=== PATIENT | female | born 1950 | race Caucasian/White ===

== ENCOUNTER 2017-04-17 09:30 | Outpatient (CLI) | payer MEDICARE, OTHER, SELFPAY | END 2017-04-17 11:30 | disposition home or self-care (01) | PROVIDERS: Visit Provider Internal Medicine | DX: Z51.11 Encounter for antineoplastic chemotherapy; C18.9 Malignant neoplasm of colon, unspecified | CPT/HCPCS: 81001; 85025; 96413; J9035 ==

== ENCOUNTER 2017-04-29 10:25 | Outpatient (CLI) | payer MEDICARE, OTHER, SELFPAY ==
[2017-04-29 10:32] VITALS: BMI 30.2
[2017-04-29 10:51] LABS: Microscopic, Urine URINE MICROSCOPIC (MICROSCOPIC)
[2017-04-29 10:53] LABS: Appearance,Urine CLEAR (Clear); Bilirubin,Urine Negative (Negative); Blood, Urine 1+ (Negative); Color,Urine YELLOW (Yellow); Glucose,Urine (UA) Negative (Negative); Ketones,Urine Negative (Negative); Leukocyte Esterase,Urine Negative (Negative); Nitrate,Urine Negative (Negative); PH,Urine 5.5 (5.0-8.5); Protein,Urine Negative (Negative); Urobilinogen,Urine 0.2 EU/dl (0.2)
[2017-04-29 10:55] LABS: Basophils # 0.1 K/mm3 (0-0.2); Basophils % 0.8 % (0.1-2.0); Eosinophils # 0.3 K/mm3 (0.0-0.4); Eosinophils % 4.4 % (0.1-12.0); Hematocrit 41.2 % (37.0-47.0); Hemoglobin 13.1 g/dL (12.2-16.2); Lymphocytes # 1.1 K/mm3 (0.7-4.5); Lymphocytes % 18.4 K/mm3 (10-50); Mean Corpuscular HGB Conc 31.7 g/dL (31.8-35.4); Mean Corpuscular Hemoglobin 27.1 pg (27.0-31.2); Mean Corpuscular Volume 85.5 fl (81-99); Mean Platelet Volume 7.6 fl (7.4-10.4); Monocytes # 0.4 K/mm3 (0.1-1.0); Monocytes % 6.2 % (1.7-9.3); Neutrophils % 70.1 % (37.0-80.0); Platelet Count 161 K/mm3 (142-424); Red Blood Count 4.82 M/mm3 (4.20-5.40); Red Cell Distribution Width 17.6 % (11.5-17.5); White Blood Count 5.7 K/mm3 (4.8-10.8)
[2017-04-29 11:09] LABS: Bacteria,Urine 1+ /lpf
[2017-04-29 12:01] VITALS: BP 146/46; PULSE 64; RESP 20; TEMP 36.4; O2SAT 98
[2017-04-29 12:16] VITALS: BP 141/50; PULSE 61; RESP 20; TEMP 36.5; O2SAT 97
[2017-04-29 12:36] VITALS: BP 123/64; PULSE 56; RESP 20; TEMP 36.4; O2SAT 98
== END 2017-04-29 12:50 | disposition home or self-care (01) ==
LOC: INF 14:45
PROVIDERS: Family Provider Family Medicine; PCP Family Medicine; Visit Provider Internal Medicine
DX: C18.9 Malignant neoplasm of colon, unspecified (principal); R82.90 Unspecified abnormal findings in urine; Z51.11 Encounter for antineoplastic chemotherapy
CPT/HCPCS: 81001; 85025; 87086; 96413; J9035

== ENCOUNTER 2017-05-13 10:23 | Outpatient (CLI) | payer MEDICARE, OTHER, SELFPAY ==
[2017-05-13 10:24] VITALS: BMI 31.1
[2017-05-13 11:00] VITALS: BP 115/80; PULSE 53; RESP 18; TEMP 36.4; O2SAT 96
[2017-05-13 11:14] LABS: Appearance,Urine CLEAR (Clear); Bilirubin,Urine Negative (Negative); Blood, Urine TRACE-I (Negative); Color,Urine YELLOW (Yellow); Glucose,Urine (UA) Negative (Negative); Ketones,Urine Negative (Negative); Leukocyte Esterase,Urine Negative (Negative); Microscopic, Urine URINE MICROSCOPIC (MICROSCOPIC); Nitrate,Urine Negative (Negative); PH,Urine 5.5 (5.0-8.5); Protein,Urine Negative (Negative); Specific Gravity, Urine 1.015 (1.005-1.030); Urobilinogen,Urine 0.2 EU/dl (0.2)
[2017-05-13 11:15] LABS: Basophils # 0.1 K/mm3 (0-0.2); Basophils % 0.8 % (0.1-2.0); Eosinophils # 0.3 K/mm3 (0.0-0.4); Eosinophils % 4.4 % (0.1-12.0); Hematocrit 44.1 % (37.0-47.0); Hemoglobin 13.9 g/dL (12.2-16.2); Lymphocytes % 13.5 K/mm3 (10-50); Mean Corpuscular HGB Conc 31.4 g/dL (31.8-35.4); Mean Corpuscular Hemoglobin 26.9 pg (27.0-31.2); Mean Corpuscular Volume 85.6 fl (81-99); Mean Platelet Volume 7.4 fl (7.4-10.4); Monocytes # 0.4 K/mm3 (0.1-1.0); Monocytes % 4.7 % (1.7-9.3); Neutrophils # 5.7 K/mm3 (1.8-7.8); Neutrophils % 76.6 % (37.0-80.0); Platelet Count 183 K/mm3 (142-424); Red Blood Count 5.16 M/mm3 (4.20-5.40); Red Cell Distribution Width 17.9 % (11.5-17.5); White Blood Count 7.5 K/mm3 (4.8-10.8)
[2017-05-13 11:28] LABS: Alanine Aminotransferase 22 U/L (12-78); Albumin Level 3.3 gm/dL (3.4-5.0); Albumin/Globulin Ratio 0.9 (1.1-1.8); Alkaline Phosphatase 82 U/L (46-116); Anion Gap 9.8 mEq/L (5-15); Aspartate Amino Transferase 23 U/L (15-37); Bilirubin,Total 0.4 mg/dL (0.2-1.0); Blood Urea Nitrogen 13 mg/dL (7-18); Calcium 8.5 mg/dL (8.5-10.1); Carbon Dioxide 29 mmol/L (21.0-32.0); Chloride 105 mmol/L (98-107); Creatinine Clearance Estimated 66 mL/min (0-300); Creatinine,Serum 0.69 mg/dL (0.55-1.02); Estimated Glomerular Filt Rate 85 ml/min (>60); GFR (African American) 103 ML/MIN (>60); Globulin 3.7 gm/dl (1.3-3.2); Glucose 102 mg/dL (74-106); Potassium 3.8 mmoL/L (3.5-5.1); Sodium 140 mmol/L (136-145)
[2017-05-13 11:31] LABS: Bacteria,Urine 2+ /lpf; RBC,Urine Occasional #/hpf (0-3); WBC,Urine Occasional #/hpf (0-3)
[2017-05-13 12:17] VITALS: BP 105/63; PULSE 54; RESP 18; O2SAT 96
[2017-05-13 12:32] VITALS: BP 110/60; PULSE 58; RESP 18; O2SAT 96
[2017-05-13 12:55] VITALS: BP 107/62; PULSE 57; RESP 18; TEMP 36.5; O2SAT 97
== END 2017-05-13 12:55 | disposition home or self-care (01) ==
LOC: INF 10:23
PROVIDERS: Family Provider Family Medicine; PCP Family Medicine; Visit Provider Internal Medicine
DX: C18.9 Malignant neoplasm of colon, unspecified (principal); Z51.11 Encounter for antineoplastic chemotherapy; R82.90 Unspecified abnormal findings in urine
CPT/HCPCS: 80053; 81001; 85025; 87086; 96413; J9035

== ENCOUNTER 2017-05-26 09:21 | Outpatient (CLI) | payer MEDICARE, OTHER, SELFPAY ==
[2017-05-26 09:24] VITALS: BMI 32.0
[2017-05-26 10:17] LABS: Microscopic, Urine URINE MICROSCOPIC (MICROSCOPIC)
[2017-05-26 10:18] LABS: Appearance,Urine CLEAR (Clear); Bilirubin,Urine Negative (Negative); Blood, Urine TRACE-I (Negative); Color,Urine YELLOW (Yellow); Glucose,Urine (UA) Negative (Negative); Ketones,Urine Negative (Negative); Leukocyte Esterase,Urine Negative (Negative); Nitrate,Urine Negative (Negative); PH,Urine 5.5 (5.0-8.5); Protein,Urine Negative (Negative); Specific Gravity, Urine 1.015 (1.005-1.030); Urobilinogen,Urine 0.2 EU/dl (0.2)
[2017-05-26 10:20] LABS: Basophils # 0.1 K/mm3 (0-0.2); Basophils % 0.7 % (0.1-2.0); Eosinophils # 0.2 K/mm3 (0.0-0.4); Eosinophils % 3.3 % (0.1-12.0); Hematocrit 42.2 % (37.0-47.0); Hemoglobin 13.5 g/dL (12.2-16.2); Lymphocytes % 14.1 K/mm3 (10-50); Mean Corpuscular HGB Conc 31.9 g/dL (31.8-35.4); Mean Corpuscular Hemoglobin 27.7 pg (27.0-31.2); Mean Corpuscular Volume 86.7 fl (81-99); Mean Platelet Volume 7.5 fl (7.4-10.4); Monocytes # 0.4 K/mm3 (0.1-1.0); Monocytes % 4.9 % (1.7-9.3); Neutrophils # 5.5 K/mm3 (1.8-7.8); Platelet Count 126 K/mm3 (142-424); Red Blood Count 4.86 M/mm3 (4.20-5.40); Red Cell Distribution Width 18.2 % (11.5-17.5); White Blood Count 7.1 K/mm3 (4.8-10.8)
[2017-05-26 10:28] LABS: Bacteria,Urine Trace /lpf; RBC,Urine Occasional #/hpf (0-3)
[2017-05-26 10:32] LABS: Alanine Aminotransferase 22 U/L (12-78); Albumin Level 3.3 gm/dL (3.4-5.0); Albumin/Globulin Ratio 0.9 (1.1-1.8); Alkaline Phosphatase 84 U/L (46-116); Anion Gap 10.6 mEq/L (5-15); Aspartate Amino Transferase 19 U/L (15-37); Bilirubin,Total 0.5 mg/dL (0.2-1.0); Blood Urea Nitrogen 20 mg/dL (7-18); Calcium 8.4 mg/dL (8.5-10.1); Carbon Dioxide 26 mmol/L (21.0-32.0); Chloride 108 mmol/L (98-107); Creatinine Clearance Estimated 65 mL/min (0-300); Creatinine,Serum 0.76 mg/dL (0.55-1.02); Estimated Glomerular Filt Rate 76 ml/min (>60); GFR (African American) 92 ML/MIN (>60); Globulin 3.6 gm/dl (1.3-3.2); Glucose 100 mg/dL (74-106); Potassium 3.6 mmoL/L (3.5-5.1); Sodium 141 mmol/L (136-145); Total Protein,Serum 6.9 gm/dL (6.4-8.2)
[2017-05-26 12:13] VITALS: BP 123/70; PULSE 48; RESP 20; TEMP 36.4; O2SAT 98
[2017-05-26 12:28] VITALS: BP 119/68; PULSE 51; RESP 18; TEMP 36.6; O2SAT 99
[2017-05-26 12:45] VITALS: BP 114/55; PULSE 52; RESP 20; TEMP 36.6; O2SAT 99
== END 2017-05-26 12:50 | disposition home or self-care (01) ==
LOC: INF 09:22
PROVIDERS: Family Provider Family Medicine; PCP Family Medicine; Visit Provider Internal Medicine
DX: Z51.11 Encounter for antineoplastic chemotherapy (principal); C18.9 Malignant neoplasm of colon, unspecified
CPT/HCPCS: 80053; 81001; 85025; 96413; J9035

== ENCOUNTER 2017-06-10 10:00 | Outpatient (CLI) | payer MEDICARE, OTHER, SELFPAY ==
[2017-06-10 10:01] VITALS: BMI 31.6
[2017-06-10 10:29] LABS: Microscopic, Urine URINE MICROSCOPIC (MICROSCOPIC)
[2017-06-10 10:30] LABS: Basophils % 0.8 % (0.1-2.0); Eosinophils # 0.2 K/mm3 (0.0-0.4); Eosinophils % 4.2 % (0.1-12.0); Hemoglobin 13.1 g/dL (12.2-16.2); Lymphocytes # 0.9 K/mm3 (0.7-4.5); Lymphocytes % 17.6 K/mm3 (10-50); Mean Corpuscular Hemoglobin 27.8 pg (27.0-31.2); Mean Corpuscular Volume 86.9 fl (81-99); Mean Platelet Volume 7.4 fl (7.4-10.4); Monocytes # 0.4 K/mm3 (0.1-1.0); Monocytes % 6.7 % (1.7-9.3); Neutrophils # 3.7 K/mm3 (1.8-7.8); Neutrophils % 70.7 % (37.0-80.0); Platelet Count 149 K/mm3 (142-424); Red Blood Count 4.72 M/mm3 (4.20-5.40); Red Cell Distribution Width 17.7 % (11.5-17.5); White Blood Count 5.3 K/mm3 (4.8-10.8)
[2017-06-10 10:38] LABS: Appearance,Urine CLEAR (Clear); Bilirubin,Urine Negative (Negative); Blood, Urine 1+ (Negative); Color,Urine YELLOW (Yellow); Glucose,Urine (UA) Negative (Negative); Ketones,Urine Negative (Negative); Leukocyte Esterase,Urine Negative (Negative); Nitrate,Urine Negative (Negative); Protein,Urine Negative (Negative); Urobilinogen,Urine 0.2 EU/dl (0.2)
[2017-06-10 10:52] LABS: Bacteria,Urine Trace /lpf; RBC,Urine Occasional #/hpf (0-3)
[2017-06-10 11:34] VITALS: BP 132/75; PULSE 48; RESP 18; TEMP 36.7; O2SAT 98
[2017-06-10 11:49] VITALS: BP 130/71; PULSE 49; RESP 20; TEMP 36.5; O2SAT 97
[2017-06-10 12:04] VITALS: BP 129/68; PULSE 51; RESP 18; O2SAT 97
[2017-06-10 12:19] VITALS: BP 131/69; PULSE 49; RESP 18; TEMP 36.6; O2SAT 98
== END 2017-06-10 12:25 | disposition home or self-care (01) ==
LOC: INF 10:07
PROVIDERS: Family Provider Family Medicine; PCP Family Medicine; Visit Provider Internal Medicine
DX: Z51.11 Encounter for antineoplastic chemotherapy (principal); C18.9 Malignant neoplasm of colon, unspecified
CPT/HCPCS: 81001; 85025; 96413; J9035

== ENCOUNTER → 2017-06-20 08:40 | Outpatient (CLI) | payer MEDICARE, OTHER, SELFPAY ==
[2017-06-20 09:13] LABS: Blood Urea Nitrogen 22 mg/dL (7-18); Creatinine,Serum 0.73 mg/dL (0.55-1.02); Estimated Glomerular Filt Rate 80 ml/min (>60); GFR (African American) 97 ML/MIN (>60)
--- NOTE | 2017-06-20 09:15 | CT_ITS ---
CT chest w con HISTORY: Follow-up: Cancer with pulmonary metastasis ITS.REASON: COLON CANCER ORDERING PHYSICIAN: Robert Mackey MD PATIENT AGE: 67 years TECHNIQUE: Axial images obtained following the administration of 75 mL of Isovue 370 . Sagittal, and coronal reformatted images are also generated and reviewed. COMPARISON: 11/21/2016 FINDINGS: There are enlarged right hilar lymph nodes which have increased in size measuring up to 19 x 14 mm in the right hilum posteriorly previously measuring 9 mm. A 15 mm node is present at the bifurcation of the right pulmonary artery previously measuring 10 mm. There are multiple pulmonary nodules which have increased in size. The largest nodule is in the right lower lobe in the superior segment extending from the right hilum projected posteriorly measuring up to 2.7 x 2 cm previously 2 x 1.4 cm nodules are most numerous in the right lower lobe all showing some increase in size. There is a nodule also in the left lower lobe measuring 10 mm previously measuring 7 mm right upper lobe nodules are also present and is increased in size. No effusions. No infiltrates. No bony destructive process IMPRESSION: Progression of thoracic metastasis with enlarging multiple pulmonary nodules and right hilar adenopathy
--- NOTE | 2017-06-20 09:16 | CT_ITS ---
CT abdomen pelvis w con CLINICAL INDICATION: Metastatic colon cancer follow-up ITS.REASON: COLON CANCER ORDERING PHYSICIAN: Robert Mackey MD PATIENT AGE: 67 years COMPARISON: 12/30/2016 TECHNIQUE: Axial images obtained with sagittal and coronal reformats. PROCEDURE: Oral Contrast: Redicat IV Contrast: 75 mL's of Isovue-370 performed in conjunction with the chest CT. FINDINGS: Please see chest CT for description of the lower chest. There is been a prior cholecystectomy. No focal liver lesion. The spleen and adrenal glands and pancreas are unremarkable. There are bilateral parapelvic renal cysts. An 9 mm stone is present in the lower pole the right kidney without obstruction. There is a left mid abdominal colostomy. Parastomal hernia is present with a few large bowel loops within the hernia. Previously noted small bowel loops within the hernia is not present on today's exam.. No evidence of obstruction. There has been hemicolectomy with removal of the sigmoid colon and rectum there are some mildly prominent small bowel loops in the pelvis with suture line in the pelvis. There is a fluid collection in the left pelvic region which measures 7 x 5 cm. There is an air-fluid level at this region. This may only represent a dilated loop of small bowel. Cannot exclude possibility of an abscess. Contrast is not present within the small bowel at this area. The appendix is unremarkable.. No intestinal obstruction or free air. Postsurgical changes are present involving the anterior abdominal wall. No acute bony anomalies. No bony destructive process. IMPRESSION: 1. Prior left hemicolectomy with left mid abdominal colostomy with herniation of large bowel loops and the colostomy. Previously noted small bowel herniation within the colostomy site is not apparent with no evidence of small bowel obstruction. 2. There is a 7 x 5 cm collection in the central pelvis toward the left possibly due to focally dilated small bowel versus an abscess. Unfortunately the oral contrast is passed this site mostly in the terminal ileum and large bowel. There are some mildly thickened small bowel loops in the left lower quadrant and pelvis 3. Right nephrolithiasis
--- NOTE | 2017-06-20 09:52 | [facility].ITSHM ---
fursomide vit d potassium levothyroxin enalapril stool softner
== END ==
PROVIDERS: Family Provider Family Medicine; PCP Family Medicine; Visit Provider Internal Medicine
DX: Z03.89 Encounter for observation for other suspected diseases and conditions ruled out (principal); C18.9 Malignant neoplasm of colon, unspecified
CPT/HCPCS: 36415; 71260; 74177; 82565; 84520; Q9967

== ENCOUNTER → 2017-07-16 10:11 | Outpatient (CLI) | payer MEDICARE, OTHER, SELFPAY ==
[2017-07-16 10:36] LABS: Basophils % 0.7 % (0.1-2.0); Eosinophils # 0.2 K/mm3 (0.0-0.4); Eosinophils % 3.8 % (0.1-12.0); Hematocrit 46.8 % (37.0-47.0); Hemoglobin 14.9 g/dL (12.2-16.2); Lymphocytes % 17.9 K/mm3 (10-50); Mean Corpuscular HGB Conc 31.9 g/dL (31.8-35.4); Mean Corpuscular Hemoglobin 28.9 pg (27.0-31.2); Mean Corpuscular Volume 90.4 fl (81-99); Mean Platelet Volume 7.5 fl (7.4-10.4); Monocytes # 0.3 K/mm3 (0.1-1.0); Monocytes % 5.2 % (1.7-9.3); Neutrophils # 4.2 K/mm3 (1.8-7.8); Neutrophils % 72.5 % (37.0-80.0); Platelet Count 167 K/mm3 (142-424); Red Blood Count 5.17 M/mm3 (4.20-5.40); Red Cell Distribution Width 17.1 % (11.5-17.5); White Blood Count 5.8 K/mm3 (4.8-10.8)
[2017-07-16 12:22] LABS: Alanine Aminotransferase 25 U/L (12-78); Albumin Level 3.6 gm/dL (3.4-5.0); Albumin/Globulin Ratio 1.2 (1.1-1.8); Alkaline Phosphatase 104 U/L (46-116); Anion Gap 10.8 mEq/L (5-15); Aspartate Amino Transferase 27 U/L (15-37); Bilirubin,Total 0.6 mg/dL (0.2-1.0); Blood Urea Nitrogen 14 mg/dL (7-18); Calcium 8.7 mg/dL (8.5-10.1); Carbon Dioxide 31 mmol/L (21.0-32.0); Chloride 103 mmol/L (98-107); Estimated Glomerular Filt Rate 84 ml/min (>60); GFR (African American) 101 ML/MIN (>60); Globulin 3.1 gm/dl (1.3-3.2); Glucose 108 mg/dL (74-106); Potassium 3.8 mmoL/L (3.5-5.1); Sodium 141 mmol/L (136-145); Total Protein,Serum 6.7 gm/dL (6.4-8.2)
== END ==
PROVIDERS: Visit Provider Nurse Practitioner
DX: C18.9 Malignant neoplasm of colon, unspecified (principal)
CPT/HCPCS: 36415; 80053; 85025

== ENCOUNTER 2017-07-22 09:23 | Outpatient (CLI) | payer MEDICARE, OTHER, SELFPAY ==
[2017-07-22] VITALS (13 sets, daily range): BP systolic 103–161; BP diastolic 56–72; PULSE 49–59; RESP 16–18; TEMP 36.6; BMI 35.6
[2017-07-22 10:35] LABS: Appearance,Urine CLEAR (Clear); Bilirubin,Urine Negative (Negative); Blood, Urine TRACE-I (Negative); Color,Urine YELLOW (Yellow); Glucose,Urine (UA) Negative (Negative); Ketones,Urine Negative (Negative); Leukocyte Esterase,Urine Negative (Negative); Microscopic, Urine URINE MICROSCOPIC (MICROSCOPIC); Nitrate,Urine Negative (Negative); PH,Urine 5.5 (5.0-8.5); Protein,Urine Negative (Negative); Specific Gravity, Urine 1.015 (1.005-1.030); Urobilinogen,Urine 0.2 EU/dl (0.2)
[2017-07-22 10:37] LABS: Basophils % 0.6 % (0.1-2.0); Eosinophils # 0.2 K/mm3 (0.0-0.4); Eosinophils % 3.3 % (0.1-12.0); Hematocrit 45.4 % (37.0-47.0); Hemoglobin 14.2 g/dL (12.2-16.2); Lymphocytes % 14.9 K/mm3 (10-50); Mean Corpuscular HGB Conc 31.2 g/dL (31.8-35.4); Mean Corpuscular Hemoglobin 29.1 pg (27.0-31.2); Mean Corpuscular Volume 93.3 fl (81-99); Mean Platelet Volume 7.7 fl (7.4-10.4); Monocytes # 0.3 K/mm3 (0.1-1.0); Neutrophils # 4.9 K/mm3 (1.8-7.8); Neutrophils % 76.3 % (37.0-80.0); Platelet Count 157 K/mm3 (142-424); Red Blood Count 4.86 M/mm3 (4.20-5.40); Red Cell Distribution Width 16.7 % (11.5-17.5); White Blood Count 6.5 K/mm3 (4.8-10.8)
[2017-07-22 10:44] LABS: Bacteria,Urine 1+ /lpf; Hyaline Casts,Urine Occasional #/lpf (0); Mucus,Urine 1+ /lpf; RBC,Urine Occasional #/hpf (0-3); WBC,Urine Occasional #/hpf (0-3)
[2017-07-22 10:47] LABS: Alanine Aminotransferase 23 U/L (12-78); Albumin/Globulin Ratio 0.8 (1.1-1.8); Alkaline Phosphatase 92 U/L (46-116); Anion Gap 7.7 mEq/L (5-15); Aspartate Amino Transferase 21 U/L (15-37); Bilirubin,Total 0.3 mg/dL (0.2-1.0); Blood Urea Nitrogen 19 mg/dL (7-18); Calcium 8.5 mg/dL (8.5-10.1); Carbon Dioxide 32 mmol/L (21.0-32.0); Chloride 106 mmol/L (98-107); Creatinine Clearance Estimated 68 mL/min (0-300); Creatinine,Serum 0.73 mg/dL (0.55-1.02); Estimated Glomerular Filt Rate 80 ml/min (>60); GFR (African American) 97 ML/MIN (>60); Globulin 3.6 gm/dl (1.3-3.2); Glucose 119 mg/dL (74-106); Potassium 3.7 mmoL/L (3.5-5.1); Sodium 142 mmol/L (136-145); Total Protein,Serum 6.6 gm/dL (6.4-8.2)
== END 2017-07-22 14:55 | disposition home or self-care (01) ==
LOC: INF 09:23
PROVIDERS: Family Provider Family Medicine; PCP Family Medicine; Visit Provider Internal Medicine
DX: Z51.11 Encounter for antineoplastic chemotherapy (principal); C19 Malignant neoplasm of rectosigmoid junction; C78.5 Secondary malignant neoplasm of large intestine and rectum
CPT/HCPCS: 80053; 81001; 85025; 96413; 96415; 96417; J9035; J9206; Q0166

== ENCOUNTER 2017-08-06 13:01 | Outpatient (CLI) | payer MEDICARE, OTHER, SELFPAY ==
[2017-08-06] VITALS (11 sets, daily range): BP systolic 99–151; BP diastolic 44–90; PULSE 50–61; RESP 16–18; TEMP 36.6; BMI 32.4
[2017-08-06 13:28] LABS: Microscopic, Urine URINE MICROSCOPIC (MICROSCOPIC)
[2017-08-06 13:38] LABS: Appearance,Urine CLEAR (Clear); Bilirubin,Urine Negative (Negative); Blood, Urine 1+ (Negative); Color,Urine YELLOW (Yellow); Glucose,Urine (UA) Negative (Negative); Ketones,Urine Negative (Negative); Leukocyte Esterase,Urine Negative (Negative); Nitrate,Urine Negative (Negative); Protein,Urine Negative (Negative); Urobilinogen,Urine 0.2 EU/dl (0.2)
[2017-08-06 13:43] LABS: Alanine Aminotransferase 25 U/L (12-78); Albumin Level 3.5 gm/dL (3.4-5.0); Alkaline Phosphatase 97 U/L (46-116); Anion Gap 11.4 mEq/L (5-15); Aspartate Amino Transferase 26 U/L (15-37); Bilirubin,Total 0.4 mg/dL (0.2-1.0); Blood Urea Nitrogen 11 mg/dL (7-18); Calcium 8.8 mg/dL (8.5-10.1); Carbon Dioxide 30 mmol/L (21.0-32.0); Chloride 103 mmol/L (98-107); Creatinine Clearance Estimated 66 mL/min (0-300); Creatinine,Serum 0.69 mg/dL (0.55-1.02); Estimated Glomerular Filt Rate 85 ml/min (>60); GFR (African American) 103 ML/MIN (>60); Globulin 3.5 gm/dl (1.3-3.2); Glucose 105 mg/dL (74-106); Potassium 3.4 mmoL/L (3.5-5.1); Sodium 141 mmol/L (136-145)
[2017-08-06 13:44] LABS: Basophils % 0.6 % (0.1-2.0); Eosinophils # 0.1 K/mm3 (0.0-0.4); Eosinophils % 2.5 % (0.1-12.0); Hematocrit 45.4 % (37.0-47.0); Hemoglobin 14.3 g/dL (12.2-16.2); Lymphocytes % 16.6 K/mm3 (10-50); Mean Corpuscular HGB Conc 31.6 g/dL (31.8-35.4); Mean Corpuscular Hemoglobin 29.1 pg (27.0-31.2); Mean Corpuscular Volume 92.1 fl (81-99); Mean Platelet Volume 7.2 fl (7.4-10.4); Monocytes # 0.3 K/mm3 (0.1-1.0); Monocytes % 5.2 % (1.7-9.3); Neutrophils # 4.4 K/mm3 (1.8-7.8); Neutrophils % 75.2 % (37.0-80.0); Platelet Count 155 K/mm3 (142-424); Red Blood Count 4.93 M/mm3 (4.20-5.40); Red Cell Distribution Width 17.2 % (11.5-17.5); White Blood Count 5.8 K/mm3 (4.8-10.8)
[2017-08-06 13:52] LABS: Bacteria,Urine Trace /lpf; RBC,Urine Occasional #/hpf (0-3); WBC,Urine Occasional #/hpf (0-3)
== END 2017-08-06 17:22 | disposition home or self-care (01) ==
LOC: INF 13:01
PROVIDERS: Family Provider Family Medicine; PCP Family Medicine; Visit Provider Internal Medicine
DX: C18.9 Malignant neoplasm of colon, unspecified (principal); Z51.11 Encounter for antineoplastic chemotherapy
CPT/HCPCS: 80053; 81001; 85025; 96413; 96415; J9035; J9206; Q0166

== ENCOUNTER → 2017-08-12 13:55 | Outpatient (CLI) | payer MEDICARE, OTHER, SELFPAY ==
[2017-08-12 14:03] LABS: Microscopic, Urine URINE MICROSCOPIC (MICROSCOPIC)
[2017-08-12 14:31] LABS: Appearance,Urine CLEAR (Clear); Bilirubin,Urine Negative (Negative); Blood, Urine 1+ (Negative); Color,Urine YELLOW (Yellow); Glucose,Urine (UA) Negative (Negative); Ketones,Urine TRACE (Negative); Leukocyte Esterase,Urine Negative (Negative); Nitrate,Urine Negative (Negative); PH,Urine 5.5 (5.0-8.5); Protein,Urine Negative (Negative); Specific Gravity, Urine 1.025 (1.005-1.030); Urobilinogen,Urine 0.2 EU/dl (0.2)
[2017-08-12 14:49] LABS: Bacteria,Urine 2+ /lpf; Mucus,Urine 1+ /lpf; RBC,Urine Occasional #/hpf (0-3); Squamous Epithelial Cell,Urine TNTC #/hpf (0-5); WBC,Urine Occasional #/hpf (0-3)
== END ==
PROVIDERS: Family Provider Family Medicine; PCP Family Medicine; Visit Provider Surgery
DX: Z01.818 Encounter for other preprocedural examination (principal); C78.5 Secondary malignant neoplasm of large intestine and rectum; R82.90 Unspecified abnormal findings in urine
CPT/HCPCS: 81001; 87086; 93005

== ENCOUNTER → 2017-09-03 08:23 | Outpatient (CLI) | payer MEDICARE, OTHER, SELFPAY ==
[2017-09-03 08:40] VITALS: BMI 32.5
[2017-09-03 08:58] LABS: Microscopic, Urine URINE MICROSCOPIC (MICROSCOPIC)
[2017-09-03 09:00] LABS: Basophils # 0.1 K/mm3 (0-0.2); Eosinophils # 0.2 K/mm3 (0.0-0.4); Hematocrit 40.8 % (37.0-47.0); Hemoglobin 13.4 g/dL (12.2-16.2); Lymphocytes # 1.1 K/mm3 (0.7-4.5); Lymphocytes % 18.5 K/mm3 (10-50); Mean Corpuscular HGB Conc 32.7 g/dL (31.8-35.4); Mean Corpuscular Hemoglobin 29.9 pg (27.0-31.2); Mean Corpuscular Volume 91.3 fl (81-99); Mean Platelet Volume 7.1 fl (7.4-10.4); Monocytes # 0.4 K/mm3 (0.1-1.0); Monocytes % 6.3 % (1.7-9.3); Neutrophils % 70.2 % (37.0-80.0); Platelet Count 130 K/mm3 (142-424); Red Blood Count 4.47 M/mm3 (4.20-5.40); Red Cell Distribution Width 16.9 % (11.5-17.5); White Blood Count 5.7 K/mm3 (4.8-10.8)
[2017-09-03 09:16] LABS: Alanine Aminotransferase 29 U/L (12-78); Albumin Level 3.1 gm/dL (3.4-5.0); Albumin/Globulin Ratio 0.9 (1.1-1.8); Alkaline Phosphatase 94 U/L (46-116); Anion Gap 11.2 mEq/L (5-15); Aspartate Amino Transferase 22 U/L (15-37); Bilirubin,Total 0.4 mg/dL (0.2-1.0); Blood Urea Nitrogen 17 mg/dL (7-18); Calcium 8.2 mg/dL (8.5-10.1); Carbon Dioxide 27 mmol/L (21.0-32.0); Chloride 107 mmol/L (98-107); Creatinine Clearance Estimated 66 mL/min (0-300); Creatinine,Serum 0.59 mg/dL (0.55-1.02); Estimated Glomerular Filt Rate 102 ml/min (>60); GFR (African American) 123 ML/MIN (>60); Globulin 3.3 gm/dl (1.3-3.2); Glucose 125 mg/dL (74-106); Potassium 3.2 mmoL/L (3.5-5.1); Sodium 142 mmol/L (136-145); Total Protein,Serum 6.4 gm/dL (6.4-8.2)
[2017-09-03 09:20] LABS: Appearance,Urine CLEAR (Clear); Bilirubin,Urine Negative (Negative); Blood, Urine 1+ (Negative); Color,Urine YELLOW (Yellow); Glucose,Urine (UA) Negative (Negative); Ketones,Urine Negative (Negative); Leukocyte Esterase,Urine Negative (Negative); Nitrate,Urine Negative (Negative); Protein,Urine Negative (Negative); Specific Gravity, Urine 1.015 (1.005-1.030); Urobilinogen,Urine 0.2 EU/dl (0.2)
[2017-09-03 09:30] LABS: Bacteria,Urine Trace /lpf
== END ==
PROVIDERS: Family Provider Family Medicine; PCP Nurse Practitioner Family; Visit Provider Internal Medicine
DX: C18.9 Malignant neoplasm of colon, unspecified (principal)
CPT/HCPCS: 80053; 81001; 85025

== ENCOUNTER 2017-09-09 09:58 | Outpatient (CLI) | payer MEDICARE, OTHER, SELFPAY ==
[2017-09-09] VITALS (7 sets, daily range): BP systolic 145–166; BP diastolic 52–95; PULSE 51–74; RESP 18; TEMP 36.7; O2SAT 96–97
== END 2017-09-09 13:25 | disposition home or self-care (01) ==
LOC: INF 09:58
PROVIDERS: Family Provider Family Medicine; PCP Nurse Practitioner Family; Visit Provider Internal Medicine
DX: Z51.11 Encounter for antineoplastic chemotherapy (principal); C18.9 Malignant neoplasm of colon, unspecified; C78.00 Secondary malignant neoplasm of unspecified lung
CPT/HCPCS: 96413; 96415; 96417; J1642; J9035; J9206; Q0166

== ENCOUNTER 2017-09-23 09:44 | Outpatient (CLI) | payer MEDICARE, OTHER, SELFPAY ==
[2017-09-23] VITALS (12 sets, daily range): BP systolic 135–171; BP diastolic 45–72; PULSE 46–50; RESP 18; TEMP 36.3; O2SAT 94; BMI 35.7
[2017-09-23 10:48] LABS: Appearance,Urine CLEAR (Clear); Bilirubin,Urine Negative (Negative); Blood, Urine 1+ (Negative); Color,Urine YELLOW (Yellow); Glucose,Urine (UA) Negative (Negative); Ketones,Urine Negative (Negative); Leukocyte Esterase,Urine Negative (Negative); Microscopic, Urine URINE MICROSCOPIC (MICROSCOPIC); Nitrate,Urine Negative (Negative); Protein,Urine Negative (Negative); Specific Gravity, Urine 1.015 (1.005-1.030); Urobilinogen,Urine 0.2 EU/dl (0.2)
[2017-09-23 10:59] LABS: Bacteria,Urine Trace /lpf; RBC,Urine Occasional #/hpf (0-3)
[2017-09-23 11:48] LABS: Basophils % 0.8 % (0.1-2.0); Eosinophils # 0.2 K/mm3 (0.0-0.4); Eosinophils % 3.8 % (0.1-12.0); Hematocrit 42.4 % (37.0-47.0); Hemoglobin 13.4 g/dL (12.2-16.2); Lymphocytes % 18.7 K/mm3 (10-50); Mean Corpuscular HGB Conc 31.5 g/dL (31.8-35.4); Mean Corpuscular Hemoglobin 29.5 pg (27.0-31.2); Mean Corpuscular Volume 93.6 fl (81-99); Mean Platelet Volume 7.5 fl (7.4-10.4); Monocytes # 0.3 K/mm3 (0.1-1.0); Monocytes % 5.7 % (1.7-9.3); Neutrophils # 3.7 K/mm3 (1.8-7.8); Neutrophils % 71.1 % (37.0-80.0); Platelet Count 129 K/mm3 (142-424); Red Blood Count 4.53 M/mm3 (4.20-5.40); Red Cell Distribution Width 15.9 % (11.5-17.5); White Blood Count 5.2 K/mm3 (4.8-10.8)
[2017-09-23 12:00] LABS: Alanine Aminotransferase 24 U/L (12-78); Albumin Level 3.2 gm/dL (3.4-5.0); Alkaline Phosphatase 87 U/L (46-116); Anion Gap 12.3 mEq/L (5-15); Aspartate Amino Transferase 22 U/L (15-37); Bilirubin,Total 0.4 mg/dL (0.2-1.0); Blood Urea Nitrogen 17 mg/dL (7-18); Carbon Dioxide 28 mmol/L (21.0-32.0); Chloride 107 mmol/L (98-107); Creatinine Clearance Estimated 68 mL/min (0-300); Estimated Glomerular Filt Rate 84 ml/min (>60); GFR (African American) 101 ML/MIN (>60); Globulin 3.2 gm/dl (1.3-3.2); Glucose 102 mg/dL (74-106); Potassium 4.3 mmoL/L (3.5-5.1); Sodium 143 mmol/L (136-145); Total Protein,Serum 6.4 gm/dL (6.4-8.2)
--- NOTE | 2017-09-23 12:15 | PC.NURSE ---
injected cath nevin into pac at 1105 took blood at 1135 successful
== END 2017-09-23 15:45 | disposition home or self-care (01) ==
LOC: INF 09:49
PROVIDERS: Family Provider Family Medicine; PCP Nurse Practitioner Family; Visit Provider Internal Medicine
DX: Z51.11 Encounter for antineoplastic chemotherapy (principal); C18.9 Malignant neoplasm of colon, unspecified; C78.00 Secondary malignant neoplasm of unspecified lung
CPT/HCPCS: 80053; 81001; 85025; 96375; 96413; 96415; 96417; J1642; J9035; J9206; Q0166

== ENCOUNTER 2017-10-08 08:19 | Outpatient (CLI) | payer MEDICARE, OTHER, SELFPAY ==
[2017-10-08 08:30] VITALS: BMI 33.4
[2017-10-08 08:39] LABS: Microscopic, Urine URINE MICROSCOPIC (MICROSCOPIC)
[2017-10-08 08:40] LABS: Basophils % 0.9 % (0.1-2.0); Eosinophils # 0.2 K/mm3 (0.0-0.4); Eosinophils % 3.4 % (0.1-12.0); Hematocrit 45.1 % (37.0-47.0); Hemoglobin 13.8 g/dL (12.2-16.2); Lymphocytes # 0.9 K/mm3 (0.7-4.5); Lymphocytes % 18.9 K/mm3 (10-50); Mean Corpuscular HGB Conc 30.6 g/dL (31.8-35.4); Mean Corpuscular Hemoglobin 29.1 pg (27.0-31.2); Mean Corpuscular Volume 95.1 fl (81-99); Mean Platelet Volume 7.7 fl (7.4-10.4); Monocytes # 0.4 K/mm3 (0.1-1.0); Monocytes % 7.5 % (1.7-9.3); Neutrophils # 3.4 K/mm3 (1.8-7.8); Neutrophils % 69.3 % (37.0-80.0); Platelet Count 139 K/mm3 (142-424); Red Blood Count 4.74 M/mm3 (4.20-5.40); Red Cell Distribution Width 16.8 % (11.5-17.5); White Blood Count 4.9 K/mm3 (4.8-10.8)
[2017-10-08 08:47] LABS: Appearance,Urine CLEAR (Clear); Bilirubin,Urine Negative (Negative); Blood, Urine TRACE-L (Negative); Color,Urine YELLOW (Yellow); Glucose,Urine (UA) Negative (Negative); Ketones,Urine Negative (Negative); Leukocyte Esterase,Urine Negative (Negative); Nitrate,Urine Negative (Negative); Protein,Urine Negative (Negative); Urobilinogen,Urine 0.2 EU/dl (0.2)
[2017-10-08 08:53] LABS: Alanine Aminotransferase 33 U/L (12-78); Albumin Level 3.4 gm/dL (3.4-5.0); Alkaline Phosphatase 96 U/L (46-116); Aspartate Amino Transferase 26 U/L (15-37); Bilirubin,Total 0.4 mg/dL (0.2-1.0); Blood Urea Nitrogen 15 mg/dL (7-18); Calcium 8.8 mg/dL (8.5-10.1); Carbon Dioxide 31 mmol/L (21.0-32.0); Chloride 106 mmol/L (98-107); Creatinine Clearance Estimated 63 mL/min (0-300); Creatinine,Serum 0.67 mg/dL (0.55-1.02); Estimated Glomerular Filt Rate 88 ml/min (>60); GFR (African American) 107 ML/MIN (>60); Globulin 3.3 gm/dl (1.3-3.2); Glucose 121 mg/dL (74-106); Sodium 142 mmol/L (136-145); Total Protein,Serum 6.7 gm/dL (6.4-8.2)
[2017-10-08 08:56] LABS: Bacteria,Urine Trace /lpf; RBC,Urine Occasional #/hpf (0-3)
[2017-10-08 11:15] VITALS: BP 117/59; PULSE 41; RESP 18; TEMP 36.6; O2SAT 98
[2017-10-08 11:45] VITALS: BP 119/64; PULSE 48; RESP 18; TEMP 36.6; O2SAT 98
[2017-10-08 12:15] VITALS: BP 126/49; PULSE 47; RESP 18; O2SAT 98
[2017-10-08 12:45] VITALS: BP 138/51; PULSE 49; RESP 18; O2SAT 97
[2017-10-08 13:15] VITALS: BP 133/52; PULSE 48; RESP 18; O2SAT 97
[2017-10-08 13:45] VITALS: BP 139/58; PULSE 50; RESP 18; O2SAT 97
== END 2017-10-08 13:50 | disposition home or self-care (01) ==
LOC: INF 08:19
PROVIDERS: Family Provider Family Medicine; PCP Nurse Practitioner Family; Visit Provider Internal Medicine
DX: C18.9 Malignant neoplasm of colon, unspecified (principal)
CPT/HCPCS: 80053; 81001; 85025; 96413; 96415; 96417; J9035; J9206; Q0166

== ENCOUNTER 2017-10-15 09:25 | Outpatient (CLI) | payer MEDICARE, OTHER, SELFPAY ==
--- NOTE | 2017-10-15 09:32 | CT_ITS ---
CT chest w con HISTORY: Follow-up: Cancer, metastatic disease ITS.REASON: COLON CA ORDERING PHYSICIAN: Robert Mackey MD PATIENT AGE: 67 years COMPARISON: 06/20/2017 TECHNIQUE: Axial images obtained following the administration of 75 mL of Isovue 370 . Sagittal, and coronal reformatted images are also generated and reviewed. All CT scans at the facility use one or more dose reduction, viz: automated exposure control; ma/kV adjustment per patient size (including targeted exams where dose is matched to indication; i.e. head); or iterative reconstruction technique. FINDINGS: No mediastinal mass or adenopathy. Normal heart size. No evidence of pericardial effusion. Multiple noncalcified nodular opacities are once again noted with soft tissue nodularity noted extending from the right superior hilar region posteriorly into the superior segmental area of the right lower lobe. This nodular region appears somewhat smaller measuring 2.2 x 1.8 cm previously 2.7 x 2 cm. Small hilar lymph node is present on the right at 1.2 cm previously 1.5 cm. Nodular densities in the superior segment of the right lower lobe are once again noted measuring up to 9 x 7 mm previously 10 x 9 mm. 10 mm subpleural nodule in the right lower lobe previously measured 12 mm. No new nodules are evident. There is a nodule in the left lower lobe posteriorly which measures 8 x 6 mm previously 10 x 8 mm. Calcified granuloma is present in the right middle lobe. No effusions. No acute bony anomalies. IMPRESSION: Overall the findings are compatible with slight improvement in the pulmonary metastasis with slight improvement in the right sided hilar adenopathy. Multiple nodules once again noted in the superior segment of the right lower lobe and in the left lower lobe. These however appear slightly smaller compared to the previous exam. No new nodules are evident.
--- NOTE | 2017-10-15 09:32 | CT_ITS ---
CT abdomen pelvis w con CLINICAL INDICATION: ITS.REASON: COLON CA ORDERING PHYSICIAN: Robert Mackey MD PATIENT AGE: 67 years COMPARISON: None TECHNIQUE: Axial images obtained with sagittal and coronal reformats. All CT scans at the facility use one or more dose reduction, viz: automated exposure control; ma/kV adjustment per patient size (including targeted exams where dose is matched to indication; i.e. head); or iterative reconstruction technique. PROCEDURE: Oral Contrast: Redicat IV Contrast: 75 mL's of Isovue-370 performed in conjunction with the chest CT. FINDINGS: Liver, spleen, adrenal glands, and pancreas have an unremarkable appearance. There has been prior cholecystectomy. There is an 8 mm nonobstructing stone in the lower pole the right kidney. There are bilateral parapelvic renal cysts. Prior left hemicolectomy. There is a left mid abdominal colostomy with herniation of large bowel loops into the colostomy site. No evidence of small bowel obstruction. Previously noted air-fluid level in the pelvic region is not as prominent and represents a mildly dilated small bowel loop. There is some mild small bowel wall thickening in the pelvic region. No abscess. There are postsurgical changes of the intra-abdominal wall on the right. There is grade 1 spondylolytic spondylolisthesis of L5 on S1. No bony destructive process. IMPRESSION: 1. Prior left hemicolectomy with left mid abdominal colostomy with herniation of large bowel loops in the colostomy site and mild amount retained colonic feces. 2. Mildly dilated and mildly thickened small bowel loops in the pelvis nonspecific and could be related to previous surgery/radiation changes. 3. No convincing evidence of metastatic disease
--- NOTE | 2017-10-15 09:48 | [facility].ITSHM ---
CARVEDILOL,VIT D 3, POIT CHL.FUROSEMIDE,LEVOTHYROXINE,ENALAPRIL,STOOL, SOFETNENER,XELODA,CAPEC
== END 2017-10-15 10:09 | disposition home or self-care (01) ==
LOC: RAD 09:25
PROVIDERS: Family Provider Family Medicine; PCP Nurse Practitioner Family; Visit Provider Internal Medicine
DX: C18.9 Malignant neoplasm of colon, unspecified (principal); Z03.89 Encounter for observation for other suspected diseases and conditions ruled out
CPT/HCPCS: 71260; 74177; J1642; Q9967

== ENCOUNTER 2017-10-20 08:20 | Outpatient (CLI) | payer MEDICARE, OTHER, SELFPAY ==
[2017-10-20 08:26] VITALS: BMI 34.4
[2017-10-20 08:42] LABS: Microscopic, Urine URINE MICROSCOPIC (MICROSCOPIC)
[2017-10-20 08:45] LABS: Appearance,Urine CLEAR (Clear); Bilirubin,Urine Negative (Negative); Blood, Urine TRACE-L (Negative); Color,Urine YELLOW (Yellow); Glucose,Urine (UA) Negative (Negative); Ketones,Urine Negative (Negative); Leukocyte Esterase,Urine Negative (Negative); Nitrate,Urine Negative (Negative); PH,Urine 5.5 (5.0-8.5); Protein,Urine Negative (Negative); Urobilinogen,Urine 0.2 EU/dl (0.2)
[2017-10-20 08:46] LABS: Basophils % 0.9 % (0.1-2.0); Eosinophils # 0.1 K/mm3 (0.0-0.4); Eosinophils % 3.5 % (0.1-12.0); Hematocrit 42.8 % (37.0-47.0); Hemoglobin 13.2 g/dL (12.2-16.2); Lymphocytes # 0.8 K/mm3 (0.7-4.5); Lymphocytes % 20.3 K/mm3 (10-50); Mean Corpuscular HGB Conc 30.9 g/dL (31.8-35.4); Mean Corpuscular Hemoglobin 29.5 pg (27.0-31.2); Mean Corpuscular Volume 95.6 fl (81-99); Mean Platelet Volume 7.5 fl (7.4-10.4); Monocytes # 0.4 K/mm3 (0.1-1.0); Monocytes % 8.8 % (1.7-9.3); Neutrophils # 2.7 K/mm3 (1.8-7.8); Neutrophils % 66.6 % (37.0-80.0); Platelet Count 110 K/mm3 (142-424); Red Blood Count 4.47 M/mm3 (4.20-5.40); White Blood Count 4.1 K/mm3 (4.8-10.8)
[2017-10-20 08:56] LABS: Alanine Aminotransferase 25 U/L (12-78); Albumin Level 3.1 gm/dL (3.4-5.0); Alkaline Phosphatase 81 U/L (46-116); Anion Gap 7.9 mEq/L (5-15); Aspartate Amino Transferase 22 U/L (15-37); Bilirubin,Total 0.3 mg/dL (0.2-1.0); Blood Urea Nitrogen 13 mg/dL (7-18); Carbon Dioxide 30 mmol/L (21.0-32.0); Chloride 108 mmol/L (98-107); Creatinine Clearance Estimated 68 mL/min (0-300); Creatinine,Serum 0.69 mg/dL (0.55-1.02); Estimated Glomerular Filt Rate 85 ml/min (>60); GFR (African American) 103 ML/MIN (>60); Globulin 3.2 gm/dl (1.3-3.2); Glucose 127 mg/dL (74-106); Potassium 3.9 mmoL/L (3.5-5.1); Sodium 142 mmol/L (136-145); Total Protein,Serum 6.3 gm/dL (6.4-8.2)
[2017-10-20 08:57] LABS: Bacteria,Urine Trace /lpf; WBC,Urine Occasional #/hpf (0-3)
[2017-10-20 10:33] VITALS: BP 153/57; PULSE 41; RESP 20; TEMP 36.6; O2SAT 98
[2017-10-20 11:03] VITALS: BP 151/59; PULSE 48; RESP 20; O2SAT 97
[2017-10-20 11:32] VITALS: BP 149/58; PULSE 47; RESP 20; O2SAT 97
[2017-10-20 12:02] VITALS: BP 153/51; PULSE 51; RESP 20; O2SAT 98
[2017-10-20 12:33] VITALS: BP 150/49; PULSE 50; RESP 20; O2SAT 97
[2017-10-20 13:05] VITALS: BP 152/61; PULSE 58; RESP 20; O2SAT 97
== END 2017-10-20 13:10 | disposition home or self-care (01) ==
LOC: INF 08:34
PROVIDERS: Family Provider Family Medicine; PCP Nurse Practitioner Family; Visit Provider Internal Medicine
DX: Z51.11 Encounter for antineoplastic chemotherapy (principal); C18.9 Malignant neoplasm of colon, unspecified
CPT/HCPCS: 80053; 81001; 85025; 96413; 96415; 96417; J9035; J9206; Q0166

== ENCOUNTER 2017-11-04 09:59 | Outpatient (CLI) | payer MEDICARE, OTHER, SELFPAY ==
[2017-11-04] VITALS (10 sets, daily range): BP systolic 129–139; BP diastolic 49–66; PULSE 42–54; RESP 18; TEMP 36.6; O2SAT 95–97; BMI 34.3
[2017-11-04 10:32] LABS: Eosinophils # 0.1 K/mm3 (0.0-0.4); Eosinophils % 2.9 % (0.1-12.0); Hematocrit 42.6 % (37.0-47.0); Hemoglobin 13.2 g/dL (12.2-16.2); Lymphocytes # 0.8 K/mm3 (0.7-4.5); Mean Corpuscular HGB Conc 31.1 g/dL (31.8-35.4); Mean Corpuscular Hemoglobin 29.8 pg (27.0-31.2); Mean Corpuscular Volume 95.7 fl (81-99); Mean Platelet Volume 7.7 fl (7.4-10.4); Monocytes # 0.3 K/mm3 (0.1-1.0); Monocytes % 7.5 % (1.7-9.3); Neutrophils % 69.6 % (37.0-80.0); Platelet Count 136 K/mm3 (142-424); Red Blood Count 4.45 M/mm3 (4.20-5.40); Red Cell Distribution Width 16.9 % (11.5-17.5); White Blood Count 4.3 K/mm3 (4.8-10.8)
[2017-11-04 10:33] LABS: Microscopic, Urine URINE MICROSCOPIC (MICROSCOPIC)
[2017-11-04 10:36] LABS: Appearance,Urine CLEAR (Clear); Bilirubin,Urine Negative (Negative); Blood, Urine 1+ (Negative); Color,Urine YELLOW (Yellow); Glucose,Urine (UA) Negative (Negative); Ketones,Urine Negative (Negative); Leukocyte Esterase,Urine Negative (Negative); Nitrate,Urine Negative (Negative); PH,Urine 5.5 (5.0-8.5); Protein,Urine Negative (Negative); Specific Gravity, Urine 1.015 (1.005-1.030); Urobilinogen,Urine 0.2 EU/dl (0.2)
[2017-11-04 10:44] LABS: Amorphous Sediment,Urine Trace /lpf; RBC,Urine Occasional #/hpf (0-3); Squamous Epithelial Cell,Urine 20-50 #/hpf (0-5)
[2017-11-04 11:00] LABS: Alanine Aminotransferase 24 U/L (12-78); Albumin Level 3.1 gm/dL (3.4-5.0); Alkaline Phosphatase 91 U/L (46-116); Anion Gap 8.5 mEq/L (5-15); Aspartate Amino Transferase 19 U/L (15-37); Bilirubin,Total 0.3 mg/dL (0.2-1.0); Blood Urea Nitrogen 17 mg/dL (7-18); Calcium 8.1 mg/dL (8.5-10.1); Carbon Dioxide 31 mmol/L (21.0-32.0); Chloride 109 mmol/L (98-107); Creatinine Clearance Estimated 67 mL/min (0-300); Creatinine,Serum 0.67 mg/dL (0.55-1.02); Estimated Glomerular Filt Rate 88 ml/min (>60); GFR (African American) 107 ML/MIN (>60); Globulin 3.2 gm/dl (1.3-3.2); Glucose 115 mg/dL (74-106); Potassium 3.5 mmoL/L (3.5-5.1); Sodium 145 mmol/L (136-145); Total Protein,Serum 6.3 gm/dL (6.4-8.2)
== END 2017-11-04 13:50 | disposition home or self-care (01) ==
LOC: INF 09:59
PROVIDERS: Family Provider Family Medicine; PCP Nurse Practitioner Family; Visit Provider Internal Medicine
DX: Z51.11 Encounter for antineoplastic chemotherapy (principal); C18.9 Malignant neoplasm of colon, unspecified
CPT/HCPCS: 80053; 81001; 85025; 96413; 96415; 96417; J9035; J9206; Q0166

== ENCOUNTER 2017-11-19 10:06 | Outpatient (CLI) | payer MEDICARE, OTHER, SELFPAY ==
[2017-11-19 08:39] VITALS: BMI 35.5
[2017-11-19 08:51] LABS: Microscopic, Urine URINE MICROSCOPIC (MICROSCOPIC)
[2017-11-19 08:55] LABS: Basophils # 0.1 K/mm3 (0-0.2); Basophils % 1.1 % (0.1-2.0); Eosinophils # 0.2 K/mm3 (0.0-0.4); Eosinophils % 3.2 % (0.1-12.0); Hematocrit 42.1 % (37.0-47.0); Hemoglobin 13.7 g/dL (12.2-16.2); Lymphocytes # 0.9 K/mm3 (0.7-4.5); Lymphocytes % 18.8 K/mm3 (10-50); Mean Corpuscular HGB Conc 32.4 g/dL (31.8-35.4); Mean Corpuscular Volume 95.6 fl (81-99); Mean Platelet Volume 7.9 fl (7.4-10.4); Monocytes # 0.4 K/mm3 (0.1-1.0); Monocytes % 8.8 % (1.7-9.3); Neutrophils # 3.1 K/mm3 (1.8-7.8); Neutrophils % 68.1 % (37.0-80.0); Platelet Count 121 K/mm3 (142-424); Red Blood Count 4.41 M/mm3 (4.20-5.40); Red Cell Distribution Width 16.4 % (11.5-17.5); White Blood Count 4.6 K/mm3 (4.8-10.8)
[2017-11-19 08:59] LABS: Appearance,Urine CLEAR (Clear); Bilirubin,Urine Negative (Negative); Blood, Urine TRACE-L (Negative); Color,Urine YELLOW (Yellow); Glucose,Urine (UA) Negative (Negative); Ketones,Urine Negative (Negative); Leukocyte Esterase,Urine Negative (Negative); Nitrate,Urine Negative (Negative); PH,Urine 5.5 (5.0-8.5); Protein,Urine Negative (Negative); Urobilinogen,Urine 0.2 EU/dl (0.2)
[2017-11-19 09:07] LABS: Alanine Aminotransferase 32 U/L (12-78); Albumin Level 3.1 gm/dL (3.4-5.0); Albumin/Globulin Ratio 0.9 (1.1-1.8); Alkaline Phosphatase 96 U/L (46-116); Aspartate Amino Transferase 23 U/L (15-37); Bilirubin,Total 0.3 mg/dL (0.2-1.0); Blood Urea Nitrogen 12 mg/dL (7-18); Calcium 8.2 mg/dL (8.5-10.1); Chloride 107 mmol/L (98-107); Creatinine Clearance Estimated 67 mL/min (0-300); Creatinine,Serum 0.85 mg/dL (0.55-1.02); Estimated Glomerular Filt Rate 67 ml/min (>60); GFR (African American) 81 ML/MIN (>60); Globulin 3.3 gm/dl (1.3-3.2); Glucose 102 mg/dL (74-106); Potassium 3.7 mmoL/L (3.5-5.1); Total Protein,Serum 6.4 gm/dL (6.4-8.2)
[2017-11-19 09:12] LABS: Anion Gap 6.7 mEq/L (5-15); Carbon Dioxide 33 mmol/L (21.0-32.0); Sodium 143 mmol/L (136-145)
[2017-11-19 09:30] LABS: Bacteria,Urine 1+ /lpf; Mucus,Urine Trace /lpf; WBC,Urine Occasional #/hpf (0-3)
[2017-11-19 10:33] VITALS: BP 147/79; PULSE 47; RESP 20; TEMP 36.5; O2SAT 97
[2017-11-19 11:03] VITALS: BP 160/76; PULSE 45; RESP 20; O2SAT 97
[2017-11-19 11:33] VITALS: BP 151/84; PULSE 48; RESP 20; O2SAT 97
[2017-11-19 12:03] VITALS: BP 154/81; PULSE 49; RESP 20; O2SAT 97
[2017-11-19 12:33] VITALS: BP 152/79; PULSE 46; RESP 20; O2SAT 96
[2017-11-19 12:55] VITALS: BP 153/81; PULSE 43; RESP 20; O2SAT 97
== END 2017-11-19 13:00 | disposition home or self-care (01) ==
LOC: INF 10:06
PROVIDERS: Family Provider Family Medicine; PCP Nurse Practitioner Family; Visit Provider Internal Medicine
DX: Z51.11 Encounter for antineoplastic chemotherapy (principal); C18.9 Malignant neoplasm of colon, unspecified
CPT/HCPCS: 80053; 81001; 85025; 96413; 96415; 96417; J1642; J9035; J9206; Q0166

== ENCOUNTER 2017-11-21 09:01 | Outpatient (CLI) | payer MEDICARE, OTHER, SELFPAY ==
--- NOTE | 2017-11-21 09:06 | CT_ITS ---
CT chest w con HISTORY: Follow-up: Cancer, pulmonary nodules ITS.REASON: COLON CA ORDERING PHYSICIAN: Robert Mackey MD PATIENT AGE: 67 years COMPARISON: 10/15/2017 TECHNIQUE: Axial images obtained following the administration of 75 mL of Isovue 370 . Sagittal, and coronal reformatted images are also generated and reviewed. All CT scans at the facility use one or more dose reduction, viz: automated exposure control, ma/kV adjustment per patient size (including targeted exams where dose is matched to indication, i.e. head), or iterative reconstruction technique. FINDINGS: No mediastinal mass evident. Mildly enlarged lymph nodes are once again noted in the right hilar region extending into the superior segment of the right upper lobe along the course of the descending branch of the right pulmonary artery. There are small adjacent nodules in the right upper lobe as well. These nodules and adenopathy due to. The largest lesley and nodule complex measures 2.5 x 1.6 cm previously 2.3 x 1.8 cm not appear significant change compared to the previous exam. Nodules in the superior segment of the right lower lobe measure up to 1.1 cm previously 1.3 cm. These do appear slightly less bulky. There is a 9 mm noncalcified nodule in the left lower lobe posteriorly unchanged. No new nodules are evident. Left subclavian Mediport catheter is present IMPRESSION: 1. Overall stable to slight improvement in the right hilar adenopathy with right upper and left lower lobe pulmonary nodules consistent with stable to slight improvement in metastatic disease 2. No new abnormalities evident
--- NOTE | 2017-11-21 09:06 | CT_ITS ---
CT abdomen pelvis w con CLINICAL INDICATION: Follow-up cancer of the colon ITS.REASON: COLON CA ORDERING PHYSICIAN: Robert Mackey MD PATIENT AGE: 67 years COMPARISON: 10/15/2017 TECHNIQUE: Axial images obtained with sagittal and coronal reformats. All CT scans at the facility use one or more dose reduction, viz: automated exposure control, ma/kV adjustment per patient size (including targeted exams where dose is matched to indication, i.e. head), or iterative reconstruction technique. PROCEDURE: Oral Contrast: Redicat IV Contrast: 75 mL's of Isovue-370. FINDINGS: The liver, spleen, adrenal glands, and pancreas are unremarkable. There is been prior cholecystectomy. There are parapelvic renal cyst. No retroperitoneal adenopathy. No abdominal mass. Postsurgical changes are present in prior left hemicolectomy with left mid abdominal colostomy with herniation of large bowel loops in the colostomy site as before. Some of the small bowel loops are slightly distended but are at areas of anastomosis likely due to activity as opposed to obstruction. Grade 1 spondylolytic spondylolisthesis L5 on S1. No acute bony anomalies evident. No bony lytic or blastic changes. IMPRESSION: Overall stable CT appearance of the abdomen as described above with no convincing evidence of metastatic disease
== END 2017-11-21 10:25 | disposition home or self-care (01) ==
LOC: INF 09:01
PROVIDERS: Family Provider Family Medicine; PCP Nurse Practitioner Family; Visit Provider Internal Medicine
DX: Z03.89 Encounter for observation for other suspected diseases and conditions ruled out (principal); C34.90 Malignant neoplasm of unspecified part of unspecified bronchus or lung
CPT/HCPCS: 71260; 74177; J1642; Q9967

== ENCOUNTER 2017-12-03 08:11 | Outpatient (CLI) | payer MEDICARE, OTHER, SELFPAY ==
[2017-12-03 08:21] VITALS: BMI 35.1
[2017-12-03 08:39] LABS: Appearance,Urine CLEAR (Clear); Basophils # 0.1 K/mm3 (0-0.2); Basophils % 0.8 % (0.1-2.0); Bilirubin,Urine Negative (Negative); Blood, Urine TRACE-I (Negative); Color,Urine STRAW (Yellow); Eosinophils # 0.2 K/mm3 (0.0-0.4); Eosinophils % 3.3 % (0.1-12.0); Glucose,Urine (UA) Negative (Negative); Hematocrit 41.8 % (37.0-47.0); Hemoglobin 13.7 g/dL (12.2-16.2); Ketones,Urine Negative (Negative); Leukocyte Esterase,Urine Negative (Negative); Lymphocytes # 0.9 K/mm3 (0.7-4.5); Lymphocytes % 15.8 K/mm3 (10-50); Mean Corpuscular HGB Conc 32.8 g/dL (31.8-35.4); Mean Corpuscular Hemoglobin 31.9 pg (27.0-31.2); Mean Corpuscular Volume 97.3 fl (81-99); Mean Platelet Volume 7.1 fl (7.4-10.4); Microscopic, Urine URINE MICROSCOPIC (MICROSCOPIC); Monocytes # 0.4 K/mm3 (0.1-1.0); Monocytes % 6.7 % (1.7-9.3); Neutrophils # 4.4 K/mm3 (1.8-7.8); Neutrophils % 73.5 % (37.0-80.0); Nitrate,Urine Negative (Negative); PH,Urine 5.5 (5.0-8.5); Platelet Count 128 K/mm3 (142-424); Protein,Urine Negative (Negative); Red Blood Count 4.29 M/mm3 (4.20-5.40); Urobilinogen,Urine 0.2 EU/dl (0.2); White Blood Count 5.9 K/mm3 (4.8-10.8)
[2017-12-03 08:45] LABS: Bacteria,Urine Trace /lpf; Hyaline Casts,Urine Occasional #/lpf (0); RBC,Urine Occasional #/hpf (0-3); Squamous Epithelial Cell,Urine 20-50 #/hpf (0-5)
[2017-12-03 08:53] LABS: Alanine Aminotransferase 44 U/L (12-78); Albumin Level 3.2 gm/dL (3.4-5.0); Alkaline Phosphatase 102 U/L (46-116); Anion Gap 9.8 mEq/L (5-15); Aspartate Amino Transferase 33 U/L (15-37); Bilirubin,Total 0.3 mg/dL (0.2-1.0); Blood Urea Nitrogen 13 mg/dL (7-18); Calcium 8.6 mg/dL (8.5-10.1); Carbon Dioxide 32 mmol/L (21.0-32.0); Chloride 107 mmol/L (98-107); Creatinine Clearance Estimated 81 mL/min (0-300); Creatinine,Serum 0.76 mg/dL (0.55-1.02); Estimated Glomerular Filt Rate 76 ml/min (>60); GFR (African American) 92 ML/MIN (>60); Globulin 3.3 gm/dl (1.3-3.2); Glucose 105 mg/dL (74-106); Potassium 3.8 mmoL/L (3.5-5.1); Sodium 145 mmol/L (136-145); Total Protein,Serum 6.5 gm/dL (6.4-8.2)
[2017-12-03 10:28] VITALS: BP 137/82; PULSE 54; RESP 18; TEMP 36.6; O2SAT 96
[2017-12-03 10:58] VITALS: BP 131/80; PULSE 55; RESP 18; O2SAT 96
[2017-12-03 11:28] VITALS: BP 137/65; PULSE 48; RESP 18; O2SAT 97
[2017-12-03 11:58] VITALS: BP 136/61; PULSE 51; RESP 18; O2SAT 96
[2017-12-03 12:28] VITALS: BP 138/64; PULSE 52; RESP 18; O2SAT 96
[2017-12-03 13:00] VITALS: BP 148/88; PULSE 48; RESP 18; O2SAT 96
== END 2017-12-03 13:04 | disposition home or self-care (01) ==
LOC: INF 08:12
PROVIDERS: Family Provider Family Medicine; PCP Nurse Practitioner Family; Visit Provider Internal Medicine
DX: Z51.11 Encounter for antineoplastic chemotherapy (principal); C18.9 Malignant neoplasm of colon, unspecified
CPT/HCPCS: 80053; 81001; 85025; 96413; 96415; 96417; J9035; J9206; Q0166

== ENCOUNTER 2017-12-16 09:46 | Outpatient (CLI) | payer MEDICARE, OTHER, SELFPAY ==
[2017-12-16 09:51] VITALS: BMI 35.1
[2017-12-16 10:15] LABS: Basophils % 0.8 % (0.1-2.0); Eosinophils # 0.2 K/mm3 (0.0-0.4); Eosinophils % 3.1 % (0.1-12.0); Hematocrit 39.6 % (37.0-47.0); Hemoglobin 12.9 g/dL (12.2-16.2); Lymphocytes # 0.8 K/mm3 (0.7-4.5); Lymphocytes % 15.7 K/mm3 (10-50); Mean Corpuscular HGB Conc 32.5 g/dL (31.8-35.4); Mean Corpuscular Hemoglobin 30.5 pg (27.0-31.2); Mean Corpuscular Volume 94.1 fl (81-99); Mean Platelet Volume 7.7 fl (7.4-10.4); Monocytes # 0.4 K/mm3 (0.1-1.0); Monocytes % 6.9 % (1.7-9.3); Neutrophils # 3.9 K/mm3 (1.8-7.8); Neutrophils % 73.5 % (37.0-80.0); Platelet Count 119 K/mm3 (142-424); Red Blood Count 4.21 M/mm3 (4.20-5.40); Red Cell Distribution Width 16.7 % (11.5-17.5); White Blood Count 5.3 K/mm3 (4.8-10.8)
[2017-12-16 10:17] LABS: Appearance,Urine CLEAR (Clear); Bilirubin,Urine Negative (Negative); Blood, Urine 2+ (Negative); Color,Urine YELLOW (Yellow); Glucose,Urine (UA) Negative (Negative); Ketones,Urine Negative (Negative); Leukocyte Esterase,Urine Negative (Negative); Microscopic, Urine URINE MICROSCOPIC (MICROSCOPIC); Nitrate,Urine Negative (Negative); Protein,Urine Negative (Negative); Specific Gravity, Urine 1.015 (1.005-1.030); Urobilinogen,Urine 0.2 EU/dl (0.2)
[2017-12-16 10:28] LABS: Alanine Aminotransferase 45 U/L (12-78); Albumin/Globulin Ratio 0.9 (1.1-1.8); Alkaline Phosphatase 106 U/L (46-116); Anion Gap 9.6 mEq/L (5-15); Aspartate Amino Transferase 26 U/L (15-37); Bilirubin,Total 0.4 mg/dL (0.2-1.0); Blood Urea Nitrogen 19 mg/dL (7-18); Carbon Dioxide 30 mmol/L (21.0-32.0); Chloride 107 mmol/L (98-107); Creatinine Clearance Estimated 69 mL/min (0-300); Creatinine,Serum 0.72 mg/dL (0.55-1.02); Estimated Glomerular Filt Rate 81 ml/min (>60); GFR (African American) 98 ML/MIN (>60); Globulin 3.4 gm/dl (1.3-3.2); Glucose 102 mg/dL (74-106); Potassium 3.6 mmoL/L (3.5-5.1); Sodium 143 mmol/L (136-145); Total Protein,Serum 6.4 gm/dL (6.4-8.2)
[2017-12-16 10:31] LABS: Bacteria,Urine 1+ /lpf; Mucus,Urine 2+ /lpf; WBC,Urine Occasional #/hpf (0-3)
[2017-12-16 11:20] VITALS: BP 158/78; PULSE 50; RESP 18; TEMP 36.6; O2SAT 97
[2017-12-16 11:50] VITALS: BP 160/77; PULSE 52; RESP 18; O2SAT 97
[2017-12-16 12:20] VITALS: BP 144/75; PULSE 48; RESP 18; O2SAT 96
[2017-12-16 12:50] VITALS: BP 155/78; PULSE 51; RESP 18; O2SAT 97
[2017-12-16 13:20] VITALS: BP 152/79; PULSE 54; RESP 18; O2SAT 96
[2017-12-16 13:51] VITALS: BP 161/81; PULSE 52; RESP 18; O2SAT 97
== END 2017-12-16 14:00 | disposition home or self-care (01) ==
LOC: INF 09:46
PROVIDERS: Family Provider Family Medicine; PCP Nurse Practitioner Family; Visit Provider Internal Medicine
DX: Z51.11 Encounter for antineoplastic chemotherapy (principal); C18.9 Malignant neoplasm of colon, unspecified
CPT/HCPCS: 80053; 81001; 85025; 96413; 96415; 96417; J1642; J9206; Q0166

== ENCOUNTER 2018-01-08 09:39 | Outpatient (CLI) | payer MEDICARE, OTHER, SELFPAY ==
[2018-01-08] VITALS (7 sets, daily range): BP systolic 137–151; BP diastolic 74–83; PULSE 56–60; RESP 18; TEMP 36.6; O2SAT 95–96; BMI 33.7
[2018-01-08 10:02] LABS: Appearance,Urine CLEAR (Clear); Bilirubin,Urine Negative (Negative); Blood, Urine 2+ (Negative); Color,Urine YELLOW (Yellow); Glucose,Urine (UA) Negative (Negative); Ketones,Urine Negative (Negative); Leukocyte Esterase,Urine Negative (Negative); Microscopic, Urine URINE MICROSCOPIC (MICROSCOPIC); Nitrate,Urine Negative (Negative); PH,Urine 5.5 (5.0-8.5); Protein,Urine Negative (Negative); Specific Gravity, Urine 1.015 (1.005-1.030); Urobilinogen,Urine 0.2 EU/dl (0.2)
[2018-01-08 10:12] LABS: Alanine Aminotransferase 31 U/L (12-78); Albumin Level 3.5 gm/dL (3.4-5.0); Alkaline Phosphatase 128 U/L (46-116); Anion Gap 6.8 mEq/L (5-15); Aspartate Amino Transferase 23 U/L (15-37); Bilirubin,Total 0.8 mg/dL (0.2-1.0); Blood Urea Nitrogen 12 mg/dL (7-18); Calcium 8.5 mg/dL (8.5-10.1); Carbon Dioxide 34 mmol/L (21.0-32.0); Chloride 106 mmol/L (98-107); Creatinine Clearance Estimated 69 mL/min (0-300); Creatinine,Serum 0.73 mg/dL (0.55-1.02); Estimated Glomerular Filt Rate 80 ml/min (>60); GFR (African American) 97 ML/MIN (>60); Globulin 3.5 gm/dl (1.3-3.2); Glucose 105 mg/dL (74-106); Potassium 3.8 mmoL/L (3.5-5.1); Sodium 143 mmol/L (136-145)
[2018-01-08 10:19] LABS: Basophils # 0.1 K/mm3 (0-0.2); Eosinophils # 0.2 K/mm3 (0.0-0.4); Eosinophils % 3.9 % (0.1-12.0); Hematocrit 46.8 % (37.0-47.0); Hemoglobin 14.9 g/dL (12.2-16.2); Lymphocytes # 1.2 K/mm3 (0.7-4.5); Lymphocytes % 20.4 K/mm3 (10-50); Mean Corpuscular HGB Conc 31.8 g/dL (31.8-35.4); Mean Corpuscular Hemoglobin 30.4 pg (27.0-31.2); Mean Corpuscular Volume 95.6 fl (81-99); Monocytes # 0.5 K/mm3 (0.1-1.0); Monocytes % 8.4 % (1.7-9.3); Neutrophils % 66.3 % (37.0-80.0); Platelet Count 143 K/mm3 (142-424); Red Cell Distribution Width 16.5 % (11.5-17.5)
[2018-01-08 10:27] LABS: Bacteria,Urine Trace /lpf
== END 2018-01-08 14:20 | disposition home or self-care (01) ==
LOC: INF 09:39
PROVIDERS: Family Provider Family Medicine; PCP Nurse Practitioner Family; Visit Provider Internal Medicine Medical Oncology
DX: Z51.11 Encounter for antineoplastic chemotherapy (principal); C18.9 Malignant neoplasm of colon, unspecified
CPT/HCPCS: 80053; 81001; 85025; 96413; 96415; 96417; J9035; J9206; Q0166

== ENCOUNTER 2018-01-20 08:42 | Outpatient (CLI) | payer MEDICARE, OTHER, SELFPAY ==
[2018-01-20 08:42] VITALS: BMI 35.1
[2018-01-20 09:14] LABS: Microscopic, Urine URINE MICROSCOPIC (MICROSCOPIC)
[2018-01-20 09:17] LABS: Appearance,Urine CLEAR (Clear); Bilirubin,Urine Negative (Negative); Blood, Urine TRACE-L (Negative); Color,Urine YELLOW (Yellow); Glucose,Urine (UA) Negative (Negative); Ketones,Urine Negative (Negative); Leukocyte Esterase,Urine Negative (Negative); Nitrate,Urine Negative (Negative); PH,Urine 5.5 (5.0-8.5); Protein,Urine Negative (Negative); Urobilinogen,Urine 0.2 EU/dl (0.2)
[2018-01-20 09:19] LABS: Basophils % 0.7 % (0.1-2.0); Eosinophils # 0.2 K/mm3 (0.0-0.4); Eosinophils % 3.6 % (0.1-12.0); Hematocrit 43.7 % (37.0-47.0); Hemoglobin 13.9 g/dL (12.2-16.2); Lymphocytes % 18.5 K/mm3 (10-50); Mean Corpuscular HGB Conc 31.7 g/dL (31.8-35.4); Mean Corpuscular Hemoglobin 30.2 pg (27.0-31.2); Mean Corpuscular Volume 95.3 fl (81-99); Mean Platelet Volume 7.1 fl (7.4-10.4); Monocytes # 0.4 K/mm3 (0.1-1.0); Monocytes % 7.5 % (1.7-9.3); Neutrophils # 3.9 K/mm3 (1.8-7.8); Neutrophils % 69.7 % (37.0-80.0); Platelet Count 161 K/mm3 (142-424); Red Blood Count 4.59 M/mm3 (4.20-5.40); Red Cell Distribution Width 16.5 % (11.5-17.5); White Blood Count 5.6 K/mm3 (4.8-10.8)
[2018-01-20 09:29] LABS: Bacteria,Urine Trace /lpf; RBC,Urine Occasional #/hpf (0-3); WBC,Urine Occasional #/hpf (0-3)
[2018-01-20 09:30] LABS: Alanine Aminotransferase 23 U/L (12-78); Albumin/Globulin Ratio 0.9 (1.1-1.8); Alkaline Phosphatase 106 U/L (46-116); Anion Gap 10.7 mEq/L (5-15); Aspartate Amino Transferase 21 U/L (15-37); Bilirubin,Total 0.4 mg/dL (0.2-1.0); Blood Urea Nitrogen 14 mg/dL (7-18); Calcium 7.3 mg/dL (8.5-10.1); Carbon Dioxide 32 mmol/L (21.0-32.0); Chloride 104 mmol/L (98-107); Creatinine Clearance Estimated 69 mL/min (0-300); Creatinine,Serum 0.66 mg/dL (0.55-1.02); Estimated Glomerular Filt Rate 90 ml/min (>60); GFR (African American) 108 ML/MIN (>60); Globulin 3.5 gm/dl (1.3-3.2); Glucose 101 mg/dL (74-106); Potassium 4.7 mmoL/L (3.5-5.1); Sodium 142 mmol/L (136-145); Total Protein,Serum 6.5 gm/dL (6.4-8.2)
[2018-01-20 10:30] VITALS: BP 125/69; PULSE 68; RESP 20; TEMP 36.9; O2SAT 96
[2018-01-20 11:00] VITALS: BP 125/66; PULSE 68; RESP 20; TEMP 36.9; O2SAT 96
[2018-01-20 11:30] VITALS: BP 155/70; PULSE 68; RESP 20; TEMP 36.9; O2SAT 96
[2018-01-20 12:15] VITALS: BP 158/78; PULSE 68; RESP 20; TEMP 37.1; O2SAT 96
[2018-01-20 12:40] VITALS: BP 155/78; PULSE 68; RESP 20; TEMP 37.1; O2SAT 96
[2018-01-20 13:10] VITALS: BP 155/74; PULSE 68; RESP 20; TEMP 36.9; O2SAT 96
== END 2018-01-20 13:10 | disposition home or self-care (01) ==
LOC: INF 08:42
PROVIDERS: Family Provider Family Medicine; PCP Nurse Practitioner Family; Visit Provider Internal Medicine Medical Oncology
DX: Z51.11 Encounter for antineoplastic chemotherapy (principal); C18.9 Malignant neoplasm of colon, unspecified
CPT/HCPCS: 80053; 81001; 85025; 96413; 96415; 96417; J9035; J9206; Q0166

== ENCOUNTER 2018-01-26 08:44 | Outpatient (CLI) | payer MEDICARE, OTHER, SELFPAY ==
--- NOTE | 2018-01-26 08:51 | CT_ITS ---
CT chest w con HISTORY: Follow-up metastatic colon cancer ITS.REASON: COLON CA ORDERING PHYSICIAN: Lee Ann Rodgers MD PATIENT AGE: 67 years COMPARISON: 11/21/2017 TECHNIQUE: Axial images obtained following the administration of 75 mL of Isovue 370 . Sagittal, and coronal reformatted images are also generated and reviewed. All CT scans at the facility use one or more dose reduction, viz: automated exposure control, ma/kV adjustment per patient size (including targeted exams where dose is matched to indication, i.e. head), or iterative reconstruction technique. FINDINGS: Right upper lobe nodules and right perihilar lymph nodes/nodules are once again noted and are not significantly changed to very slightly less bulky on today's exam. 9 mm left lower lobe nodule is stable. No effusions or infiltrates. No bony destructive process. No lytic or blastic bony lesions. Left subclavian Mediport catheter is present. IMPRESSION: Right perihilar adenopathy as well as bilateral pulmonary nodules once again noted consistent with metastatic disease. Some of these nodular densities are very slightly less prominent. Most are stable. No new nodules apparent.
--- NOTE | 2018-01-26 08:51 | CT_ITS ---
CT abdomen pelvis w con CLINICAL INDICATION: Follow-up cancer of the colon ITS.REASON: COLON CA ORDERING PHYSICIAN: Lee Ann Rodgers MD PATIENT AGE: 67 years COMPARISON: 11/21/2017 TECHNIQUE: Axial images obtained with sagittal and coronal reformats. All CT scans at the facility use one or more dose reduction, viz: automated exposure control, ma/kV adjustment per patient size (including targeted exams where dose is matched to indication, i.e. head), or iterative reconstruction technique. PROCEDURE: Oral Contrast: Redicat IV Contrast: 75 mL's of Isovue-370 performed in conjunction with chest CT. FINDINGS: The liver has an unremarkable appearance. There has been prior cholecystectomy. Spleen, adrenal glands, and pancreas are unremarkable. There is an 8 mm nonobstructing stone in the lower pole the right kidney. There is mild prominence of the left renal pelvis versus parapelvic renal cyst. No renal mass. No retroperitoneal or intraperitoneal adenopathy. There has been a prior left hemicolectomy with the left lower quadrant colostomy with herniation of large bowel through the abdominal wall defect for the colostomy.. Examination of the pelvis shows prior hemicolectomy. There is abdominal wall defect in the right lower quadrant as well. This contains a loop of small bowel. Does this patient have an ileal loop? Surgical changes are present in the right aspect of the pelvis with a suture line in this region. There is some thickening of the small bowel in this area. Correlation with patient's surgical history is needed. This could possibly represent sequela from in ileal loop however that surgical history is not available. No bony destructive process evident. IMPRESSION: 1. No evidence of metastatic disease. 2. Left lower quadrant ostomy with herniation of large bowel through the colostomy defect. 3. Right lower quadrant ileostomy or ileal loop. There is thickening of the small bowel in the right hemipelvis. This is of questionable clinical significance. Underlying inflammatory changes considered. Radiation enteritis is a consideration. Recurrent neoplasm felt to be less likely but not totally excluded.
== END 2018-01-26 09:40 | disposition home or self-care (01) ==
LOC: RAD 08:44
PROVIDERS: Family Provider Family Medicine; PCP Nurse Practitioner Family; Visit Provider Internal Medicine Medical Oncology
DX: C18.9 Malignant neoplasm of colon, unspecified (principal); Z03.89 Encounter for observation for other suspected diseases and conditions ruled out
CPT/HCPCS: 71260; 74177; 96523; J1642; Q9967

== ENCOUNTER 2018-02-05 08:10 | Outpatient (CLI) | payer MEDICARE, OTHER, SELFPAY ==
[2018-02-05 08:26] VITALS: BMI 35.7
[2018-02-05 08:34] LABS: Microscopic, Urine URINE MICROSCOPIC (MICROSCOPIC)
[2018-02-05 08:35] LABS: Appearance,Urine CLEAR (Clear); Bilirubin,Urine Negative (Negative); Blood, Urine TRACE-I (Negative); Color,Urine STRAW (Yellow); Glucose,Urine (UA) Negative (Negative); Ketones,Urine Negative (Negative); Leukocyte Esterase,Urine Negative (Negative); Nitrate,Urine Negative (Negative); Protein,Urine Negative (Negative); Urobilinogen,Urine 0.2 EU/dl (0.2)
[2018-02-05 08:36] LABS: Basophils # 0.1 K/mm3 (0-0.2); Eosinophils # 0.2 K/mm3 (0.0-0.4); Eosinophils % 3.9 % (0.1-12.0); Hematocrit 44.2 % (37.0-47.0); Hemoglobin 14.2 g/dL (12.2-16.2); Lymphocytes # 0.9 K/mm3 (0.7-4.5); Lymphocytes % 19.4 K/mm3 (10-50); Mean Corpuscular HGB Conc 32.1 g/dL (31.8-35.4); Mean Corpuscular Hemoglobin 30.8 pg (27.0-31.2); Mean Corpuscular Volume 95.7 fl (81-99); Mean Platelet Volume 7.6 fl (7.4-10.4); Monocytes # 0.3 K/mm3 (0.1-1.0); Monocytes % 6.5 % (1.7-9.3); Neutrophils # 3.3 K/mm3 (1.8-7.8); Neutrophils % 69.3 % (37.0-80.0); Platelet Count 124 K/mm3 (142-424); Red Blood Count 4.62 M/mm3 (4.20-5.40); Red Cell Distribution Width 16.5 % (11.5-17.5); White Blood Count 4.8 K/mm3 (4.8-10.8)
[2018-02-05 08:48] LABS: Bacteria,Urine Trace /lpf; RBC,Urine Occasional #/hpf (0-3)
[2018-02-05 08:49] LABS: Alanine Aminotransferase 31 U/L (12-78); Albumin Level 3.1 gm/dL (3.4-5.0); Albumin/Globulin Ratio 0.9 (1.1-1.8); Alkaline Phosphatase 109 U/L (46-116); Anion Gap 9.6 mEq/L (5-15); Aspartate Amino Transferase 24 U/L (15-37); Bilirubin,Total 0.6 mg/dL (0.2-1.0); Blood Urea Nitrogen 16 mg/dL (7-18); Calcium 8.3 mg/dL (8.5-10.1); Carbon Dioxide 31 mmol/L (21.0-32.0); Chloride 106 mmol/L (98-107); Creatinine Clearance Estimated 63 mL/min (0-300); Creatinine,Serum 0.65 mg/dL (0.55-1.02); Estimated Glomerular Filt Rate 91 ml/min (>60); GFR (African American) 110 ML/MIN (>60); Globulin 3.5 gm/dl (1.3-3.2); Glucose 120 mg/dL (74-106); Potassium 3.6 mmoL/L (3.5-5.1); Sodium 143 mmol/L (136-145); Total Protein,Serum 6.6 gm/dL (6.4-8.2)
[2018-02-05 10:17] VITALS: BP 140/66; PULSE 45; RESP 18; TEMP 36.6; O2SAT 96
[2018-02-05 10:47] VITALS: BP 138/69; PULSE 50; RESP 18; O2SAT 97
[2018-02-05 11:17] VITALS: BP 137/64; PULSE 49; RESP 18; O2SAT 96
[2018-02-05 11:47] VITALS: BP 134/68; PULSE 51; RESP 18; O2SAT 97
[2018-02-05 12:17] VITALS: BP 141/71; PULSE 49; RESP 18; O2SAT 96
[2018-02-05 12:40] VITALS: BP 149/55; PULSE 49; RESP 18; O2SAT 96
== END 2018-02-05 12:45 | disposition home or self-care (01) ==
LOC: INF 08:17
PROVIDERS: Family Provider Family Medicine; PCP Nurse Practitioner Family; Visit Provider Internal Medicine Medical Oncology
DX: Z51.11 Encounter for antineoplastic chemotherapy (principal); C18.9 Malignant neoplasm of colon, unspecified
CPT/HCPCS: 80053; 81001; 85025; 96413; 96415; 96417; J9035; J9206; Q0166

== ENCOUNTER 2018-02-17 08:45 | Outpatient (CLI) | payer MEDICARE, OTHER, SELFPAY ==
[2018-02-17 08:47] VITALS: BMI 35.7
[2018-02-17 09:12] LABS: Microscopic, Urine URINE MICROSCOPIC (MICROSCOPIC)
[2018-02-17 09:18] LABS: Basophils % 0.5 % (0.1-2.0); Eosinophils # 0.2 K/mm3 (0.0-0.4); Eosinophils % 3.5 % (0.1-12.0); Hematocrit 45.3 % (37.0-47.0); Hemoglobin 14.7 g/dL (12.2-16.2); Lymphocytes # 0.9 K/mm3 (0.7-4.5); Lymphocytes % 16.9 K/mm3 (10-50); Mean Corpuscular HGB Conc 32.5 g/dL (31.8-35.4); Mean Corpuscular Hemoglobin 30.9 pg (27.0-31.2); Mean Corpuscular Volume 95.1 fl (81-99); Monocytes # 0.4 K/mm3 (0.1-1.0); Neutrophils % 72.1 % (37.0-80.0); Platelet Count 155 K/mm3 (142-424); Red Blood Count 4.76 M/mm3 (4.20-5.40); White Blood Count 5.6 K/mm3 (4.8-10.8)
[2018-02-17 09:19] LABS: Appearance,Urine CLEAR (Clear); Bilirubin,Urine Negative (Negative); Blood, Urine TRACE-I (Negative); Color,Urine STRAW (Yellow); Glucose,Urine (UA) Negative (Negative); Ketones,Urine Negative (Negative); Leukocyte Esterase,Urine Negative (Negative); Nitrate,Urine Negative (Negative); PH,Urine 6.5 (5.0-8.5); Protein,Urine Negative (Negative); Specific Gravity, Urine <= 1.005 (1.005-1.030); Urobilinogen,Urine 0.2 EU/dl (0.2)
[2018-02-17 09:25] LABS: Bacteria,Urine Trace /lpf; RBC,Urine Occasional #/hpf (0-3)
[2018-02-17 09:30] LABS: Alanine Aminotransferase 23 U/L (12-78); Albumin Level 3.3 gm/dL (3.4-5.0); Albumin/Globulin Ratio 0.9 (1.1-1.8); Alkaline Phosphatase 105 U/L (46-116); Anion Gap 8.1 mEq/L (5-15); Aspartate Amino Transferase 22 U/L (15-37); Bilirubin,Total 0.4 mg/dL (0.2-1.0); Blood Urea Nitrogen 15 mg/dL (7-18); Calcium 8.7 mg/dL (8.5-10.1); Carbon Dioxide 33 mmol/L (21.0-32.0); Chloride 103 mmol/L (98-107); Creatinine Clearance Estimated 70 mL/min (0-300); Creatinine,Serum 0.72 mg/dL (0.55-1.02); Estimated Glomerular Filt Rate 81 ml/min (>60); GFR (African American) 98 ML/MIN (>60); Globulin 3.6 gm/dl (1.3-3.2); Glucose 120 mg/dL (74-106); Potassium 4.1 mmoL/L (3.5-5.1); Sodium 140 mmol/L (136-145); Total Protein,Serum 6.9 gm/dL (6.4-8.2)
[2018-02-17 10:33] VITALS: BP 123/78; PULSE 48; RESP 20; TEMP 36.4; O2SAT 95
[2018-02-17 11:03] VITALS: BP 98/68; PULSE 52; RESP 20; O2SAT 96
[2018-02-17 11:33] VITALS: BP 114/71; PULSE 51; RESP 20; O2SAT 96
[2018-02-17 12:03] VITALS: BP 108/57; PULSE 58; RESP 20; O2SAT 97
[2018-02-17 12:33] VITALS: BP 110/61; PULSE 56; RESP 20; O2SAT 97
[2018-02-17 13:05] VITALS: BP 112/64; PULSE 59; RESP 20; O2SAT 97
== END 2018-02-17 13:17 | disposition home or self-care (01) ==
LOC: INF 08:45
PROVIDERS: Visit Provider Internal Medicine Medical Oncology
DX: Z51.11 Encounter for antineoplastic chemotherapy (principal); C18.9 Malignant neoplasm of colon, unspecified
CPT/HCPCS: 80053; 81001; 85025; 96413; 96415; 96417; J1642; J9035; J9206; Q0166

== ENCOUNTER 2018-03-05 08:17 | Outpatient (CLI) | payer MEDICARE, OTHER, SELFPAY ==
[2018-03-05 08:17] VITALS: BMI 35.7
[2018-03-05 08:33] LABS: Microscopic, Urine URINE MICROSCOPIC (MICROSCOPIC)
[2018-03-05 08:36] LABS: Basophils % 1.1 % (0.1-2.0); Eosinophils # 0.1 K/mm3 (0.0-0.4); Eosinophils % 3.3 % (0.1-12.0); Hematocrit 43.3 % (37.0-47.0); Hemoglobin 13.6 g/dL (12.2-16.2); Lymphocytes # 0.8 K/mm3 (0.7-4.5); Lymphocytes % 20.8 % (10-50); Mean Corpuscular HGB Conc 31.4 g/dL (31.8-35.4); Mean Corpuscular Hemoglobin 30.1 pg (27.0-31.2); Mean Corpuscular Volume 95.6 fl (81-99); Mean Platelet Volume 7.9 fl (7.4-10.4); Monocytes # 0.3 K/mm3 (0.1-1.0); Monocytes % 7.5 % (1.7-9.3); Neutrophils # 2.6 K/mm3 (1.8-7.8); Neutrophils % 67.3 % (37.0-80.0); Platelet Count 102 K/mm3 (142-424); Red Blood Count 4.53 M/mm3 (4.20-5.40); Red Cell Distribution Width 16.7 % (11.5-17.5); White Blood Count 3.8 K/mm3 (4.8-10.8)
[2018-03-05 08:40] LABS: Appearance,Urine CLEAR (Clear); Bilirubin,Urine Negative (Negative); Blood, Urine 1+ (Negative); Color,Urine YELLOW (Yellow); Glucose,Urine (UA) Negative (Negative); Ketones,Urine Negative (Negative); Leukocyte Esterase,Urine Negative (Negative); Nitrate,Urine Negative (Negative); PH,Urine 5.5 (5.0-8.5); Protein,Urine Negative (Negative); Specific Gravity, Urine 1.015 (1.005-1.030); Urobilinogen,Urine 0.2 EU/dl (0.2)
[2018-03-05 08:50] LABS: Alanine Aminotransferase 27 U/L (12-78); Albumin/Globulin Ratio 0.9 (1.1-1.8); Alkaline Phosphatase 103 U/L (46-116); Anion Gap 8.7 mEq/L (5-15); Aspartate Amino Transferase 19 U/L (15-37); Bilirubin,Total 0.4 mg/dL (0.2-1.0); Blood Urea Nitrogen 18 mg/dL (7-18); Calcium 8.4 mg/dL (8.5-10.1); Carbon Dioxide 33 mmol/L (21.0-32.0); Chloride 105 mmol/L (98-107); Creatinine Clearance Estimated 70 mL/min (50-200); Creatinine,Serum 0.78 mg/dL (0.55-1.02); Estimated Glomerular Filt Rate 74 ml/min (>60); GFR (African American) 89 ML/MIN (>60); Globulin 3.3 gm/dl (1.3-3.2); Glucose 126 mg/dL (74-106); Potassium 3.7 mmoL/L (3.5-5.1); Sodium 143 mmol/L (136-145); Total Protein,Serum 6.3 gm/dL (6.4-8.2)
[2018-03-05 08:56] LABS: Bacteria,Urine Trace /lpf; RBC,Urine Occasional #/hpf (0-3); Squamous Epithelial Cell,Urine Occasional #/hpf (0-5)
[2018-03-05 10:07] VITALS: BP 146/85; PULSE 45; RESP 18; TEMP 36.6; O2SAT 99
[2018-03-05 10:37] VITALS: BP 128/57; PULSE 49; RESP 18; TEMP 36.6; O2SAT 97
[2018-03-05 11:07] VITALS: BP 131/59; PULSE 50; RESP 18; O2SAT 98
[2018-03-05 11:37] VITALS: BP 129/56; PULSE 48; RESP 18; O2SAT 98
[2018-03-05 12:07] VITALS: BP 134/58; PULSE 47; RESP 18; O2SAT 97
[2018-03-05 12:50] VITALS: BP 145/72; PULSE 49; RESP 18; O2SAT 97
== END 2018-03-05 12:55 | disposition home or self-care (01) ==
LOC: INF 08:17
PROVIDERS: Visit Provider Internal Medicine Medical Oncology
DX: Z51.11 Encounter for antineoplastic chemotherapy (principal); C18.9 Malignant neoplasm of colon, unspecified
CPT/HCPCS: 36415; 80053; 81001; 85025; 96413; 96415; 96417; J9035; J9206; Q0166

== ENCOUNTER 2018-03-19 08:49 | Outpatient (CLI) | payer MEDICARE, OTHER, SELFPAY ==
[2018-03-19 08:50] VITALS: BMI 34.5
[2018-03-19 09:11] LABS: Microscopic, Urine URINE MICROSCOPIC (MICROSCOPIC)
[2018-03-19 09:19] LABS: Basophils % 0.7 % (0.1-2.0); Eosinophils # 0.2 K/mm3 (0.0-0.4); Hemoglobin 13.6 g/dL (12.2-16.2); Lymphocytes # 0.9 K/mm3 (0.7-4.5); Lymphocytes % 15.9 % (10-50); Mean Corpuscular HGB Conc 30.8 g/dL (31.8-35.4); Mean Corpuscular Hemoglobin 29.7 pg (27.0-31.2); Mean Corpuscular Volume 96.3 fl (81-99); Monocytes # 0.4 K/mm3 (0.1-1.0); Monocytes % 6.6 % (1.7-9.3); Neutrophils # 4.1 K/mm3 (1.8-7.8); Neutrophils % 73.8 % (37.0-80.0); Platelet Count 143 K/mm3 (142-424); Red Blood Count 4.56 M/mm3 (4.20-5.40); Red Cell Distribution Width 17.7 % (11.5-17.5); White Blood Count 5.6 K/mm3 (4.8-10.8)
[2018-03-19 09:22] LABS: Appearance,Urine CLEAR (Clear); Bilirubin,Urine Negative (Negative); Blood, Urine 1+ (Negative); Color,Urine YELLOW (Yellow); Glucose,Urine (UA) Negative (Negative); Ketones,Urine Negative (Negative); Leukocyte Esterase,Urine Negative (Negative); Nitrate,Urine Negative (Negative); PH,Urine 5.5 (5.0-8.5); Protein,Urine Negative (Negative); Urobilinogen,Urine 0.2 EU/dl (0.2)
[2018-03-19 09:25] LABS: Alanine Aminotransferase 39 U/L (12-78); Albumin Level 3.2 gm/dL (3.4-5.0); Albumin/Globulin Ratio 0.9 (1.1-1.8); Alkaline Phosphatase 98 U/L (46-116); Anion Gap 9.1 mEq/L (5-15); Aspartate Amino Transferase 33 U/L (15-37); Bilirubin,Total 0.4 mg/dL (0.2-1.0); Blood Urea Nitrogen 14 mg/dL (7-18); Calcium 8.1 mg/dL (8.5-10.1); Carbon Dioxide 32 mmol/L (21.0-32.0); Chloride 105 mmol/L (98-107); Creatinine Clearance Estimated 70 mL/min (50-200); Estimated Glomerular Filt Rate 84 ml/min (>60); GFR (African American) 101 ML/MIN (>60); Globulin 3.4 gm/dl (1.3-3.2); Glucose 116 mg/dL (74-106); Potassium 4.1 mmoL/L (3.5-5.1); Sodium 142 mmol/L (136-145); Total Protein,Serum 6.6 gm/dL (6.4-8.2)
[2018-03-19 09:31] LABS: Bacteria,Urine Trace /lpf; WBC,Urine Occasional #/hpf (0-3)
[2018-03-19 10:10] VITALS: BP 140/81; PULSE 46; RESP 20; TEMP 36.7; O2SAT 97
[2018-03-19 10:40] VITALS: BP 144/77; PULSE 49; RESP 20; O2SAT 98
[2018-03-19 11:10] VITALS: BP 146/78; PULSE 50; RESP 20; O2SAT 97
[2018-03-19 11:40] VITALS: BP 149/80; PULSE 47; RESP 20; O2SAT 98
[2018-03-19 12:10] VITALS: BP 156/72; PULSE 49; RESP 20; O2SAT 97
[2018-03-19 12:30] VITALS: BP 165/76; PULSE 52; RESP 20; O2SAT 97
== END 2018-03-19 12:30 | disposition home or self-care (01) ==
LOC: INF 08:49
PROVIDERS: Visit Provider Internal Medicine Medical Oncology
DX: Z51.11 Encounter for antineoplastic chemotherapy (principal); C18.9 Malignant neoplasm of colon, unspecified
CPT/HCPCS: 80053; 81001; 85025; 96413; 96415; 96417; J9035; J9206; Q0166

== ENCOUNTER 2018-04-02 08:15 | Outpatient (CLI) | payer MEDICARE, OTHER, SELFPAY ==
[2018-04-02 08:18] VITALS: BMI 34.5
[2018-04-02 08:45] LABS: Basophils % 0.6 % (0.1-2.0); Eosinophils # 0.2 K/mm3 (0.0-0.4); Eosinophils % 3.8 % (0.1-12.0); Hematocrit 46.5 % (37.0-47.0); Hemoglobin 14.5 g/dL (12.2-16.2); Lymphocytes # 0.9 K/mm3 (0.7-4.5); Lymphocytes % 17.5 % (10-50); Mean Corpuscular HGB Conc 31.1 g/dL (31.8-35.4); Mean Corpuscular Hemoglobin 29.8 pg (27.0-31.2); Mean Corpuscular Volume 95.7 fl (81-99); Mean Platelet Volume 7.6 fl (7.4-10.4); Monocytes # 0.4 K/mm3 (0.1-1.0); Neutrophils # 3.8 K/mm3 (1.8-7.8); Neutrophils % 71.1 % (37.0-80.0); Platelet Count 138 K/mm3 (142-424); Red Blood Count 4.86 M/mm3 (4.20-5.40); White Blood Count 5.3 K/mm3 (4.8-10.8)
[2018-04-02 08:51] LABS: Microscopic, Urine URINE MICROSCOPIC (MICROSCOPIC)
[2018-04-02 08:52] LABS: Appearance,Urine CLEAR (Clear); Bilirubin,Urine Negative (Negative); Blood, Urine TRACE-I (Negative); Color,Urine YELLOW (Yellow); Glucose,Urine (UA) Negative (Negative); Ketones,Urine Negative (Negative); Leukocyte Esterase,Urine Negative (Negative); Nitrate,Urine Negative (Negative); PH,Urine 6.5 (5.0-8.5); Protein,Urine Negative (Negative); Urobilinogen,Urine 0.2 EU/dl (0.2)
[2018-04-02 08:57] LABS: Alanine Aminotransferase 23 U/L (12-78); Albumin Level 3.2 gm/dL (3.4-5.0); Albumin/Globulin Ratio 0.9 (1.1-1.8); Anion Gap 9.1 mEq/L (5-15); Aspartate Amino Transferase 17 U/L (15-37); Bilirubin,Total 0.5 mg/dL (0.2-1.0); Blood Urea Nitrogen 14 mg/dL (7-18); Calcium 8.2 mg/dL (8.5-10.1); Carbon Dioxide 34 mmol/L (21.0-32.0); Chloride 103 mmol/L (98-107); Creatinine Clearance Estimated 70 mL/min (50-200); Creatinine,Serum 0.78 mg/dL (0.55-1.02); Estimated Glomerular Filt Rate 74 ml/min (>60); GFR (African American) 89 ML/MIN (>60); Globulin 3.4 gm/dl (1.3-3.2); Glucose 128 mg/dL (74-106); Potassium 4.1 mmoL/L (3.5-5.1); Sodium 142 mmol/L (136-145); Total Protein,Serum 6.6 gm/dL (6.4-8.2)
[2018-04-02 09:01] LABS: Mucus,Urine 1+ /lpf; RBC,Urine Occasional #/hpf (0-3); WBC,Urine Occasional #/hpf (0-3)
[2018-04-02 09:02] LABS: Bacteria,Urine Trace /lpf
[2018-04-02 09:31] LABS: Alkaline Phosphatase 98 U/L (46-116)
--- NOTE | 2018-04-02 10:15 | PC.NURSE ---
04/02/18 @ 1004-injected pt's pac with cath nevin 2mg iv. will reevaluate return in 30 min.
[2018-04-02 10:51] VITALS: BP 144/75; PULSE 56; RESP 18; TEMP 36.6; O2SAT 96
[2018-04-02 11:21] VITALS: BP 142/78; PULSE 58; RESP 18; O2SAT 97
[2018-04-02 11:51] VITALS: BP 144/89; PULSE 49; RESP 18; O2SAT 96
[2018-04-02 12:21] VITALS: BP 139/81; PULSE 52; RESP 18; O2SAT 97
[2018-04-02 12:51] VITALS: BP 136/77; PULSE 54; RESP 18; O2SAT 97
[2018-04-02 13:20] VITALS: BP 131/67; PULSE 62; RESP 18; O2SAT 97
== END 2018-04-02 13:20 | disposition home or self-care (01) ==
LOC: INF 08:15
PROVIDERS: Visit Provider Internal Medicine Medical Oncology
DX: Z51.11 Encounter for antineoplastic chemotherapy (principal); C18.9 Malignant neoplasm of colon, unspecified
CPT/HCPCS: 36415; 80053; 81001; 85025; 96413; 96415; 96417; J9035; J9206; Q0166

== ENCOUNTER 2018-04-16 08:44 | Outpatient (CLI) | payer MEDICARE, OTHER, SELFPAY ==
[2018-04-16] VITALS (7 sets, daily range): BP systolic 152–162; BP diastolic 48–53; PULSE 51–59; RESP 18; TEMP 36.4; O2SAT 96–97; BMI 34.0
[2018-04-16 09:07] LABS: Microscopic, Urine URINE MICROSCOPIC (MICROSCOPIC)
[2018-04-16 09:09] LABS: Basophils % 0.7 % (0.1-2.0); Eosinophils # 0.2 K/mm3 (0.0-0.4); Hematocrit 44.3 % (37.0-47.0); Hemoglobin 14.2 g/dL (12.2-16.2); Mean Corpuscular HGB Conc 32.2 g/dL (31.8-35.4); Mean Corpuscular Volume 96.3 fl (81-99); Mean Platelet Volume 6.9 fl (7.4-10.4); Monocytes # 0.4 K/mm3 (0.1-1.0); Monocytes % 7.4 % (1.7-9.3); Neutrophils # 4.3 K/mm3 (1.8-7.8); Neutrophils % 71.9 % (37.0-80.0); Platelet Count 152 K/mm3 (142-424); Red Cell Distribution Width 17.5 % (11.5-17.5); White Blood Count 5.9 K/mm3 (4.8-10.8)
[2018-04-16 09:10] LABS: Appearance,Urine CLEAR (Clear); Bilirubin,Urine Negative (Negative); Blood, Urine 1+ (Negative); Color,Urine YELLOW (Yellow); Glucose,Urine (UA) Negative (Negative); Ketones,Urine Negative (Negative); Leukocyte Esterase,Urine Negative (Negative); Nitrate,Urine Negative (Negative); PH,Urine 5.5 (5.0-8.5); Protein,Urine Negative (Negative); Urobilinogen,Urine 0.2 EU/dl (0.2)
[2018-04-16 09:35] LABS: Bacteria,Urine Trace /lpf; WBC,Urine Occasional #/hpf (0-3)
[2018-04-16 09:36] LABS: RBC,Urine Occasional #/hpf (0-3)
[2018-04-16 10:00] LABS: Alanine Aminotransferase 28 U/L (12-78); Albumin Level 3.4 gm/dL (3.4-5.0); Alkaline Phosphatase 104 U/L (46-116); Anion Gap 10.1 mEq/L (5-15); Aspartate Amino Transferase 25 U/L (15-37); Bilirubin,Total 0.6 mg/dL (0.2-1.0); Blood Urea Nitrogen 18 mg/dL (7-18); Calcium 8.6 mg/dL (8.5-10.1); Carbon Dioxide 32 mmol/L (21.0-32.0); Chloride 103 mmol/L (98-107); Creatinine Clearance Estimated 69 mL/min (50-200); Creatinine,Serum 0.73 mg/dL (0.55-1.02); Estimated Glomerular Filt Rate 80 ml/min (>60); GFR (African American) 97 ML/MIN (>60); Globulin 3.4 gm/dl (1.3-3.2); Glucose 118 mg/dL (74-106); Potassium 4.1 mmoL/L (3.5-5.1); Sodium 141 mmol/L (136-145); Total Protein,Serum 6.8 gm/dL (6.4-8.2)
== END 2018-04-16 13:35 | disposition home or self-care (01) ==
LOC: INF 08:44
PROVIDERS: Visit Provider Internal Medicine Medical Oncology
DX: Z51.11 Encounter for antineoplastic chemotherapy (principal); C18.9 Malignant neoplasm of colon, unspecified
CPT/HCPCS: 80053; 81001; 85025; 96413; 96415; 96417; J9035; J9206; Q0166

== ENCOUNTER 2018-04-30 08:05 | Outpatient (CLI) | payer MEDICARE, OTHER, SELFPAY ==
[2018-04-30 08:06] VITALS: BMI 35.7
[2018-04-30 08:32] LABS: Basophils % 0.7 % (0.1-2.0); Eosinophils # 0.1 K/mm3 (0.0-0.4); Eosinophils % 2.6 % (0.1-12.0); Hematocrit 44.4 % (37.0-47.0); Hemoglobin 13.8 g/dL (12.2-16.2); Lymphocytes # 0.7 K/mm3 (0.7-4.5); Lymphocytes % 19.7 % (10-50); Mean Corpuscular HGB Conc 31.2 g/dL (31.8-35.4); Mean Corpuscular Hemoglobin 30.4 pg (27.0-31.2); Mean Corpuscular Volume 97.6 fl (81-99); Mean Platelet Volume 7.5 fl (7.4-10.4); Monocytes # 0.2 K/mm3 (0.1-1.0); Monocytes % 6.5 % (1.7-9.3); Neutrophils # 2.6 K/mm3 (1.8-7.8); Neutrophils % 70.6 % (37.0-80.0); Platelet Count 104 K/mm3 (142-424); Red Blood Count 4.55 M/mm3 (4.20-5.40); Red Cell Distribution Width 17.5 % (11.5-17.5); White Blood Count 3.7 K/mm3 (4.8-10.8)
[2018-04-30 08:32] LABS: Microscopic, Urine URINE MICROSCOPIC (MICROSCOPIC)
[2018-04-30 08:34] LABS: Appearance,Urine CLEAR (Clear); Bilirubin,Urine Negative (Negative); Blood, Urine TRACE-L (Negative); Color,Urine YELLOW (Yellow); Glucose,Urine (UA) Negative (Negative); Ketones,Urine Negative (Negative); Leukocyte Esterase,Urine Negative (Negative); Nitrate,Urine Negative (Negative); Protein,Urine Negative (Negative); Specific Gravity, Urine 1.015 (1.005-1.030); Urobilinogen,Urine 0.2 EU/dl (0.2)
[2018-04-30 08:40] LABS: Bacteria,Urine 2+ /lpf; RBC,Urine Occasional #/hpf (0-3)
[2018-04-30 08:55] LABS: Alanine Aminotransferase 26 U/L (12-78); Albumin Level 3.2 gm/dL (3.4-5.0); Anion Gap 10.7 mEq/L (5-15); Aspartate Amino Transferase 23 U/L (15-37); Bilirubin,Total 0.6 mg/dL (0.2-1.0); Blood Urea Nitrogen 15 mg/dL (7-18); Calcium 8.1 mg/dL (8.5-10.1); Carbon Dioxide 30 mmol/L (21.0-32.0); Chloride 104 mmol/L (98-107); Creatinine Clearance Estimated 70 mL/min (50-200); Estimated Glomerular Filt Rate 72 ml/min (>60); GFR (African American) 87 ML/MIN (>60); Globulin 3.3 gm/dl (1.3-3.2); Glucose 120 mg/dL (74-106); Potassium 3.7 mmoL/L (3.5-5.1); Sodium 141 mmol/L (136-145); Total Protein,Serum 6.5 gm/dL (6.4-8.2)
[2018-04-30 08:56] LABS: Alkaline Phosphatase 92 U/L (46-116)
[2018-04-30 10:32] VITALS: BP 159/90; PULSE 48; RESP 20; TEMP 36.6; O2SAT 98
[2018-04-30 11:02] VITALS: BP 168/89; PULSE 50; RESP 20; O2SAT 97
[2018-04-30 11:32] VITALS: BP 161/85; PULSE 49; RESP 20; O2SAT 97
[2018-04-30 12:02] VITALS: BP 158/90; PULSE 48; RESP 20; O2SAT 97
[2018-04-30 12:32] VITALS: BP 160/87; PULSE 49; RESP 20; O2SAT 98
[2018-04-30 13:05] VITALS: BP 152/82; PULSE 46; RESP 20; O2SAT 98
== END 2018-04-30 13:05 | disposition home or self-care (01) ==
LOC: INF 08:05
PROVIDERS: Visit Provider Internal Medicine Medical Oncology
DX: Z51.11 Encounter for antineoplastic chemotherapy (principal); C18.9 Malignant neoplasm of colon, unspecified; R82.90 Unspecified abnormal findings in urine
CPT/HCPCS: 36415; 80053; 81001; 85025; 87086; 96413; 96415; 96417; J1642; J9035; J9206; Q0166

== ENCOUNTER 2018-05-12 09:41 | Outpatient (CLI) | payer MEDICARE, OTHER, SELFPAY ==
[2018-05-12] VITALS (7 sets, daily range): BP systolic 160–176; BP diastolic 79–88; PULSE 45–50; RESP 18; TEMP 36.6; O2SAT 97–99; BMI 34.6
[2018-05-12 10:11] LABS: Microscopic, Urine URINE MICROSCOPIC (MICROSCOPIC)
[2018-05-12 10:15] LABS: Appearance,Urine SL CLOUDY (Clear); Bilirubin,Urine Negative (Negative); Blood, Urine 1+ (Negative); Color,Urine YELLOW (Yellow); Glucose,Urine (UA) Negative (Negative); Ketones,Urine Negative (Negative); Leukocyte Esterase,Urine Negative (Negative); Nitrate,Urine Negative (Negative); Protein,Urine Negative (Negative); Urobilinogen,Urine 0.2 EU/dl (0.2)
[2018-05-12 10:25] LABS: Alanine Aminotransferase 25 U/L (12-78); Albumin Level 3.3 gm/dL (3.4-5.0); Alkaline Phosphatase 94 U/L (46-116); Anion Gap 10.8 mEq/L (5-15); Aspartate Amino Transferase 24 U/L (15-37); Basophils % 0.6 % (0.1-2.0); Bilirubin,Total 0.7 mg/dL (0.2-1.0); Blood Urea Nitrogen 15 mg/dL (7-18); Calcium 8.6 mg/dL (8.5-10.1); Carbon Dioxide 31 mmol/L (21.0-32.0); Chloride 103 mmol/L (98-107); Creatinine Clearance Estimated 70 mL/min (50-200); Creatinine,Serum 0.72 mg/dL (0.55-1.02); Eosinophils # 0.1 K/mm3 (0.0-0.4); Eosinophils % 3.1 % (0.1-12.0); Estimated Glomerular Filt Rate 81 ml/min (>60); GFR (African American) 98 ML/MIN (>60); Globulin 3.3 gm/dl (1.3-3.2); Glucose 105 mg/dL (74-106); Hematocrit 42.8 % (37.0-47.0); Hemoglobin 13.7 g/dL (12.2-16.2); Lymphocytes # 0.8 K/mm3 (0.7-4.5); Lymphocytes % 18.7 % (10-50); Mean Corpuscular HGB Conc 31.9 g/dL (31.8-35.4); Mean Corpuscular Hemoglobin 30.6 pg (27.0-31.2); Mean Corpuscular Volume 95.9 fl (81-99); Mean Platelet Volume 7.2 fl (7.4-10.4); Monocytes # 0.3 K/mm3 (0.1-1.0); Monocytes % 7.8 % (1.7-9.3); Neutrophils # 3.1 K/mm3 (1.8-7.8); Neutrophils % 69.8 % (37.0-80.0); Platelet Count 129 K/mm3 (142-424); Potassium 3.8 mmoL/L (3.5-5.1); Red Blood Count 4.46 M/mm3 (4.20-5.40); Red Cell Distribution Width 17.9 % (11.5-17.5); Sodium 141 mmol/L (136-145); Total Protein,Serum 6.6 gm/dL (6.4-8.2); White Blood Count 4.4 K/mm3 (4.8-10.8)
[2018-05-12 10:43] LABS: RBC,Urine Occasional #/hpf (0-3); WBC,Urine Occasional #/hpf (0-3)
[2018-05-12 10:44] LABS: Bacteria,Urine Trace /lpf
== END 2018-05-12 14:10 | disposition home or self-care (01) ==
LOC: INF 09:41
PROVIDERS: Visit Provider Internal Medicine Medical Oncology
DX: Z51.11 Encounter for antineoplastic chemotherapy (principal); C18.9 Malignant neoplasm of colon, unspecified
CPT/HCPCS: 80053; 81001; 85025; 96413; 96415; 96417; J1642; J9035; J9206; Q0166

== ENCOUNTER 2018-05-22 08:36 | Outpatient (CLI) | payer MEDICARE, OTHER, SELFPAY ==
--- NOTE | 2018-05-22 08:50 | CT_ITS ---
CT chest w con HISTORY: ITS.REASON: COLON CA, metastatic colon cancer, pulmonary metastasis ORDERING PHYSICIAN: Lee Ann Rodgers MD PATIENT AGE: 67 years COMPARISON: 01/26/2018 TECHNIQUE: Axial images obtained following the administration of 75 mL of Isovue 370 . Sagittal, and coronal reformatted images are also generated and reviewed. All CT scans at the facility use one or more dose reduction, viz: automated exposure control, ma/kV adjustment per patient size (including targeted exams where dose is matched to indication, i.e. head), or iterative reconstruction technique. FINDINGS: The nodularity in the right upper lobe centrally is not significant change. There are multiple small pulmonary nodules in the right upper lobe which appears stable. At least one nodule in the right upper lobe medially in the as ago esophageal region is slightly smaller at 10 x 6 mm previously 12 x 7 mm. The left lower lobe nodule may be slightly more prominent at 10.6 x 8.8 mm previously 9.6 x 8.7 mm. No new nodules are evident. There was a small node in the right perihilar region which previously measured 11 mm and is now only barely perceptible. No effusions or infiltrates. There is a Mediport catheter present by the left subclavian approach. No acute bony findings. IMPRESSION: Pulmonary metastasis. There has been a mixed response. Most of the pulmonary nodules in the right upper lobe are unchanged. One nodule appears slightly smaller. The nodule within the superior segment of left lower lobe however appears very slightly larger. Also a small right hilar lymph node appears smaller on today's exam.
--- NOTE | 2018-05-22 08:50 | CT_ITS ---
CT abdomen pelvis w con CLINICAL INDICATION: Follow-up colon cancer ITS.REASON: COLON CA ORDERING PHYSICIAN: Lee Ann Rodgers MD PATIENT AGE: 67 years COMPARISON: 01/26/2018 TECHNIQUE: Axial images obtained with sagittal and coronal reformats. All CT scans at the facility use one or more dose reduction, viz: automated exposure control, ma/kV adjustment per patient size (including targeted exams where dose is matched to indication, i.e. head), or iterative reconstruction technique. PROCEDURE: Oral Contrast: Redicat IV Contrast: 75 mL's of Isovue 370. FINDINGS: There are postcholecystectomy changes. There is a 4 mm isodensity in the right hepatic lobe inferiorly and may represent a small hepatic cyst. The liver is otherwise unremarkable. Spleen and adrenal glands are unremarkable. No pancreatic mass or peripancreatic fluid collection. There is atrophy of the pancreas. There are bilateral renal cysts. There is a 9 mm nonobstructing stone in the lower pole the right kidney No hydronephrosis. No retroperitoneal mass. Left mid abdominal colostomy once again noted with herniation of the bowel into the colostomy site. No evidence of intestinal obstruction. There has been a prior left hemicolectomy. Unremarkable appendix. Thickened small bowel loops are once again noted in the pelvis as previously described. Prior hysterectomy. There is a right lower quadrant abdominal wall defect/hernia/ostomy. Does the patient had ureteral diversion? There is focal linear thickening within the subcutaneous tissue in the right lower quadrant adjacent to this defect. Correlation with surgical history needed. No acute bony findings. IMPRESSION: 1. No convincing evidence of metastatic disease. 2. Left lower quadrant colostomy with herniation of bowel into the colostomy site. No evidence of valvular structures. 3. Right lower quadrant abdominal wall hernia/ostomy with focal thickening of the subcutaneous tissues adjacent to this region. Please correlate with patient's surgical history 4. Persistent thickening of small bowel loops in the pelvis as previously described
== END 2018-05-22 09:00 | disposition home or self-care (01) ==
PROVIDERS: PCP Nurse Practitioner Family; Visit Provider Internal Medicine Medical Oncology
DX: Z03.89 Encounter for observation for other suspected diseases and conditions ruled out (principal); C18.9 Malignant neoplasm of colon, unspecified
CPT/HCPCS: 71260; 74177; J1642; Q9967

== ENCOUNTER 2018-05-28 08:39 | Outpatient (CLI) | payer MEDICARE, OTHER, SELFPAY ==
[2018-05-28 08:39] VITALS: BMI 34.5
[2018-05-28 09:03] LABS: Microscopic, Urine URINE MICROSCOPIC (MICROSCOPIC)
[2018-05-28 09:06] LABS: Appearance,Urine CLEAR (Clear); Bilirubin,Urine Negative (Negative); Blood, Urine TRACE-L (Negative); Color,Urine YELLOW (Yellow); Glucose,Urine (UA) Negative (Negative); Ketones,Urine Negative (Negative); Leukocyte Esterase,Urine Negative (Negative); Nitrate,Urine Negative (Negative); Protein,Urine Negative (Negative); Urobilinogen,Urine 0.2 EU/dl (0.2)
[2018-05-28 09:10] LABS: Basophils % 0.7 % (0.1-2.0); Eosinophils # 0.1 K/mm3 (0.0-0.4); Eosinophils % 2.6 % (0.1-12.0); Hematocrit 44.2 % (37.0-47.0); Hemoglobin 14.1 g/dL (12.2-16.2); Lymphocytes # 0.8 K/mm3 (0.7-4.5); Lymphocytes % 18.3 % (10-50); Mean Corpuscular Hemoglobin 30.7 pg (27.0-31.2); Mean Corpuscular Volume 95.9 fl (81-99); Mean Platelet Volume 7.1 fl (7.4-10.4); Monocytes # 0.3 K/mm3 (0.1-1.0); Monocytes % 7.4 % (1.7-9.3); Neutrophils # 3.3 K/mm3 (1.8-7.8); Platelet Count 100 K/mm3 (142-424); Red Blood Count 4.61 M/mm3 (4.20-5.40); Red Cell Distribution Width 17.3 % (11.5-17.5); White Blood Count 4.6 K/mm3 (4.8-10.8)
[2018-05-28 09:16] LABS: Bacteria,Urine Trace /lpf; RBC,Urine Occasional #/hpf (0-3)
[2018-05-28 09:21] LABS: Alanine Aminotransferase 28 U/L (12-78); Albumin Level 3.2 gm/dL (3.4-5.0); Alkaline Phosphatase 109 U/L (46-116); Anion Gap 8.8 mEq/L (5-15); Aspartate Amino Transferase 21 U/L (15-37); Bilirubin,Total 0.4 mg/dL (0.2-1.0); Blood Urea Nitrogen 11 mg/dL (7-18); Calcium 8.5 mg/dL (8.5-10.1); Carbon Dioxide 32 mmol/L (21.0-32.0); Chloride 105 mmol/L (98-107); Creatinine Clearance Estimated 69 mL/min (50-200); Creatinine,Serum 0.76 mg/dL (0.55-1.02); Estimated Glomerular Filt Rate 76 ml/min (>60); GFR (African American) 92 ML/MIN (>60); Globulin 3.3 gm/dl (1.3-3.2); Glucose 111 mg/dL (74-106); Potassium 3.8 mmoL/L (3.5-5.1); Sodium 142 mmol/L (136-145); Total Protein,Serum 6.5 gm/dL (6.4-8.2)
[2018-05-28 11:10] VITALS: BP 137/58; PULSE 49; RESP 18; TEMP 36.6; O2SAT 96
[2018-05-28 11:41] VITALS: BP 131/59; PULSE 50; RESP 18; O2SAT 97
[2018-05-28 12:10] VITALS: BP 157/56; PULSE 50; RESP 18; O2SAT 96
[2018-05-28 12:50] VITALS: BP 147/59; PULSE 48; RESP 18; O2SAT 97
[2018-05-28 13:27] VITALS: BP 159/59; PULSE 51; RESP 18; O2SAT 97
== END 2018-05-28 13:45 | disposition home or self-care (01) ==
LOC: INF 08:39
PROVIDERS: Visit Provider Internal Medicine Medical Oncology
DX: Z51.11 Encounter for antineoplastic chemotherapy (principal); C18.9 Malignant neoplasm of colon, unspecified
CPT/HCPCS: 80053; 81001; 85025; 96374; 96413; 96415; 96417; J9035; J9206; Q0166

== ENCOUNTER 2018-06-09 09:36 | Outpatient (CLI) | payer MEDICARE, OTHER, SELFPAY ==
[2018-06-09 09:36] VITALS: BMI 34.0
[2018-06-09 10:10] LABS: Microscopic, Urine URINE MICROSCOPIC (MICROSCOPIC)
[2018-06-09 10:11] LABS: Appearance,Urine CLEAR (Clear); Bilirubin,Urine Negative (Negative); Blood, Urine 1+ (Negative); Color,Urine YELLOW (Yellow); Glucose,Urine (UA) Negative (Negative); Ketones,Urine Negative (Negative); Leukocyte Esterase,Urine Negative (Negative); Nitrate,Urine Negative (Negative); PH,Urine 5.5 (5.0-8.5); Protein,Urine Negative (Negative); Urobilinogen,Urine 0.2 EU/dl (0.2)
[2018-06-09 10:19] LABS: Bacteria,Urine Trace /lpf; Squamous Epithelial Cell,Urine Occasional #/hpf (0-5)
[2018-06-09 10:21] LABS: Basophils % 0.5 % (0.1-2.0); Eosinophils # 0.1 K/mm3 (0.0-0.4); Eosinophils % 2.1 % (0.1-12.0); Hematocrit 43.8 % (37.0-47.0); Hemoglobin 13.8 g/dL (12.2-16.2); Lymphocytes # 0.8 K/mm3 (0.7-4.5); Lymphocytes % 16.4 % (10-50); Mean Corpuscular HGB Conc 31.5 g/dL (31.8-35.4); Mean Corpuscular Hemoglobin 30.7 pg (27.0-31.2); Mean Corpuscular Volume 97.3 fl (81-99); Mean Platelet Volume 7.5 fl (7.4-10.4); Monocytes # 0.4 K/mm3 (0.1-1.0); Neutrophils # 3.4 K/mm3 (1.8-7.8); Platelet Count 98 K/mm3 (142-424); Red Cell Distribution Width 17.6 % (11.5-17.5); White Blood Count 4.7 K/mm3 (4.8-10.8)
[2018-06-09 10:26] LABS: Alanine Aminotransferase 25 U/L (12-78); Albumin Level 3.1 gm/dL (3.4-5.0); Alkaline Phosphatase 85 U/L (46-116); Anion Gap 10.4 mEq/L (5-15); Aspartate Amino Transferase 25 U/L (15-37); Bilirubin,Total 0.5 mg/dL (0.2-1.0); Blood Urea Nitrogen 13 mg/dL (7-18); Calcium 8.3 mg/dL (8.5-10.1); Carbon Dioxide 31 mmol/L (21.0-32.0); Chloride 105 mmol/L (98-107); Creatinine Clearance Estimated 68 mL/min (50-200); Creatinine,Serum 0.59 mg/dL (0.55-1.02); Estimated Glomerular Filt Rate 102 ml/min (>60); GFR (African American) 123 ML/MIN (>60); Globulin 3.1 gm/dl (1.3-3.2); Glucose 95 mg/dL (74-106); Potassium 3.4 mmoL/L (3.5-5.1); Sodium 143 mmol/L (136-145); Total Protein,Serum 6.2 gm/dL (6.4-8.2)
[2018-06-09 11:15] VITALS: BP 158/73; PULSE 68; RESP 20; TEMP 36.9; O2SAT 95
[2018-06-09 11:45] VITALS: BP 175/74; PULSE 68; RESP 20; TEMP 37.1; O2SAT 96
[2018-06-09 12:15] VITALS: BP 175/74; PULSE 68; RESP 20; TEMP 36.9; O2SAT 95
[2018-06-09 12:45] VITALS: BP 170/56; PULSE 68; RESP 20; TEMP 36.9; O2SAT 95
[2018-06-09 13:00] VITALS: BP 175/75; PULSE 68; RESP 20; TEMP 36.9; O2SAT 95
[2018-06-09 13:25] VITALS: BP 165/74; PULSE 68; RESP 20; TEMP 36.9; O2SAT 95
== END 2018-06-09 13:30 | disposition home or self-care (01) ==
LOC: INF 09:36
PROVIDERS: Visit Provider Internal Medicine Medical Oncology
DX: Z51.11 Encounter for antineoplastic chemotherapy (principal); C18.9 Malignant neoplasm of colon, unspecified
CPT/HCPCS: 80053; 81001; 85025; 96413; 96415; 96417; J9035; J9206; Q0166

== ENCOUNTER 2018-06-25 09:05 | Outpatient (CLI) | payer MEDICARE, OTHER, SELFPAY ==
[2018-06-25] VITALS (7 sets, daily range): BP systolic 167–187; BP diastolic 75–85; PULSE 46–50; RESP 18; TEMP 36.7; O2SAT 96–97; BMI 34.5
[2018-06-25 09:36] LABS: Appearance,Urine CLEAR (Clear); Bilirubin,Urine Negative (Negative); Blood, Urine TRACE-I (Negative); Color,Urine YELLOW (Yellow); Glucose,Urine (UA) Negative (Negative); Ketones,Urine Negative (Negative); Leukocyte Esterase,Urine Negative (Negative); Microscopic, Urine URINE MICROSCOPIC (MICROSCOPIC); Nitrate,Urine Negative (Negative); Protein,Urine Negative (Negative); Specific Gravity, Urine 1.015 (1.005-1.030); Urobilinogen,Urine 0.2 EU/dl (0.2)
[2018-06-25 09:38] LABS: Basophils % 0.7 % (0.1-2.0); Eosinophils # 0.1 K/mm3 (0.0-0.4); Eosinophils % 2.6 % (0.1-12.0); Hematocrit 43.5 % (37.0-47.0); Hemoglobin 14.2 g/dL (12.2-16.2); Lymphocytes # 0.8 K/mm3 (0.7-4.5); Lymphocytes % 19.7 % (10-50); Mean Corpuscular HGB Conc 32.6 g/dL (31.8-35.4); Mean Corpuscular Hemoglobin 31.4 pg (27.0-31.2); Mean Corpuscular Volume 96.3 fl (81-99); Mean Platelet Volume 8.1 fl (7.4-10.4); Monocytes # 0.3 K/mm3 (0.1-1.0); Monocytes % 7.3 % (1.7-9.3); Neutrophils % 69.7 % (37.0-80.0); Platelet Count 103 K/mm3 (142-424); Red Blood Count 4.52 M/mm3 (4.20-5.40); Red Cell Distribution Width 16.8 % (11.5-17.5); White Blood Count 4.2 K/mm3 (4.8-10.8)
[2018-06-25 09:46] LABS: Alanine Aminotransferase 43 U/L (12-78); Albumin Level 3.2 gm/dL (3.4-5.0); Albumin/Globulin Ratio 0.9 (1.1-1.8); Alkaline Phosphatase 115 U/L (46-116); Anion Gap 10.1 mEq/L (5-15); Aspartate Amino Transferase 29 U/L (15-37); Bilirubin,Total 0.4 mg/dL (0.2-1.0); Blood Urea Nitrogen 18 mg/dL (7-18); Calcium 8.7 mg/dL (8.5-10.1); Carbon Dioxide 31 mmol/L (21.0-32.0); Chloride 105 mmol/L (98-107); Creatinine Clearance Estimated 69 mL/min (50-200); Creatinine,Serum 0.66 mg/dL (0.55-1.02); Estimated Glomerular Filt Rate 89 ml/min (>60); GFR (African American) 108 ML/MIN (>60); Globulin 3.4 gm/dl (1.3-3.2); Glucose 104 mg/dL (74-106); Potassium 4.1 mmoL/L (3.5-5.1); Sodium 142 mmol/L (136-145); Total Protein,Serum 6.6 gm/dL (6.4-8.2)
[2018-06-25 09:52] LABS: Bacteria,Urine Trace /lpf; RBC,Urine Occasional #/hpf (0-3); Squamous Epithelial Cell,Urine Occasional #/hpf (0-5)
--- NOTE | 2018-06-25 10:29 | PC.NURSE ---
06/25/18 @ 1021-pt returned from appt with to get chemo tx. labs all noted within appropriate limits. pt premedicated per order with kytril. awaiting pharmacy for medication.
== END 2018-06-25 13:45 | disposition home or self-care (01) ==
LOC: INF 09:05
PROVIDERS: Visit Provider Internal Medicine Medical Oncology
DX: Z51.11 Encounter for antineoplastic chemotherapy (principal); C18.9 Malignant neoplasm of colon, unspecified
CPT/HCPCS: 80053; 81001; 85025; 96374; 96413; 96415; 96417; J9035; J9206; Q0166

== ENCOUNTER 2018-07-07 09:11 | Outpatient (CLI) | payer MEDICARE, OTHER, SELFPAY ==
[2018-07-07 09:14] VITALS: BMI 34.3
[2018-07-07 09:32] LABS: Microscopic, Urine URINE MICROSCOPIC (MICROSCOPIC)
[2018-07-07 09:36] LABS: Appearance,Urine CLEAR (Clear); Bilirubin,Urine Negative (Negative); Blood, Urine TRACE-I (Negative); Color,Urine YELLOW (Yellow); Glucose,Urine (UA) Negative (Negative); Ketones,Urine Negative (Negative); Leukocyte Esterase,Urine Negative (Negative); Nitrate,Urine Negative (Negative); Protein,Urine Negative (Negative); Specific Gravity, Urine 1.015 (1.005-1.030); Urobilinogen,Urine 0.2 EU/dl (0.2)
[2018-07-07 09:39] LABS: Basophils % 0.8 % (0.1-2.0); Eosinophils # 0.1 K/mm3 (0.0-0.4); Eosinophils % 2.2 % (0.1-12.0); Hematocrit 45.6 % (37.0-47.0); Hemoglobin 14.7 g/dL (12.2-16.2); Lymphocytes # 0.9 K/mm3 (0.7-4.5); Lymphocytes % 16.6 % (10-50); Mean Corpuscular HGB Conc 32.3 g/dL (31.8-35.4); Mean Corpuscular Hemoglobin 31.6 pg (27.0-31.2); Mean Platelet Volume 7.2 fl (7.4-10.4); Monocytes # 0.4 K/mm3 (0.1-1.0); Monocytes % 7.5 % (1.7-9.3); Neutrophils # 3.9 K/mm3 (1.8-7.8); Neutrophils % 72.8 % (37.0-80.0); Platelet Count 147 K/mm3 (142-424); Red Blood Count 4.65 M/mm3 (4.20-5.40); Red Cell Distribution Width 17.2 % (11.5-17.5); White Blood Count 5.3 K/mm3 (4.8-10.8)
[2018-07-07 09:51] LABS: Alanine Aminotransferase 27 U/L (12-78); Albumin Level 3.2 gm/dL (3.4-5.0); Alkaline Phosphatase 103 U/L (46-116); Aspartate Amino Transferase 29 U/L (15-37); Bilirubin,Total 0.4 mg/dL (0.2-1.0); Blood Urea Nitrogen 15 mg/dL (7-18); Calcium 8.6 mg/dL (8.5-10.1); Carbon Dioxide 32 mmol/L (21.0-32.0); Chloride 105 mmol/L (98-107); Creatinine Clearance Estimated 69 mL/min (50-200); Creatinine,Serum 0.63 mg/dL (0.55-1.02); Estimated Glomerular Filt Rate 94 ml/min (>60); GFR (African American) 114 ML/MIN (>60); Globulin 3.3 gm/dl (1.3-3.2); Glucose 113 mg/dL (74-106); Sodium 142 mmol/L (136-145); Total Protein,Serum 6.5 gm/dL (6.4-8.2)
[2018-07-07 09:53] LABS: Bacteria,Urine Trace /lpf; RBC,Urine Occasional #/hpf (0-3)
[2018-07-07 10:35] VITALS: BP 137/69; PULSE 58; RESP 20; TEMP 36.9; O2SAT 95
[2018-07-07 10:50] VITALS: BP 112/74; PULSE 68; RESP 20; TEMP 36.9; O2SAT 95
[2018-07-07 11:10] VITALS: BP 143/78; PULSE 68; RESP 20; TEMP 36.9; O2SAT 95
[2018-07-07 11:40] VITALS: BP 189/97; PULSE 68; RESP 20; TEMP 36.9; O2SAT 95
[2018-07-07 12:10] VITALS: BP 178/87; PULSE 55; RESP 20; TEMP 36.9; O2SAT 95
== END 2018-07-07 12:10 | disposition home or self-care (01) ==
LOC: INF 09:11
PROVIDERS: Visit Provider Internal Medicine Medical Oncology
DX: Z51.11 Encounter for antineoplastic chemotherapy (principal); C18.9 Malignant neoplasm of colon, unspecified
CPT/HCPCS: 80053; 81001; 85025; 96413; 96417; J8501; J9035; J9206; Q0166

== ENCOUNTER 2018-07-31 09:10 | Outpatient (CLI) | payer MEDICARE, OTHER, SELFPAY ==
[2018-07-31] VITALS (11 sets, daily range): BP systolic 121–147; BP diastolic 63–85; PULSE 52–63; RESP 16–18; TEMP 36.4–36.6; O2SAT 92; BMI 32.8
[2018-07-31 10:02] LABS: Appearance,Urine CLEAR (Clear); Bilirubin,Urine Negative (Negative); Blood, Urine 2+ (Negative); Color,Urine YELLOW (Yellow); Glucose,Urine (UA) Negative (Negative); Ketones,Urine Negative (Negative); Leukocyte Esterase,Urine Negative (Negative); Microscopic, Urine URINE MICROSCOPIC (MICROSCOPIC); Nitrate,Urine Negative (Negative); Protein,Urine Negative (Negative); Urobilinogen,Urine 0.2 EU/dl (0.2)
[2018-07-31 10:02] LABS: Basophils % 0.5 % (0.1-2.0); Eosinophils # 0.1 K/mm3 (0.0-0.4); Eosinophils % 3.2 % (0.1-12.0); Hematocrit 41.8 % (37.0-47.0); Hemoglobin 12.8 g/dL (12.2-16.2); Lymphocytes # 0.7 K/mm3 (0.7-4.5); Lymphocytes % 19.1 % (10-50); Mean Corpuscular HGB Conc 30.7 g/dL (31.8-35.4); Mean Corpuscular Hemoglobin 28.4 pg (27.0-31.2); Mean Corpuscular Volume 92.6 fl (81-99); Mean Platelet Volume 7.5 fl (7.4-10.4); Monocytes # 0.4 K/mm3 (0.1-1.0); Monocytes % 11.9 % (1.7-9.3); Neutrophils # 2.4 K/mm3 (1.8-7.8); Neutrophils % 65.4 % (37.0-80.0); Platelet Count 99 K/mm3 (142-424); Red Blood Count 4.52 M/mm3 (4.20-5.40); Red Cell Distribution Width 16.7 % (11.5-17.5); White Blood Count 3.6 K/mm3 (4.8-10.8)
[2018-07-31 10:14] LABS: Alanine Aminotransferase 23 U/L (12-78); Albumin Level 2.9 gm/dL (3.4-5.0); Albumin/Globulin Ratio 0.9 (1.1-1.8); Alkaline Phosphatase 66 U/L (46-116); Anion Gap 11.5 mEq/L (5-15); Aspartate Amino Transferase 25 U/L (15-37); Bilirubin,Total 0.5 mg/dL (0.2-1.0); Blood Urea Nitrogen 13 mg/dL (7-18); Calcium 8.4 mg/dL (8.5-10.1); Carbon Dioxide 29 mmol/L (21.0-32.0); Chloride 106 mmol/L (98-107); Creatinine Clearance Estimated 67 mL/min (50-200); Creatinine,Serum 0.93 mg/dL (0.55-1.02); Estimated Glomerular Filt Rate 60 ml/min (>60); GFR (African American) 73 ML/MIN (>60); Globulin 3.2 gm/dl (1.3-3.2); Glucose 105 mg/dL (74-106); Potassium 4.5 mmoL/L (3.5-5.1); Sodium 142 mmol/L (136-145); Total Protein,Serum 6.1 gm/dL (6.4-8.2)
[2018-07-31 10:19] LABS: Bacteria,Urine 1+ /lpf; RBC,Urine Occasional #/hpf (0-3)
== END 2018-07-31 14:40 | disposition home or self-care (01) ==
LOC: INF 09:14
PROVIDERS: Visit Provider Internal Medicine Medical Oncology
DX: Z51.11 Encounter for antineoplastic chemotherapy (principal); C18.9 Malignant neoplasm of colon, unspecified
CPT/HCPCS: 36415; 80053; 81001; 85025; 96413; 96415; 96417; J8501; J9035; J9206; Q0166

== ENCOUNTER 2018-08-11 08:41 | Outpatient (CLI) | payer MEDICARE, OTHER, SELFPAY ==
[2018-08-11 08:43] VITALS: BMI 32.5
[2018-08-11 08:58] LABS: Microscopic, Urine URINE MICROSCOPIC (MICROSCOPIC)
[2018-08-11 09:03] LABS: Basophils % 0.6 % (0.1-2.0); Eosinophils # 0.1 K/mm3 (0.0-0.4); Eosinophils % 2.8 % (0.1-12.0); Hematocrit 42.2 % (37.0-47.0); Hemoglobin 13.8 g/dL (12.2-16.2); Lymphocytes # 0.8 K/mm3 (0.7-4.5); Lymphocytes % 19.7 % (10-50); Mean Corpuscular HGB Conc 32.8 g/dL (31.8-35.4); Mean Corpuscular Hemoglobin 31.3 pg (27.0-31.2); Mean Corpuscular Volume 95.4 fl (81-99); Mean Platelet Volume 7.1 fl (7.4-10.4); Monocytes # 0.4 K/mm3 (0.1-1.0); Monocytes % 8.5 % (1.7-9.3); Neutrophils # 2.9 K/mm3 (1.8-7.8); Neutrophils % 68.5 % (37.0-80.0); Platelet Count 96 K/mm3 (142-424); Red Blood Count 4.42 M/mm3 (4.20-5.40); Red Cell Distribution Width 17.4 % (11.5-17.5); White Blood Count 4.3 K/mm3 (4.8-10.8)
[2018-08-11 09:04] LABS: Appearance,Urine CLEAR (Clear); Bilirubin,Urine Negative (Negative); Blood, Urine Negative (Negative); Color,Urine YELLOW (Yellow); Glucose,Urine (UA) Negative (Negative); Ketones,Urine Negative (Negative); Leukocyte Esterase,Urine Negative (Negative); Nitrate,Urine Negative (Negative); PH,Urine 5.5 (5.0-8.5); Protein,Urine Negative (Negative); Specific Gravity, Urine 1.015 (1.005-1.030); Urobilinogen,Urine 0.2 EU/dl (0.2)
[2018-08-11 09:14] LABS: Bacteria,Urine Trace /lpf; Mucus,Urine 1+ /lpf
[2018-08-11 09:17] LABS: Alanine Aminotransferase 22 U/L (12-78); Albumin Level 3.1 gm/dL (3.4-5.0); Albumin/Globulin Ratio 0.9 (1.1-1.8); Alkaline Phosphatase 83 U/L (46-116); Anion Gap 9.2 mEq/L (5-15); Aspartate Amino Transferase 22 U/L (15-37); Bilirubin,Total 0.6 mg/dL (0.2-1.0); Blood Urea Nitrogen 14 mg/dL (7-18); Calcium 8.8 mg/dL (8.5-10.1); Carbon Dioxide 31 mmol/L (21.0-32.0); Chloride 107 mmol/L (98-107); Creatinine Clearance Estimated 65 mL/min (50-200); Creatinine,Serum 0.76 mg/dL (0.55-1.02); Estimated Glomerular Filt Rate 76 ml/min (>60); GFR (African American) 92 ML/MIN (>60); Globulin 3.3 gm/dl (1.3-3.2); Glucose 97 mg/dL (74-106); Potassium 4.2 mmoL/L (3.5-5.1); Sodium 143 mmol/L (136-145); Total Protein,Serum 6.4 gm/dL (6.4-8.2)
[2018-08-11 10:07] VITALS: BP 141/98; PULSE 49; RESP 18; TEMP 36.7; O2SAT 97
[2018-08-11 10:37] VITALS: BP 141/77; PULSE 48; RESP 18; O2SAT 98
[2018-08-11 11:07] VITALS: BP 143/75; PULSE 45; RESP 18; O2SAT 98
[2018-08-11 11:37] VITALS: BP 140/72; PULSE 49; RESP 18; O2SAT 97
[2018-08-11 12:07] VITALS: BP 130/62; PULSE 51; RESP 18; O2SAT 97
[2018-08-11 12:40] VITALS: BP 135/71; PULSE 54; RESP 18; O2SAT 98
== END 2018-08-11 12:40 | disposition home or self-care (01) ==
LOC: INF 08:41
PROVIDERS: Visit Provider Internal Medicine Medical Oncology
DX: Z51.11 Encounter for antineoplastic chemotherapy (principal); C18.9 Malignant neoplasm of colon, unspecified
CPT/HCPCS: 80053; 81001; 85025; 96413; 96415; 96417; J1642; J8501; J9035; J9206; Q0166

== ENCOUNTER 2018-08-24 08:21 | Outpatient (CLI) | payer MEDICARE, OTHER, SELFPAY ==
[2018-08-24 08:14] VITALS: BMI 32.5
[2018-08-24 08:48] LABS: Basophils % 0.9 % (0.1-2.0); Eosinophils # 0.1 K/mm3 (0.0-0.4); Eosinophils % 3.4 % (0.1-12.0); Hematocrit 41.6 % (37.0-47.0); Hemoglobin 13.7 g/dL (12.2-16.2); Lymphocytes # 0.8 K/mm3 (0.7-4.5); Lymphocytes % 24.1 % (10-50); Mean Corpuscular HGB Conc 32.9 g/dL (31.8-35.4); Mean Corpuscular Hemoglobin 31.5 pg (27.0-31.2); Mean Corpuscular Volume 95.7 fl (81-99); Mean Platelet Volume 7.5 fl (7.4-10.4); Monocytes # 0.3 K/mm3 (0.1-1.0); Monocytes % 9.1 % (1.7-9.3); Neutrophils # 2.1 K/mm3 (1.8-7.8); Neutrophils % 62.5 % (37.0-80.0); Platelet Count 94 K/mm3 (142-424); Red Blood Count 4.35 M/mm3 (4.20-5.40); Red Cell Distribution Width 16.6 % (11.5-17.5); White Blood Count 3.3 K/mm3 (4.8-10.8)
[2018-08-24 08:58] LABS: Alanine Aminotransferase 26 U/L (12-78); Albumin Level 3.2 gm/dL (3.4-5.0); Albumin/Globulin Ratio 0.9 (1.1-1.8); Alkaline Phosphatase 88 U/L (46-116); Anion Gap 8.5 mEq/L (5-15); Aspartate Amino Transferase 21 U/L (15-37); Bilirubin,Total 0.3 mg/dL (0.2-1.0); Blood Urea Nitrogen 17 mg/dL (7-18); Calcium 8.5 mg/dL (8.5-10.1); Carbon Dioxide 31 mmol/L (21.0-32.0); Chloride 107 mmol/L (98-107); Creatinine Clearance Estimated 65 mL/min (50-200); Creatinine,Serum 0.68 mg/dL (0.55-1.02); Estimated Glomerular Filt Rate 86 ml/min (>60); GFR (African American) 104 ML/MIN (>60); Globulin 3.4 gm/dl (1.3-3.2); Glucose 102 mg/dL (74-106); Potassium 4.5 mmoL/L (3.5-5.1); Sodium 142 mmol/L (136-145); Total Protein,Serum 6.6 gm/dL (6.4-8.2)
--- NOTE | 2018-08-24 09:20 | CT_ITS ---
CT chest w con HISTORY: Follow-up colon cancer ITS.REASON: COLON CA ORDERING PHYSICIAN: Lee Ann Rodgers MD PATIENT AGE: 68 years COMPARISON: 05/22/2018 . TECHNIQUE: Axial images obtained following the administration of 75 mL of Optiray 350 . Sagittal, and coronal reformatted images are also generated and reviewed. All CT scans at the facility use one or more dose reduction, viz: automated exposure control, ma/kV adjustment per patient size (including targeted exams where dose is matched to indication, i.e. head), or iterative reconstruction technique. FINDINGS: No mediastinal or hilar mass or adenopathy. Mediport catheter is present from a left subclavian approach. There is mild motion artifact which somewhat obscures fine detail. Previously noted nodular densities within the superior segment of the right lower lobe once again noted probably unchanged given the difference in technique with the motion artifact. Continued follow-up is recommended. These nodules have been present dating back to 07/25/2016. There is an 11 mm nodule in the left lower lobe which is unchanged. No new nodules are evident. No effusions or infiltrates. No acute bony findings. IMPRESSION: Overall no significant change in the appearance of the chest. Stable bilateral pulmonary nodules/metastatic foci. Previously the left lower lobe nodule had increased in size but is stable on today's exam
--- NOTE | 2018-08-24 09:20 | CT_ITS ---
CT abdomen pelvis w con CLINICAL INDICATION: ITS.REASON: COLON CA ORDERING PHYSICIAN: Lee Ann Rodgers MD PATIENT AGE: 68 years COMPARISON: 05/22/2018 TECHNIQUE: Axial images obtained with sagittal and coronal reformats. All CT scans at the facility use one or more dose reduction, viz: automated exposure control, ma/kV adjustment per patient size (including targeted exams where dose is matched to indication, i.e. head), or iterative reconstruction technique. PROCEDURE: Oral Contrast: Redicat IV Contrast: 75 mL's Optiray 350. FINDINGS: There are postcholecystectomy changes. A 4 mm isodensity present in the right hepatic lobe inferiorly unchanged and may be due to small cyst. The spleen, adrenal glands, and pancreas have an unremarkable appearance. There are bilateral perirenal cyst. There is a left lower quadrant colostomy present. There has been a prior left-sided hemicolectomy. Right lower quadrant ostomy once again noted. Small bowel loops extend through 4 appears represent a hernia within the abdominal wall may be due to prior diverting ileostomy. Correlation with surgical history needed.. Thickened and distended small bowel loops are once again noted in the pelvic region with postsurgical changes in the pelvis. No intestinal obstruction or free air. No abdominal or pelvic adenopathy. No acute bony findings. IMPRESSION: 1. Stable CT appearance of the abdomen with no evidence of abdominal metastasis 2. Persistent thickened and distended small bowel loops are present in the pelvis. Postsurgical changes are present in the pelvis well.
== END 2018-08-24 10:05 | disposition home or self-care (01) ==
LOC: RAD 08:22
PROVIDERS: PCP Nurse Practitioner Family; Visit Provider Internal Medicine Medical Oncology
DX: C18.9 Malignant neoplasm of colon, unspecified (principal)
CPT/HCPCS: 71260; 74177; 80053; 85025; J1642; Q9967

== ENCOUNTER 2018-08-27 10:54 | Outpatient (CLI) | payer MEDICARE, OTHER, SELFPAY ==
[2018-08-27 10:58] VITALS: BMI 32.5
[2018-08-27 11:04] LABS: Microscopic, Urine URINE MICROSCOPIC (MICROSCOPIC)
[2018-08-27 11:10] LABS: Appearance,Urine CLEAR (Clear); Bilirubin,Urine Negative (Negative); Blood, Urine Negative (Negative); Color,Urine STRAW (Yellow); Glucose,Urine (UA) Negative (Negative); Ketones,Urine Negative (Negative); Leukocyte Esterase,Urine Negative (Negative); Nitrate,Urine Negative (Negative); Protein,Urine Negative (Negative); Urobilinogen,Urine 0.2 EU/dl (0.2)
[2018-08-27 11:22] LABS: Bacteria,Urine Trace /lpf; WBC,Urine Occasional #/hpf (0-3)
[2018-08-27 11:44] VITALS: BP 125/72; PULSE 48; RESP 18; TEMP 36.6; O2SAT 96
[2018-08-27 12:15] VITALS: BP 145/68; PULSE 48; RESP 18; O2SAT 97
[2018-08-27 12:45] VITALS: BP 149/81; PULSE 50; RESP 18; O2SAT 97
[2018-08-27 13:15] VITALS: BP 154/74; PULSE 51; RESP 18; O2SAT 98
[2018-08-27 13:45] VITALS: BP 151/78; PULSE 52; RESP 18; O2SAT 97
[2018-08-27 14:05] VITALS: BP 136/71; PULSE 52; RESP 18; O2SAT 97
== END 2018-08-27 14:05 | disposition home or self-care (01) ==
LOC: INF 10:54
PROVIDERS: Visit Provider Internal Medicine Medical Oncology
DX: Z51.11 Encounter for antineoplastic chemotherapy (principal); C18.9 Malignant neoplasm of colon, unspecified
CPT/HCPCS: 81001; 96413; 96415; 96417; J9035; J9206; Q0166

== ENCOUNTER 2018-09-08 09:49 | Outpatient (CLI) | payer MEDICARE, OTHER, SELFPAY ==
[2018-09-08] VITALS (7 sets, daily range): BP systolic 141–158; BP diastolic 64–82; PULSE 46–51; RESP 18; TEMP 36.7; O2SAT 97–98; BMI 71.8
[2018-09-08 10:12] LABS: Microscopic, Urine URINE MICROSCOPIC (MICROSCOPIC)
[2018-09-08 10:14] LABS: Appearance,Urine CLEAR (Clear); Bilirubin,Urine Negative (Negative); Blood, Urine TRACE-L (Negative); Color,Urine STRAW (Yellow); Glucose,Urine (UA) Negative (Negative); Ketones,Urine Negative (Negative); Leukocyte Esterase,Urine Negative (Negative); Nitrate,Urine Negative (Negative); PH,Urine 5.5 (5.0-8.5); Protein,Urine Negative (Negative); Urobilinogen,Urine 0.2 EU/dl (0.2)
[2018-09-08 10:14] LABS: Basophils % 0.4 % (0.1-2.0); Eosinophils # 0.1 K/mm3 (0.0-0.4); Eosinophils % 2.5 % (0.1-12.0); Hematocrit 41.3 % (37.0-47.0); Hemoglobin 13.8 g/dL (12.2-16.2); Lymphocytes # 0.9 K/mm3 (0.7-4.5); Mean Corpuscular HGB Conc 33.5 g/dL (31.8-35.4); Mean Corpuscular Volume 95.6 fl (81-99); Monocytes # 0.4 K/mm3 (0.1-1.0); Monocytes % 6.7 % (1.7-9.3); Neutrophils # 4.2 K/mm3 (1.8-7.8); Neutrophils % 74.4 % (37.0-80.0); Platelet Count 115 K/mm3 (142-424); Red Blood Count 4.32 M/mm3 (4.20-5.40); Red Cell Distribution Width 17.7 % (11.5-17.5); White Blood Count 5.7 K/mm3 (4.8-10.8)
[2018-09-08 10:24] LABS: Alanine Aminotransferase 37 U/L (12-78); Albumin Level 3.2 gm/dL (3.4-5.0); Albumin/Globulin Ratio 0.9 (1.1-1.8); Alkaline Phosphatase 121 U/L (46-116); Anion Gap 11.7 mEq/L (5-15); Aspartate Amino Transferase 35 U/L (15-37); Bilirubin,Total 0.4 mg/dL (0.2-1.0); Blood Urea Nitrogen 12 mg/dL (7-18); Calcium 8.2 mg/dL (8.5-10.1); Carbon Dioxide 29 mmol/L (21.0-32.0); Chloride 103 mmol/L (98-107); Creatinine Clearance Estimated 39 mL/min (50-200); Creatinine,Serum 0.71 mg/dL (0.55-1.02); Estimated Glomerular Filt Rate 82 ml/min (>60); GFR (African American) 99 ML/MIN (>60); Globulin 3.6 gm/dl (1.3-3.2); Glucose 102 mg/dL (74-106); Potassium 3.7 mmoL/L (3.5-5.1); Sodium 140 mmol/L (136-145); Total Protein,Serum 6.8 gm/dL (6.4-8.2)
[2018-09-08 10:27] LABS: Bacteria,Urine 1+ /lpf; Hyaline Casts,Urine Occasional #/lpf (0); Mucus,Urine 1+ /lpf; WBC,Urine Occasional #/hpf (0-3)
== END 2018-09-08 13:53 | disposition home or self-care (01) ==
LOC: INF 09:49
PROVIDERS: Visit Provider Internal Medicine Medical Oncology
DX: Z51.11 Encounter for antineoplastic chemotherapy (principal); C18.9 Malignant neoplasm of colon, unspecified
CPT/HCPCS: 80053; 81001; 85025; 96413; 96415; 96417; J8501; J9035; J9206; Q0166

== ENCOUNTER 2018-09-24 08:40 | Outpatient (CLI) | payer MEDICARE, OTHER, SELFPAY ==
[2018-09-24 08:44] VITALS: BMI 32.5
[2018-09-24 09:02] LABS: Microscopic, Urine URINE MICROSCOPIC (MICROSCOPIC)
[2018-09-24 09:08] LABS: Basophils % 0.7 % (0.1-2.0); Eosinophils # 0.1 K/mm3 (0.0-0.4); Eosinophils % 3.4 % (0.1-12.0); Hematocrit 38.5 % (37.0-47.0); Hemoglobin 12.4 g/dL (12.2-16.2); Lymphocytes # 0.8 K/mm3 (0.7-4.5); Lymphocytes % 19.5 % (10-50); Mean Corpuscular HGB Conc 32.3 g/dL (31.8-35.4); Mean Corpuscular Hemoglobin 30.2 pg (27.0-31.2); Mean Corpuscular Volume 93.6 fl (81-99); Mean Platelet Volume 7.7 fl (7.4-10.4); Monocytes # 0.3 K/mm3 (0.1-1.0); Monocytes % 8.4 % (1.7-9.3); Neutrophils # 2.7 K/mm3 (1.8-7.8); Platelet Count 107 K/mm3 (142-424); Red Blood Count 4.11 M/mm3 (4.20-5.40); Red Cell Distribution Width 17.6 % (11.5-17.5); White Blood Count 3.9 K/mm3 (4.8-10.8)
[2018-09-24 09:17] LABS: Alanine Aminotransferase 38 U/L (12-78); Alkaline Phosphatase 97 U/L (46-116); Anion Gap 9.4 mEq/L (5-15); Aspartate Amino Transferase 35 U/L (15-37); Bilirubin,Total 0.4 mg/dL (0.2-1.0); Blood Urea Nitrogen 17 mg/dL (7-18); Calcium 8.1 mg/dL (8.5-10.1); Carbon Dioxide 30 mmol/L (21.0-32.0); Chloride 109 mmol/L (98-107); Creatinine Clearance Estimated 65 mL/min (50-200); Creatinine,Serum 0.63 mg/dL (0.55-1.02); Estimated Glomerular Filt Rate 94 ml/min (>60); GFR (African American) 114 ML/MIN (>60); Glucose 119 mg/dL (74-106); Potassium 3.4 mmoL/L (3.5-5.1); Sodium 145 mmol/L (136-145)
[2018-09-24 09:50] LABS: Appearance,Urine CLEAR (Clear); Bilirubin,Urine Negative (Negative); Blood, Urine TRACE-L (Negative); Color,Urine YELLOW (Yellow); Glucose,Urine (UA) Negative (Negative); Ketones,Urine Negative (Negative); Leukocyte Esterase,Urine Negative (Negative); Nitrate,Urine Negative (Negative); PH,Urine 5.5 (5.0-8.5); Protein,Urine Negative (Negative); Specific Gravity, Urine 1.015 (1.005-1.030); Urobilinogen,Urine 0.2 EU/dl (0.2)
[2018-09-24 10:01] LABS: RBC,Urine Occasional #/hpf (0-3); Squamous Epithelial Cell,Urine Occasional #/hpf (0-5)
[2018-09-24 10:02] LABS: Bacteria,Urine Trace /lpf
[2018-09-24 11:32] VITALS: BP 153/79; PULSE 50; RESP 18; TEMP 36.6; O2SAT 98
[2018-09-24 12:02] VITALS: BP 171/85; PULSE 54; RESP 18; O2SAT 97
[2018-09-24 12:32] VITALS: BP 166/81; PULSE 51; RESP 18; O2SAT 97
[2018-09-24 13:02] VITALS: BP 167/89; PULSE 50; RESP 18; O2SAT 99
[2018-09-24 13:32] VITALS: BP 171/82; PULSE 52; RESP 18; O2SAT 98
[2018-09-24 14:00] VITALS: BP 166/85; PULSE 53; RESP 20; TEMP 36.6; O2SAT 97
== END 2018-09-24 14:30 | disposition home or self-care (01) ==
PROVIDERS: Visit Provider Internal Medicine Medical Oncology
DX: Z51.11 Encounter for antineoplastic chemotherapy (principal); C18.9 Malignant neoplasm of colon, unspecified
CPT/HCPCS: 80053; 81001; 85025; 96413; 96415; 96417; J1642; J8501; J9035; J9206; Q0166

== ENCOUNTER 2018-10-06 09:25 | Outpatient (CLI) | payer MEDICARE, OTHER, SELFPAY ==
[2018-10-06 09:25] VITALS: BMI 33.4
[2018-10-06 10:10] LABS: Microscopic, Urine URINE MICROSCOPIC (MICROSCOPIC)
[2018-10-06 10:12] LABS: Basophils % 0.9 % (0.1-2.0); Eosinophils # 0.2 K/mm3 (0.0-0.4); Eosinophils % 3.3 % (0.1-12.0); Hemoglobin 13.3 g/dL (12.2-16.2); Lymphocytes # 0.9 K/mm3 (0.7-4.5); Lymphocytes % 20.4 % (10-50); Mean Corpuscular HGB Conc 30.8 g/dL (31.8-35.4); Mean Corpuscular Hemoglobin 29.8 pg (27.0-31.2); Mean Corpuscular Volume 96.7 fl (81-99); Mean Platelet Volume 7.5 fl (7.4-10.4); Monocytes # 0.3 K/mm3 (0.1-1.0); Monocytes % 7.2 % (1.7-9.3); Neutrophils % 68.2 % (37.0-80.0); Platelet Count 136 K/mm3 (142-424); Red Blood Count 4.44 M/mm3 (4.20-5.40); Red Cell Distribution Width 18.1 % (11.5-17.5); White Blood Count 4.4 K/mm3 (4.8-10.8)
[2018-10-06 10:13] LABS: Appearance,Urine SL CLOUDY (Clear); Bilirubin,Urine Negative (Negative); Blood, Urine TRACE-I (Negative); Color,Urine YELLOW (Yellow); Glucose,Urine (UA) Negative (Negative); Ketones,Urine Negative (Negative); Leukocyte Esterase,Urine Negative (Negative); Nitrate,Urine Negative (Negative); PH,Urine 5.5 (5.0-8.5); Protein,Urine Negative (Negative); Urobilinogen,Urine 0.2 EU/dl (0.2)
[2018-10-06 10:21] LABS: Bacteria,Urine Trace /lpf; RBC,Urine Occasional #/hpf (0-3); Squamous Epithelial Cell,Urine Occasional #/hpf (0-5)
[2018-10-06 10:35] LABS: Alanine Aminotransferase 30 U/L (12-78); Albumin Level 3.3 gm/dL (3.4-5.0); Alkaline Phosphatase 120 U/L (46-116); Anion Gap 10.9 mEq/L (5-15); Aspartate Amino Transferase 28 U/L (15-37); Bilirubin,Total 0.6 mg/dL (0.2-1.0); Blood Urea Nitrogen 19 mg/dL (7-18); Calcium 8.6 mg/dL (8.5-10.1); Carbon Dioxide 30 mmol/L (21.0-32.0); Chloride 106 mmol/L (98-107); Creatinine Clearance Estimated 67 mL/min (50-200); Creatinine,Serum 0.69 mg/dL (0.55-1.02); Estimated Glomerular Filt Rate 85 ml/min (>60); GFR (African American) 103 ML/MIN (>60); Globulin 3.2 gm/dl (1.3-3.2); Glucose 145 mg/dL (74-106); Potassium 3.9 mmoL/L (3.5-5.1); Sodium 143 mmol/L (136-145); Total Protein,Serum 6.5 gm/dL (6.4-8.2)
[2018-10-06 10:55] VITALS: BP 170/57; PULSE 50; RESP 20; TEMP 36.9; O2SAT 98
[2018-10-06 11:30] VITALS: BP 165/55; PULSE 58; RESP 20; TEMP 36.9; O2SAT 95
[2018-10-06 12:15] VITALS: BP 179/69; PULSE 68; RESP 20
[2018-10-06 13:00] VITALS: BP 182/64; PULSE 58; RESP 20
[2018-10-06 13:20] VITALS: BP 185/74; PULSE 58; RESP 20
[2018-10-06 14:00] VITALS: BP 175/64; PULSE 68; RESP 20; TEMP 36.8; O2SAT 95
== END 2018-10-06 14:00 | disposition home or self-care (01) ==
LOC: INF 09:28
PROVIDERS: Visit Provider Internal Medicine Medical Oncology
DX: Z51.11 Encounter for antineoplastic chemotherapy (principal); C18.9 Malignant neoplasm of colon, unspecified; C78.00 Secondary malignant neoplasm of unspecified lung; R11.0 Nausea
CPT/HCPCS: 80053; 81001; 85025; 96413; 96415; 96417; J8501; J9035; J9206; Q0166

== ENCOUNTER 2018-10-29 08:48 | Outpatient (CLI) | payer MEDICARE, OTHER, SELFPAY ==
[2018-10-29 08:50] VITALS: BMI 33.4
[2018-10-29 09:09] LABS: Microscopic, Urine URINE MICROSCOPIC (MICROSCOPIC)
[2018-10-29 09:12] LABS: Appearance,Urine CLEAR (Clear); Bilirubin,Urine Negative (Negative); Blood, Urine 1+ (Negative); Color,Urine YELLOW (Yellow); Glucose,Urine (UA) Negative (Negative); Ketones,Urine Negative (Negative); Leukocyte Esterase,Urine Negative (Negative); Nitrate,Urine Negative (Negative); PH,Urine 5.5 (5.0-8.5); Protein,Urine Negative (Negative); Urobilinogen,Urine 0.2 EU/dl (0.2)
[2018-10-29 09:16] LABS: Basophils # 0.1 K/mm3 (0-0.2); Eosinophils # 0.1 K/mm3 (0.0-0.4); Eosinophils % 2.9 % (0.1-12.0); Hematocrit 44.2 % (37.0-47.0); Hemoglobin 13.6 g/dL (12.2-16.2); Lymphocytes # 0.9 K/mm3 (0.7-4.5); Lymphocytes % 17.2 % (10-50); Mean Corpuscular HGB Conc 30.8 g/dL (31.8-35.4); Mean Corpuscular Hemoglobin 32.3 pg (27.0-31.2); Mean Platelet Volume 8.5 fl (7.4-10.4); Monocytes # 0.4 K/mm3 (0.1-1.0); Monocytes % 7.1 % (1.7-9.3); Neutrophils # 3.5 K/mm3 (1.8-7.8); Neutrophils % 71.7 % (37.0-80.0); Platelet Count 125 K/mm3 (142-424); Red Blood Count 4.21 M/mm3 (4.20-5.40); Red Cell Distribution Width 18.4 % (11.5-17.5); White Blood Count 4.9 K/mm3 (4.8-10.8)
[2018-10-29 09:49] LABS: Alanine Aminotransferase 37 U/L (12-78); Albumin Level 3.1 gm/dL (3.4-5.0); Albumin/Globulin Ratio 0.9 (1.1-1.8); Alkaline Phosphatase 106 U/L (46-116); Aspartate Amino Transferase 30 U/L (15-37); Bilirubin,Total 0.5 mg/dL (0.2-1.0); Blood Urea Nitrogen 17 mg/dL (7-18); Calcium 8.8 mg/dL (8.5-10.1); Carbon Dioxide 30 mmol/L (21.0-32.0); Chloride 107 mmol/L (98-107); Creatinine Clearance Estimated 67 mL/min (50-200); Creatinine,Serum 0.66 mg/dL (0.55-1.02); Estimated Glomerular Filt Rate 89 ml/min (>60); GFR (African American) 108 ML/MIN (>60); Globulin 3.3 gm/dl (1.3-3.2); Glucose 105 mg/dL (74-106); Sodium 143 mmol/L (136-145); Total Protein,Serum 6.4 gm/dL (6.4-8.2)
[2018-10-29 09:50] LABS: Bacteria,Urine Trace /lpf; Mucus,Urine Trace /lpf
[2018-10-29 11:01] VITALS: BP 186/85; PULSE 61; RESP 18; TEMP 36.5; O2SAT 97
[2018-10-29 11:31] VITALS: BP 166/67; PULSE 58; RESP 18; O2SAT 97
[2018-10-29 12:01] VITALS: BP 151/62; PULSE 55; RESP 18; O2SAT 96
[2018-10-29 12:31] VITALS: BP 146/68; PULSE 50; RESP 18; O2SAT 97
[2018-10-29 13:01] VITALS: BP 133/62; PULSE 51; RESP 18; O2SAT 97
[2018-10-29 13:35] VITALS: BP 136/69; PULSE 56; RESP 18; O2SAT 98
== END 2018-10-29 13:35 | disposition home or self-care (01) ==
PROVIDERS: Visit Provider Internal Medicine Medical Oncology
DX: C18.9 Malignant neoplasm of colon, unspecified (principal); Z51.11 Encounter for antineoplastic chemotherapy
CPT/HCPCS: 80053; 81001; 85025; 96413; 96415; 96417; J8501; J9035; J9206; Q0166

== ENCOUNTER 2018-11-10 09:40 | Outpatient (CLI) | payer MEDICARE, OTHER, SELFPAY ==
[2018-11-10] VITALS (7 sets, daily range): BP systolic 132–157; BP diastolic 72–79; PULSE 48–58; RESP 18–20; TEMP 36.5; O2SAT 97–100; BMI 33.4
[2018-11-10 10:15] LABS: Microscopic, Urine URINE MICROSCOPIC (MICROSCOPIC)
[2018-11-10 10:16] LABS: Appearance,Urine CLEAR (Clear); Bilirubin,Urine Negative (Negative); Blood, Urine TRACE-I (Negative); Color,Urine YELLOW (Yellow); Glucose,Urine (UA) Negative (Negative); Ketones,Urine Negative (Negative); Leukocyte Esterase,Urine Negative (Negative); Nitrate,Urine Negative (Negative); PH,Urine 5.5 (5.0-8.5); Protein,Urine Negative (Negative); Specific Gravity, Urine 1.015 (1.005-1.030); Urobilinogen,Urine 0.2 EU/dl (0.2)
[2018-11-10 10:18] LABS: Basophils % 0.8 % (0.1-2.0); Eosinophils # 0.1 K/mm3 (0.0-0.4); Eosinophils % 2.9 % (0.1-12.0); Hematocrit 42.2 % (37.0-47.0); Hemoglobin 13.2 g/dL (12.2-16.2); Lymphocytes # 0.8 K/mm3 (0.7-4.5); Lymphocytes % 20.3 % (10-50); Mean Corpuscular HGB Conc 31.3 g/dL (31.8-35.4); Mean Corpuscular Hemoglobin 30.7 pg (27.0-31.2); Mean Platelet Volume 7.5 fl (7.4-10.4); Monocytes # 0.3 K/mm3 (0.1-1.0); Monocytes % 8.4 % (1.7-9.3); Neutrophils # 2.6 K/mm3 (1.8-7.8); Neutrophils % 67.5 % (37.0-80.0); Platelet Count 110 K/mm3 (142-424); Red Cell Distribution Width 17.1 % (11.5-17.5); White Blood Count 3.9 K/mm3 (4.8-10.8)
[2018-11-10 10:35] LABS: Alanine Aminotransferase 31 U/L (12-78); Albumin Level 3.1 gm/dL (3.4-5.0); Albumin/Globulin Ratio 0.9 (1.1-1.8); Alkaline Phosphatase 115 U/L (46-116); Aspartate Amino Transferase 21 U/L (15-37); Bilirubin,Total 0.3 mg/dL (0.2-1.0); Blood Urea Nitrogen 18 mg/dL (7-18); Calcium 8.4 mg/dL (8.5-10.1); Carbon Dioxide 30 mmol/L (21.0-32.0); Chloride 107 mmol/L (98-107); Creatinine Clearance Estimated 67 mL/min (50-200); Creatinine,Serum 0.76 mg/dL (0.55-1.02); Estimated Glomerular Filt Rate 76 ml/min (>60); GFR (African American) 92 ML/MIN (>60); Globulin 3.3 gm/dl (1.3-3.2); Glucose 121 mg/dL (74-106); Sodium 145 mmol/L (136-145); Total Protein,Serum 6.4 gm/dL (6.4-8.2)
[2018-11-10 10:36] LABS: Bacteria,Urine Trace /lpf
== END 2018-11-10 14:05 | disposition home or self-care (01) ==
LOC: INF 09:40
PROVIDERS: Visit Provider Internal Medicine Medical Oncology
DX: Z51.11 Encounter for antineoplastic chemotherapy (principal); C18.9 Malignant neoplasm of colon, unspecified
CPT/HCPCS: 80053; 81001; 85025; 96413; 96415; 96417; J1642; J8501; J9035; J9206; Q0166

== ENCOUNTER 2018-11-23 08:18 | Outpatient (CLI) | payer MEDICARE, OTHER, SELFPAY ==
[2018-11-23 08:21] VITALS: BMI 33.2
[2018-11-23 08:42] LABS: Basophils % 0.8 % (0.1-2.0); Eosinophils # 0.1 K/mm3 (0.0-0.4); Eosinophils % 2.1 % (0.1-12.0); Hematocrit 39.5 % (37.0-47.0); Hemoglobin 12.9 g/dL (12.2-16.2); Lymphocytes # 0.8 K/mm3 (0.7-4.5); Lymphocytes % 15.5 % (10-50); Mean Corpuscular HGB Conc 32.7 g/dL (31.8-35.4); Mean Corpuscular Hemoglobin 32.2 pg (27.0-31.2); Mean Corpuscular Volume 98.4 fl (81-99); Mean Platelet Volume 7.1 fl (7.4-10.4); Monocytes # 0.4 K/mm3 (0.1-1.0); Monocytes % 7.3 % (1.7-9.3); Neutrophils # 3.6 K/mm3 (1.8-7.8); Neutrophils % 74.2 % (37.0-80.0); Platelet Count 114 K/mm3 (142-424); Red Blood Count 4.01 M/mm3 (4.20-5.40); Red Cell Distribution Width 17.8 % (11.5-17.5); White Blood Count 4.9 K/mm3 (4.8-10.8)
[2018-11-23 08:54] LABS: Alanine Aminotransferase 51 U/L (12-78); Alkaline Phosphatase 103 U/L (46-116); Anion Gap 11.6 mEq/L (5-15); Aspartate Amino Transferase 35 U/L (15-37); Bilirubin,Total 0.5 mg/dL (0.2-1.0); Blood Urea Nitrogen 13 mg/dL (7-18); Calcium 8.5 mg/dL (8.5-10.1); Carbon Dioxide 26 mmol/L (21.0-32.0); Chloride 109 mmol/L (98-107); Creatinine Clearance Estimated 66 mL/min (50-200); Creatinine,Serum 0.61 mg/dL (0.55-1.02); Estimated Glomerular Filt Rate 98 ml/min (>60); GFR (African American) 118 ML/MIN (>60); Globulin 3.1 gm/dl (1.3-3.2); Glucose 105 mg/dL (74-106); Potassium 3.6 mmoL/L (3.5-5.1); Sodium 143 mmol/L (136-145); Total Protein,Serum 6.1 gm/dL (6.4-8.2)
== END 2018-11-23 09:55 | disposition home or self-care (01) ==
LOC: INF 08:18
PROVIDERS: Visit Provider Internal Medicine Medical Oncology
DX: C18.9 Malignant neoplasm of colon, unspecified (principal)
CPT/HCPCS: 80053; 85025; J1642

== ENCOUNTER → 2018-11-23 08:37 | Outpatient (CLI) | payer MEDICARE, OTHER, SELFPAY ==
--- NOTE | 2018-11-23 09:06 | CT_ITS ---
CT chest wo/w con HISTORY: Follow-up colon cancer, pulmonary nodules ITS.REASON: COLON CA ORDERING PHYSICIAN: Lee Ann oRdgers MD PATIENT AGE: 68 years COMPARISON: None Technique: Contrast Used:75ml Optiray 350 Axial images were obtained. Sagittal, and coronal reformatted images are also generated and reviewed. All CT scans at the facility use one or more dose reduction, viz: automated exposure control, ma/kV adjustment per patient size (including targeted exams where dose is matched to indication, i.e. head), or iterative reconstruction technique. FINDINGS: No mediastinal or hilar mass or adenopathy. There are multiple noncalcified pulmonary nodules as previously described. There is a moderate degree of motion artifact on the previous exam making comparison of the 2 exams somewhat difficult. The exam is compared to 10/07 and 05/22/2018. There are multiple pulmonary nodules which appear stable given the difference in technique. No new nodules are evident.. No acute bony anomalies. Mediport catheter is present in the left subclavian approach. IMPRESSION: Overall stable CT appearance of the chest considering the difference in technique with multiple noncalcified pulmonary nodules and parenchymal opacities once again noted overall not significant change given the difference in technique between the 2 exams and a moderate degree of motion artifact noted on the previous study as well as comparison to 05/22/2018. No new nodules are evident.
--- NOTE | 2018-11-23 09:06 | CT_ITS ---
CT abdomen pelvis wo/w con CLINICAL INDICATION: Follow-up colon cancer ITS.REASON: COLON CA ORDERING PHYSICIAN: Lee Ann Rodgers MD PATIENT AGE: 68 years COMPARISON: 08/24/2018 TECHNIQUE: Contrast Used:75ml Optiray 350 Oral Contrast: 450ml Redicat Axial images obtained with sagittal and coronal reformats. All CT scans at the facility use one or more dose reduction, viz: automated exposure control, ma/kV adjustment per patient size (including targeted exams where dose is matched to indication, i.e. head), or iterative reconstruction technique. FINDINGS: Postcholecystectomy change. There is a 4 mm isodensity in the right hepatic lobe posteriorly and inferiorly may be due to a small cyst not significant change. Is mild gastric wall thickening nonspecific and may be due to nondistention. The adrenal glands are unremarkable. There is pancreatic atrophy. The spleen has an unremarkable appearance. There is a 10 mm stone in the lower pole the right kidney nonobstructing. There are bilateral parapelvic renal cysts. No renal mass. Prior hemicolectomy on the left. Mildly prominent small bowel loops are present within the pelvis as previously noted not significantly changed with postsurgical changes of the small bowel in the pelvic region and right lower quadrant. There is a left lower quadrant colostomy with herniation of large bowel into the colostomy site. Postsurgical changes are present in the right lower quadrant of the abdominal wall as before. No acute bony findings. Grade 1 spondylolisthesis L5 on S1 which appears spondylitic in nature. IMPRESSION: Overall stable CT appearance of the abdomen and pelvis with postsurgical changes from prior hemicolectomy. No convincing evidence of metastatic disease. Please see above for detail.
== END ==
PROVIDERS: PCP Nurse Practitioner Family; Visit Provider Internal Medicine Medical Oncology
DX: C18.9 Malignant neoplasm of colon, unspecified (principal); Z03.89 Encounter for observation for other suspected diseases and conditions ruled out
CPT/HCPCS: 71270; 74178; 80053; 85025; J1642; Q9967

== ENCOUNTER 2018-11-26 09:25 | Outpatient (CLI) | payer MEDICARE, OTHER, SELFPAY ==
[2018-11-26 09:28] VITALS: BMI 33.5
[2018-11-26 09:39] LABS: Appearance,Urine CLEAR (Clear); Bilirubin,Urine Negative (Negative); Blood, Urine TRACE-I (Negative); Color,Urine YELLOW (Yellow); Glucose,Urine (UA) Negative (Negative); Ketones,Urine Negative (Negative); Leukocyte Esterase,Urine Negative (Negative); Microscopic, Urine URINE MICROSCOPIC (MICROSCOPIC); Nitrate,Urine Negative (Negative); PH,Urine 5.5 (5.0-8.5); Protein,Urine Negative (Negative); Specific Gravity, Urine 1.015 (1.005-1.030); Urobilinogen,Urine 0.2 EU/dl (0.2)
[2018-11-26 09:48] LABS: Bacteria,Urine Trace /lpf; WBC,Urine Occasional #/hpf (0-3)
[2018-11-26 09:49] LABS: Amorphous Sediment,Urine Trace /lpf
[2018-11-26 11:59] VITALS: BP 169/69; PULSE 46; RESP 18; TEMP 36.6; O2SAT 98
[2018-11-26 12:29] VITALS: BP 171/70; PULSE 48; RESP 18; O2SAT 99
[2018-11-26 12:59] VITALS: BP 177/66; PULSE 45; RESP 18; O2SAT 99
[2018-11-26 13:29] VITALS: BP 166/69; PULSE 49; RESP 18; O2SAT 98
[2018-11-26 13:50] VITALS: BP 169/65; PULSE 48; RESP 18; O2SAT 99
== END 2018-11-26 13:50 | disposition home or self-care (01) ==
LOC: INF 09:25
PROVIDERS: Visit Provider Internal Medicine Medical Oncology
DX: Z51.11 Encounter for antineoplastic chemotherapy (principal); C18.9 Malignant neoplasm of colon, unspecified
CPT/HCPCS: 81001; 96413; 96415; J8501; J9206; Q0166

== ENCOUNTER 2019-01-07 08:10 | Outpatient (CLI) | payer MEDICARE, OTHER, SELFPAY ==
[2019-01-07] VITALS (7 sets, daily range): BP systolic 98–167; BP diastolic 57–81; PULSE 44–72; RESP 18–20; TEMP 36.8; O2SAT 97; BMI 33.0
[2019-01-07 08:56] LABS: Alanine Aminotransferase 23 U/L (12-78); Albumin Level 3.4 gm/dL (3.4-5.0); Alkaline Phosphatase 101 U/L (46-116); Anion Gap 9.7 mEq/L (5-15); Aspartate Amino Transferase 28 U/L (15-37); Bilirubin,Total 0.6 mg/dL (0.2-1.0); Blood Urea Nitrogen 11 mg/dL (7-18); Calcium 9.2 mg/dL (8.5-10.1); Carbon Dioxide 31 mmol/L (21.0-32.0); Chloride 106 mmol/L (98-107); Creatinine Clearance Estimated 66 mL/min (50-200); Creatinine,Serum 0.68 mg/dL (0.55-1.02); Estimated Glomerular Filt Rate 86 ml/min (>60); GFR (African American) 104 ML/MIN (>60); Globulin 3.4 gm/dl (1.3-3.2); Glucose 103 mg/dL (74-106); Potassium 4.7 mmoL/L (3.5-5.1); Sodium 142 mmol/L (136-145); Total Protein,Serum 6.8 gm/dL (6.4-8.2)
[2019-01-07 09:17] LABS: Basophils % 0.7 % (0.1-2.0); Eosinophils # 0.1 K/mm3 (0.0-0.4); Eosinophils % 3.7 % (0.1-12.0); Hematocrit 44.2 % (37.0-47.0); Hemoglobin 14.2 g/dL (12.2-16.2); Lymphocytes # 0.8 K/mm3 (0.7-4.5); Lymphocytes % 21.8 % (10-50); Mean Corpuscular HGB Conc 32.1 g/dL (31.8-35.4); Mean Corpuscular Hemoglobin 31.1 pg (27.0-31.2); Mean Platelet Volume 7.4 fl (7.4-10.4); Monocytes # 0.3 K/mm3 (0.1-1.0); Monocytes % 8.5 % (1.7-9.3); Neutrophils # 2.4 K/mm3 (1.8-7.8); Neutrophils % 65.2 % (37.0-80.0); Platelet Count 139 K/mm3 (142-424); Red Blood Count 4.56 M/mm3 (4.20-5.40); Red Cell Distribution Width 14.9 % (11.5-17.5); White Blood Count 3.7 K/mm3 (4.8-10.8)
== END 2019-01-07 12:35 | disposition home or self-care (01) ==
LOC: INF 08:13
PROVIDERS: Visit Provider Internal Medicine Medical Oncology
DX: Z51.11 Encounter for antineoplastic chemotherapy (principal); C18.9 Malignant neoplasm of colon, unspecified
CPT/HCPCS: 36415; 80053; 85025; 96413; 96415; J8501; J9206; Q0166

== ENCOUNTER 2019-01-19 10:20 | Outpatient (CLI) | payer MEDICARE, OTHER, SELFPAY ==
[2019-01-19 09:46] VITALS: BMI 32.0
[2019-01-19 10:25] LABS: Basophils # 0.1 K/mm3 (0-0.2); Basophils % 0.9 % (0.1-2.0); Eosinophils # 0.2 K/mm3 (0.0-0.4); Eosinophils % 3.1 % (0.1-12.0); Hematocrit 44.1 % (37.0-47.0); Hemoglobin 13.5 g/dL (12.2-16.2); Lymphocytes % 17.8 % (10-50); Mean Corpuscular HGB Conc 30.6 g/dL (31.8-35.4); Mean Corpuscular Hemoglobin 30.2 pg (27.0-31.2); Mean Platelet Volume 7.4 fl (7.4-10.4); Monocytes # 0.4 K/mm3 (0.1-1.0); Monocytes % 6.5 % (1.7-9.3); Neutrophils % 71.7 % (37.0-80.0); Platelet Count 159 K/mm3 (142-424); Red Blood Count 4.45 M/mm3 (4.20-5.40); Red Cell Distribution Width 16.4 % (11.5-17.5); White Blood Count 5.5 K/mm3 (4.8-10.8)
[2019-01-19 10:32] LABS: Alanine Aminotransferase 26 U/L (12-78); Albumin Level 3.2 gm/dL (3.4-5.0); Albumin/Globulin Ratio 0.9 (1.1-1.8); Alkaline Phosphatase 97 U/L (46-116); Anion Gap 11.4 mEq/L (5-15); Aspartate Amino Transferase 27 U/L (15-37); Bilirubin,Total 0.3 mg/dL (0.2-1.0); Blood Urea Nitrogen 11 mg/dL (7-18); Calcium 8.8 mg/dL (8.5-10.1); Carbon Dioxide 30 mmol/L (21.0-32.0); Chloride 104 mmol/L (98-107); Creatinine Clearance Estimated 64 mL/min (50-200); Creatinine,Serum 0.68 mg/dL (0.55-1.02); Estimated Glomerular Filt Rate 86 ml/min (>60); GFR (African American) 104 ML/MIN (>60); Globulin 3.4 gm/dl (1.3-3.2); Glucose 108 mg/dL (74-106); Potassium 4.4 mmoL/L (3.5-5.1); Sodium 141 mmol/L (136-145); Total Protein,Serum 6.6 gm/dL (6.4-8.2)
[2019-01-19 11:30] VITALS: BP 165/78; PULSE 62; RESP 20; TEMP 36.9; O2SAT 95
[2019-01-19 12:00] VITALS: BP 166/74; PULSE 55; RESP 20; TEMP 37.1; O2SAT 95
[2019-01-19 12:40] VITALS: BP 179/78; PULSE 52; RESP 20; TEMP 36.9; O2SAT 95
[2019-01-19 13:20] VITALS: BP 176/74; PULSE 58; RESP 20; TEMP 36.9; O2SAT 95
== END 2019-01-19 13:30 | disposition home or self-care (01) ==
LOC: INF 10:20
PROVIDERS: Visit Provider Internal Medicine Medical Oncology
DX: Z51.11 Encounter for antineoplastic chemotherapy (principal); C18.9 Malignant neoplasm of colon, unspecified
CPT/HCPCS: 36415; 80053; 85025; 96413; 96415; J8501; J9206; Q0166

== ENCOUNTER 2019-02-04 08:12 | Outpatient (CLI) | payer MEDICARE, OTHER, SELFPAY ==
[2019-02-04] VITALS (11 sets, daily range): BP systolic 96–177; BP diastolic 33–96; PULSE 47–62; RESP 18; TEMP 36.8; BMI 38.2
[2019-02-04 08:38] LABS: Microscopic, Urine URINE MICROSCOPIC (MICROSCOPIC)
[2019-02-04 08:45] LABS: Appearance,Urine CLEAR (Clear); Bilirubin,Urine Negative (Negative); Blood, Urine 1+ (Negative); Color,Urine YELLOW (Yellow); Glucose,Urine (UA) Negative (Negative); Ketones,Urine Negative (Negative); Leukocyte Esterase,Urine Negative (Negative); Nitrate,Urine Negative (Negative); Protein,Urine Negative (Negative); Urobilinogen,Urine 0.2 EU/dl (0.2)
[2019-02-04 08:46] LABS: Basophils % 0.9 % (0.1-2.0); Eosinophils # 0.1 K/mm3 (0.0-0.4); Eosinophils % 2.3 % (0.1-12.0); Hematocrit 45.6 % (37.0-47.0); Hemoglobin 13.7 g/dL (12.2-16.2); Lymphocytes # 0.8 K/mm3 (0.7-4.5); Lymphocytes % 16.2 % (10-50); Mean Corpuscular Hemoglobin 30.1 pg (27.0-31.2); Mean Corpuscular Volume 100.2 fl (81-99); Mean Platelet Volume 7.7 fl (7.4-10.4); Monocytes # 0.4 K/mm3 (0.1-1.0); Neutrophils # 3.4 K/mm3 (1.8-7.8); Neutrophils % 71.5 % (37.0-80.0); Platelet Count 128 K/mm3 (142-424); Red Blood Count 4.55 M/mm3 (4.20-5.40); Red Cell Distribution Width 16.9 % (11.5-17.5); White Blood Count 4.8 K/mm3 (4.8-10.8)
[2019-02-04 09:06] LABS: Alanine Aminotransferase 47 U/L (12-78); Albumin Level 3.2 gm/dL (3.4-5.0); Alkaline Phosphatase 116 U/L (46-116); Anion Gap 11.8 mEq/L (5-15); Aspartate Amino Transferase 33 U/L (15-37); Bilirubin,Total 0.3 mg/dL (0.2-1.0); Blood Urea Nitrogen 16 mg/dL (7-18); Calcium 8.6 mg/dL (8.5-10.1); Carbon Dioxide 28 mmol/L (21.0-32.0); Chloride 107 mmol/L (98-107); Creatinine Clearance Estimated 69 mL/min (50-200); Estimated Glomerular Filt Rate 83 ml/min (>60); GFR (African American) 101 ML/MIN (>60); Globulin 3.2 gm/dl (1.3-3.2); Glucose 125 mg/dL (74-106); Potassium 3.8 mmoL/L (3.5-5.1); Sodium 143 mmol/L (136-145); Total Protein,Serum 6.4 gm/dL (6.4-8.2)
[2019-02-04 09:25] LABS: Bacteria,Urine Trace /lpf
== END 2019-02-04 14:20 | disposition home or self-care (01) ==
LOC: INF 08:12
PROVIDERS: Visit Provider Internal Medicine Medical Oncology
DX: Z51.11 Encounter for antineoplastic chemotherapy (principal); C18.9 Malignant neoplasm of colon, unspecified
CPT/HCPCS: 80053; 81001; 85025; 96413; 96415; 96417; J8501; J9035; J9206; Q0166

== ENCOUNTER 2019-02-16 09:47 | Outpatient (CLI) | payer MEDICARE, OTHER, SELFPAY ==
[2019-02-16] VITALS (7 sets, daily range): BP systolic 120–140; BP diastolic 64–91; PULSE 60–67; RESP 18; TEMP 36.6; O2SAT 96–97; BMI 32.4
[2019-02-16 10:11] LABS: Microscopic, Urine URINE MICROSCOPIC (MICROSCOPIC)
[2019-02-16 10:15] LABS: Appearance,Urine CLEAR (Clear); Basophils # 0.1 K/mm3 (0-0.2); Basophils % 0.9 % (0.1-2.0); Bilirubin,Urine Negative (Negative); Blood, Urine 1+ (Negative); Color,Urine YELLOW (Yellow); Eosinophils # 0.1 K/mm3 (0.0-0.4); Eosinophils % 2.3 % (0.1-12.0); Glucose,Urine (UA) Negative (Negative); Hematocrit 41.4 % (37.0-47.0); Hemoglobin 13.3 g/dL (12.2-16.2); Ketones,Urine Negative (Negative); Leukocyte Esterase,Urine Negative (Negative); Lymphocytes # 1.1 K/mm3 (0.7-4.5); Lymphocytes % 19.3 % (10-50); Mean Corpuscular Hemoglobin 31.6 pg (27.0-31.2); Mean Corpuscular Volume 98.6 fl (81-99); Monocytes # 0.5 K/mm3 (0.1-1.0); Monocytes % 8.5 % (1.7-9.3); Neutrophils # 3.9 K/mm3 (1.8-7.8); Nitrate,Urine Negative (Negative); PH,Urine 5.5 (5.0-8.5); Platelet Count 152 K/mm3 (142-424); Protein,Urine Negative (Negative); Red Cell Distribution Width 16.4 % (11.5-17.5); Urobilinogen,Urine 0.2 EU/dl (0.2); White Blood Count 5.7 K/mm3 (4.8-10.8)
[2019-02-16 10:22] LABS: Bacteria,Urine Trace /lpf; RBC,Urine Occasional #/hpf (0-3); Squamous Epithelial Cell,Urine Occasional #/hpf (0-5); WBC,Urine Occasional #/hpf (0-3)
[2019-02-16 10:25] LABS: Alanine Aminotransferase 35 U/L (12-78); Albumin Level 2.9 gm/dL (3.4-5.0); Alkaline Phosphatase 110 U/L (46-116); Anion Gap 10.7 mEq/L (5-15); Aspartate Amino Transferase 25 U/L (15-37); Bilirubin,Total 0.3 mg/dL (0.2-1.0); Blood Urea Nitrogen 15 mg/dL (7-18); Calcium 8.2 mg/dL (8.5-10.1); Carbon Dioxide 29 mmol/L (21.0-32.0); Chloride 106 mmol/L (98-107); Creatinine Clearance Estimated 65 mL/min (50-200); Creatinine,Serum 0.67 mg/dL (0.55-1.02); Estimated Glomerular Filt Rate 88 ml/min (>60); GFR (African American) 106 ML/MIN (>60); Glucose 106 mg/dL (74-106); Potassium 3.7 mmoL/L (3.5-5.1); Sodium 142 mmol/L (136-145); Total Protein,Serum 5.9 gm/dL (6.4-8.2)
== END 2019-02-16 13:45 | disposition home or self-care (01) ==
LOC: INF 09:47
PROVIDERS: Visit Provider Internal Medicine Medical Oncology
DX: Z51.11 Encounter for antineoplastic chemotherapy (principal); C18.9 Malignant neoplasm of colon, unspecified
CPT/HCPCS: 80053; 81001; 85025; 96413; 96415; 96417; J8501; J9035; J9206; Q0166

== ENCOUNTER 2019-03-05 09:33 | Outpatient (CLI) | payer MEDICARE, OTHER, SELFPAY ==
[2019-03-05 09:36] VITALS: BMI 33.2
[2019-03-05 09:51] LABS: Microscopic, Urine URINE MICROSCOPIC (MICROSCOPIC)
[2019-03-05 09:55] LABS: Basophils # 0.1 K/mm3 (0-0.2); Basophils % 1.2 % (0.1-2.0); Eosinophils # 0.1 K/mm3 (0.0-0.4); Eosinophils % 2.5 % (0.1-12.0); Hematocrit 43.4 % (37.0-47.0); Lymphocytes # 0.8 K/mm3 (0.7-4.5); Lymphocytes % 19.8 % (10-50); Mean Corpuscular HGB Conc 32.3 g/dL (31.8-35.4); Mean Corpuscular Hemoglobin 31.4 pg (27.0-31.2); Mean Corpuscular Volume 97.4 fl (81-99); Mean Platelet Volume 7.6 fl (7.4-10.4); Monocytes # 0.3 K/mm3 (0.1-1.0); Monocytes % 8.3 % (1.7-9.3); Neutrophils # 2.8 K/mm3 (1.8-7.8); Neutrophils % 68.3 % (37.0-80.0); Platelet Count 134 K/mm3 (142-424); Red Blood Count 4.46 M/mm3 (4.20-5.40); Red Cell Distribution Width 16.2 % (11.5-17.5); White Blood Count 4.1 K/mm3 (4.8-10.8)
[2019-03-05 09:58] LABS: Appearance,Urine CLEAR (Clear); Bilirubin,Urine Negative (Negative); Blood, Urine TRACE-L (Negative); Color,Urine YELLOW (Yellow); Glucose,Urine (UA) Negative (Negative); Ketones,Urine Negative (Negative); Leukocyte Esterase,Urine Negative (Negative); Nitrate,Urine Negative (Negative); PH,Urine 5.5 (5.0-8.5); Protein,Urine Negative (Negative); Urobilinogen,Urine 0.2 EU/dl (0.2)
[2019-03-05 10:03] LABS: Bacteria,Urine Trace /lpf; RBC,Urine Occasional #/hpf (0-3)
[2019-03-05 10:06] LABS: Alanine Aminotransferase 24 U/L (12-78); Albumin Level 3.4 gm/dL (3.4-5.0); Albumin/Globulin Ratio 1.1 (1.1-1.8); Alkaline Phosphatase 122 U/L (46-116); Anion Gap 6.6 mEq/L (5-15); Aspartate Amino Transferase 28 U/L (15-37); Bilirubin,Total 0.5 mg/dL (0.2-1.0); Blood Urea Nitrogen 15 mg/dL (7-18); Calcium 9.1 mg/dL (8.5-10.1); Carbon Dioxide 32 mmol/L (21.0-32.0); Chloride 104 mmol/L (98-107); Creatinine Clearance Estimated 66 mL/min (50-200); Creatinine,Serum 0.74 mg/dL (0.55-1.02); Estimated Glomerular Filt Rate 78 ml/min (>60); GFR (African American) 95 ML/MIN (>60); Globulin 3.1 gm/dl (1.3-3.2); Glucose 106 mg/dL (74-106); Potassium 4.6 mmoL/L (3.5-5.1); Sodium 138 mmol/L (136-145); Total Protein,Serum 6.5 gm/dL (6.4-8.2)
[2019-03-05 11:23] VITALS: BP 173/89; PULSE 48; RESP 18; TEMP 37.1; O2SAT 98
[2019-03-05 11:53] VITALS: BP 125/72; PULSE 68; RESP 18; O2SAT 98
[2019-03-05 12:23] VITALS: BP 134/64; PULSE 48; RESP 18; O2SAT 97
[2019-03-05 12:53] VITALS: BP 141/74; PULSE 55; RESP 18; O2SAT 98
[2019-03-05 13:23] VITALS: BP 136/69; PULSE 49; RESP 18; O2SAT 98
[2019-03-05 13:40] VITALS: BP 148/71; PULSE 52; RESP 18; O2SAT 98
== END 2019-03-05 13:40 | disposition home or self-care (01) ==
LOC: INF 09:33
PROVIDERS: Visit Provider Internal Medicine Medical Oncology
DX: Z51.11 Encounter for antineoplastic chemotherapy (principal); C18.9 Malignant neoplasm of colon, unspecified
CPT/HCPCS: 80053; 81001; 85025; 96413; 96415; 96417; J1642; J8501; J9035; J9206; Q0166

== ENCOUNTER 2019-03-16 09:28 | Outpatient (CLI) | payer MEDICARE, OTHER, SELFPAY ==
[2019-03-16] VITALS (9 sets, daily range): BP systolic 110–185; BP diastolic 59–85; PULSE 50–71; RESP 18; O2SAT 94; BMI 33.2
[2019-03-16 09:53] LABS: Microscopic, Urine URINE MICROSCOPIC (MICROSCOPIC)
[2019-03-16 09:59] LABS: Appearance,Urine CLEAR (Clear); Bilirubin,Urine Negative (Negative); Blood, Urine TRACE-L (Negative); Color,Urine YELLOW (Yellow); Glucose,Urine (UA) Negative (Negative); Ketones,Urine Negative (Negative); Leukocyte Esterase,Urine Negative (Negative); Nitrate,Urine Negative (Negative); PH,Urine 5.5 (5.0-8.5); Protein,Urine Negative (Negative); Urobilinogen,Urine 0.2 EU/dl (0.2)
[2019-03-16 10:03] LABS: Basophils % 0.8 % (0.1-2.0); Eosinophils # 0.1 K/mm3 (0.0-0.4); Eosinophils % 2.1 % (0.1-12.0); Hematocrit 42.2 % (37.0-47.0); Hemoglobin 13.4 g/dL (12.2-16.2); Lymphocytes # 0.9 K/mm3 (0.7-4.5); Lymphocytes % 18.7 % (10-50); Mean Corpuscular HGB Conc 31.7 g/dL (31.8-35.4); Mean Corpuscular Hemoglobin 31.5 pg (27.0-31.2); Mean Corpuscular Volume 99.3 fl (81-99); Mean Platelet Volume 7.7 fl (7.4-10.4); Monocytes # 0.3 K/mm3 (0.1-1.0); Monocytes % 6.7 % (1.7-9.3); Neutrophils # 3.5 K/mm3 (1.8-7.8); Neutrophils % 71.7 % (37.0-80.0); Platelet Count 127 K/mm3 (142-424); Red Blood Count 4.24 M/mm3 (4.20-5.40); Red Cell Distribution Width 16.9 % (11.5-17.5); White Blood Count 4.8 K/mm3 (4.8-10.8)
[2019-03-16 10:08] LABS: Alanine Aminotransferase 21 U/L (12-78); Albumin Level 3.3 gm/dL (3.4-5.0); Albumin/Globulin Ratio 1.1 (1.1-1.8); Alkaline Phosphatase 103 U/L (46-116); Anion Gap 7.8 mEq/L (5-15); Aspartate Amino Transferase 25 U/L (15-37); Bilirubin,Total 0.4 mg/dL (0.2-1.0); Blood Urea Nitrogen 19 mg/dL (7-18); Calcium 8.4 mg/dL (8.5-10.1); Carbon Dioxide 29 mmol/L (21.0-32.0); Chloride 105 mmol/L (98-107); Creatinine Clearance Estimated 66 mL/min (50-200); Creatinine,Serum 0.66 mg/dL (0.55-1.02); Estimated Glomerular Filt Rate 89 ml/min (>60); GFR (African American) 108 ML/MIN (>60); Globulin 3.1 gm/dl (1.3-3.2); Glucose 95 mg/dL (74-106); Potassium 3.8 mmoL/L (3.5-5.1); Sodium 138 mmol/L (136-145); Total Protein,Serum 6.4 gm/dL (6.4-8.2)
[2019-03-16 10:17] LABS: Bacteria,Urine Trace /lpf; RBC,Urine Occasional #/hpf (0-3); Squamous Epithelial Cell,Urine Occasional #/hpf (0-5)
== END 2019-03-16 13:38 | disposition home or self-care (01) ==
LOC: INF 09:28
PROVIDERS: Visit Provider Internal Medicine Medical Oncology
DX: C18.9 Malignant neoplasm of colon, unspecified (principal); Z51.11 Encounter for antineoplastic chemotherapy
CPT/HCPCS: 80053; 81001; 85025; 96413; 96415; 96417; J8501; J9035; J9206; Q0166

== ENCOUNTER 2019-03-29 08:16 | Outpatient (CLI) | payer MEDICARE, OTHER, SELFPAY ==
[2019-03-29 08:17] VITALS: BMI 33.2
[2019-03-29 08:38] LABS: Basophils % 0.8 % (0.1-2.0); Eosinophils # 0.1 K/mm3 (0.0-0.4); Hematocrit 44.4 % (37.0-47.0); Hemoglobin 13.8 g/dL (12.2-16.2); Lymphocytes # 0.7 K/mm3 (0.7-4.5); Lymphocytes % 15.3 % (10-50); Mean Corpuscular Hemoglobin 31.1 pg (27.0-31.2); Mean Corpuscular Volume 100.2 fl (81-99); Mean Platelet Volume 7.9 fl (7.4-10.4); Monocytes # 0.4 K/mm3 (0.1-1.0); Monocytes % 7.4 % (1.7-9.3); Neutrophils # 3.5 K/mm3 (1.8-7.8); Neutrophils % 73.5 % (37.0-80.0); Platelet Count 115 K/mm3 (142-424); Red Blood Count 4.43 M/mm3 (4.20-5.40); Red Cell Distribution Width 17.4 % (11.5-17.5); White Blood Count 4.8 K/mm3 (4.8-10.8)
--- NOTE | 2019-03-29 08:42 | CT_ITS ---
PROCEDURE: CT CHEST W CON CLINCAL INDICATION: COLON CA Follow-up colon cancer COMPARISON: CHESTWW CT chest wo/w con from 11/23/2018 CT ABDOMEN PELVIS W CON from 03/29/2019 TECHNIQUE: IV Contrast: 75ml Optiray 350 Axial images obtained with sagittal and coronal reformats. All CT scans at the facility use one or more dose reduction, viz: automated exposure control, ma/kV adjustment per patient size (including targeted exams where dose is matched to indication, i.e. head), or iterative reconstruction technique. FINDINGS: HEART,AORTA,PULMONARY ARTERIES Unremarkable. MEDIASTINAL AND HILAR STRUCTURES: No mediastinal or hilar mass evident. No dominant adenopathy. LUNGS: Multiple noncalcified nodular lesions are present in the right lower lobe medial which have increased in size. Noncalcified nodules present in the left lower lobe posteriorly at 13 mm previously measuring 11 mm. The largest nodule in the right lower lobe measures approximately 18 mm previously at 13 mm. PLEURAL SPACES: No significant effusion. No evidence of pneumothorax. BONY STRUCTURES: No acute bony abnormalities apparent. LYMPH NODES: No enlarged lymph nodes evident. UPPER ABDOMEN: Please see abdomen ADDITIONAL FINDINGS: Report IMPRESSION: Enlarging bilateral pulmonary nodules consistent with progression of metastatic disease Dictated by: Didier Ortiz MD 03/29/2019 13:25 Electronically signed by Didier Ortiz MD in [facility] 03/29/2019 13:25
--- NOTE | 2019-03-29 08:42 | CT_ITS ---
PROCEDURE: CT ABDOMEN PELVIS W CON CLINICAL INDICATION: COLON CANCER Follow-up colon cancer COMPARISON: ABDPELW CT abdomen pelvis w con from 08/24/[address] abdomen wo/w con from 11/23/2018 TECHNIQUE: IV Contrast: 75ML OPTIRAY 350 Oral Contrast 450ml Redicat Axial images obtained with sagittal and coronal reformats. All CT scans at the facility use one or more dose reduction, viz: automated exposure control, ma/kV adjustment per patient size (including targeted exams where dose is matched to indication, i.e. head), or iterative reconstruction technique. FINDINGS: LOWER THORAX: Please see chest CT report ABDOMEN & PELVIS: The liver, spleen, adrenal glands, and pancreas have an unremarkable appearance. There are bilateral parapelvic renal cyst more extensive on the left than the right. There is a nonobstructing stone in the lower pole of the right kidney at 12 mm. Left lower quadrant colostomy is noted. There is an ostomy site in the right lower quadrant. This may actually be closed ostomy site. Please correlate clinically. There is a small bowel loop within a peristomal hernia in the right lower quadrant. There is is no evidence of bowel obstruction. There are multiple unopacified bowel loops in the pelvis which could obscure or simulate pathology. No definite intestinal obstruction. No free air. Status post left hemicolectomy with left lower quadrant colostomy. No acute bony findings. There is degenerative disc disease with grade 2 spondylitic spondylolisthesis of L5 on S1. IMPRESSION: 1. Overall no change with no acute finding. 2. Status post left hemicolectomy with left lower quadrant colostomy. 3. Colostomy site in the right lower quadrant which may have been taken down with a peristomal hernia at this area containing a small bowel loop without evidence of bowel obstruction 4. No convincing evidence of abdominal metastasis Dictated by: Didier Ortiz MD 03/29/2019 13:36 Electronically signed by Didier Ortiz MD in [facility] 03/29/2019 13:38
[2019-03-29 08:50] LABS: Alanine Aminotransferase 27 U/L (12-78); Albumin Level 3.2 gm/dL (3.4-5.0); Albumin/Globulin Ratio 1.1 (1.1-1.8); Alkaline Phosphatase 107 U/L (46-116); Anion Gap 12.3 mEq/L (5-15); Aspartate Amino Transferase 24 U/L (15-37); Bilirubin,Total 0.4 mg/dL (0.2-1.0); Blood Urea Nitrogen 18 mg/dL (7-18); Calcium 8.6 mg/dL (8.5-10.1); Carbon Dioxide 26 mmol/L (21.0-32.0); Chloride 107 mmol/L (98-107); Creatinine Clearance Estimated 66 mL/min (50-200); Creatinine,Serum 0.76 mg/dL (0.55-1.02); Estimated Glomerular Filt Rate 76 ml/min (>60); GFR (African American) 92 ML/MIN (>60); Glucose 105 mg/dL (74-106); Potassium 4.3 mmoL/L (3.5-5.1); Sodium 141 mmol/L (136-145); Total Protein,Serum 6.2 gm/dL (6.4-8.2)
== END 2019-03-29 10:01 | disposition home or self-care (01) ==
PROVIDERS: PCP Nurse Practitioner Family; Visit Provider Internal Medicine Medical Oncology
DX: C18.9 Malignant neoplasm of colon, unspecified (principal)
CPT/HCPCS: 71260; 74177; 80053; 85025; J1642; Q9967

== ENCOUNTER 2019-04-02 08:35 | Outpatient (CLI) | payer MEDICARE, OTHER, SELFPAY ==
[2019-04-02 08:36] VITALS: BMI 33.2
[2019-04-02 08:51] LABS: Microscopic, Urine URINE MICROSCOPIC (MICROSCOPIC)
[2019-04-02 08:57] LABS: Appearance,Urine CLEAR (Clear); Bilirubin,Urine Negative (Negative); Blood, Urine TRACE-I (Negative); Color,Urine YELLOW (Yellow); Glucose,Urine (UA) Negative (Negative); Ketones,Urine Negative (Negative); Leukocyte Esterase,Urine Negative (Negative); Nitrate,Urine Negative (Negative); Protein,Urine Negative (Negative); Specific Gravity, Urine 1.015 (1.005-1.030); Urobilinogen,Urine 0.2 EU/dl (0.2)
[2019-04-02 09:01] LABS: WBC,Urine Occasional #/hpf (0-3)
== END 2019-04-02 10:10 | disposition home or self-care (01) ==
LOC: INF 08:35
PROVIDERS: Visit Provider Internal Medicine Medical Oncology
DX: C18.9 Malignant neoplasm of colon, unspecified (principal)
CPT/HCPCS: 81001; J1642

== ENCOUNTER 2019-04-06 08:45 | Outpatient (CLI) | payer MEDICARE, OTHER, SELFPAY ==
[2019-04-06] VITALS (10 sets, daily range): BP systolic 121–158; BP diastolic 55–76; PULSE 48–54; RESP 18–20; TEMP 36.8; O2SAT 96–97
== END 2019-04-06 13:56 | disposition home or self-care (01) ==
LOC: INF 08:45
PROVIDERS: Visit Provider Internal Medicine Medical Oncology
DX: Z51.11 Encounter for antineoplastic chemotherapy (principal); C18.9 Malignant neoplasm of colon, unspecified
CPT/HCPCS: 96413; 96415; 96417; J1642; J9035; J9263; Q0166

== ENCOUNTER 2019-04-29 08:21 | Outpatient (CLI) | payer MEDICARE, OTHER, SELFPAY ==
[2019-04-29 08:23] VITALS: BMI 33.0
[2019-04-29 08:41] LABS: Microscopic, Urine URINE MICROSCOPIC (MICROSCOPIC)
[2019-04-29 08:42] LABS: Appearance,Urine CLEAR (Clear); Bilirubin,Urine Negative (Negative); Blood, Urine 1+ (Negative); Color,Urine YELLOW (Yellow); Glucose,Urine (UA) Negative (Negative); Ketones,Urine Negative (Negative); Leukocyte Esterase,Urine Negative (Negative); Nitrate,Urine Negative (Negative); Protein,Urine Negative (Negative); Specific Gravity, Urine 1.025 (1.005-1.030); Urobilinogen,Urine 0.2 EU/dl (0.2)
[2019-04-29 08:46] LABS: Eosinophils # 0.1 K/mm3 (0.0-0.4); Eosinophils % 3.3 % (0.1-12.0); Hematocrit 42.4 % (37.0-47.0); Hemoglobin 13.6 g/dL (12.2-16.2); Lymphocytes # 0.9 K/mm3 (0.7-4.5); Lymphocytes % 21.1 % (10-50); Mean Corpuscular Hemoglobin 31.2 pg (27.0-31.2); Mean Corpuscular Volume 97.4 fl (81-99); Monocytes # 0.5 K/mm3 (0.1-1.0); Monocytes % 12.1 % (1.7-9.3); Neutrophils # 2.5 K/mm3 (1.8-7.8); Neutrophils % 62.5 % (37.0-80.0); Platelet Count 68 K/mm3 (142-424); Red Blood Count 4.36 M/mm3 (4.20-5.40); Red Cell Distribution Width 17.4 % (11.5-17.5); WBC,Urine Occasional #/hpf (0-3)
[2019-04-29 09:06] LABS: Alanine Aminotransferase 26 U/L (12-78); Albumin Level 3.2 gm/dL (3.4-5.0); Albumin/Globulin Ratio 1.2 (1.1-1.8); Alkaline Phosphatase 107 U/L (46-116); Anion Gap 9.3 mEq/L (5-15); Aspartate Amino Transferase 24 U/L (15-37); Bilirubin,Total 0.6 mg/dL (0.2-1.0); Blood Urea Nitrogen 19 mg/dL (7-18); Calcium 8.6 mg/dL (8.5-10.1); Carbon Dioxide 30 mmol/L (21.0-32.0); Chloride 105 mmol/L (98-107); Creatinine Clearance Estimated 66 mL/min (50-200); Creatinine,Serum 0.77 mg/dL (0.55-1.02); Estimated Glomerular Filt Rate 75 ml/min (>60); GFR (African American) 90 ML/MIN (>60); Globulin 2.7 gm/dl (1.3-3.2); Glucose 95 mg/dL (74-106); Potassium 4.3 mmoL/L (3.5-5.1); Sodium 140 mmol/L (136-145); Total Protein,Serum 5.9 gm/dL (6.4-8.2)
== END 2019-04-29 09:34 | disposition home or self-care (01) ==
LOC: INF 08:21
PROVIDERS: Visit Provider Internal Medicine Medical Oncology
DX: C18.9 Malignant neoplasm of colon, unspecified (principal); Z45.2 Encounter for adjustment and management of vascular access device
CPT/HCPCS: 80053; 81001; 85025; J1642

== ENCOUNTER 2019-05-06 08:40 | Outpatient (CLI) | payer MEDICARE, OTHER, SELFPAY ==
[2019-05-06] VITALS (10 sets, daily range): BP systolic 103–158; BP diastolic 54–85; PULSE 43–57; RESP 18; TEMP 36.8; O2SAT 96–98; BMI 33.5
[2019-05-06 09:12] LABS: Basophils % 0.8 % (0.1-2.0); Eosinophils # 0.2 K/mm3 (0.0-0.4); Lymphocytes # 1.1 K/mm3 (0.7-4.5); Lymphocytes % 20.8 % (10-50); Mean Corpuscular HGB Conc 31.8 g/dL (31.8-35.4); Mean Corpuscular Hemoglobin 31.5 pg (27.0-31.2); Mean Corpuscular Volume 99.1 fl (81-99); Mean Platelet Volume 8.1 fl (7.4-10.4); Monocytes # 0.4 K/mm3 (0.1-1.0); Monocytes % 7.5 % (1.7-9.3); Neutrophils # 3.4 K/mm3 (1.8-7.8); Neutrophils % 67.9 % (37.0-80.0); Platelet Count 98 K/mm3 (142-424); Red Blood Count 4.44 M/mm3 (4.20-5.40); Red Cell Distribution Width 17.5 % (11.5-17.5)
[2019-05-06 09:24] LABS: Alanine Aminotransferase 21 U/L (12-78); Albumin Level 3.3 gm/dL (3.4-5.0); Albumin/Globulin Ratio 1.1 (1.1-1.8); Alkaline Phosphatase 108 U/L (46-116); Anion Gap 10.3 mEq/L (5-15); Aspartate Amino Transferase 26 U/L (15-37); Bilirubin,Total 0.5 mg/dL (0.2-1.0); Blood Urea Nitrogen 16 mg/dL (7-18); Calcium 8.6 mg/dL (8.5-10.1); Carbon Dioxide 31 mmol/L (21.0-32.0); Chloride 102 mmol/L (98-107); Creatinine Clearance Estimated 67 mL/min (50-200); Creatinine,Serum 0.77 mg/dL (0.55-1.02); Estimated Glomerular Filt Rate 75 ml/min (>60); GFR (African American) 90 ML/MIN (>60); Glucose 106 mg/dL (74-106); Potassium 4.3 mmoL/L (3.5-5.1); Sodium 139 mmol/L (136-145); Total Protein,Serum 6.3 gm/dL (6.4-8.2)
== END 2019-05-06 15:05 | disposition home or self-care (01) ==
LOC: INF 08:40
PROVIDERS: Visit Provider Internal Medicine Medical Oncology
DX: Z51.11 Encounter for antineoplastic chemotherapy (principal); C18.9 Malignant neoplasm of colon, unspecified
CPT/HCPCS: 80053; 85025; 96413; 96415; 96417; J1642; J9035; J9263; Q0166

== ENCOUNTER → 2019-05-12 06:44 | Outpatient (CLI) | payer MEDICARE, OTHER, SELFPAY ==
--- NOTE | 2019-05-12 | CA_ITS ---
APPROVED REPORT Exam: Pharmacologic Technologist: Kina Davila Ht: 5 ft 0 in Wt: 169 lbs BSA: 1.74 m2 HR: 69 bpm BP: 153/68 mmHg Indications: Chest pain, Shortness of Breath Medical History Medications: Levothyroxine,,,,, Furosemide (LASIX),,,,, Vitamin D3,,,,, Carvedilol,,,,, EnALAPRIL,,,,, Capecitabine,,,,, DOcusate,,,,, Loperamide,,,,, Potassium,,,,, Stress Test Details Test: LEXISCAN HR Resting HR: 66 bpm Max Heart Rate (APMHR): 153 bpm Max HR Achieved: 112 bpm Target HR (85% APMHR): 130 bpm % of APMHR: 73 Recovery HR: 95 bpm BP Resting BP: 153.0/68.0 mmHg Max BP: 211.0/109.0 mmHg Recovery BP: 152.0/86.0 mmHg ECG Clinical Exercise duration: 04:05 min Highest Stage Achieved: Stress ECG Conclusion Resting ECG: Sinus bradycardia with PVC and PAC. Lexiscan portion completed. Patient complained of nausea and vomiting Symptoms: Nausea and vomiting during infusion. Resolved in recovery. No chest pain. No shortness of breath. Arrhythmias/Ectopy: Occasional PVC. Occasional PAC. Bigeminy noted. ST-T Changes: Less than 1.[address] depression. Conclusion: Images to follow. Electronically signed by : Rhett Pena, 05/13/2019 12:49:58
--- NOTE | 2019-05-12 06:45 | CA_ITS ---
APPROVED REPORT EXAM: Comprehensive 2D, Doppler, and color-flow Echocardiogram Car Seat Maker: Kassi Orr CRT Ht: 5 ft 0 in Wt: 171lbs BSA: 1.75 BP: 135/43 mmHg Indications: cp, sob, edema, htn, 2D Dimensions LVOT 1.93 cm (M/F) 1.5-2.5 M-Mode Dimensions RVDd 2.98 cm (0.9-2.6) LVDd 4.19 cm (3.5-5.7) LVDs 3.18 cm (3.5-5.7) IVSd 1.39 cm (0.6-1.1) PWd 0.55 cm (0.6-1.1) EF (Teich) 48.40% FS 24.10% EDV (Teich) 78.10 mL ESV (Teich) 40.30 mL LV Diastology E/A Ratio 0.84 Mitral Valve MV A Velocity 58.00 (40-130 cm/s) Left Ventricle Left atrium is mildly enlarged, left ventricle is normal size, mild concentric left ventricular hypertrophy, visually estimated ejection fraction 55% with no regional wall motion abnormality, grade 1 diastolic dysfunction seen without tissue Doppler evidence of raise left atrial pressure. Right Ventricle Right atrium and right ventricle are normal size and contractility. Aortic Valve Aortic valve is minimally thickened and fibrosed. There is no aortic stenosis. There is trace aortic insufficiency. Mitral Valve Mitral valve is grossly normal, there is mild mitral regurgitation. Tricuspid Valve Tricuspid valve is grossly normal, there is mild tricuspid regurgitation. Pulmonic Valve Pulmonic valve is poorly visualized. Great Vessels Aortic root is normal size. Pericardium No significant pericardial effusion noted. Conclusion 1. Normal left ventricular size, mild concentric left ventricular hypertrophy, visually estimated ejection fraction 55% with no regional wall motion abnormality, grade 1 diastolic dysfunction seen without tissue Doppler evidence of raise left atrial pressure. 2. Mild mitral and tricuspid regurgitation. 3. Trace aortic insufficiency. 4. No significant pericardial effusion noted. Electronically signed by : Rhett Pena, 05/13/2019 14:40:31
--- NOTE | 2019-05-12 06:50 | NM_ITS ---
APPROVED REPORT Exam: Nuclear Stress Test Indication: Chest pain, SOB, Fatigue, Family history Patient Location: Outpatient Stress Tech: Kina Davila NM Tech:Samra Presley, ARRT, RT (R)(N) Ht: 5 ft 0 in Wt: 169 lbs Bra Size: C HR: 69 bpm BP: 153/68 mmHg BSA: 1.74 m2 History: Chest pain, SOB, Fatigue, Family history Procedure: Patient received a 0.4 mg of intravenous Lexiscan, resting heart rate 69 bpm, resting blood pressure 153/68 mmHg, with Lexiscan maximum heart rate achived was 111 bpm which is Less than 85 % of the maximum predicted heart rate and blood pressure was 211/109 mmHg. With Lexiscan, patient denied any complaint of chest pain. Electrocardiogram Resting electrocardiogram shows sinus rhythm, with Lexiscan there is less than 1.[address] segment depression noted from the baseline EKG. The EKG portion of the Lexiscan Myoview is nondiagnostic. Cardiac Stress and Resting SPECT Images: Cardiac Stress and Resting SPECT images were obtained using technetium 99m Myoview 32.6 mCi stress and 9.82 mCi at rest. Gated SPECT with analysis of segmental wall motion and calculation of the ejection fraction also done. Cardiac stress and resting SPECT images show uniform myocardial activity without segmental perfusion abnormality, computer derived ejection fraction is 51% with no regional wall motion abnormality, right ventricle is normal size and contractility. Conclusion: 1. The EKG portion of the Lexiscan Myoview is nondiagnostic. 2. No scintigraphic evidence of reversible ischemia seen, computer derived ejection fraction 51% with no regional wall motion abnormality, right ventricle is normal size and contractility. 3. Normal Lexiscan Myoview study. Electronically signed by : Rhett Pena, 05/13/2019 12:52:33
--- NOTE | 2019-05-12 07:29 | HMH.ITSHM ---
Current Home Medications as stated by this patient Julieta Toussaint or financial service representative. []LEVOTHYROXINE VITAMIN D3 CARVEDILOL CAPECITABINE ENALAPRIL POTASSIUM ONDANSETRON LOPERAMIDE FUROSEMIDE DOCUSATE
== END ==
PROVIDERS: PCP Nurse Practitioner Family; Visit Provider Internal Medicine Cardiovascular Disease
DX: E66.9 Obesity, unspecified (principal); R06.02 Shortness of breath; R07.9 Chest pain, unspecified; R53.83 Other fatigue
CPT/HCPCS: 78452; 93017; 93306; A9502; J2785

== ENCOUNTER 2019-05-21 08:56 | Outpatient (CLI) | payer MEDICARE, OTHER, SELFPAY ==
[2019-05-21 08:57] VITALS: BMI 33.5
[2019-05-21 09:15] LABS: Microscopic, Urine URINE MICROSCOPIC (MICROSCOPIC)
[2019-05-21 09:17] LABS: Appearance,Urine CLEAR (Clear); Bilirubin,Urine Negative (Negative); Blood, Urine TRACE-I (Negative); Color,Urine YELLOW (Yellow); Glucose,Urine (UA) Negative (Negative); Ketones,Urine Negative (Negative); Leukocyte Esterase,Urine Negative (Negative); Nitrate,Urine Negative (Negative); PH,Urine 5.5 (5.0-8.5); Protein,Urine Negative (Negative); Urobilinogen,Urine 0.2 EU/dl (0.2)
[2019-05-21 09:18] LABS: Basophils % 0.9 % (0.1-2.0); Eosinophils # 0.1 K/mm3 (0.0-0.4); Eosinophils % 2.2 % (0.1-12.0); Hematocrit 40.5 % (37.0-47.0); Hemoglobin 12.9 g/dL (12.2-16.2); Lymphocytes # 0.8 K/mm3 (0.7-4.5); Lymphocytes % 20.4 % (10-50); Mean Corpuscular HGB Conc 31.8 g/dL (31.8-35.4); Mean Corpuscular Hemoglobin 31.8 pg (27.0-31.2); Mean Platelet Volume 8.6 fl (7.4-10.4); Monocytes # 0.4 K/mm3 (0.1-1.0); Monocytes % 9.5 % (1.7-9.3); Neutrophils # 2.5 K/mm3 (1.8-7.8); Neutrophils % 66.9 % (37.0-80.0); Platelet Count 87 K/mm3 (142-424); Red Blood Count 4.05 M/mm3 (4.20-5.40); Red Cell Distribution Width 17.3 % (11.5-17.5); White Blood Count 3.8 K/mm3 (4.8-10.8)
[2019-05-21 09:35] LABS: Alanine Aminotransferase 26 U/L (12-78); Albumin Level 3.3 gm/dL (3.4-5.0); Albumin/Globulin Ratio 1.2 (1.1-1.8); Alkaline Phosphatase 88 U/L (46-116); Aspartate Amino Transferase 30 U/L (15-37); Bilirubin,Total 0.5 mg/dL (0.2-1.0); Blood Urea Nitrogen 10 mg/dL (7-18); Calcium 8.6 mg/dL (8.5-10.1); Carbon Dioxide 32 mmol/L (21.0-32.0); Chloride 107 mmol/L (98-107); Creatinine Clearance Estimated 67 mL/min (50-200); Creatinine,Serum 0.74 mg/dL (0.55-1.02); Estimated Glomerular Filt Rate 78 ml/min (>60); GFR (African American) 95 ML/MIN (>60); Globulin 2.7 gm/dl (1.3-3.2); Glucose 97 mg/dL (74-106); Sodium 144 mmol/L (136-145)
[2019-05-21 09:49] LABS: Bacteria,Urine 1+ /lpf; RBC,Urine Occasional #/hpf (0-3); Squamous Epithelial Cell,Urine Occasional #/hpf (0-5)
== END 2019-05-21 09:05 | disposition home or self-care (01) ==
LOC: INF 08:56
PROVIDERS: Visit Provider Internal Medicine Medical Oncology
DX: Z45.2 Encounter for adjustment and management of vascular access device (principal); C18.9 Malignant neoplasm of colon, unspecified
CPT/HCPCS: 80053; 81001; 85025; J1642

== ENCOUNTER 2019-05-25 08:54 | Outpatient (CLI) | payer MEDICARE, OTHER, SELFPAY ==
[2019-05-25] VITALS (8 sets, daily range): BP systolic 132–152; BP diastolic 46–71; PULSE 45–51; RESP 18–20; TEMP 36.4; O2SAT 97–99; BMI 33.5
[2019-05-25 09:30] LABS: Eosinophils # 0.1 K/mm3 (0.0-0.4); Eosinophils % 2.8 % (0.1-12.0); Hematocrit 42.6 % (37.0-47.0); Hemoglobin 13.4 g/dL (12.2-16.2); Lymphocytes % 28.2 % (10-50); Mean Corpuscular HGB Conc 31.5 g/dL (31.8-35.4); Mean Corpuscular Volume 101.8 fl (81-99); Monocytes # 0.4 K/mm3 (0.1-1.0); Monocytes % 11.2 % (1.7-9.3); Neutrophils % 56.8 % (37.0-80.0); Platelet Count 85 K/mm3 (142-424); Red Blood Count 4.19 M/mm3 (4.20-5.40); Red Cell Distribution Width 17.4 % (11.5-17.5); White Blood Count 3.5 K/mm3 (4.8-10.8)
== END 2019-05-25 13:55 | disposition home or self-care (01) ==
LOC: INF 08:54
PROVIDERS: Visit Provider Internal Medicine Medical Oncology
DX: Z51.11 Encounter for antineoplastic chemotherapy (principal); C18.9 Malignant neoplasm of colon, unspecified
CPT/HCPCS: 85025; 96413; 96415; 96417; J1642; J9035; J9263; Q0166

== ENCOUNTER 2019-06-07 08:33 | Outpatient (CLI) | payer MEDICARE, OTHER, SELFPAY ==
[2019-06-07 08:18] VITALS: BMI 33.4
[2019-06-07 08:35] LABS: Basophils % 0.5 % (0.1-2.0); Eosinophils # 0.1 K/mm3 (0.0-0.4); Eosinophils % 2.5 % (0.1-12.0); Hematocrit 39.9 % (37.0-47.0); Hemoglobin 12.8 g/dL (12.2-16.2); Lymphocytes # 0.8 K/mm3 (0.7-4.5); Lymphocytes % 20.1 % (10-50); Mean Corpuscular HGB Conc 32.1 g/dL (31.8-35.4); Mean Corpuscular Volume 99.6 fl (81-99); Mean Platelet Volume 10.6 fl (7.4-10.4); Monocytes # 0.3 K/mm3 (0.1-1.0); Neutrophils # 2.6 K/mm3 (1.8-7.8); Red Cell Distribution Width 17.7 % (11.5-17.5); White Blood Count 3.8 K/mm3 (4.8-10.8)
[2019-06-07 08:49] LABS: Platelet Count 49 K/mm3 (142-424)
[2019-06-07 08:53] LABS: Alanine Aminotransferase 26 U/L (9-52); Albumin Level 3.3 g/dL (3.4-5.0); Albumin/Globulin Ratio 1.2 (1.1-1.8); Alkaline Phosphatase 90 U/L (46-116); Anion Gap 11.9 mEq/L (5-15); Aspartate Amino Transferase 36 U/L (15-37); Bilirubin,Total 0.5 mg/dL (0.2-1.0); Blood Urea Nitrogen 20 mg/dL (7-18); Calcium 8.5 mg/dL (8.5-10.1); Carbon Dioxide 27 mmol/L (21.0-32.0); Chloride 109 mmol/L (98-107); Creatinine Clearance Estimated 66 mL/min (50-200); Creatinine,Serum 0.68 mg/dL (0.55-1.02); Estimated Glomerular Filt Rate 86 ml/min (>60); GFR (African American) 104 ML/MIN (>60); Globulin 2.7 gm/dl (1.3-3.2); Glucose 109 mg/dL (74-106); Potassium 3.9 mmoL/L (3.5-5.1); Sodium 144 mmol/L (137-145)
--- NOTE | 2019-06-07 08:55 | CT_ITS ---
PROCEDURE: CT CHEST W CON CLINCAL INDICATION: COLON CA COMPARISON: CT CHEST W CON from 03/29/2019 TECHNIQUE: IV Contrast: 75ml Optiray 350 Axial images obtained with sagittal and coronal reformats. All CT scans at the facility use one or more dose reduction, viz: automated exposure control, ma/kV adjustment per patient size (including targeted exams where dose is matched to indication, i.e. head), or iterative reconstruction technique. FINDINGS: HEART AND MEDIASTINAL STRUCTURES: There is cardiomegaly without active CHF. There is new soft tissue thickening along the asegoesophageal recess and the right lower lobe bronchus. Image 33 series 4. This is nonspecific. This could be postinflammatory or neoplastic. 1 No pathologically enlarged lymph nodes are noted. LUNGS AND PLEURAL SPACES: There has been apparent interval response to therapy as there has been a decrease in size of multiple pulmonary nodules. Nodule in the right lower lobe abutting the pleural surface which was approximately 1.5 centimeters is now maximally 1.4 centimeters. Nodule in the left lower lobe abutting the pleural surface which was 1.2 centimeters is 1.0 centimeters. Other nodules appear to have slightly regressed. There are no new nodules suspicious for malignancy. There are a few scattered pulmonary opacities which may represent atelectasis or scarring. Calcified granuloma is seen in the right lung base. There is no pleural effusion. BONY STRUCTURES: No acute bony abnormalities apparent. UPPER ABDOMEN: Unremarkable. ADDITIONAL FINDINGS: No other significant abnormalities. IMPRESSION: Interval improvement with slight regression of pulmonary nodules suspicious for metastases compared to 03/29/2019 Dictated by: David Lopez 06/07/2019 10:52 Electronically signed by David Lopez in [facility] 06/07/2019 10:52
--- NOTE | 2019-06-07 08:55 | CT_ITS ---
PROCEDURE: CT ABDOMEN PELVIS W CON CLINICAL INDICATION: COLON CA Left hemicolectomy and left lower quadrant colostomy COMPARISON: CT ABDOMEN PELVIS W CON from 03/29/2019 TECHNIQUE: IV Contrast: 75ML OPTIRAY 350 Oral Contrast 20ml Gastroview Axial images obtained with sagittal and coronal reformats. All CT scans at the facility use one or more dose reduction, viz: automated exposure control, ma/kV adjustment per patient size (including targeted exams where dose is matched to indication, i.e. head), or iterative reconstruction technique. FINDINGS: LOWER THORAX: No acute finding ABDOMEN & PELVIS: There is fatty infiltration of the liver. There has been cholecystectomy. A 10 millimeter and 2 millimeter nonobstructing stone of the lower pole of the right kidney is noted. Cystic foci in association with both kidneys left greater than right may represent parapelvic cysts and/or dilated collecting systems. Small cortical cyst of right kidney is noted. The liver, spleen, pancreas, adrenal glands, and kidneys show no acute finding. There is a right lateral abdominal wall hernia appearing to contain a small amount of nonobstructed small intestine. Left lower quadrant colostomy appearing to be patent is noted with some associated herniated intra-abdominal fat and colon into the subcutaneous tissues. Appearance is similar to previous exam. There is no ascites or lymphadenopathy. No intestinal obstruction or free air. No evidence of appendicitis or diverticulitis. No pelvic mass, abnormal fluid collection, or focal inflammatory change of the pelvis. Bilateral L5 pars defects are again noted with grade 1 anterior listhesis L5 on S1 with bilateral foraminal stenoses. No acute bony anomalies. IMPRESSION: Stable appearance compared to 03/29/2019 with no evidence of metastatic disease Dictated by: David Lopez 06/07/2019 11:06 Electronically signed by David Lopez in [facility] 06/07/2019 11:06
== END 2019-06-07 09:30 | disposition home or self-care (01) ==
LOC: INF 08:33
PROVIDERS: PCP Nurse Practitioner Family; Visit Provider Internal Medicine Medical Oncology
DX: C18.9 Malignant neoplasm of colon, unspecified (principal)
CPT/HCPCS: 71260; 74177; 80053; 85025; J1642; Q9967

== ENCOUNTER 2019-06-15 08:30 | Outpatient (CLI) | payer MEDICARE, OTHER, SELFPAY ==
[2019-06-15 08:32] VITALS: BMI 32.5
[2019-06-15 08:48] LABS: Microscopic, Urine URINE MICROSCOPIC (MICROSCOPIC)
[2019-06-15 08:50] LABS: Appearance,Urine CLEAR (Clear); Bilirubin,Urine Negative (Negative); Blood, Urine 1+ (Negative); Color,Urine YELLOW (Yellow); Glucose,Urine (UA) Negative (Negative); Ketones,Urine Negative (Negative); Leukocyte Esterase,Urine Negative (Negative); Nitrate,Urine Negative (Negative); PH,Urine 5.5 (5.0-8.5); Protein,Urine Negative (Negative); Urobilinogen,Urine 0.2 EU/dl (0.2)
[2019-06-15 08:51] LABS: Eosinophils # 0.1 K/mm3 (0.0-0.4); Eosinophils % 2.5 % (0.1-12.0); Hematocrit 38.7 % (37.0-47.0); Hemoglobin 12.6 g/dL (12.2-16.2); Lymphocytes # 0.7 K/mm3 (0.7-4.5); Lymphocytes % 20.6 % (10-50); Mean Corpuscular HGB Conc 32.5 g/dL (31.8-35.4); Mean Corpuscular Hemoglobin 32.5 pg (27.0-31.2); Mean Corpuscular Volume 99.9 fl (81-99); Mean Platelet Volume 9.6 fl (7.4-10.4); Monocytes # 0.4 K/mm3 (0.1-1.0); Monocytes % 11.9 % (1.7-9.3); Neutrophils # 2.3 K/mm3 (1.8-7.8); Neutrophils % 64.1 % (37.0-80.0); Platelet Count 59 K/mm3 (142-424); Red Blood Count 3.88 M/mm3 (4.20-5.40); Red Cell Distribution Width 17.8 % (11.5-17.5); White Blood Count 3.6 K/mm3 (4.8-10.8)
[2019-06-15 08:57] LABS: Bacteria,Urine Trace /lpf; WBC,Urine Occasional #/hpf (0-3)
== END 2019-06-15 09:15 | disposition home or self-care (01) ==
LOC: INF 08:30
PROVIDERS: Visit Provider Internal Medicine Medical Oncology
DX: C18.9 Malignant neoplasm of colon, unspecified (principal)
CPT/HCPCS: 81001; 85025; J1642

== ENCOUNTER 2019-06-29 08:43 | Outpatient (CLI) | payer MEDICARE, OTHER, SELFPAY ==
[2019-06-29] VITALS (9 sets, daily range): BP systolic 144–158; BP diastolic 71–98; PULSE 49–59; RESP 18–20; TEMP 36.6; O2SAT 98–100; BMI 32.7
[2019-06-29 09:03] LABS: Microscopic, Urine URINE MICROSCOPIC (MICROSCOPIC)
[2019-06-29 09:06] LABS: Appearance,Urine CLEAR (Clear); Bilirubin,Urine Negative (Negative); Blood, Urine 1+ (Negative); Color,Urine YELLOW (Yellow); Glucose,Urine (UA) Negative (Negative); Ketones,Urine Negative (Negative); Leukocyte Esterase,Urine Negative (Negative); Nitrate,Urine Negative (Negative); PH,Urine 5.5 (5.0-8.5); Protein,Urine Negative (Negative); Specific Gravity, Urine 1.025 (1.005-1.030); Urobilinogen,Urine 0.2 EU/dl (0.2)
[2019-06-29 09:08] LABS: Basophils % 0.6 % (0.1-2.0); Eosinophils # 0.1 K/mm3 (0.0-0.4); Hematocrit 39.5 % (37.0-47.0); Hemoglobin 12.8 g/dL (12.2-16.2); Lymphocytes # 0.7 K/mm3 (0.7-4.5); Lymphocytes % 11.6 % (10-50); Mean Corpuscular HGB Conc 32.5 g/dL (31.8-35.4); Mean Corpuscular Hemoglobin 32.5 pg (27.0-31.2); Mean Corpuscular Volume 100.1 fl (81-99); Mean Platelet Volume 9.3 fl (7.4-10.4); Monocytes # 0.5 K/mm3 (0.1-1.0); Monocytes % 8.6 % (1.7-9.3); Neutrophils # 4.8 K/mm3 (1.8-7.8); Neutrophils % 78.1 % (37.0-80.0); Platelet Count 74 K/mm3 (142-424); Red Blood Count 3.95 M/mm3 (4.20-5.40); Red Cell Distribution Width 17.8 % (11.5-17.5); White Blood Count 6.2 K/mm3 (4.8-10.8)
[2019-06-29 09:19] LABS: WBC,Urine Occasional #/hpf (0-3)
[2019-06-29 09:22] LABS: Chloride 102 mmol/L (98-107); Potassium 3.7 mmoL/L (3.5-5.1); Sodium 141 mmol/L (136-145)
[2019-06-29 09:24] LABS: Alanine Aminotransferase 23 U/L (12-78); Aspartate Amino Transferase 36 U/L (14-36); Blood Urea Nitrogen 13 mg/dl (7-17); Creatinine Clearance Estimated 65 mL/min (50-200); Estimated Glomerular Filt Rate 123 ml/min (>60); GFR (African American) 148 ML/MIN (>60)
[2019-06-29 09:25] LABS: Albumin Level 3.6 g/dl (3.5-5.0); Albumin/Globulin Ratio 1.4 (1.1-1.8); Alkaline Phosphatase 103 U/L (38-126); Anion Gap 13.7 mEq/L (5-15); Bilirubin,Total 0.4 mg/dl (0.2-1.3); Calcium 8.8 mg/dl (8.4-10.2); Carbon Dioxide 29 mmol/L (22.0-30.0); Globulin 2.5 g/dL (1.3-3.2); Glucose 132 mg/dl (74-100); Total Protein,Serum 6.1 g/dl (6.3-8.2)
== END 2019-06-29 14:21 | disposition home or self-care (01) ==
LOC: INF 08:43
PROVIDERS: Visit Provider Internal Medicine Medical Oncology
DX: Z51.11 Encounter for antineoplastic chemotherapy (principal); C18.9 Malignant neoplasm of colon, unspecified
CPT/HCPCS: 80053; 81001; 85025; 96413; 96415; 96417; J9035; J9263; Q0166

== ENCOUNTER 2019-07-22 08:20 | Outpatient (CLI) | payer MEDICARE, OTHER, SELFPAY ==
[2019-07-22] VITALS (8 sets, daily range): BP systolic 118–161; BP diastolic 59–80; PULSE 46–72; RESP 20; TEMP 36.4; O2SAT 96–98; BMI 32.8
[2019-07-22 08:27] LABS: Microscopic, Urine URINE MICROSCOPIC (MICROSCOPIC)
[2019-07-22 08:31] LABS: Appearance,Urine CLEAR (Clear); Basophils % 0.6 % (0.1-2.0); Bilirubin,Urine Negative (Negative); Blood, Urine 1+ (Negative); Color,Urine YELLOW (Yellow); Eosinophils # 0.1 K/mm3 (0.0-0.4); Eosinophils % 2.1 % (0.1-12.0); Glucose,Urine (UA) Negative (Negative); Hematocrit 45.6 % (37.0-47.0); Hemoglobin 14.2 g/dL (12.2-16.2); Ketones,Urine Negative (Negative); Leukocyte Esterase,Urine Negative (Negative); Lymphocytes # 0.7 K/mm3 (0.7-4.5); Lymphocytes % 14.9 % (10-50); Mean Corpuscular HGB Conc 31.3 g/dL (31.8-35.4); Mean Corpuscular Hemoglobin 32.2 pg (27.0-31.2); Mean Corpuscular Volume 102.8 fl (81-99); Mean Platelet Volume 9.3 fl (7.4-10.4); Monocytes # 0.4 K/mm3 (0.1-1.0); Monocytes % 8.9 % (1.7-9.3); Neutrophils # 3.4 K/mm3 (1.8-7.8); Neutrophils % 73.4 % (37.0-80.0); Nitrate,Urine Negative (Negative); Platelet Count 65 K/mm3 (142-424); Protein,Urine Negative (Negative); Red Blood Count 4.43 M/mm3 (4.20-5.40); Red Cell Distribution Width 17.1 % (11.5-17.5); Urobilinogen,Urine 0.2 EU/dl (0.2); White Blood Count 4.6 K/mm3 (4.8-10.8)
[2019-07-22 08:50] LABS: Bacteria,Urine Trace /lpf; Chloride 103 mmol/L (98-107); Potassium 4.2 mmoL/L (3.5-5.1); RBC,Urine Occasional #/hpf (0-3); Sodium 141 mmol/L (136-145); WBC,Urine Occasional #/hpf (0-3)
[2019-07-22 08:53] LABS: Alanine Aminotransferase 37 U/L (12-78); Albumin Level 3.9 g/dl (3.5-5.0); Albumin/Globulin Ratio 1.4 (1.1-1.8); Alkaline Phosphatase 111 U/L (38-126); Anion Gap 11.2 mEq/L (5-15); Aspartate Amino Transferase 48 U/L (14-36); Bilirubin,Total 0.4 mg/dl (0.2-1.3); Blood Urea Nitrogen 14 mg/dl (7-17); Carbon Dioxide 31 mmol/L (22.0-30.0); Creatinine Clearance Estimated 65 mL/min (50-200); Estimated Glomerular Filt Rate 71 ml/min (>60); GFR (African American) 86 ML/MIN (>60); Globulin 2.7 g/dL (1.3-3.2); Total Protein,Serum 6.6 g/dl (6.3-8.2)
[2019-07-22 08:54] LABS: Glucose 108 mg/dl (74-100)
== END 2019-07-22 13:10 | disposition home or self-care (01) ==
LOC: INF 08:20
PROVIDERS: Visit Provider Internal Medicine Medical Oncology
DX: Z51.11 Encounter for antineoplastic chemotherapy (principal); C18.9 Malignant neoplasm of colon, unspecified
CPT/HCPCS: 80053; 81001; 85025; 96413; 96415; J1642; J8501; J9263; Q0166

== ENCOUNTER 2019-08-20 08:33 | Outpatient (CLI) | payer MEDICARE, OTHER, SELFPAY ==
[2019-08-20] VITALS (9 sets, daily range): BP systolic 131–181; BP diastolic 52–71; PULSE 47–59; RESP 18; TEMP 36.6; O2SAT 96–97; BMI 34.2
[2019-08-20 09:01] LABS: Microscopic, Urine URINE MICROSCOPIC (MICROSCOPIC)
[2019-08-20 09:05] LABS: Appearance,Urine CLEAR (Clear); Bilirubin,Urine Negative (Negative); Blood, Urine 1+ (Negative); Color,Urine YELLOW (Yellow); Glucose,Urine (UA) Negative (Negative); Ketones,Urine Negative (Negative); Leukocyte Esterase,Urine Negative (Negative); Nitrate,Urine Negative (Negative); Protein,Urine Negative (Negative); Specific Gravity, Urine 1.015 (1.005-1.030); Urobilinogen,Urine 0.2 EU/dl (0.2)
[2019-08-20 09:08] LABS: Basophils % 0.7 % (0.1-2.0); Eosinophils # 0.1 K/mm3 (0.0-0.4); Eosinophils % 2.5 % (0.1-12.0); Hematocrit 40.2 % (37.0-47.0); Hemoglobin 13.1 g/dL (12.2-16.2); Lymphocytes # 0.8 K/mm3 (0.7-4.5); Lymphocytes % 19.5 % (10-50); Mean Corpuscular HGB Conc 32.6 g/dL (31.8-35.4); Mean Corpuscular Hemoglobin 33.7 pg (27.0-31.2); Mean Corpuscular Volume 103.1 fl (81-99); Monocytes # 0.4 K/mm3 (0.1-1.0); Monocytes % 8.6 % (1.7-9.3); Neutrophils # 2.9 K/mm3 (1.8-7.8); Neutrophils % 68.7 % (37.0-80.0); Platelet Count 62 K/mm3 (142-424); Red Cell Distribution Width 17.2 % (11.5-17.5); White Blood Count 4.2 K/mm3 (4.8-10.8)
[2019-08-20 09:19] LABS: Alanine Aminotransferase 34 U/L (12-78); Albumin Level 3.8 g/dl (3.5-5.0); Albumin/Globulin Ratio 1.5 (1.1-1.8); Alkaline Phosphatase 110 U/L (38-126); Anion Gap 6.7 mEq/L (5-15); Aspartate Amino Transferase 48 U/L (14-36); Bilirubin,Total 0.4 mg/dl (0.2-1.3); Blood Urea Nitrogen 14 mg/dl (7-17); Carbon Dioxide 30 mmol/L (22.0-30.0); Chloride 105 mmol/L (98-107); Creatinine Clearance Estimated 68 mL/min (50-200); Estimated Glomerular Filt Rate 99 ml/min (>60); GFR (African American) 120 ML/MIN (>60); Globulin 2.5 g/dL (1.3-3.2); Glucose 141 mg/dl (74-100); Potassium 3.7 mmoL/L (3.5-5.1); Sodium 138 mmol/L (136-145); Total Protein,Serum 6.3 g/dl (6.3-8.2)
--- NOTE | 2019-08-20 09:30 | PC.NURSE ---
dr. palomares (oncology) is in at this time to see pt for clinic visit. labs reviewed.
--- NOTE | 2019-08-20 09:40 | PC.NURSE ---
chemo treatment orders written and faxed to care management for official approval. held avastin due to low platelet count. oxaliplatin ordered at reduced dose.
== END 2019-08-20 14:06 | disposition home or self-care (01) ==
LOC: INF 08:33
PROVIDERS: PCP Nurse Practitioner Family; Visit Provider Internal Medicine Medical Oncology
DX: Z51.11 Encounter for antineoplastic chemotherapy (principal); C18.9 Malignant neoplasm of colon, unspecified
CPT/HCPCS: 80053; 81001; 85025; 96413; 96415; J1642; J8501; J9263; Q0166

== ENCOUNTER 2019-09-14 08:48 | Outpatient (CLI) | payer MEDICARE, OTHER, SELFPAY ==
[2019-09-14 08:13] VITALS: BMI 34.2
[2019-09-14 09:05] LABS: Chloride 106 mmol/L (98-107); Potassium 3.8 mmoL/L (3.5-5.1); Sodium 139 mmol/L (136-145)
[2019-09-14 09:08] LABS: Alanine Aminotransferase 28 U/L (12-78); Albumin Level 3.5 g/dl (3.5-5.0); Albumin/Globulin Ratio 1.3 (1.1-1.8); Alkaline Phosphatase 141 U/L (38-126); Anion Gap 6.8 mEq/L (5-15); Aspartate Amino Transferase 43 U/L (14-36); Basophils % 0.9 % (0.1-2.0); Bilirubin,Total 0.8 mg/dl (0.2-1.3); Blood Urea Nitrogen 17 mg/dl (7-17); Carbon Dioxide 30 mmol/L (22.0-30.0); Creatinine Clearance Estimated 67 mL/min (50-200); Eosinophils # 0.1 K/mm3 (0.0-0.4); Eosinophils % 2.6 % (0.1-12.0); Estimated Glomerular Filt Rate 83 ml/min (>60); GFR (African American) 101 ML/MIN (>60); Globulin 2.6 g/dL (1.3-3.2); Glucose 113 mg/dl (74-100); Hematocrit 39.8 % (37.0-47.0); Hemoglobin 13.1 g/dL (12.2-16.2); Lymphocytes # 0.8 K/mm3 (0.7-4.5); Lymphocytes % 17.7 % (10-50); Mean Corpuscular Hemoglobin 34.7 pg (27.0-31.2); Mean Corpuscular Volume 105.2 fl (81-99); Mean Platelet Volume 8.2 fl (7.4-10.4); Monocytes # 0.4 K/mm3 (0.1-1.0); Neutrophils # 3.2 K/mm3 (1.8-7.8); Neutrophils % 70.9 % (37.0-80.0); Platelet Count 52 K/mm3 (142-424); Red Blood Count 3.78 M/mm3 (4.20-5.40); Red Cell Distribution Width 18.3 % (11.5-17.5); Total Protein,Serum 6.1 g/dl (6.3-8.2); White Blood Count 4.5 K/mm3 (4.8-10.8)
--- NOTE | 2019-09-14 09:13 | CT_ITS ---
PROCEDURE: CT CHEST WO/W CON CLINCAL INDICATION: COLON CA Colon cancer follow-up COMPARISON: CT ABDOMEN PELVIS W CON from 06/07/2019 CT CHEST W CON from 06/07/2019 CT ABDOMEN PELVIS WO/W CON from 09/14/2019 TECHNIQUE: IV Contrast: 75ml Optiray 350 Axial images obtained with sagittal and coronal reformats. All CT scans at the facility use one or more dose reduction, viz: automated exposure control, ma/kV adjustment per patient size (including targeted exams where dose is matched to indication, i.e. head), or iterative reconstruction technique. FINDINGS: HEART AND MEDIASTINAL STRUCTURES: There are scattered small mediastinal lymph nodes not significantly changed. LUNGS AND PLEURAL SPACES: There are numerous right-sided pulmonary nodules most extensive in the right lower lobe. These have increased in size compared to the previous exam. For instance, there is a 1.7 by 1.4 cm nodule in the right lower lobe posteriorly and laterally previously measuring approximately 1 cm. A soft tissue mass is present in the right as ago esophageal recess inferiorly and measures 2.9 x 2.1 cm previously 2.2 x 1.9 cm. A left lower lobe nodule is present and measures 1.1 cm previously 1 cm. There are fibrotic changes in the lung bases and there is trace bilateral effusions. BONY STRUCTURES: Kyphoscoliosis of the thoracic spine UPPER ABDOMEN: Please see abdomen report ADDITIONAL FINDINGS: No other significant abnormalities. IMPRESSION: Progression of pulmonary metastasis the Dictated by: Didier Ortiz MD 09/15/2019 12:29 Electronically signed by Didier Ortiz MD in [facility] 09/15/2019 12:29
--- NOTE | 2019-09-14 09:13 | CT_ITS ---
PROCEDURE: CT ABDOMEN PELVIS WO/W CON CLINICAL INDICATION: COLON CA Follow-up colon cancer COMPARISON: CT ABDOMEN PELVIS W CON from 06/07/2019 TECHNIQUE: IV Contrast: 75ML OPTIRAY 350 Oral Contrast 450ml Redicat Axial images obtained with sagittal and coronal reformats. All CT scans at the facility use one or more dose reduction, viz: automated exposure control, ma/kV adjustment per patient size (including targeted exams where dose is matched to indication, i.e. head), or iterative reconstruction technique. FINDINGS: There has been a prior cholecystectomy. No focal liver lesion is evident. The liver, spleen, adrenal glands, and pancreas have an unremarkable appearance. There are bilateral parapelvic renal cysts. No hydronephrosis a. There is a nonobstructing 10 mm stone in the lower pole of the right kidney. There has been a prior left hemicolectomy. There is a left lower quadrant colostomy. No evidence of appendicitis. No intestinal obstruction or free air. There are degenerative changes of the lumbar spine with grade 1 spondylolisthesis of L5 on S1 with bilateral pars defects. IMPRESSION: Status post left hemicolectomy with left lower quadrant colostomy. No convincing evidence of metastatic disease within the abdomen. Dictated by: Didier Ortiz MD 09/15/2019 12:34 Electronically signed by Didier Ortiz MD in [facility] 09/15/2019 12:34
== END 2019-09-14 10:05 | disposition home or self-care (01) ==
PROVIDERS: PCP Nurse Practitioner Family; Visit Provider Internal Medicine Medical Oncology
DX: C18.9 Malignant neoplasm of colon, unspecified (principal)
CPT/HCPCS: 71270; 74178; 80053; 85025; J1642; Q9967

== ENCOUNTER 2019-09-21 11:23 | Outpatient (CLI) | payer MEDICARE, OTHER, SELFPAY ==
[2019-09-21] VITALS (9 sets, daily range): BP systolic 116–166; BP diastolic 65–80; PULSE 49–82; RESP 20; TEMP 37; O2SAT 97–98
== END 2019-09-21 16:28 | disposition home or self-care (01) ==
LOC: INF 11:23
PROVIDERS: Visit Provider Internal Medicine Medical Oncology
DX: Z51.11 Encounter for antineoplastic chemotherapy (principal); C18.9 Malignant neoplasm of colon, unspecified
CPT/HCPCS: 96375; 96413; 96415; J1642; J2405; J9055; Q0166

== ENCOUNTER 2019-09-28 08:57 | Outpatient (CLI) | payer MEDICARE, OTHER, SELFPAY ==
[2019-09-28 09:56] VITALS: BP 123/61; PULSE 51; RESP 18; TEMP 36.3; O2SAT 96
[2019-09-28 10:26] VITALS: BP 132/62; PULSE 57; RESP 18; O2SAT 97
[2019-09-28 10:56] VITALS: BP 153/67; PULSE 56; RESP 18; O2SAT 97
[2019-09-28 11:26] VITALS: BP 138/69; PULSE 54; RESP 18; O2SAT 97
[2019-09-28 11:45] VITALS: BP 132/63; PULSE 48; RESP 18; O2SAT 96
== END 2019-09-28 11:45 | disposition home or self-care (01) ==
LOC: INF 08:57
PROVIDERS: Visit Provider Internal Medicine Medical Oncology
DX: Z51.11 Encounter for antineoplastic chemotherapy (principal); C18.9 Malignant neoplasm of colon, unspecified
CPT/HCPCS: 96413; 96415; J1642; J9055; Q0166

== ENCOUNTER 2019-10-07 11:00 | Outpatient (CLI) | payer MEDICARE, OTHER, SELFPAY ==
[2019-10-07 11:02] VITALS: BMI 34.9
[2019-10-07 11:25] LABS: Basophils % 0.6 % (0.1-2.0); Eosinophils # 0.2 K/mm3 (0.0-0.4); Eosinophils % 3.4 % (0.1-12.0); Hematocrit 40.1 % (37.0-47.0); Hemoglobin 13.6 g/dL (12.2-16.2); Mean Corpuscular Hemoglobin 35.1 pg (27.0-31.2); Mean Corpuscular Volume 103.2 fl (81-99); Mean Platelet Volume 8.9 fl (7.4-10.4); Monocytes # 0.4 K/mm3 (0.1-1.0); Monocytes % 6.5 % (1.7-9.3); Neutrophils # 4.2 K/mm3 (1.8-7.8); Neutrophils % 72.6 % (37.0-80.0); Platelet Count 67 K/mm3 (142-424); Red Blood Count 3.88 M/mm3 (4.20-5.40); Red Cell Distribution Width 17.9 % (11.5-17.5); White Blood Count 5.8 K/mm3 (4.8-10.8)
[2019-10-07 11:29] LABS: Alanine Aminotransferase 26 U/L (12-78); Albumin Level 3.9 g/dl (3.5-5.0); Albumin/Globulin Ratio 1.4 (1.1-1.8); Alkaline Phosphatase 127 U/L (38-126); Aspartate Amino Transferase 48 U/L (14-36); Bilirubin,Total 0.4 mg/dl (0.2-1.3); Blood Urea Nitrogen 14 mg/dl (7-17); Calcium 8.9 mg/dl (8.4-10.2); Carbon Dioxide 34 mmol/L (22.0-30.0); Chloride 101 mmol/L (98-107); Creatinine Clearance Estimated 69 mL/min (50-200); Estimated Glomerular Filt Rate 83 ml/min (>60); GFR (African American) 101 ML/MIN (>60); Globulin 2.7 g/dL (1.3-3.2); Glucose 123 mg/dl (74-100); Sodium 139 mmol/L (136-145); Total Protein,Serum 6.6 g/dl (6.3-8.2)
[2019-10-07 12:39] VITALS: BP 149/51; PULSE 46; RESP 18; TEMP 36.4; O2SAT 98
[2019-10-07 13:09] VITALS: BP 155/65; PULSE 48; RESP 18; O2SAT 97
[2019-10-07 13:39] VITALS: BP 150/75; PULSE 47; RESP 18; O2SAT 98
[2019-10-07 13:49] VITALS: BP 151/69; PULSE 49; RESP 18; O2SAT 98
== END 2019-10-07 13:49 | disposition home or self-care (01) ==
LOC: INF 11:01
PROVIDERS: Visit Provider Internal Medicine Medical Oncology
DX: Z51.11 Encounter for antineoplastic chemotherapy (principal); C18.9 Malignant neoplasm of colon, unspecified
CPT/HCPCS: 80053; 85025; 96413; J1642; J9055; Q0166

== ENCOUNTER 2019-10-12 09:20 | Outpatient (CLI) | payer MEDICARE, OTHER, SELFPAY ==
[2019-10-12 09:22] VITALS: BMI 34.9
[2019-10-12 09:55] LABS: Magnesium 1.8 mg/dl (1.6-2.3)
[2019-10-12 10:08] VITALS: BP 126/61; PULSE 46; RESP 20; TEMP 36.4; O2SAT 99
[2019-10-12 10:40] VITALS: BP 143/63; PULSE 47; RESP 20; O2SAT 99
[2019-10-12 11:10] VITALS: BP 139/67; PULSE 49; RESP 20; O2SAT 98
[2019-10-12 11:40] VITALS: BP 148/71; PULSE 56; RESP 20; O2SAT 99
[2019-10-12 11:50] VITALS: BP 144/78; PULSE 50; RESP 20; O2SAT 98
== END 2019-10-12 11:55 | disposition home or self-care (01) ==
LOC: INF 09:20
PROVIDERS: Visit Provider Internal Medicine Medical Oncology
DX: Z51.11 Encounter for antineoplastic chemotherapy (principal); C18.9 Malignant neoplasm of colon, unspecified
CPT/HCPCS: 83735; 96413; J1642; J9055; Q0166

== ENCOUNTER 2019-10-19 08:49 | Outpatient (CLI) | payer MEDICARE, OTHER, SELFPAY ==
[2019-10-19 09:06] VITALS: BP 184/50; PULSE 46; RESP 20; TEMP 36.5; O2SAT 97
[2019-10-19 10:14] VITALS: BP 156/47; PULSE 47; RESP 18; TEMP 36.5; O2SAT 98
[2019-10-19 10:44] VITALS: BP 154/51; PULSE 48; RESP 18; O2SAT 97
[2019-10-19 11:14] VITALS: BP 152/49; PULSE 47; RESP 18; O2SAT 97
[2019-10-19 11:30] VITALS: BP 153/51; PULSE 53; RESP 18; O2SAT 97
== END 2019-10-19 11:30 | disposition home or self-care (01) ==
LOC: INF 08:49
PROVIDERS: Visit Provider Internal Medicine Medical Oncology
DX: Z51.11 Encounter for antineoplastic chemotherapy (principal); C18.9 Malignant neoplasm of colon, unspecified
CPT/HCPCS: 96413; J1642; J9055; Q0166

== ENCOUNTER 2019-10-28 10:50 | Outpatient (CLI) | payer MEDICARE, OTHER, SELFPAY ==
[2019-10-28 10:56] VITALS: BMI 34.9
[2019-10-28 11:07] LABS: Basophils # 0.1 K/mm3 (0-0.2); Basophils % 0.9 % (0.1-2.0); Eosinophils # 0.2 K/mm3 (0.0-0.4); Eosinophils % 2.8 % (0.1-12.0); Hematocrit 40.6 % (37.0-47.0); Hemoglobin 13.8 g/dL (12.2-16.2); Lymphocytes # 0.9 K/mm3 (0.7-4.5); Lymphocytes % 14.4 % (10-50); Mean Corpuscular HGB Conc 33.9 g/dL (31.8-35.4); Mean Corpuscular Hemoglobin 35.8 pg (27.0-31.2); Mean Corpuscular Volume 105.7 fl (81-99); Mean Platelet Volume 8.3 fl (7.4-10.4); Monocytes # 0.4 K/mm3 (0.1-1.0); Monocytes % 5.8 % (1.7-9.3); Neutrophils # 4.9 K/mm3 (1.8-7.8); Neutrophils % 76.2 % (37.0-80.0); Platelet Count 118 K/mm3 (142-424); Red Blood Count 3.84 M/mm3 (4.20-5.40); Red Cell Distribution Width 17.6 % (11.5-17.5); White Blood Count 6.5 K/mm3 (4.8-10.8)
[2019-10-28 11:22] LABS: Chloride 106 mmol/L (98-107); Sodium 139 mmol/L (136-145)
[2019-10-28 11:23] LABS: Potassium 4.2 mmoL/L (3.5-5.1)
[2019-10-28 11:25] LABS: Alanine Aminotransferase 24 U/L (12-78); Albumin Level 3.6 g/dl (3.5-5.0); Albumin/Globulin Ratio 1.3 (1.1-1.8); Alkaline Phosphatase 132 U/L (38-126); Anion Gap 8.2 mEq/L (5-15); Aspartate Amino Transferase 41 U/L (14-36); Bilirubin,Total 0.5 mg/dl (0.2-1.3); Blood Urea Nitrogen 21 mg/dl (7-17); Carbon Dioxide 29 mmol/L (22.0-30.0); Creatinine Clearance Estimated 69 mL/min (50-200); Estimated Glomerular Filt Rate 83 ml/min (>60); GFR (African American) 101 ML/MIN (>60); Globulin 2.8 g/dL (1.3-3.2); Total Protein,Serum 6.4 g/dl (6.3-8.2)
[2019-10-28 11:26] LABS: Calcium 8.7 mg/dl (8.4-10.2); Glucose 118 mg/dl (74-100)
[2019-10-28 12:01] VITALS: BP 135/73; PULSE 52; RESP 18; TEMP 36.6; O2SAT 98
[2019-10-28 12:54] VITALS: BP 119/58; PULSE 48; RESP 18; O2SAT 97
[2019-10-28 13:24] VITALS: BP 124/52; PULSE 50; RESP 18; O2SAT 97
[2019-10-28 14:05] VITALS: BP 121/59; PULSE 47; RESP 18; O2SAT 98
== END 2019-10-28 14:05 | disposition home or self-care (01) ==
LOC: INF 10:50
PROVIDERS: Visit Provider Internal Medicine Medical Oncology
DX: Z51.11 Encounter for antineoplastic chemotherapy (principal); C18.9 Malignant neoplasm of colon, unspecified
CPT/HCPCS: 80053; 85025; 96413; J1642; J9055; Q0166

== ENCOUNTER 2019-11-01 08:54 | Outpatient (CLI) | payer MEDICARE, OTHER, SELFPAY ==
[2019-11-01 09:15] VITALS: BP 98/64; PULSE 59; RESP 18; TEMP 36.4; O2SAT 100
[2019-11-01 09:52] VITALS: BP 131/81; PULSE 47; RESP 18; O2SAT 99
[2019-11-01 10:22] VITALS: BP 124/72; PULSE 57; RESP 18; O2SAT 99
[2019-11-01 10:52] VITALS: BP 119/78; PULSE 54; RESP 18; O2SAT 98
[2019-11-01 11:00] VITALS: BP 135/64; PULSE 53; RESP 18; O2SAT 98
== END 2019-11-01 11:00 | disposition home or self-care (01) ==
LOC: INF 08:54
PROVIDERS: Visit Provider Internal Medicine Medical Oncology
DX: C18.9 Malignant neoplasm of colon, unspecified (principal)
CPT/HCPCS: 96413; J1642; J9055; Q0166

== ENCOUNTER 2019-11-09 08:51 | Outpatient (CLI) | payer MEDICARE, OTHER, SELFPAY ==
[2019-11-09 09:16] VITALS: BP 106/69; PULSE 46; RESP 18; O2SAT 98
[2019-11-09 09:50] VITALS: BP 135/76; PULSE 49; RESP 18; O2SAT 98
[2019-11-09 10:20] VITALS: BP 131/75; PULSE 45; RESP 18; O2SAT 97
[2019-11-09 11:00] VITALS: BP 109/79; PULSE 49; RESP 18; O2SAT 97
== END 2019-11-09 11:08 | disposition home or self-care (01) ==
LOC: INF 08:51
PROVIDERS: Visit Provider Internal Medicine Medical Oncology
DX: Z51.11 Encounter for antineoplastic chemotherapy (principal); C18.9 Malignant neoplasm of colon, unspecified
CPT/HCPCS: 96413; J1642; J9055; Q0166

== ENCOUNTER 2019-11-16 08:49 | Outpatient (CLI) | payer MEDICARE, OTHER, SELFPAY ==
[2019-11-16 08:50] VITALS: BMI 34.9
[2019-11-16 09:11] LABS: Basophils # 0.1 K/mm3 (0-0.2); Eosinophils # 0.1 K/mm3 (0.0-0.4); Eosinophils % 2.7 % (0.1-12.0); Hematocrit 40.1 % (37.0-47.0); Hemoglobin 13.3 g/dL (12.2-16.2); Lymphocytes # 0.8 K/mm3 (0.7-4.5); Lymphocytes % 15.6 % (10-50); Mean Corpuscular HGB Conc 33.2 g/dL (31.8-35.4); Mean Corpuscular Hemoglobin 34.1 pg (27.0-31.2); Mean Corpuscular Volume 102.7 fl (81-99); Mean Platelet Volume 9.1 fl (7.4-10.4); Monocytes # 0.4 K/mm3 (0.1-1.0); Monocytes % 6.8 % (1.7-9.3); Neutrophils # 3.8 K/mm3 (1.8-7.8); Neutrophils % 73.9 % (37.0-80.0); Platelet Count 97 K/mm3 (142-424); Red Blood Count 3.91 M/mm3 (4.20-5.40); Red Cell Distribution Width 17.1 % (11.5-17.5); White Blood Count 5.1 K/mm3 (4.8-10.8)
[2019-11-16 09:12] LABS: Chloride 103 mmol/L (98-107)
[2019-11-16 09:13] LABS: Potassium 4.2 mmoL/L (3.5-5.1); Sodium 140 mmol/L (136-145)
[2019-11-16 09:15] LABS: Alanine Aminotransferase 23 U/L (12-78); Aspartate Amino Transferase 38 U/L (14-36); Blood Urea Nitrogen 11 mg/dl (7-17); Creatinine Clearance Estimated 69 mL/min (50-200); Estimated Glomerular Filt Rate 99 ml/min (>60); GFR (African American) 120 ML/MIN (>60)
[2019-11-16 09:16] LABS: Albumin Level 3.4 g/dl (3.5-5.0); Albumin/Globulin Ratio 1.3 (1.1-1.8); Alkaline Phosphatase 125 U/L (38-126); Anion Gap 8.2 mEq/L (5-15); Bilirubin,Total 0.5 mg/dl (0.2-1.3); Calcium 8.4 mg/dl (8.4-10.2); Carbon Dioxide 33 mmol/L (22.0-30.0); Globulin 2.7 g/dL (1.3-3.2); Glucose 105 mg/dl (74-100); Magnesium 1.9 mg/dl (1.6-2.3); Total Protein,Serum 6.1 g/dl (6.3-8.2)
[2019-11-16 09:29] VITALS: BP 134/51; PULSE 49; RESP 18; TEMP 36.5; O2SAT 97
[2019-11-16 10:08] VITALS: BP 117/44; PULSE 48; RESP 18; O2SAT 97
[2019-11-16 10:38] VITALS: BP 107/46; PULSE 51; RESP 18; O2SAT 98
[2019-11-16 11:08] VITALS: BP 112/49; PULSE 49; RESP 18; O2SAT 97
[2019-11-16 11:38] VITALS: BP 114/45; PULSE 50; RESP 18; O2SAT 97
[2019-11-16 12:00] VITALS: BP 116/59; PULSE 47; RESP 18; O2SAT 97
== END 2019-11-16 12:00 | disposition home or self-care (01) ==
LOC: INF 08:49
PROVIDERS: Visit Provider Internal Medicine Medical Oncology
DX: Z51.11 Encounter for antineoplastic chemotherapy (principal); C18.9 Malignant neoplasm of colon, unspecified
CPT/HCPCS: 80053; 83735; 85025; 96413; 96415; J1642; J9055; Q0166

== ENCOUNTER 2019-11-25 09:45 | Outpatient (CLI) | payer MEDICARE, OTHER, SELFPAY ==
[2019-11-25 10:55] VITALS: BP 137/84; PULSE 52; RESP 18; TEMP 36.6; O2SAT 100
[2019-11-25 11:10] VITALS: BP 128/77; PULSE 68; RESP 18
[2019-11-25 11:25] VITALS: BP 118/78; PULSE 72; RESP 18
[2019-11-25 11:40] VITALS: BP 113/61; PULSE 56; RESP 16
[2019-11-25 11:55] VITALS: BP 95/60; PULSE 54; RESP 16
== END 2019-11-25 12:15 | disposition home or self-care (01) ==
LOC: INF 09:45
PROVIDERS: Visit Provider Internal Medicine Medical Oncology
DX: Z51.11 Encounter for antineoplastic chemotherapy (principal); C18.9 Malignant neoplasm of colon, unspecified
CPT/HCPCS: 96413; J1642; J9055; Q0166

== ENCOUNTER 2019-11-30 08:54 | Outpatient (CLI) | payer MEDICARE, OTHER, SELFPAY ==
[2019-11-30 09:03] VITALS: BP 122/54; PULSE 59; RESP 20; TEMP 36.6; O2SAT 99
[2019-11-30 09:33] VITALS: BP 100/56; PULSE 53; RESP 18; O2SAT 99
[2019-11-30 10:03] VITALS: BP 123/74; PULSE 49; RESP 20; O2SAT 98
[2019-11-30 10:33] VITALS: BP 118/57; PULSE 51; RESP 20; O2SAT 99
[2019-11-30 10:58] VITALS: BP 152/93; PULSE 53; RESP 20; O2SAT 99
== END 2019-11-30 11:00 | disposition home or self-care (01) ==
LOC: INF 08:54
PROVIDERS: Visit Provider Internal Medicine Medical Oncology
DX: Z51.11 Encounter for antineoplastic chemotherapy (principal); C18.9 Malignant neoplasm of colon, unspecified
CPT/HCPCS: 96413; J1642; J9055; Q0166

== ENCOUNTER 2019-12-07 08:59 | Outpatient (CLI) | payer MEDICARE, OTHER, SELFPAY ==
[2019-12-07 09:01] VITALS: BMI 34.2
[2019-12-07 09:19] LABS: Basophils % 0.6 % (0.1-2.0); Eosinophils # 0.2 K/mm3 (0.0-0.4); Eosinophils % 2.7 % (0.1-12.0); Hematocrit 41.9 % (37.0-47.0); Hemoglobin 13.5 g/dL (12.2-16.2); Lymphocytes # 0.8 K/mm3 (0.7-4.5); Lymphocytes % 12.6 % (10-50); Mean Corpuscular HGB Conc 32.1 g/dL (31.8-35.4); Mean Corpuscular Hemoglobin 33.4 pg (27.0-31.2); Mean Corpuscular Volume 103.9 fl (81-99); Monocytes # 0.4 K/mm3 (0.1-1.0); Monocytes % 5.8 % (1.7-9.3); Neutrophils # 5.2 K/mm3 (1.8-7.8); Neutrophils % 78.3 % (37.0-80.0); Platelet Count 114 K/mm3 (142-424); Red Blood Count 4.03 M/mm3 (4.20-5.40); Red Cell Distribution Width 16.6 % (11.5-17.5); White Blood Count 6.6 K/mm3 (4.8-10.8)
[2019-12-07 09:27] LABS: Chloride 106 mmol/L (98-107); Sodium 142 mmol/L (136-145)
[2019-12-07 09:28] LABS: Potassium 4.5 mmoL/L (3.5-5.1)
[2019-12-07 09:30] LABS: Alanine Aminotransferase 19 U/L (12-78); Albumin Level 3.6 g/dl (3.5-5.0); Alkaline Phosphatase 118 U/L (38-126); Anion Gap 9.5 mEq/L (5-15); Aspartate Amino Transferase 37 U/L (14-36); Bilirubin,Total 0.7 mg/dl (0.2-1.3); Blood Urea Nitrogen 14 mg/dl (7-17); Carbon Dioxide 31 mmol/L (22.0-30.0); Creatinine Clearance Estimated 70 mL/min (50-200); Estimated Glomerular Filt Rate 99 ml/min (>60); GFR (African American) 120 ML/MIN (>60)
[2019-12-07 09:31] LABS: Albumin/Globulin Ratio 1.3 (1.1-1.8); Globulin 2.8 g/dL (1.3-3.2); Glucose 106 mg/dl (74-100); Magnesium 1.7 mg/dl (1.6-2.3); Total Protein,Serum 6.4 g/dl (6.3-8.2)
[2019-12-07 09:45] VITALS: BP 126/55; PULSE 46; RESP 18; TEMP 36.6; O2SAT 99
[2019-12-07 10:18] VITALS: BP 93/59; PULSE 50; RESP 18; O2SAT 98
[2019-12-07 10:48] VITALS: BP 119/57; PULSE 49; RESP 18; O2SAT 98
[2019-12-07 11:35] VITALS: BP 120/59; PULSE 47; RESP 18; O2SAT 99
== END 2019-12-07 11:35 | disposition home or self-care (01) ==
LOC: INF 08:59
PROVIDERS: Visit Provider Internal Medicine Medical Oncology
DX: Z51.11 Encounter for antineoplastic chemotherapy (principal); C18.9 Malignant neoplasm of colon, unspecified
CPT/HCPCS: 80053; 83735; 85025; 96413; J1642; J9055; Q0166

== ENCOUNTER 2019-12-14 09:04 | Outpatient (CLI) | payer MEDICARE, OTHER, SELFPAY ==
[2019-12-14 09:21] VITALS: BP 167/61; PULSE 50; RESP 18; TEMP 36.6; O2SAT 100
[2019-12-14 10:00] VITALS: BP 154/67; PULSE 49; RESP 18; O2SAT 99
[2019-12-14 10:30] VITALS: BP 151/60; PULSE 51; RESP 18; O2SAT 99
[2019-12-14 11:00] VITALS: BP 145/69; PULSE 48; RESP 18; O2SAT 100
[2019-12-14 11:10] VITALS: BP 150/67; PULSE 49; RESP 18; O2SAT 99
== END 2019-12-14 11:15 | disposition home or self-care (01) ==
LOC: INF 09:04
PROVIDERS: Visit Provider Internal Medicine Medical Oncology
DX: Z51.11 Encounter for antineoplastic chemotherapy (principal); C18.9 Malignant neoplasm of colon, unspecified
CPT/HCPCS: 96413; J1642; J9055; Q0166

== ENCOUNTER 2019-12-21 08:20 | Outpatient (CLI) | payer MEDICARE, OTHER, SELFPAY ==
[2019-12-21 08:34] VITALS: BMI 34.9
--- NOTE | 2019-12-21 08:42 | CT_ITS ---
PROCEDURE: CT ABDOMEN PELVIS W CON CLINICAL INDICATION: COLON CANCER F/U COLON AND LUNG CANCER COMPARISON: CT CT ABDOMEN PELVIS WO/W CON from 09/14/2019 TECHNIQUE: IV Contrast: 75ML OPTIRAY 350 Oral Contrast None Axial images obtained with sagittal and coronal reformats. All CT scans at the facility use one or more dose reduction, viz: automated exposure control, ma/kV adjustment per patient size (including targeted exams where dose is matched to indication, i.e. head), or iterative reconstruction technique. FINDINGS: Prior cholecystectomy. The liver, spleen, adrenal glands, pancreas, has an unremarkable appearance. There are bilateral parapelvic renal cysts. There has been a prior left sided hemicolectomy with colostomy present in the left lower quadrant. There is large bowel herniation into the colostomy site in the anterior abdominal wall. No evidence of intestinal obstruction or free air. There is no evidence of appendicitis. There is an old ileostomy site in the right lower quadrant with some hyperdensity in the subcutaneous tissues at this region. There is a small abdominal wall defect at this area containing fat. This previously contained small bowel but not on today's study. No acute bony findings are evident. No abdominal or pelvic adenopathy. There is grade 1 spondylitic spondylolisthesis of L5 on S1. IMPRESSION: Status post left hemicolectomy as described above with left lower quadrant colostomy with an old ostomy site in the right lower quadrant. No convincing evidence of abdominal metastasis Dictated by: Didier Ortiz MD 12/23/2019 08:54 Didier Ortiz MD in [facility] 12/23/2019 08:54
--- NOTE | 2019-12-21 08:42 | CT_ITS ---
PROCEDURE: CT CHEST W CON CLINCAL INDICATION: COLON CANCER, metastatic disease F/U COLON AND LUNG CANCER COMPARISON: CT CHESTW CT chest w con from 11/21/[address] CHEST W CON from 06/07/[address] CHEST WO/W CON from 09/14/2019 TECHNIQUE: IV Contrast: 75ml Optiray 350 Axial images obtained with sagittal and coronal reformats. All CT scans at the facility use one or more dose reduction, viz: automated exposure control, ma/kV adjustment per patient size (including targeted exams where dose is matched to indication, i.e. head), or iterative reconstruction technique. FINDINGS: Scattered small mediastinal lymph nodes are present not significantly changed. No mediastinal or hilar mass or adenopathy is evident. There are numerous noncalcified pulmonary nodules as previously described. The largest of these is in the as ago esophageal recess on the right measuring 2 x 1.2 cm previously measuring 2.9 x 2.1 cm. The multiple small bilateral pulmonary nodules have shown some decrease in size compared to the previous exam with no new nodules evident. Trace bilateral effusions are no longer apparent. There are mild atelectatic changes in the left lung base. Degenerative changes are present in the thoracic spine. IMPRESSION: Pulmonary metastasis as described above which has shown some improvement compared to the previous study. Dictated by: Didier Ortiz MD 12/22/2019 15:12 Didier Ortiz MD in [place] 12/22/2019 15:12
[2019-12-21 08:47] LABS: Basophils # 0.1 K/mm3 (0-0.2); Basophils % 0.8 % (0.1-2.0); Eosinophils # 0.2 K/mm3 (0.0-0.4); Eosinophils % 3.3 % (0.1-12.0); Hematocrit 42.1 % (37.0-47.0); Hemoglobin 13.9 g/dL (12.2-16.2); Lymphocytes # 0.8 K/mm3 (0.7-4.5); Lymphocytes % 13.9 % (10-50); Mean Corpuscular HGB Conc 33.1 g/dL (31.8-35.4); Mean Corpuscular Hemoglobin 33.1 pg (27.0-31.2); Mean Corpuscular Volume 100.1 fl (81-99); Mean Platelet Volume 7.9 fl (7.4-10.4); Monocytes # 0.4 K/mm3 (0.1-1.0); Monocytes % 6.7 % (1.7-9.3); Neutrophils # 4.5 K/mm3 (1.8-7.8); Neutrophils % 75.3 % (37.0-80.0); Platelet Count 119 K/mm3 (142-424); Red Blood Count 4.21 M/mm3 (4.20-5.40); Red Cell Distribution Width 16.2 % (11.5-17.5)
[2019-12-21 08:48] LABS: Chloride 107 mmol/L (98-107); Sodium 141 mmol/L (136-145)
[2019-12-21 08:49] LABS: Potassium 4.6 mmoL/L (3.5-5.1)
[2019-12-21 08:51] LABS: Alanine Aminotransferase 22 U/L (12-78); Alkaline Phosphatase 111 U/L (38-126); Anion Gap 9.6 mEq/L (5-15); Aspartate Amino Transferase 38 U/L (14-36); Bilirubin,Total 0.7 mg/dl (0.2-1.3); Blood Urea Nitrogen 19 mg/dl (7-17); Carbon Dioxide 29 mmol/L (22.0-30.0); Creatinine Clearance Estimated 69 mL/min (50-200); Estimated Glomerular Filt Rate 99 ml/min (>60); GFR (African American) 120 ML/MIN (>60)
[2019-12-21 08:52] LABS: Albumin Level 3.8 g/dl (3.5-5.0); Albumin/Globulin Ratio 1.3 (1.1-1.8); Calcium 9.3 mg/dl (8.4-10.2); Glucose 129 mg/dl (74-100); Magnesium 1.5 mg/dl (1.6-2.3); Total Protein,Serum 6.8 g/dl (6.3-8.2)
== END 2019-12-21 09:25 | disposition home or self-care (01) ==
LOC: RAD 08:22 → INF 08:23
PROVIDERS: PCP Nurse Practitioner Family; Visit Provider Internal Medicine Medical Oncology
DX: C18.9 Malignant neoplasm of colon, unspecified (principal)
CPT/HCPCS: 71260; 74177; 80053; 83735; 85025; J1642; Q9967

== ENCOUNTER 2019-12-23 09:47 | Outpatient (CLI) | payer MEDICARE, OTHER, SELFPAY ==
[2019-12-23 09:57] VITALS: BP 161/70; PULSE 51; RESP 18; TEMP 36.5; O2SAT 98
[2019-12-23 10:47] VITALS: BP 134/48; PULSE 46; RESP 18; O2SAT 97
[2019-12-23 11:17] VITALS: BP 113/49; PULSE 53; RESP 18; O2SAT 97
[2019-12-23 11:50] VITALS: BP 129/48; PULSE 48; RESP 18; O2SAT 96
== END 2019-12-23 11:50 | disposition home or self-care (01) ==
LOC: INF 09:47
PROVIDERS: Visit Provider Internal Medicine Medical Oncology
DX: Z51.11 Encounter for antineoplastic chemotherapy (principal); C18.9 Malignant neoplasm of colon, unspecified
CPT/HCPCS: 96413; J1642; J9055; Q0166

== ENCOUNTER 2019-12-30 09:49 | Outpatient (CLI) | payer MEDICARE, OTHER, SELFPAY ==
[2019-12-30 10:37] VITALS: BP 111/49; PULSE 47; RESP 20; TEMP 36.6; O2SAT 99
[2019-12-30 11:07] VITALS: BP 112/76; PULSE 56; RESP 20; O2SAT 98
[2019-12-30 11:37] VITALS: BP 114/51; PULSE 48; RESP 20; O2SAT 99
[2019-12-30 11:45] VITALS: BP 108/56; PULSE 50; RESP 20; O2SAT 98
== END 2019-12-30 11:55 | disposition home or self-care (01) ==
LOC: INF 09:49
PROVIDERS: Visit Provider Internal Medicine Medical Oncology
DX: Z51.11 Encounter for antineoplastic chemotherapy (principal); C18.9 Malignant neoplasm of colon, unspecified
CPT/HCPCS: 96413; J1642; J9055; Q0166

== ENCOUNTER 2020-01-04 09:18 | Outpatient (CLI) | payer MEDICARE, OTHER, SELFPAY ==
[2020-01-04 09:30] VITALS: BP 146/51; PULSE 44; RESP 18; TEMP 36.6; O2SAT 96
[2020-01-04 10:09] VITALS: BP 148/50; PULSE 53; RESP 18; O2SAT 97
[2020-01-04 10:39] VITALS: BP 138/47; PULSE 49; RESP 18; O2SAT 97
[2020-01-04 11:09] VITALS: BP 130/50; PULSE 47; RESP 18; O2SAT 97
[2020-01-04 11:20] VITALS: BP 119/50; PULSE 44; RESP 18; O2SAT 96
== END 2020-01-04 11:25 | disposition home or self-care (01) ==
LOC: INF 09:18
PROVIDERS: Visit Provider Internal Medicine Medical Oncology
DX: Z51.11 Encounter for antineoplastic chemotherapy (principal); C18.9 Malignant neoplasm of colon, unspecified
CPT/HCPCS: 96413; J1642; J9055; Q0166

== ENCOUNTER 2020-01-13 08:44 | Outpatient (CLI) | payer MEDICARE, OTHER, SELFPAY ==
[2020-01-13 08:46] VITALS: BMI 34.3
[2020-01-13 09:01] LABS: Basophils # 0.1 K/mm3 (0-0.2); Basophils % 0.7 % (0.1-2.0); Eosinophils # 0.2 K/mm3 (0.0-0.4); Eosinophils % 2.7 % (0.1-12.0); Hemoglobin 13.4 g/dL (12.2-16.2); Lymphocytes # 0.8 K/mm3 (0.7-4.5); Lymphocytes % 10.8 % (10-50); Mean Corpuscular HGB Conc 33.5 g/dL (31.8-35.4); Mean Corpuscular Hemoglobin 33.4 pg (27.0-31.2); Mean Corpuscular Volume 99.4 fl (81-99); Monocytes # 0.4 K/mm3 (0.1-1.0); Monocytes % 5.5 % (1.7-9.3); Neutrophils # 5.8 K/mm3 (1.8-7.8); Neutrophils % 80.3 % (37.0-80.0); Platelet Count 109 K/mm3 (142-424); Red Blood Count 4.02 M/mm3 (4.20-5.40); Red Cell Distribution Width 16.7 % (11.5-17.5); White Blood Count 7.2 K/mm3 (4.8-10.8)
[2020-01-13 09:07] LABS: Chloride 106 mmol/L (98-107)
[2020-01-13 09:08] LABS: Potassium 4.5 mmoL/L (3.5-5.1); Sodium 141 mmol/L (136-145)
[2020-01-13 09:10] LABS: Alanine Aminotransferase 20 U/L (12-78); Alkaline Phosphatase 93 U/L (38-126); Anion Gap 10.5 mEq/L (5-15); Aspartate Amino Transferase 33 U/L (14-36); Bilirubin,Total 0.4 mg/dl (0.2-1.3); Blood Urea Nitrogen 21 mg/dl (7-17); Carbon Dioxide 29 mmol/L (22.0-30.0); Creatinine Clearance Estimated 68 mL/min (50-200); Estimated Glomerular Filt Rate 99 ml/min (>60); GFR (African American) 120 ML/MIN (>60)
[2020-01-13 09:11] LABS: Albumin Level 3.7 g/dl (3.5-5.0); Albumin/Globulin Ratio 1.5 (1.1-1.8); Calcium 8.7 mg/dl (8.4-10.2); Globulin 2.5 g/dL (1.3-3.2); Glucose 118 mg/dl (74-100); Total Protein,Serum 6.2 g/dl (6.3-8.2)
[2020-01-13 09:40] VITALS: BP 127/40; PULSE 51; RESP 18; TEMP 36.6; O2SAT 98
[2020-01-13 09:48] LABS: Magnesium 1.4 mg/dl (1.6-2.3)
[2020-01-13 10:06] VITALS: BP 130/49; PULSE 52; RESP 18; O2SAT 99
[2020-01-13 10:36] VITALS: BP 118/51; PULSE 49; RESP 18; O2SAT 98
[2020-01-13 11:06] VITALS: BP 97/56; PULSE 45; RESP 18; O2SAT 97
[2020-01-13 11:20] VITALS: BP 98/75; PULSE 48; RESP 18; O2SAT 97
== END 2020-01-13 11:20 | disposition home or self-care (01) ==
LOC: INF 08:44
PROVIDERS: Visit Provider Internal Medicine Medical Oncology
DX: Z51.11 Encounter for antineoplastic chemotherapy (principal); C18.9 Malignant neoplasm of colon, unspecified
CPT/HCPCS: 80053; 83735; 85025; 96413; J1642; J9055; Q0166

== ENCOUNTER 2020-01-18 08:45 | Outpatient (CLI) | payer MEDICARE, OTHER, SELFPAY ==
[2020-01-18 10:00] VITALS: BP 135/61; PULSE 46; RESP 20; TEMP 36.9; O2SAT 95
[2020-01-18 10:30] VITALS: BP 134/64; PULSE 68; RESP 20; TEMP 36.9; O2SAT 95
[2020-01-18 11:00] VITALS: BP 132/74; PULSE 68; RESP 20; TEMP 36.9; O2SAT 95
[2020-01-18 11:40] VITALS: BP 125/50; PULSE 54; RESP 20; TEMP 36.9; O2SAT 95
== END 2020-01-18 11:40 | disposition home or self-care (01) ==
LOC: INF 08:45
PROVIDERS: Visit Provider Internal Medicine Medical Oncology
DX: Z51.11 Encounter for antineoplastic chemotherapy (principal); C18.9 Malignant neoplasm of colon, unspecified
CPT/HCPCS: 96413; J1642; J9055; Q0166

== ENCOUNTER 2020-01-25 08:49 | Outpatient (CLI) | payer MEDICARE, OTHER, SELFPAY ==
[2020-01-25 09:09] VITALS: BP 103/62; PULSE 43; RESP 18; TEMP 36.8; O2SAT 96
[2020-01-25 09:35] VITALS: BP 126/43; PULSE 43; RESP 18; O2SAT 97
[2020-01-25 10:05] VITALS: BP 112/46; PULSE 45; RESP 18; O2SAT 97
[2020-01-25 10:35] VITALS: BP 111/60; PULSE 47; RESP 18; O2SAT 96
[2020-01-25 10:48] VITALS: BP 114/51; PULSE 48; RESP 18; O2SAT 96
== END 2020-01-25 10:50 | disposition home or self-care (01) ==
LOC: INF 08:49
PROVIDERS: Visit Provider Internal Medicine Medical Oncology
DX: Z51.11 Encounter for antineoplastic chemotherapy (principal); C18.9 Malignant neoplasm of colon, unspecified
CPT/HCPCS: 96413; J1642; J9055; Q0166

== ENCOUNTER 2020-02-03 08:30 | Outpatient (CLI) | payer MEDICARE, OTHER, SELFPAY ==
[2020-02-03 08:38] VITALS: BMI 34.7
[2020-02-03 08:54] LABS: Basophils % 0.8 % (0.1-2.0); Eosinophils # 0.2 K/mm3 (0.0-0.4); Eosinophils % 3.9 % (0.1-12.0); Hemoglobin 13.6 g/dL (12.2-16.2); Lymphocytes # 0.9 K/mm3 (0.7-4.5); Lymphocytes % 17.5 % (10-50); Mean Corpuscular Hemoglobin 31.2 pg (27.0-31.2); Mean Corpuscular Volume 100.7 fl (81-99); Mean Platelet Volume 7.9 fl (7.4-10.4); Monocytes # 0.4 K/mm3 (0.1-1.0); Monocytes % 7.6 % (1.7-9.3); Neutrophils # 3.6 K/mm3 (1.8-7.8); Neutrophils % 70.3 % (37.0-80.0); Platelet Count 111 K/mm3 (142-424); Red Blood Count 4.37 M/mm3 (4.20-5.40); Red Cell Distribution Width 16.5 % (11.5-17.5); White Blood Count 5.1 K/mm3 (4.8-10.8)
[2020-02-03 08:56] LABS: Chloride 103 mmol/L (98-107); Potassium 4.4 mmoL/L (3.5-5.1); Sodium 141 mmol/L (136-145)
[2020-02-03 08:59] LABS: Alanine Aminotransferase 19 U/L (12-78); Albumin Level 3.8 g/dl (3.5-5.0); Albumin/Globulin Ratio 1.5 (1.1-1.8); Alkaline Phosphatase 94 U/L (38-126); Anion Gap 9.4 mEq/L (5-15); Aspartate Amino Transferase 35 U/L (14-36); Bilirubin,Total 0.6 mg/dl (0.2-1.3); Blood Urea Nitrogen 17 mg/dl (7-17); Calcium 8.9 mg/dl (8.4-10.2); Carbon Dioxide 33 mmol/L (22.0-30.0); Creatinine Clearance Estimated 69 mL/min (50-200); Estimated Glomerular Filt Rate 62 ml/min (>60); GFR (African American) 75 ML/MIN (>60); Globulin 2.6 g/dL (1.3-3.2); Glucose 116 mg/dl (74-100); Total Protein,Serum 6.4 g/dl (6.3-8.2)
[2020-02-03 09:00] LABS: Magnesium 1.5 mg/dl (1.6-2.3)
[2020-02-03 09:20] VITALS: BP 102/45; PULSE 58; RESP 20; TEMP 36.2; O2SAT 97
[2020-02-03 10:05] VITALS: BP 144/57; PULSE 43; RESP 20; O2SAT 97
[2020-02-03 10:35] VITALS: BP 135/58; PULSE 49; RESP 20; O2SAT 96
[2020-02-03 11:05] VITALS: BP 123/56; PULSE 46; RESP 20; O2SAT 97
[2020-02-03 11:25] VITALS: BP 143/74; PULSE 56; RESP 20; O2SAT 97
== END 2020-02-03 11:30 | disposition home or self-care (01) ==
LOC: INF 08:37
PROVIDERS: Visit Provider Internal Medicine Medical Oncology
DX: Z51.11 Encounter for antineoplastic chemotherapy (principal); C18.9 Malignant neoplasm of colon, unspecified
CPT/HCPCS: 80053; 83735; 85025; 96413; J1642; J9055; Q0166

== ENCOUNTER 2020-02-08 08:48 | Outpatient (CLI) | payer MEDICARE, OTHER, SELFPAY ==
[2020-02-08 08:55] VITALS: BP 146/67; PULSE 48; RESP 20; TEMP 36.4; O2SAT 97
[2020-02-08 09:37] VITALS: BP 130/46; PULSE 49; RESP 20; O2SAT 97
[2020-02-08 10:07] VITALS: BP 137/48; PULSE 46; RESP 20; O2SAT 98
[2020-02-08 10:45] VITALS: BP 136/46; PULSE 48; RESP 20; O2SAT 98
== END 2020-02-08 10:45 | disposition home or self-care (01) ==
LOC: INF 08:48
PROVIDERS: Visit Provider Internal Medicine Medical Oncology
DX: Z51.11 Encounter for antineoplastic chemotherapy (principal); C18.9 Malignant neoplasm of colon, unspecified
CPT/HCPCS: 96413; J1642; J9055; Q0166

== ENCOUNTER 2020-02-15 08:51 | Outpatient (CLI) | payer MEDICARE, OTHER, SELFPAY ==
[2020-02-15 09:03] VITALS: BP 106/56; PULSE 45; RESP 20; TEMP 36.3; O2SAT 97
[2020-02-15 09:48] VITALS: BP 116/53; PULSE 66; RESP 20; O2SAT 97
[2020-02-15 10:18] VITALS: BP 118/51; PULSE 51; RESP 20; O2SAT 98
[2020-02-15 10:48] VITALS: BP 120/68; PULSE 48; RESP 20; O2SAT 97
[2020-02-15 11:05] VITALS: BP 122/59; PULSE 52; RESP 20; O2SAT 98
== END 2020-02-15 11:05 | disposition home or self-care (01) ==
LOC: INF 08:51
PROVIDERS: Visit Provider Internal Medicine Medical Oncology
DX: Z51.11 Encounter for antineoplastic chemotherapy (principal); C18.9 Malignant neoplasm of colon, unspecified
CPT/HCPCS: 96413; J1642; J9055; Q0166

== ENCOUNTER 2020-02-24 08:30 | Outpatient (CLI) | payer MEDICARE, OTHER, SELFPAY ==
[2020-02-24 08:53] LABS: Basophils % 0.6 % (0.1-2.0); Eosinophils # 0.2 K/mm3 (0.0-0.4); Eosinophils % 2.9 % (0.1-12.0); Hematocrit 40.7 % (37.0-47.0); Hemoglobin 12.6 g/dL (12.2-16.2); Lymphocytes # 0.5 K/mm3 (0.7-4.5); Lymphocytes % 9.2 % (10-50); Mean Corpuscular HGB Conc 31.1 g/dL (31.8-35.4); Mean Platelet Volume 7.7 fl (7.4-10.4); Monocytes # 0.3 K/mm3 (0.1-1.0); Monocytes % 5.3 % (1.7-9.3); Neutrophils # 4.4 K/mm3 (1.8-7.8); Platelet Count 106 K/mm3 (142-424); Red Blood Count 4.07 M/mm3 (4.20-5.40); Red Cell Distribution Width 16.9 % (11.5-17.5); White Blood Count 5.4 K/mm3 (4.8-10.8)
[2020-02-24 08:57] LABS: Chloride 108 mmol/L (98-107); Potassium 4.1 mmoL/L (3.5-5.1); Sodium 142 mmol/L (136-145)
[2020-02-24 09:00] LABS: Alanine Aminotransferase 25 U/L (12-78); Albumin Level 3.6 g/dl (3.5-5.0); Albumin/Globulin Ratio 1.3 (1.1-1.8); Alkaline Phosphatase 103 U/L (38-126); Anion Gap 10.1 mEq/L (5-15); Aspartate Amino Transferase 40 U/L (14-36); Bilirubin,Total 0.5 mg/dl (0.2-1.3); Blood Urea Nitrogen 14 mg/dl (7-17); Calcium 8.4 mg/dl (8.4-10.2); Carbon Dioxide 28 mmol/L (22.0-30.0); Creatinine Clearance Estimated 2 mL/min (50-200); Estimated Glomerular Filt Rate 83 ml/min (>60); GFR (African American) 101 ML/MIN (>60); Globulin 2.7 g/dL (1.3-3.2); Glucose 131 mg/dl (74-100); Total Protein,Serum 6.3 g/dl (6.3-8.2)
[2020-02-24 09:01] LABS: Magnesium 1.3 mg/dl (1.6-2.3)
[2020-02-24 09:38] VITALS: BP 119/71; PULSE 55; RESP 18; TEMP 36.3; O2SAT 97
[2020-02-24 10:10] VITALS: BP 117/61; PULSE 48; RESP 18; O2SAT 98
[2020-02-24 10:40] VITALS: BP 126/58; PULSE 50; RESP 18; O2SAT 98
[2020-02-24 11:20] VITALS: BP 139/71; PULSE 51; RESP 18; O2SAT 97
== END 2020-02-24 11:20 | disposition home or self-care (01) ==
LOC: INF 08:35
PROVIDERS: Visit Provider Internal Medicine Medical Oncology
DX: Z51.11 Encounter for antineoplastic chemotherapy (principal); C18.9 Malignant neoplasm of colon, unspecified
CPT/HCPCS: 80053; 83735; 85025; 96413; J1642; J9055; Q0166

== ENCOUNTER 2020-02-29 08:38 | Outpatient (CLI) | payer MEDICARE, OTHER, SELFPAY ==
[2020-02-29 08:52] VITALS: BP 140/79; PULSE 54; RESP 18; TEMP 36.3; O2SAT 99
[2020-02-29 09:31] VITALS: BP 132/52; PULSE 49; RESP 18; O2SAT 99
[2020-02-29 10:01] VITALS: BP 137/58; PULSE 51; RESP 18; O2SAT 99
[2020-02-29 10:31] VITALS: BP 130/55; PULSE 48; RESP 18; O2SAT 98
[2020-02-29 10:51] VITALS: BP 125/63; PULSE 53; RESP 18; O2SAT 99
== END 2020-02-29 10:53 | disposition home or self-care (01) ==
LOC: INF 08:38
PROVIDERS: Visit Provider Internal Medicine Medical Oncology
DX: Z51.11 Encounter for antineoplastic chemotherapy (principal); C18.9 Malignant neoplasm of colon, unspecified
CPT/HCPCS: 96413; J1642; J9055; Q0166

== ENCOUNTER 2020-03-07 08:38 | Outpatient (CLI) | payer MEDICARE, OTHER, SELFPAY ==
[2020-03-07 08:45] VITALS: BP 136/72; PULSE 61; RESP 18; TEMP 36.2; O2SAT 100
[2020-03-07 09:18] VITALS: BP 159/91; PULSE 58; RESP 18; O2SAT 99
[2020-03-07 09:48] VITALS: BP 139/79; PULSE 54; RESP 18; O2SAT 99
[2020-03-07 10:28] VITALS: BP 127/81; PULSE 58; RESP 18; O2SAT 100
[2020-03-07 10:40] VITALS: BP 116/65; PULSE 46; RESP 18; O2SAT 99
== END 2020-03-07 10:40 | disposition home or self-care (01) ==
LOC: INF 08:38
PROVIDERS: Visit Provider Internal Medicine Medical Oncology
DX: Z51.11 Encounter for antineoplastic chemotherapy (principal); C18.9 Malignant neoplasm of colon, unspecified
CPT/HCPCS: 96413; J1642; J9055; Q0166

== ENCOUNTER 2020-03-14 08:39 | Outpatient (CLI) | payer MEDICARE, OTHER, SELFPAY ==
[2020-03-14 08:40] VITALS: BMI 34.7
[2020-03-14 09:10] LABS: Basophils # 0.1 K/mm3 (0-0.2); Basophils % 1.1 % (0.1-2.0); Eosinophils # 0.2 K/mm3 (0.0-0.4); Eosinophils % 2.7 % (0.1-12.0); Hematocrit 42.5 % (37.0-47.0); Hemoglobin 13.1 g/dL (12.2-16.2); Lymphocytes # 0.8 K/mm3 (0.7-4.5); Lymphocytes % 12.9 % (10-50); Mean Corpuscular HGB Conc 30.7 g/dL (31.8-35.4); Mean Corpuscular Hemoglobin 30.8 pg (27.0-31.2); Mean Corpuscular Volume 100.2 fl (81-99); Mean Platelet Volume 7.8 fl (7.4-10.4); Monocytes # 0.3 K/mm3 (0.1-1.0); Monocytes % 5.8 % (1.7-9.3); Neutrophils # 4.5 K/mm3 (1.8-7.8); Neutrophils % 77.4 % (37.0-80.0); Platelet Count 130 K/mm3 (142-424); Red Blood Count 4.24 M/mm3 (4.20-5.40); Red Cell Distribution Width 16.7 % (11.5-17.5); White Blood Count 5.8 K/mm3 (4.8-10.8)
[2020-03-14 09:12] LABS: Chloride 104 mmol/L (98-107); Potassium 4.1 mmoL/L (3.5-5.1); Sodium 140 mmol/L (136-145)
[2020-03-14 09:15] LABS: Alanine Aminotransferase 20 U/L (12-78); Albumin Level 3.8 g/dl (3.5-5.0); Albumin/Globulin Ratio 1.3 (1.1-1.8); Alkaline Phosphatase 118 U/L (38-126); Anion Gap 7.1 mEq/L (5-15); Aspartate Amino Transferase 38 U/L (14-36); Bilirubin,Total 0.5 mg/dl (0.2-1.3); Blood Urea Nitrogen 22 mg/dl (7-17); Carbon Dioxide 33 mmol/L (22.0-30.0); Creatinine Clearance Estimated 69 mL/min (50-200); Estimated Glomerular Filt Rate 71 ml/min (>60); GFR (African American) 86 ML/MIN (>60); Glucose 118 mg/dl (74-100); Magnesium 1.4 mg/dl (1.6-2.3); Total Protein,Serum 6.8 g/dl (6.3-8.2)
[2020-03-14 10:25] VITALS: BP 169/82; PULSE 51; RESP 18; TEMP 36.6; O2SAT 97
[2020-03-14 11:04] VITALS: BP 130/58; PULSE 48; RESP 18; O2SAT 97
[2020-03-14 11:34] VITALS: BP 134/59; PULSE 50; RESP 18; O2SAT 98
[2020-03-14 12:04] VITALS: BP 131/55; PULSE 52; RESP 18; O2SAT 97
[2020-03-14 12:20] VITALS: BP 136/58; PULSE 51; RESP 18; O2SAT 97
== END 2020-03-14 12:20 | disposition home or self-care (01) ==
LOC: INF 08:39
PROVIDERS: Visit Provider Internal Medicine Medical Oncology
DX: Z51.11 Encounter for antineoplastic chemotherapy (principal); C18.9 Malignant neoplasm of colon, unspecified
CPT/HCPCS: 80053; 83735; 85025; 96413; J1642; J9055; Q0166

== ENCOUNTER 2020-03-21 09:01 | Outpatient (CLI) | payer MEDICARE, OTHER, SELFPAY ==
[2020-03-21 09:14] VITALS: BP 144/65; PULSE 49; RESP 18; TEMP 36.3; O2SAT 97
[2020-03-21 10:01] VITALS: BP 146/65; PULSE 47; RESP 18; O2SAT 97
[2020-03-21 10:31] VITALS: BP 142/67; PULSE 50; RESP 18; O2SAT 96
[2020-03-21 11:01] VITALS: BP 139/69; PULSE 48; RESP 18; O2SAT 97
[2020-03-21 11:20] VITALS: BP 136/49; PULSE 44; RESP 18; O2SAT 97
== END 2020-03-21 11:20 | disposition home or self-care (01) ==
LOC: INF 09:01
PROVIDERS: Visit Provider Internal Medicine Medical Oncology
DX: Z51.11 Encounter for antineoplastic chemotherapy (principal); C18.9 Malignant neoplasm of colon, unspecified
CPT/HCPCS: 96413; J1642; J9055; Q0166

== ENCOUNTER 2020-03-28 08:41 | Outpatient (CLI) | payer MEDICARE, OTHER, SELFPAY ==
[2020-03-28 09:05] VITALS: BP 103/62; PULSE 49; RESP 20; TEMP 36.3; O2SAT 96
[2020-03-28 09:37] VITALS: BP 104/65; PULSE 49; RESP 20; O2SAT 97
[2020-03-28 10:07] VITALS: BP 129/63; PULSE 69; RESP 20; O2SAT 97
[2020-03-28 10:37] VITALS: BP 113/58; PULSE 51; RESP 18; O2SAT 97
[2020-03-28 10:55] VITALS: BP 121/56; PULSE 56; RESP 18; O2SAT 96
== END 2020-03-28 11:00 | disposition home or self-care (01) ==
LOC: INF 08:42
PROVIDERS: Visit Provider Internal Medicine Medical Oncology
DX: Z51.11 Encounter for antineoplastic chemotherapy (principal); C18.9 Malignant neoplasm of colon, unspecified
CPT/HCPCS: 96413; J1642; J9055; Q0166

== ENCOUNTER 2020-04-05 08:24 | Outpatient (CLI) | payer MEDICARE, OTHER, SELFPAY ==
--- NOTE | 2020-04-05 | CT_ITS ---
PROCEDURE: CT CHEST W CON CLINCAL INDICATION: follow up, colon cancer currently on chemo COMPARISON: CT CT CHEST W CON from 12/21/[address] ABDOMEN PELVIS W CON from 12/21/2019 TECHNIQUE: IV Contrast: 75ml Isovue 370 Axial images obtained with sagittal and coronal reformats. All CT scans at the facility use one or more dose reduction, viz: automated exposure control, ma/kV adjustment per patient size (including targeted exams where dose is matched to indication, i.e. head), or iterative reconstruction technique. FINDINGS: HEART AND MEDIASTINAL STRUCTURES: Unremarkable. LUNGS AND PLEURAL SPACES: Numerous pulmonary nodules are once again noted some of which contain calcium. A lobulated nodule is present posterior to the right measuring 2 cm similar to the previous exam. A partially calcified nodules present in the superior segment of the right lower lobe. This nodule is larger measuring 14 mm previously measuring 9 mm. In addition there is a sub solid nodule anterior to this region measuring 14 mm previously measuring 10 mm. A 10 mm sub solid nodules present in the left lower lobe posteriorly previously at 8 mm. BONY STRUCTURES: No acute bony abnormalities apparent. UPPER ABDOMEN: See abdomen report ADDITIONAL FINDINGS: There is a left subclavian MediPort catheter present with the tip in the region the SVC. IMPRESSION: Enlarging bilateral pulmonary nodules consistent with some progression of metastatic disease. Dictated by: Didier Ortiz MD 04/06/2020 15:02 Didier Ortiz MD in [facility] 04/06/2020 15:02
[2020-04-05 08:40] VITALS: BMI 34.6
[2020-04-05 09:09] LABS: Basophils # 0.1 K/mm3 (0-0.2); Basophils % 0.8 % (0.1-2.0); Eosinophils # 0.2 K/mm3 (0.0-0.4); Eosinophils % 2.6 % (0.1-12.0); Hematocrit 43.6 % (37.0-47.0); Hemoglobin 13.9 g/dL (12.2-16.2); Lymphocytes # 0.9 K/mm3 (0.7-4.5); Lymphocytes % 13.4 % (10-50); Mean Corpuscular HGB Conc 31.9 g/dL (31.8-35.4); Mean Corpuscular Hemoglobin 31.5 pg (27.0-31.2); Mean Corpuscular Volume 98.7 fl (81-99); Mean Platelet Volume 7.8 fl (7.4-10.4); Monocytes # 0.4 K/mm3 (0.1-1.0); Monocytes % 5.9 % (1.7-9.3); Neutrophils # 5.5 K/mm3 (1.8-7.8); Neutrophils % 77.4 % (37.0-80.0); Platelet Count 131 K/mm3 (142-424); Red Blood Count 4.41 M/mm3 (4.20-5.40); Red Cell Distribution Width 17.2 % (11.5-17.5); White Blood Count 7.1 K/mm3 (4.8-10.8)
[2020-04-05 09:20] LABS: Chloride 105 mmol/L (98-107); Potassium 3.7 mmoL/L (3.5-5.1); Sodium 139 mmol/L (136-145)
[2020-04-05 09:22] LABS: Blood Urea Nitrogen 12 mg/dl (7-17); Creatinine Clearance Estimated 68 mL/min (50-200); Estimated Glomerular Filt Rate 99 ml/min (>60); GFR (African American) 120 ML/MIN (>60); Magnesium 1.1 mg/dl (1.6-2.3)
[2020-04-05 09:23] LABS: Alanine Aminotransferase 19 U/L (12-78); Albumin Level 3.7 g/dl (3.5-5.0); Albumin/Globulin Ratio 1.3 (1.1-1.8); Alkaline Phosphatase 132 U/L (38-126); Anion Gap 8.7 mEq/L (5-15); Aspartate Amino Transferase 35 U/L (14-36); Bilirubin,Total 0.8 mg/dl (0.2-1.3); Calcium 8.9 mg/dl (8.4-10.2); Carbon Dioxide 29 mmol/L (22.0-30.0); Globulin 2.9 g/dL (1.3-3.2); Glucose 129 mg/dl (74-100); Total Protein,Serum 6.6 g/dl (6.3-8.2)
== END 2020-04-05 10:00 | disposition home or self-care (01) ==
LOC: RAD 08:26
PROVIDERS: PCP Nurse Practitioner Family; Visit Provider Internal Medicine Medical Oncology
DX: C18.9 Malignant neoplasm of colon, unspecified (principal); Z03.89 Encounter for observation for other suspected diseases and conditions ruled out
CPT/HCPCS: 71260; 74177; 80053; 83735; 85025; J1642; Q9967

== ENCOUNTER 2020-04-11 09:58 | Outpatient (CLI) | payer MEDICARE, OTHER, SELFPAY ==
[2020-04-11 10:09] VITALS: BP 138/78; PULSE 52; RESP 18; TEMP 36.3; O2SAT 97
[2020-04-11 10:51] VITALS: BP 135/75; PULSE 51; RESP 20; O2SAT 98
[2020-04-11 11:21] VITALS: BP 132/74; PULSE 50; RESP 20; O2SAT 98
[2020-04-11 11:51] VITALS: BP 128/79; PULSE 54; RESP 18; O2SAT 97
[2020-04-11 12:10] VITALS: BP 125/86; PULSE 50; RESP 18; O2SAT 98
== END 2020-04-11 12:20 | disposition home or self-care (01) ==
LOC: INF 09:58
PROVIDERS: Visit Provider Internal Medicine Medical Oncology
DX: Z51.11 Encounter for antineoplastic chemotherapy (principal); C18.9 Malignant neoplasm of colon, unspecified
CPT/HCPCS: 96413; J1642; J9055; Q0166

== ENCOUNTER 2020-04-18 08:44 | Outpatient (CLI) | payer MEDICARE, OTHER, SELFPAY ==
[2020-04-18 09:00] VITALS: BP 116/57; PULSE 51; RESP 18; TEMP 36.4; O2SAT 97
[2020-04-18 09:56] VITALS: BP 112/59; PULSE 59; RESP 18; O2SAT 98
[2020-04-18 10:26] VITALS: BP 108/78; PULSE 49; RESP 18; O2SAT 97
[2020-04-18 11:03] VITALS: BP 131/65; PULSE 49; RESP 18; O2SAT 97
== END 2020-04-18 11:03 | disposition home or self-care (01) ==
LOC: INF 08:44
PROVIDERS: Visit Provider Internal Medicine Medical Oncology
DX: Z51.11 Encounter for antineoplastic chemotherapy (principal); C18.9 Malignant neoplasm of colon, unspecified
CPT/HCPCS: 96413; J1642; J9055; Q0166

== ENCOUNTER 2020-04-24 08:22 | Observation (INO) | payer MEDICARE, OTHER, SELFPAY ==
[2020-04-24] VITALS (23 sets, daily range): BP systolic 110–204; BP diastolic 63–100; PULSE 64–91; RESP 15–31; TEMP 36.6–36.8; O2SAT 84–99; BMI 35.2
--- NOTE | 2020-04-24 | IR_ITS ---
APPROVED REPORT Patient Location: Inpatient PROCEDURES Left heart catheterization Left ventriculogram Selective coronary angiogram INDICATION Acute non-ST elevation myocardial infarction, Abnormal EKG with dynamic changes suggesting aborted ST elevation [place] Informed consent was obtained prior to the procedure. COMPLICATIONS NONE Estimated Blood Loss: LESS THAN 10 ML TECHNIQUE One percent lidocaine used to anesthetize the right anterior aspect of the wrist. The right radial artery was accessed via the Seldinger technique. A 6 [place] sheath was placed in the right radial artery. 2.5 mg of verapamil, 800 mcg of nitroglycerin, 1mg Lidocaine and 5000 U Heparin were given through the arterial sheath. The Projjixpa catheter was also used to perform left heart catheterization, left ventriculogram and selective coronary angiogram. At the end of the procedure the sheath was removed good hemostasis was achieved using Traclet band, patient was transferred to the postop holding area in stable condition. ANGIOGRAPHIC RESULTS The left main artery Normal The left anterior descending artery Normal The circumflex artery Normal The right coronary artery Dominant normal The [place] ventriculogram reveals Normal 65% The left ventricular end-diastolic pressure Severely elevated at 30 to 35 mmHg IMPRESSION Normal coronary arteries Normal ejection fraction Severely elevated LVEDP consistent with diastolic dysfunction PLAN 1. Treat underlying diastolic dysfunction Electronically signed by : Joshua Silvestre, 04/24/2020 13:46:00
--- NOTE | 2020-04-24 08:28 | ECG_ITS ---
APPROVED REPORT Exam: Resting ECG HR:81 bpm ECG Measurements Heart Rate 81 AXES CO 88 P 71 QRSd 88 QRS -31 QT 402 T 36 QTc 466 Conclusion Sinus rhythm with short CO Left axis deviation Low voltage QRS Nonspecific ST and T wave abnormality Abnormal ECG Electronically signed by : Car Abarca, 04/26/2020 17:12:07
--- NOTE | 2020-04-24 08:29 | XR_ITS ---
PROCEDURE: XR CHEST PORTABLE CLINICAL HISTORY: soa Shortness of air COMPARISON: CR CXR2 CHEST-AP VIEW ONLY from 12/30/2016 CR CXR1VP XR chest portable from 08/15/[address] CHEST W CON from 04/05/2020 FINDINGS: Borderline cardiomegaly without failure. Left subclavian MediPort catheter is present with tip in the region the SVC. A 17 mm nodular opacity in the right midlung consistent with enlarging metastatic focus.. There is an additional 8 mm nodular opacity just superior to this region. No lobar consolidation or collapse. No acute bony abnormalities. IMPRESSION: Enlarging metastatic focus right midlung. Dictated by: Didier Ortiz MD 04/24/2020 09:35 Didier Ortiz MD in [place] 04/24/2020 09:35
--- NOTE | 2020-04-24 08:30 | PC.NURSE ---
PT PRESENTS TO ER WITH O2 SAT RA 84% PT PLACED ON O2 @ 2 LPM O2 SAT INCREASED TO 95%
[2020-04-24 09:02] LABS: Basophils % 0.5 % (0.1-2.0); Eosinophils # 0.1 K/mm3 (0.0-0.4); Eosinophils % 0.9 % (0.1-12.0); Hematocrit 48.6 % (37.0-47.0); Hemoglobin 15.1 g/dL (12.2-16.2); Lymphocytes # 0.3 K/mm3 (0.7-4.5); Lymphocytes % 2.6 % (10-50); Mean Corpuscular HGB Conc 30.9 g/dL (31.8-35.4); Mean Corpuscular Hemoglobin 30.9 pg (27.0-31.2); Mean Corpuscular Volume 99.8 fl (81-99); Mean Platelet Volume 7.4 fl (7.4-10.4); Monocytes # 0.4 K/mm3 (0.1-1.0); Monocytes % 3.9 % (1.7-9.3); Neutrophils # 8.9 K/mm3 (1.8-7.8); Neutrophils % 92.1 % (37.0-80.0); Platelet Count 113 K/mm3 (142-424); Red Blood Count 4.87 M/mm3 (4.20-5.40); Red Cell Distribution Width 16.8 % (11.5-17.5); White Blood Count 9.7 K/mm3 (4.8-10.8)
[2020-04-24 09:03] LABS: Blood Urea Nitrogen 12 mg/dl (7-17); Calcium 8.6 mg/dl (8.4-10.2); Carbon Dioxide 32 mmol/L (22.0-30.0); Chloride 99 mmol/L (98-107); Creatinine Clearance Estimated 69 mL/min (50-200); Estimated Glomerular Filt Rate 99 ml/min (>60); GFR (African American) 120 ML/MIN (>60); Glucose 210 mg/dl (74-100); Sodium 137 mmol/L (136-145)
[2020-04-24 09:06] LABS: MANUAL DIFFERENTIAL MANUAL DIFFERENTIAL (MANUAL DIFF)
[2020-04-24 09:16] LABS: Troponin I 0.12 ng/ml (0.00-0.034)
[2020-04-24 09:20] LABS: Lymphocytes % 8 % (10-50); Monocytes % 2 % (2-9); Neutrophils % 89 % (42-76); Platelet Estimate Normal; RBC Morphology Normal; Total Cells Counted 100
[2020-04-24 09:56] LABS: Microscopic, Urine URINE MICROSCOPIC (MICROSCOPIC)
[2020-04-24 10:03] LABS: Coronavirus 19 IgG Antibody Negative (Negative); Coronavirus 19 IgM Antibody Negative (Negative)
[2020-04-24 10:06] LABS: Appearance,Urine CLEAR (Clear); Bilirubin,Urine Negative (Negative); Blood, Urine 3+ (Negative); Color,Urine YELLOW (Yellow); Glucose,Urine (UA) TRACE (Negative); Ketones,Urine Negative (Negative); Leukocyte Esterase,Urine Negative (Negative); Nitrate,Urine Negative (Negative); Protein,Urine 2+ (Negative); Specific Gravity, Urine 1.025 (1.005-1.030); Urobilinogen,Urine 0.2 EU/dl (0.2)
--- NOTE | 2020-04-24 10:24 | ECG_ITS ---
APPROVED REPORT Exam: Resting ECG HR:63 bpm ECG Measurements Heart Rate 63 AXES OH 130 P 66 QRSd 84 QRS 26 QT 458 T 31 QTc 468 Conclusion Normal sinus rhythm Low voltage QRS Borderline ECG Electronically signed by : Car Abarca, 04/25/2020 07:02:53
[2020-04-24 10:30] LABS: RBC,Urine 20-50 #/hpf (0-3)
--- NOTE | 2020-04-24 10:46 | PC.NURSE ---
DR FERRO SPOKE WITH DR CLANCY , EKG SENT TO HIM
--- NOTE | 2020-04-24 10:58 | HMH.EDSOB ---
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, Acquired hypothyroidism Obesity Qualifiers: Obesity type: due to excess calories Obesity classification: adult class 2 (BMI 35 - 39.9) Serious obesity comorbidity presence: unspecified whether serious comorbidity present Body mass index: BMI 35.0-35.9 Qualified Code(s): E66.09 - Other obesity due to excess calories; Z68.35 - Body mass index [BMI] 35.0-35.9, adult Disposition: Admitted as Observation Condition on Discharge: Good - Critical Care Critical Care Time: No Attestation: On 04/24/20, the high probability of a clinically significant, sudden or life threatening deterioration of the following system(s) required my full and direct attention, intervention and personal management. The time I documented below is in addition to time spent performing reported procedures but includes the following listed in this critical care notation. Medical Decision Making - Medical Records Medical records reviewed: Yes: I reviewed the patient's medical records. - Jerry Inquiry Pt receiving controlled substance: No Vital Signs: 04/24/20 08:23 04/24/20 09:09 04/24/20 09:30 Temperature 98.1 F Temperature Source Oral Pulse Rate [Left Radial] 77 75 66 Respiratory Rate 31 H 18 20 Blood Pressure [Right Arm] 198/73 H 170/67 H 172/91 H Blood Pressure Mean [Right Arm] 114 101 118 Blood Pressure Source [Right Arm] Automatic Cuff Automatic Cuff Automatic Cuff Blood Pressure Position [Right Arm] Sitting Supine Supine 02 Sat by Pulse Oximetry 84 L 96 96 Oxygen Delivery Method Room Air Nasal Cannula Room Air Oxygen Flow Rate (LPM) 2 04/24/20 10:03 04/24/20 10:37 04/24/20 11:00 Temperature Temperature Source Pulse Rate [Left Radial] 65 65 64 Respiratory Rate 15 20 20 Blood Pressure [Right Arm] 134/76 179/77 H 204/100 H Blood Pressure Mean [Right Arm] 95 111 134 Blood Pressure Source [Right Arm] Automatic Cuff Automatic Cuff Automatic Cuff Blood Pressure Position [Right Arm] Supine Supine Supine 02 Sat by Pulse Oximetry 99 97 96 Oxygen Delivery Method Room Air Nasal Cannula Nasal Cannula Oxygen Flow Rate (LPM) 2 2 - Lab Data Lab results reviewed: Yes: I reviewed the patient's lab results. Lab Results 04/24/20 08:39: WBC 9.7, RBC 4.87, Hgb 15.1, Hct 48.6 H, MCV 99.8 H, MCH 30.9, MCHC 30.9 L, RDW 16.8, Plt Count 113 L, MPV 7.4, Neut % (Auto) 92.1 H, Lymph % (Auto) 2.6 L, [place] % (Auto) 3.9, Eos % (Auto) 0.9, Baso % (Auto) 0.5, Neut # (Auto) 8.9 H, Lymph # (Auto) 0.3 L, [place] # (Auto) 0.4, Eos # (Auto) 0.1, Baso # (Auto) 0.0, Total Counted 100, Neutrophils % (Manual) 89 H, Band Neutrophils % 1.0, Lymphocytes % (Manual) 8 L, Monocytes % (Manual) 2, Platelet Estimate Normal, RBC Morphology Normal 04/24/20 08:39: Sodium 137, Potassium 4.0, Chloride 99, Carbon Dioxide 32 H, Anion Gap 10.0, BUN 12, Creatinine 0.60, Estimated Creat Clear 69, Estimated GFR 99, Est GFR ( Amer) 120, Glucose 210 H, Calcium 8.6, Troponin I 0.12 H 04/24/20 08:39: SARS-CoV-2 IgG Ab (Rapid) Negative, SARS-CoV-2 IgM Ab (Rapid) Negative 04/24/20 08:39: Lactate 1.0 04/24/20 09:40: Urine Color Yellow, Urine Appearance Clear, Urine pH 6.0, Ur Specific [place] 1.025, Urine Protein 2+, Urine Glucose (UA) Trace, Urine Ketones Negative, Urine Blood 3+, Urine Nitrate Negative, Urine Bilirubin Negative, Urine Urobilinogen 0.2, Ur Leukocyte Esterase Negative, Urine RBC 20-50, Urine WBC 3-5, Ur Squamous Epith Cells 3-5 Result diagrams: 04/24/20 08:39 04/24/20 08:39 Orders (Tests/Meds): ED MEDICATIONS Generic Name Dose Route Start Last Admin Trade Name Freq PRN Reason Stop Dose Admin Diphenhydramine HCl 50 mg 04/24/20 12:20 Diphenhydramine 50mg/Ml Vial IV 04/24/20 12:21 ONCE ONE Fentanyl Citrate 25 mcg 04/24/20 12:20 Fentanyl 100mcg/2ml Vial IV 04/25/20 12:20 Q3MINP PRN Moderat
--- NOTE | 2020-04-24 11:02 | PC.NURSE ---
Dr. Silvestre advises he would like for us to check for possible PE, may take her [facility] later.
--- NOTE | 2020-04-24 11:04 | CA_ITS ---
APPROVED REPORT EXAM: Comprehensive 2D, Doppler, and color-flow Echocardiogram Steel Pourer: Alicia Berg RVT Ht: 5 ft 0 in Wt: 180lbs BSA: 1.78 BP: 204/100 mmHg Indications: SOA,ELEVATED TROPONIN,CHF,COLON CA WITH METS,CATH-NEG 2D Dimensions LVOT 1.72 cm (M/F) 1.5-2.5 M-Mode Dimensions RVDd 2.75 cm (0.9-2.6) LA Diam 3.64 cm (1.9-4.0) LVDd 4.58 cm (3.5-5.7) Ao Diam 2.94 cm (2.0-3.7) LVDs 3.00 cm (3.5-5.7) IVSd 1.14 cm (0.6-1.1) PWd 0.68 cm (0.6-1.1) EF (Teich) 63.70% FS 34.50% EDV (Teich) 96.30 mL ESV (Teich) 35.00 mL LV Diastology E Decel Time 223.00 (160-240 msec) E/A Ratio 1.1 MED E' 10.00 (< 7 cm/sec) E'/MED E' Ratio 9.11 (>14) LAT E' 10.00 (<10 cm/sec) E/LAT E' Ratio 9.11 (>14) Mitral Valve MV E Max Timothy. 91.00 (40-130 cm/s) MV A Velocity 81.00 (40-130 cm/s) E/A Ratio 1.13 MV Decel. Time 223.00 (160-240 ms) MV PHT 65.00 ms Pulmonary Valve PV Peak Velocity 101.00 (50-150 cm/s) Tricuspid Valve TR P. Velocity 415.00 cm/s RAP Estimate 10.00 mmHg RVSP 79.00 mmHg Left Ventricle Left atrium is mildly enlarged, left ventricle is normal size, mild concentric left ventricular hypertrophy, visually estimated ejection fraction 50% with no regional wall motion abnormality, grade 1 diastolic dysfunction seen without tissue Doppler evidence of raise left atrial pressure. Right Ventricle Right atrium and right ventricle are mildly enlarged with normal contractility. Aortic Valve Aortic valve is minimally thickened and fibrosed. There is no aortic stenosis or aortic insufficiency. Mitral Valve Mitral valve is grossly normal, there is mild mitral regurgitation. Tricuspid Valve Tricuspid valve is grossly normal, there is mild tricuspid regurgitation, calculated right ventricular systolic pressure is 55 to 60 mmHg. Pulmonic Valve Pulmonic valve is poorly visualized. Great Vessels Aortic root is normal size. Pericardium No significant pericardial effusion noted. Conclusion 1. Biatrial enlargement, normal left ventricular size, mild concentric left ventricular hypertrophy, visually estimated ejection fraction 55% with no regional wall motion abnormality, grade 1 diastolic dysfunction seen without tissue Doppler evidence of raise left atrial pressure. 2. Mildly enlarged right ventricle with normal contractility. 3. Mild mitral and tricuspid regurgitation, calculated right ventricular systolic pressure is 55 to 60 mmHg. 4. No significant pericardial effusion noted. Electronically signed by : Rhett Pena, 04/25/2020 06:41:20
--- NOTE | 2020-04-24 11:20 | CT_ITS ---
PROCEDURE: CT ANGIO CHEST CLINCIAL INDICATION: SOA Shortness of air with cough COMPARISON: CT CT CHEST W CON from 04/05/2020 TECHNIQUE: IV Contrast: 70ML Isovue 370 Axial images obtained with sagittal and coronal reformats. All CT scans at the facility use one or more dose reduction, viz: automated exposure control, ma/kV adjustment per patient size (including targeted exams where dose is matched to indication, i.e. head), or iterative reconstruction technique. FINDINGS: No evidence of aortic aneurysm dissection or pulmonary embolus. Motion artifact does obscure fine detail of the lung meyers. Multiple right-sided pulmonary nodules are once again noted. Is difficult to compare the this exam to the previous exam due to the extensive motion artifact on the lung windows on today's exam. Overall probably no significant change considering the difference in technique. Largest area of nodularity is in the as ago esophageal recess measuring approximately 2.2 cm not significantly changed. There are atelectatic changes in the lung bases. A vague nodular opacity is present in the left lower lobe at 9 mm unchanged. No effusions. Upper abdominal images show diffuse fatty liver infiltration. There are bilateral parapelvic renal cyst versus hydronephrosis. There are degenerative changes in the thoracic spine. A prominent left para ventral abdominal wall hernia is present in the left upper quadrant containing fat IMPRESSION: 1. No evidence of pulmonary embolus or aortic aneurysm or dissection. 2. Multiple right lower lobe nodular opacities and left lower lobe nodule probably not significantly changed considering the difference in technique/respiratory motion artifact. Continued follow-up without respiratory motion would be needed for confirmation Dictated by: Didier Ortiz MD 04/24/2020 11:57 Didier Ortiz MD in [place] 04/24/2020 11:57
--- NOTE | 2020-04-24 11:24 | PC.NURSE ---
pt taken to CT for PE protocol
--- NOTE | 2020-04-24 11:26 | PC.NURSE ---
PT GONE TO CT
--- NOTE | 2020-04-24 11:43 | PC.NURSE ---
PT BACK FROM CT , LAB AWARE OF 2ND TROP DUE
--- NOTE | 2020-04-24 11:50 | HMH.CNCARD ---
History of Present Illness Consult date: 04/24/20 Requesting physician: Manuel Marroquin Consult reason: chest pain Chief complaint: Elevated troponin Additional Medical History:: 1. Metastatic colon cancer to the lungs 1. T2N2b colorectal adenoca s/p neoadj chemo/xrt dx 04/2013 s/p LAR with end colostomy 2. metastatic rectal cancer to lungs dx 2014 s/p pulmonary wedge resection KRAS wildtype Current Treatment: 1. single agent xeloda 2014 2. xeliri + avastin 2 weeks on 2 weeks off- progression in lungs 03/2019 3. xelox + avastin every 3-[address] to 65 mg/m2. avastin held due to low plts 4. xeloda + erbitux (weekly) started august 2. Normal Lexiscan Myoview, 04/2019 3. Hypertension A. echocardiogram, 04/2019,1. Normal left ventricular size, mild concentric left ventricular hypertrophy, visually estimated ejection fraction 55% with no regional wall motion abnormality, grade 1 diastolic dysfunction seen without tissue Doppler evidence of raise left atrial pressure. 2. Mild mitral and tricuspid regurgitation. 3. Trace aortic insufficiency. 4. No significant pericardial effusion noted 4. Hyperlipidemia History of present illness: 69-year-old white female with history of metastatic colon cancer to the lung presented to the ER for shortness of breath that woke her from sleep. Chest x-ray showed no evidence of congestive heart failure or consolidation. She does have an enlarging metastatic focus in the right mid lung. CTA of the chest was negative for pulmonary embolus. Initial troponin returned elevated at 0.12. Some concern regarding her EKG initially showing some slight ST elevation in leads V1 and V2. Repeat EKG showed resolution of those changes. I discussed the results of the test and recommendations of left heart catheterization with the patient and her family member that was present. Patient agrees to proceed with cardiac catheterization. Patient relates colostomy placed in 2013 at the time of her partial colectomy. Metastatic cancer was found 1 year later. She remains on ongoing therapy followed by Dr. Rodgers. [facility] History Medical History: Reports:: Cancer (met rectal ca), Congestive Heart Failure, Hyperlipidemia, Hypertension, Lung Disease Denies:: Diabetes Mellitus Type 1, Diabetes Mellitus Type 2, Internal Pacemaker, MRSA, Seizures *Have you ever received a pneumonia vaccine?: No *Have you received a flu vaccine this season?: No Other Medical History: Reports: Anemia, Chemotherapy, Hypothyroidism, Thyroid Disease Other Surgeries: Yes: Cholecystectomy, Colonoscopy, Colon Resection, Colostomy, Hysterectomy-Total, Other. No: Pacemaker Amputation: No Fractures: No - *Social History Smoking Status: Never smoker Alcohol Intake: never Substance Use Type: denies use *Occupational Status:: disabled Housing: apartment Household Members: family *Travel in the last 8 weeks: None Family Hx:: Cancer, Diabetes, Hyperlipidemia, Hypertension Meds Home Medications Medication Instructions Recorded Confirmed Type Furosemide [Furosemide 40MG tAB] 40 mg PO DAILY 04/29/17 04/24/20 History Potassium Chloride [Klor-con 20 20 meq PO DAILY 04/29/17 04/24/20 History mEq tablet] Docusate Sodium 100 mg PO BID 08/15/17 04/24/20 History carvediloL [Carvedilol 3.125mg Tab] 3.125 mg PO BID 09/23/17 04/24/20 History cholecalciferol (vitamin D3) 625 50,000 unit PO WEEKLY cap 05/06/19 04/24/20 History mcg (25,000 unit) capsule Ondansetron [Ondansetron Odt 8mg 8 mg PO Q8HP PRN 09/21/19 04/24/20 History Tab] Capecitabine [Xeloda] 500 mg PO BID 04/24/20 04/24/20 History Levothyroxine Sodium 125 mcg PO DAILY 04/24/20 04/24/20 History [Levothyroxine 125mcg (0.125mg) Tab] Allergies Allergy/AdvReac Type Severity Reaction Status Date / Time Penicillins [PENICILLINS] Allergy Unknown unknown Verified 04/11/20 09:18 sulfamethoxazole Allergy Unknown unknown Verified 04/11/20 09:18 [From BACT
--- NOTE | 2020-04-24 12:12 | PC.NURSE ---
research laboratory specialist advises that they have one on the table and will be down to get patient when they finish that case. Advised pt to strip her clothing and consent was signed
[2020-04-24 12:52] LABS: Troponin I 0.15 ng/ml (0.00-0.034)
--- NOTE | 2020-04-24 13:09 | PC.NURSE ---
PT GOING TO [facility]
--- NOTE | 2020-04-24 14:27 | HMH.PHAINT ---
MEDICATION RECONCILIATION COMPLETED ON PATIENT USING EXTERNAL FILL HISTORY FROM PHARMACY AND LIST FROM MD OFFICE. -MARLENE LAUD
--- NOTE | 2020-04-24 15:03 | P.CONPHA_ITS ---
[facility] Pharmacy VTE Monitoring - Patient Demographics Admission date: 04/24/20 Report Date: 04/24/20 Time: 15:03 Allergies/Adverse Reactions: Patient Allergies Penicillins [PENICILLINS] Allergy (Unknown, Verified 04/11/20 09:18) unknown sulfamethoxazole [From BACTRIM] Allergy (Unknown, Verified 04/11/20 09:18) unknown trimethoprim [From BACTRIM] Allergy (Unknown, Verified 04/11/20 09:18) unknown Height: 1.52 m Weight: 81.647 kg Patient Problems: Current Active Problems (Last Updated 05/27/19 @ 11:58 by Valentina Caceres, ROBERT) Myocardial infarction (Acute) Colon carcinoma metastatic to lung (Acute) Non-STEMI (non-ST elevated myocardial infarction) (Acute) 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 (Acute) Acquired hypothyroidism (Acute) Aortic insufficiency (Acute) Diastolic dysfunction (Acute) HLD (hyperlipidemia) (Chronic) HTN (hypertension) (Acute) Obesity (Acute) - VTE Risk Labs: VTE Related Lab Results Hgb 15.1 g/dL (12.2-16.2) 04/24/20 08:39 Hct 48.6 % (37.0-47.0) H 04/24/20 08:39 Plt Count 113 K/mm3 (142-424) L 04/24/20 08:39 BUN 12 mg/dl (7-17) 04/24/20 08:39 Creatinine 0.60 mg/dl (0.52-1.04) 04/24/20 08:39 Estimated Creat Clear 69 mL/min (50-200) 04/24/20 08:39 Was VTE Risk Assessment Performed: No VTE Score: 2 VTE Risk Level: Very Low Risk - Prophylaxis VTE Prophylaxis Ordered?: Yes Types of VTE Prophylaxis: TEDS Knee High Location of Applied Device: Bilateral Lower Extremeties
--- NOTE | 2020-04-24 18:51 | HMH.HP ---
*Admission Date: 04/24/20 *Chief complaint: Non-STEMI (non-ST elevated myocardial infarction), Primary cancer of rectum *History of present illness: Pt was seen and evaluated in the ER last evening. Workup included cta, no p/e Troponins elevated, prompting cardiology consult. [facility] History Medical History: Reports:: Cancer (Colon cancer), Congestive Heart Failure, Hyperlipidemia, Hypertension, Lung Disease Denies:: Diabetes Mellitus Type 1, Diabetes Mellitus Type 2, Internal Pacemaker, MRSA, Seizures *Have you ever received a pneumonia vaccine?: Yes *Have you received a flu vaccine this season?: Yes Other Medical History: Reports: Anemia, Chemotherapy, Hypothyroidism, Thyroid Disease Other Surgeries: Yes: Cholecystectomy, Colonoscopy, Colon Resection, Colostomy, Hysterectomy-Total, Other. No: Pacemaker Amputation: No Fractures: No - *Social History Last grade of school completed: 7th or 8th Smoking Status: Never smoker Alcohol Intake: never Substance Use Type: denies use *Occupational Status:: disabled Housing: house Household Members: family *Travel in the last 8 weeks: None Family Hx:: Cancer, Diabetes, Hyperlipidemia, Hypertension Review of Systems - Constitutional Reports lack of energy - Eyes Denies change in vision - ENT Denies difficulty swallowing - *Cardiovascular Reports shortness of breath with activity, Denies slow heart rate, Denies fainting - *Respiratory Denies chest congestion - *Gastrointestinal Reports other, Denies abdominal pain, Denies difficulty swallowing Comments: ostomy in llq - *Genitourinary Reports difficulty urinating - *Musculoskeletal Reports decreased muscle mass - Integumentary/Breasts Denies yellowing of the skin - *Neurologic Denies headache(s), Denies seizure-like activity - Psychiatric Denies behavioral changes - Hematologic/Lymphatic Denies easy bleeding - Allergic/Immunologic Denies hives Meds Home Medications Medication Instructions Recorded Confirmed Type Furosemide [Furosemide 40MG tAB] 40 mg PO DAILY 04/29/17 04/24/20 History Potassium Chloride [Klor-con 20 20 meq PO DAILY 04/29/17 04/24/20 History mEq tablet] Docusate Sodium 100 mg PO BID 08/15/17 04/24/20 History carvediloL [Carvedilol 3.125mg Tab] 3.125 mg PO BID 09/23/17 04/24/20 History cholecalciferol (vitamin D3) 625 50,000 unit PO WEEKLY cap 05/06/19 04/24/20 History mcg (25,000 unit) capsule Ondansetron [Ondansetron Odt 8mg 8 mg PO Q8HP PRN 09/21/19 04/24/20 History Tab] Capecitabine [Xeloda] 500 mg PO BID 04/24/20 04/24/20 History Levothyroxine Sodium 125 mcg PO DAILY 04/24/20 04/24/20 History [Levothyroxine 125mcg (0.125mg) Tab] Allergies Allergy/AdvReac Type Severity Reaction Status Date / Time Penicillins [PENICILLINS] Allergy Unknown unknown Verified 04/11/20 09:18 sulfamethoxazole Allergy Unknown unknown Verified 04/11/20 09:18 [From BACTRIM] trimethoprim [From BACTRIM] Allergy Unknown unknown Verified 04/11/20 09:18 Exam Vital signs and Labs for Last 24 Hours: Temp Pulse Resp BP Pulse Ox 98 F 82 16 161/67 H 94 L 04/24/20 13:08 04/24/20 18:05 04/24/20 18:05 04/24/20 18:05 04/24/20 18:05 Laboratory Results - last 24 hr 04/24/20 08:39: WBC 9.7, RBC 4.87, Hgb 15.1, Hct 48.6 H, MCV 99.8 H, MCH 30.9, MCHC 30.9 L, RDW 16.8, Plt Count 113 L, MPV 7.4, Neut % (Auto) 92.1 H, Lymph % (Auto) 2.6 L, [place] % (Auto) 3.9, Eos % (Auto) 0.9, Baso % (Auto) 0.5, Neut # (Auto) 8.9 H, Lymph # (Auto) 0.3 L, [place] # (Auto) 0.4, Eos # (Auto) 0.1, Baso # (Auto) 0.0, Total Counted 100, Neutrophils % (Manual) 89 H, Band Neutrophils % 1.0, Lymphocytes % (Manual) 8 L, Monocytes % (Manual) 2, Platelet Estimate Normal, RBC Morphology Normal 04/24/20 08:39: Sodium 137, Potassium 4.0, Chloride 99, Carbon Dioxide 32 H, Anion Gap 10.0, BUN 12, Creatinine 0.60, Estimated Creat Clear 69, Estimated GFR 99, Est GFR ( Amer) 120, Glucose 210 H, Calcium 8.
--- NOTE | 2020-04-24 19:43 | PC.NURSE ---
Patient admitted from cathlab. No stents. Vital signs stable. Alert and oriented x [address] Dressing changed. Cardiac diet. No n/v/d. Purewick in place. Will continue to monitor patient.
[2020-04-25] VITALS: BP 141/74; PULSE 88; RESP 22; TEMP 36.7; O2SAT 94
[2020-04-25 03:51] VITALS: BP 177/80; PULSE 75; RESP 20; TEMP 36.9; O2SAT 92
--- NOTE | 2020-04-25 04:23 | PC.NURSE ---
pt has rested well t/o shift, has no complaints of SOA or chest pain, systolic 110-177, HR 69-88, remains on room air, right radial cath site, dressing in place, C/D/I, no hematoma noted, has used purewick this shift with clear yellow urine draining, air has been released out of colostomy three times this shift
[2020-04-25 04:47] VITALS: BMI 34.2
[2020-04-25 06:39] LABS: Basophils # 0.1 K/mm3 (0-0.2); Basophils % 1.1 % (0.1-2.0); Eosinophils # 0.2 K/mm3 (0.0-0.4); Eosinophils % 3.4 % (0.1-12.0); Hematocrit 45.2 % (37.0-47.0); Hemoglobin 14.5 g/dL (12.2-16.2); Lymphocytes # 0.4 K/mm3 (0.7-4.5); Mean Corpuscular HGB Conc 32.1 g/dL (31.8-35.4); Mean Corpuscular Hemoglobin 31.1 pg (27.0-31.2); Mean Corpuscular Volume 97.1 fl (81-99); Mean Platelet Volume 8.2 fl (7.4-10.4); Monocytes # 0.4 K/mm3 (0.1-1.0); Monocytes % 9.2 % (1.7-9.3); Neutrophils # 3.5 K/mm3 (1.8-7.8); Neutrophils % 77.3 % (37.0-80.0); Platelet Count 112 K/mm3 (142-424); Red Blood Count 4.65 M/mm3 (4.20-5.40); Red Cell Distribution Width 17.1 % (11.5-17.5); White Blood Count 4.5 K/mm3 (4.8-10.8)
[2020-04-25 06:48] LABS: Anion Gap 9.9 mEq/L (5-15); Blood Urea Nitrogen 15 mg/dl (7-17); Carbon Dioxide 31 mmol/L (22.0-30.0); Chloride 103 mmol/L (98-107); Chol/HDL Ratio 1.7 (1-3.5); Cholesterol 119 mg/dl (140-200); Creatinine Clearance Estimated 67 mL/min (50-200); Estimated Glomerular Filt Rate 99 ml/min (>60); GFR (African American) 120 ML/MIN (>60); Glucose 132 mg/dl (74-100); HDL Cholesterol 71 mg/dl (40-60); Magnesium 1.4 mg/dl (1.6-2.3); Potassium 3.9 mmoL/L (3.5-5.1); Sodium 140 mmol/L (136-145); Triglycerides 77 mg/dl (30-150); VLDL Cholesterol 15 mg/dL (0-40)
[2020-04-25 07:00] LABS: Direct LDL Cholesterol < 30.00 mg/dL (100-129)
[2020-04-25 08:00] VITALS: BP 168/77; PULSE 72; RESP 18; TEMP 36.4; O2SAT 92
--- NOTE | 2020-04-25 08:29 | HMH.PNCARD ---
Subjective Date: 04/25/20 Time: 08:29 Principal diagnosis: NSTEMI Interval history: 69-year-old white female admitted yesterday for elevated troponin consistent with non-ST elevation MT. Cardiac catheterization revealed normal coronary arteries and normal left ventricular ejection fraction but with severely elevated left ventricular end-diastolic pressure. Patient's home medication of Coreg was increased for better blood pressure control and Lasix was added for the elevated end-diastolic pressure/diastolic dysfunction. Patient's breathing today is much better despite only minimal negative diuresis. Echocardiogram results: 1. Biatrial enlargement, normal left ventricular size, mild concentric left ventricular hypertrophy, visually estimated ejection fraction 50% with no regional wall motion abnormality, grade 1 diastolic dysfunction seen without tissue Doppler evidence of raise left atrial pressure. 2. Mildly enlarged right ventricle with normal contractility. 3. Mild mitral and tricuspid regurgitation, calculated right ventricular systolic pressure is 55 to 60 mmHg. 4. No significant pericardial effusion noted Left heart catheterization results: ANGIOGRAPHIC RESULTS The left main artery Normal The left anterior descending artery Normal The circumflex artery Normal The right coronary artery Dominant normal The [facility] ventriculogram reveals Normal 65% The left ventricular end-diastolic pressure Severely elevated at 30 to 35 mmHg IMPRESSION Normal coronary arteries Normal ejection fraction Severely elevated LVEDP consistent with diastolic dysfunction PLAN 1. Treat underlying diastolic dysfunction Exam Vital signs and Labs for Last 24 Hours: Temp Pulse Resp BP Pulse Ox 97.6 F 72 18 168/77 H 92 L 04/25/20 08:00 04/25/20 08:00 04/25/20 08:00 04/25/20 08:00 04/25/20 08:00 Laboratory Results - last 24 hr 04/24/20 08:39: WBC 9.7, RBC 4.87, Hgb 15.1, Hct 48.6 H, MCV 99.8 H, MCH 30.9, MCHC 30.9 L, RDW 16.8, Plt Count 113 L, MPV 7.4, Neut % (Auto) 92.1 H, Lymph % (Auto) 2.6 L, Andrew % (Auto) 3.9, Eos % (Auto) 0.9, Baso % (Auto) 0.5, Neut # (Auto) 8.9 H, Lymph # (Auto) 0.3 L, Andrew # (Auto) 0.4, Eos # (Auto) 0.1, Baso # (Auto) 0.0, Total Counted 100, Neutrophils % (Manual) 89 H, Band Neutrophils % 1.0, Lymphocytes % (Manual) 8 L, Monocytes % (Manual) 2, Platelet Estimate Normal, RBC Morphology Normal 04/24/20 08:39: Sodium 137, Potassium 4.0, Chloride 99, Carbon Dioxide 32 H, Anion Gap 10.0, BUN 12, Creatinine 0.60, Estimated Creat Clear 69, Estimated GFR 99, Est GFR ( Amer) 120, Glucose 210 H, Calcium 8.6, Troponin I 0.12 H 04/24/20 08:39: SARS-CoV-2 IgG Ab (Rapid) Negative, SARS-CoV-2 IgM Ab (Rapid) Negative 04/24/20 08:39: Lactate 1.0 04/24/20 08:39: Hemoglobin A1c 6.0 04/24/20 09:40: Urine Color Yellow, Urine Appearance Clear, Urine pH 6.0, Ur Specific [place] 1.025, Urine Protein 2+, Urine Glucose (UA) Trace, Urine Ketones Negative, Urine Blood 3+, Urine Nitrate Negative, Urine Bilirubin Negative, Urine Urobilinogen 0.2, Ur Leukocyte Esterase Negative, Urine RBC 20-50, Urine WBC 3-5, Ur Squamous Epith Cells 3-5 04/24/20 11:54: Troponin I 0.15 H 04/25/20 06:27: WBC 4.5 L D, RBC 4.65, Hgb 14.5, Hct 45.2, MCV 97.1, MCH 31.1, MCHC 32.1, RDW 17.1, Plt Count 112 L, MPV 8.2, Neut % (Auto) 77.3, Lymph % (Auto) 9.0 L, Andrew % (Auto) 9.2, Eos % (Auto) 3.4, Baso % (Auto) 1.1, Neut # (Auto) 3.5, Lymph # (Auto) 0.4 L, Andrew # (Auto) 0.4, Eos # (Auto) 0.2, Baso # (Auto) 0.1 04/25/20 06:27: Sodium 140, Potassium 3.9, Chloride 103, Carbon Dioxide 31 H, Anion Gap 9.9, BUN 15, Creatinine 0.60, Estimated Creat Clear 67, Estimated GFR 99, Est GFR ( Amer) 120, Glucose 132 H D, Calcium 9.0, Magnesium 1.4 L, Triglycerides 77, Cholesterol 119 L, LDL Cholesterol Direct < 30.00 L, VLDL Cholesterol 15, HDL Cholesterol 71 H, Cholesterol/HDL Ratio 1.7 I & O for Last 24 hours: Intake & Output 04/22/20 04/23/20 04/24/20 04/25/20 11:59 11:
--- NOTE | 2020-04-25 10:15 | HMH.DCSUM ---
General - General Admission date:: 04/24/20 Discharge date: 04/25/20 HPI HPI: Pt was seen and evaluated in the ER last evening. Workup included cta, no p/e Troponins elevated, prompting cardiology consult. this pt was seen in the ed with acute sob and hypoxia with low o2 sat requiring o2 - o soa that started at 4am this morning. 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 Chest x-ray showed no evidence of congestive heart failure or consolidation. She does have an enlarging metastatic focus in the right mid lung. CTA of the chest was negative for pulmonary embolus. Initial troponin returned elevated at 0.12. Some concern regarding her EKG initially showing some slight ST elevation in leads V1 and V2. Repeat EKG showed resolution of those changes. I discussed the results of the test and recommendations of left heart catheterization with the patient and her family member that was present. Patient agrees to proceed with cardiac catheterization. Patient relates colostomy placed in 2013 at the time of her partial colectomy. Metastatic cancer was found 1 year later. She remains on ongoing therapy followed by Dr. Sapp. VALENTINE with SOA and elevated troponin with questionable ST segment changes, consistent with LA. Risk, benefits and procedure of cardiac catheterization explained to the patient she agrees to proceed. 2. Metastatic colon cancer to the lung 3. Hypertension, currently uncontrolled on carvedilol and KAYLIN inhibitor. We will add Norvasc. 4. Hyperlipidemia 5. Hypothyroidism pt had card cath - results: ANGIOGRAPHIC RESULTS The left main artery Normal The left anterior descending artery Normal The circumflex artery Normal The right coronary artery Dominant normal The [facility] ventriculogram reveals Normal 65% The left ventricular end-diastolic pressure Severely elevated at 30 to 35 mmHg IMPRESSION Normal coronary arteries Normal ejection fraction Severely elevated LVEDP consistent with diastolic dysfunction PLAN 1. Treat underlying diastolic dysfunction pt doing better this am - tolerating diet and activity and was seen by card -9-year-old white female admitted yesterday for elevated troponin consistent with non-ST elevation LA. Cardiac catheterization revealed normal coronary arteries and normal left ventricular ejection fraction but with severely elevated left ventricular end-diastolic pressure. Patient's home medication of Coreg was increased for better blood pressure control and Lasix was added for the elevated end-diastolic pressure/diastolic dysfunction. Patient's breathing today is much better despite only minimal negative diuresis. Echocardiogram results: 1. Biatrial enlargement, normal left ventricular size, mild concentric left ventricular hypertrophy, visually estimated ejection fraction 50% with no regional wall motion abnormality, grade 1 diastolic dysfunction seen without tissue Doppler evidence of raise left atrial pressure. 2. Mildly enlarged right ventricle with normal contractility. 3. Mild mitral and tricuspid regurgitation, calculated right ventricular systolic pressure is 55 to 60 mmHg. 4. No significant pericardial effusion noted Left heart catheterization results: ANGIOGRAPHIC RESULTS The left main artery Normal Th
[2020-04-25 11:34] VITALS: BP 138/73; PULSE 67; RESP 16; TEMP 36.6; O2SAT 92
--- NOTE | 2020-04-25 11:50 | HMH.PHAINT ---
PROVIDER CONTACTED TO CLARIFY:CALLED MD TO VERIFY HE WANTED A NEW SCRIPT FOR LISINOPRIL. NOT QUANTITY ON D/C ORDERS SO NO SCRIPT WAS SENT TO PHARMACY. HE WANTS LISINOPRIL 20 MG DAILY #30 WITH 0RF. FIXED IN SYSTEM AND SENT.
== END 2020-04-25 11:53 | disposition home or self-care (01) ==
LOC: ER 12:06 → CATHLAB 12:10 → 2ND 12:24
PROVIDERS: Internal Medicine; Admitting Provider Family Medicine; Emergency Provider Emergency Medicine; PCP Nurse Practitioner Family; Visit Provider Family Medicine
DX: I21.4 Non-ST elevation (NSTEMI) myocardial infarction (principal); I11.0 Hypertensive heart disease with heart failure; I50.30 Unspecified diastolic (congestive) heart failure; E78.5 Hyperlipidemia, unspecified; I35.1 Nonrheumatic aortic (valve) insufficiency; Z79.899 Other long term (current) drug therapy; Z88.0 Allergy status to penicillin; Z88.2 Allergy status to sulfonamides; Z88.8 Allergy status to other drugs, medicaments and biological substances; C18.9 Malignant neoplasm of colon, unspecified; C78.00 Secondary malignant neoplasm of unspecified lung
CPT/HCPCS: 71045; 71275; 80048; 80061; 81001; 83036; 83605; 83735; 84484; 85007; 85025; 86328; 87040; 93005; 93306; 93458; 99152; 99285; C1725; C1769; G0378; J1642; J1644; Q9967

== ENCOUNTER → 2020-05-04 08:04 | Outpatient (CLI) | payer MEDICARE, OTHER, SELFPAY | PROVIDERS: Visit Provider Urology | DX: R06.00 Dyspnea, unspecified (principal) | CPT/HCPCS: 36415 ==

== ENCOUNTER 2020-05-04 08:26 | Outpatient (CLI) | payer MEDICARE, OTHER, SELFPAY ==
[2020-05-04 08:33] VITALS: BMI 34.0
[2020-05-04 08:48] LABS: Basophils # 0.1 K/mm3 (0-0.2); Basophils % 0.8 % (0.1-2.0); Eosinophils # 0.2 K/mm3 (0.0-0.4); Eosinophils % 2.1 % (0.1-12.0); Hematocrit 46.9 % (37.0-47.0); Hemoglobin 15.1 g/dL (12.2-16.2); Lymphocytes % 12.8 % (10-50); Mean Corpuscular HGB Conc 32.2 g/dL (31.8-35.4); Mean Corpuscular Hemoglobin 31.6 pg (27.0-31.2); Mean Corpuscular Volume 98.2 fl (81-99); Mean Platelet Volume 8.1 fl (7.4-10.4); Monocytes # 0.4 K/mm3 (0.1-1.0); Monocytes % 5.4 % (1.7-9.3); Platelet Count 155 K/mm3 (142-424); Red Blood Count 4.78 M/mm3 (4.20-5.40); Red Cell Distribution Width 16.8 % (11.5-17.5); White Blood Count 7.6 K/mm3 (4.8-10.8)
[2020-05-04 09:03] LABS: Alanine Aminotransferase 18 U/L (12-78); Albumin Level 3.9 g/dl (3.5-5.0); Albumin/Globulin Ratio 1.1 (1.1-1.8); Alkaline Phosphatase 134 U/L (38-126); Anion Gap 8.2 mEq/L (5-15); Aspartate Amino Transferase 36 U/L (14-36); Bilirubin,Total 0.8 mg/dl (0.2-1.3); Blood Urea Nitrogen 24 mg/dl (7-17); Calcium 9.2 mg/dl (8.4-10.2); Carbon Dioxide 35 mmol/L (22.0-30.0); Chloride 102 mmol/L (98-107); Creatinine Clearance Estimated 67 mL/min (50-200); Estimated Glomerular Filt Rate 99 ml/min (>60); GFR (African American) 120 ML/MIN (>60); Globulin 3.5 g/dL (1.3-3.2); Glucose 132 mg/dl (74-100); Magnesium 1.4 mg/dl (1.6-2.3); Potassium 4.2 mmoL/L (3.5-5.1); Sodium 141 mmol/L (136-145); Total Protein,Serum 7.4 g/dl (6.3-8.2)
[2020-05-04 09:59] VITALS: BP 117/53; PULSE 48; RESP 18; TEMP 36.7; O2SAT 99
[2020-05-04 10:26] VITALS: BP 110/51; PULSE 51; RESP 18; O2SAT 99
[2020-05-04 10:56] VITALS: BP 103/70; PULSE 51; RESP 18; O2SAT 99
[2020-05-04 11:26] VITALS: BP 114/67; PULSE 49; RESP 18; O2SAT 100
[2020-05-04 11:45] VITALS: BP 107/58; PULSE 50; RESP 18; O2SAT 99
== END 2020-05-04 11:45 | disposition home or self-care (01) ==
LOC: INF 08:26
PROVIDERS: Visit Provider Internal Medicine Medical Oncology
DX: Z51.11 Encounter for antineoplastic chemotherapy (principal); C18.9 Malignant neoplasm of colon, unspecified
CPT/HCPCS: 36415; 80053; 83735; 85025; 96413; J1642; J9055; Q0166

== ENCOUNTER 2020-05-09 08:37 | Outpatient (CLI) | payer MEDICARE, OTHER, SELFPAY ==
[2020-05-09 08:52] VITALS: BP 105/37; PULSE 45; RESP 18; TEMP 36.7; O2SAT 100
[2020-05-09 09:24] VITALS: BP 108/49; PULSE 49; RESP 18; O2SAT 99
[2020-05-09 09:54] VITALS: BP 99/47; PULSE 46; RESP 18; O2SAT 99
[2020-05-09 10:24] VITALS: BP 101/42; PULSE 49; RESP 18; O2SAT 100
[2020-05-09 10:40] VITALS: BP 103/46; PULSE 48; RESP 18; O2SAT 99
== END 2020-05-09 10:42 | disposition home or self-care (01) ==
PROVIDERS: Visit Provider Internal Medicine Medical Oncology
DX: Z51.11 Encounter for antineoplastic chemotherapy (principal); C18.9 Malignant neoplasm of colon, unspecified
CPT/HCPCS: 96413; J1642; J9055; Q0166

== ENCOUNTER 2020-05-16 08:45 | Outpatient (CLI) | payer MEDICARE, OTHER, SELFPAY ==
[2020-05-16 08:58] VITALS: BP 128/39; PULSE 50; RESP 20; TEMP 36.4; O2SAT 96
[2020-05-16 09:39] VITALS: BP 106/57; PULSE 51; RESP 20; O2SAT 96
[2020-05-16 10:09] VITALS: BP 115/59; PULSE 49; RESP 20; O2SAT 97
[2020-05-16 10:39] VITALS: BP 117/45; PULSE 47; RESP 20; O2SAT 97
[2020-05-16 10:50] VITALS: BP 110/51; PULSE 55; RESP 20; O2SAT 96
== END 2020-05-16 10:50 | disposition home or self-care (01) ==
LOC: INF 08:45
PROVIDERS: Visit Provider Internal Medicine Medical Oncology
DX: Z51.11 Encounter for antineoplastic chemotherapy (principal); C18.9 Malignant neoplasm of colon, unspecified
CPT/HCPCS: 96413; J1642; J9055; Q0166

== ENCOUNTER 2020-05-25 08:52 | Outpatient (CLI) | payer MEDICARE, OTHER, SELFPAY ==
[2020-05-25 08:53] VITALS: BMI 34.0
[2020-05-25 09:15] LABS: Basophils # 0.1 K/mm3 (0-0.2); Basophils % 0.7 % (0.1-2.0); Eosinophils # 0.3 K/mm3 (0.0-0.4); Eosinophils % 3.8 % (0.1-12.0); Hematocrit 39.4 % (37.0-47.0); Hemoglobin 12.1 g/dL (12.2-16.2); Lymphocytes # 0.9 K/mm3 (0.7-4.5); Lymphocytes % 14.6 % (10-50); Mean Corpuscular HGB Conc 30.7 g/dL (31.8-35.4); Mean Corpuscular Hemoglobin 30.8 pg (27.0-31.2); Mean Corpuscular Volume 100.4 fl (81-99); Mean Platelet Volume 7.7 fl (7.4-10.4); Monocytes # 0.5 K/mm3 (0.1-1.0); Neutrophils # 4.8 K/mm3 (1.8-7.8); Neutrophils % 73.9 % (37.0-80.0); Platelet Count 145 K/mm3 (142-424); Red Blood Count 3.92 M/mm3 (4.20-5.40); White Blood Count 6.4 K/mm3 (4.8-10.8)
[2020-05-25 09:24] LABS: Alanine Aminotransferase 15 U/L (12-78); Albumin Level 3.7 g/dl (3.5-5.0); Albumin/Globulin Ratio 1.2 (1.1-1.8); Alkaline Phosphatase 113 U/L (38-126); Anion Gap 5.5 mEq/L (5-15); Aspartate Amino Transferase 30 U/L (14-36); Bilirubin,Total 0.5 mg/dl (0.2-1.3); Blood Urea Nitrogen 19 mg/dl (7-17); Calcium 8.9 mg/dl (8.4-10.2); Carbon Dioxide 34 mmol/L (22.0-30.0); Chloride 105 mmol/L (98-107); Creatinine Clearance Estimated 67 mL/min (50-200); Estimated Glomerular Filt Rate 83 ml/min (>60); GFR (African American) 101 ML/MIN (>60); Globulin 3.1 g/dL (1.3-3.2); Glucose 128 mg/dl (74-100); Magnesium 1.2 mg/dl (1.6-2.3); Potassium 4.5 mmoL/L (3.5-5.1); Sodium 140 mmol/L (136-145); Total Protein,Serum 6.8 g/dl (6.3-8.2)
[2020-05-25 11:15] VITALS: BP 131/78; PULSE 47; RESP 18; TEMP 36.4
[2020-05-25 11:30] VITALS: BP 99/60; PULSE 56; RESP 18
[2020-05-25 11:45] VITALS: BP 109/53; PULSE 55; RESP 18
[2020-05-25 12:00] VITALS: BP 108/49; PULSE 85; RESP 18
[2020-05-25 12:15] VITALS: BP 122/59; PULSE 55; RESP 18
== END 2020-05-25 12:35 | disposition home or self-care (01) ==
LOC: INF 08:52
PROVIDERS: Visit Provider Internal Medicine Medical Oncology
DX: Z51.11 Encounter for antineoplastic chemotherapy (principal); C18.9 Malignant neoplasm of colon, unspecified
CPT/HCPCS: 80053; 83735; 85025; 96413; J1642; J9055; Q0166

== ENCOUNTER 2020-05-30 08:28 | Outpatient (CLI) | payer MEDICARE, OTHER, SELFPAY ==
[2020-05-30 08:43] VITALS: BP 106/57; PULSE 47; RESP 20; TEMP 36.7; O2SAT 95
[2020-05-30 09:20] VITALS: BP 115/53; PULSE 51; RESP 20; O2SAT 96
[2020-05-30 09:50] VITALS: BP 111/51; PULSE 48; RESP 20; O2SAT 95
[2020-05-30 10:20] VITALS: BP 119/54; PULSE 50; RESP 20; O2SAT 95
[2020-05-30 10:39] VITALS: BP 129/88; PULSE 51; RESP 20; O2SAT 96
== END 2020-05-30 10:39 | disposition home or self-care (01) ==
LOC: INF 08:28
PROVIDERS: Visit Provider Internal Medicine Medical Oncology
DX: Z51.11 Encounter for antineoplastic chemotherapy (principal); C18.9 Malignant neoplasm of colon, unspecified
CPT/HCPCS: 96413; J1642; J9055; Q0166

== ENCOUNTER 2020-06-07 08:40 | Outpatient (CLI) | payer MEDICARE, OTHER, SELFPAY ==
[2020-06-07 09:40] VITALS: BP 126/61; PULSE 57; RESP 20; TEMP 37.1; O2SAT 98
[2020-06-07 09:55] VITALS: BP 122/58; PULSE 57; RESP 18
[2020-06-07 10:10] VITALS: BP 142/87; PULSE 55; RESP 18
[2020-06-07 10:25] VITALS: BP 124/75; PULSE 54; RESP 18
[2020-06-07 10:40] VITALS: BP 129/60; PULSE 53; RESP 18
== END 2020-06-07 10:55 | disposition home or self-care (01) ==
LOC: INF 08:51
PROVIDERS: Visit Provider Internal Medicine Medical Oncology
DX: Z51.11 Encounter for antineoplastic chemotherapy (principal); C18.9 Malignant neoplasm of colon, unspecified
CPT/HCPCS: 96413; J1642; J9055; Q0166

== ENCOUNTER 2020-06-16 08:17 | Outpatient (CLI) | payer MEDICARE, OTHER, SELFPAY ==
[2020-06-16 08:08] VITALS: BMI 34.9
[2020-06-16 08:28] LABS: Basophils % 0.4 % (0.1-2.0); Eosinophils # 0.1 K/mm3 (0.0-0.4); Hematocrit 42.1 % (37.0-47.0); Hemoglobin 13.3 g/dL (12.2-16.2); Lymphocytes # 0.6 K/mm3 (0.7-4.5); Lymphocytes % 13.5 % (10-50); Mean Corpuscular HGB Conc 31.6 g/dL (31.8-35.4); Mean Corpuscular Hemoglobin 31.4 pg (27.0-31.2); Mean Corpuscular Volume 99.4 fl (81-99); Mean Platelet Volume 8.6 fl (7.4-10.4); Monocytes # 0.4 K/mm3 (0.1-1.0); Monocytes % 8.4 % (1.7-9.3); Neutrophils # 3.3 K/mm3 (1.8-7.8); Neutrophils % 75.6 % (37.0-80.0); Platelet Count 114 K/mm3 (142-424); Red Blood Count 4.24 M/mm3 (4.20-5.40); Red Cell Distribution Width 16.6 % (11.5-17.5); White Blood Count 4.4 K/mm3 (4.8-10.8)
[2020-06-16 08:29] LABS: Chloride 107 mmol/L (98-107); Sodium 141 mmol/L (136-145)
[2020-06-16 08:30] LABS: Potassium 4.1 mmoL/L (3.5-5.1)
[2020-06-16 08:32] LABS: Alanine Aminotransferase 21 U/L (12-78); Albumin Level 3.9 g/dl (3.5-5.0); Albumin/Globulin Ratio 1.1 (1.1-1.8); Alkaline Phosphatase 112 U/L (38-126); Anion Gap 10.1 mEq/L (5-15); Aspartate Amino Transferase 38 U/L (14-36); Bilirubin,Total 0.6 mg/dl (0.2-1.3); Blood Urea Nitrogen 16 mg/dl (7-17); Calcium 8.6 mg/dl (8.4-10.2); Carbon Dioxide 28 mmol/L (22.0-30.0); Creatinine Clearance Estimated 68 mL/min (50-200); Estimated Glomerular Filt Rate 83 ml/min (>60); GFR (African American) 100 ML/MIN (>60); Globulin 3.4 g/dL (1.3-3.2); Glucose 114 mg/dl (74-100); Total Protein,Serum 7.3 g/dl (6.3-8.2)
[2020-06-16 08:35] LABS: Magnesium 0.9 mg/dl (1.6-2.3)
[2020-06-16 09:37] VITALS: BP 96/53; PULSE 50; RESP 18; TEMP 36.4; O2SAT 97
[2020-06-16 09:59] VITALS: BP 101/52; PULSE 51; RESP 18; O2SAT 97
[2020-06-16 10:36] VITALS: BP 94/48; PULSE 48; RESP 18; O2SAT 97
[2020-06-16 11:06] VITALS: BP 102/59; PULSE 50; RESP 18; O2SAT 96
[2020-06-16 11:36] VITALS: BP 99/48; PULSE 49; RESP 20; O2SAT 97
[2020-06-16 11:45] VITALS: BP 113/45; PULSE 50; RESP 18; O2SAT 97
== END 2020-06-16 11:45 | disposition home or self-care (01) ==
LOC: INF 08:17
PROVIDERS: Visit Provider Internal Medicine Medical Oncology
DX: Z51.11 Encounter for antineoplastic chemotherapy (principal); C18.9 Malignant neoplasm of colon, unspecified
CPT/HCPCS: 80053; 83735; 85025; 96367; 96413; J1642; J9055; Q0166

== ENCOUNTER 2020-06-20 08:26 | Outpatient (CLI) | payer MEDICARE, OTHER, SELFPAY ==
[2020-06-20 08:35] VITALS: BP 103/50; PULSE 47; RESP 18; TEMP 36.3; O2SAT 97
[2020-06-20 09:20] VITALS: BP 98/47; PULSE 48; RESP 18; O2SAT 97
[2020-06-20 09:50] VITALS: BP 91/42; PULSE 48; RESP 18; O2SAT 97
[2020-06-20 10:20] VITALS: BP 105/49; PULSE 46; RESP 18; O2SAT 96
[2020-06-20 10:50] VITALS: BP 114/50; PULSE 49; RESP 18; O2SAT 97
== END 2020-06-20 10:50 | disposition home or self-care (01) ==
LOC: INF 08:26
PROVIDERS: Visit Provider Internal Medicine Medical Oncology
DX: Z51.11 Encounter for antineoplastic chemotherapy (principal); C18.9 Malignant neoplasm of colon, unspecified
CPT/HCPCS: 96413; J1642; J9055; Q0166

== ENCOUNTER 2020-06-27 08:41 | Outpatient (CLI) | payer MEDICARE, OTHER, SELFPAY ==
[2020-06-27 08:52] VITALS: BP 136/57; PULSE 44; RESP 18; TEMP 36.8; O2SAT 97
[2020-06-27 09:39] VITALS: BP 115/55; PULSE 49; RESP 18; O2SAT 97
[2020-06-27 10:09] VITALS: BP 121/57; PULSE 45; RESP 18; O2SAT 96
[2020-06-27 10:39] VITALS: BP 112/52; PULSE 48; RESP 18; O2SAT 97
[2020-06-27 10:50] VITALS: BP 108/56; PULSE 49; RESP 18; O2SAT 96
== END 2020-06-27 10:50 | disposition home or self-care (01) ==
LOC: INF 08:41
PROVIDERS: Visit Provider Internal Medicine Medical Oncology
DX: Z51.11 Encounter for antineoplastic chemotherapy (principal); C18.9 Malignant neoplasm of colon, unspecified
CPT/HCPCS: 96413; J1642; J9055; Q0166

== ENCOUNTER 2020-07-04 08:19 | Outpatient (CLI) | payer MEDICARE, OTHER, SELFPAY ==
[2020-07-04 08:28] VITALS: BMI 32.0
[2020-07-04 08:39] LABS: Basophils % 0.4 % (0.1-2.0); Eosinophils # 0.1 K/mm3 (0.0-0.4); Eosinophils % 1.5 % (0.1-12.0); Hematocrit 40.3 % (37.0-47.0); Hemoglobin 12.6 g/dL (12.2-16.2); Lymphocytes # 0.9 K/mm3 (0.7-4.5); Lymphocytes % 14.3 % (10-50); Mean Corpuscular HGB Conc 31.4 g/dL (31.8-35.4); Mean Corpuscular Hemoglobin 31.4 pg (27.0-31.2); Mean Platelet Volume 8.9 fl (7.4-10.4); Monocytes # 0.4 K/mm3 (0.1-1.0); Monocytes % 6.6 % (1.7-9.3); Neutrophils # 5.1 K/mm3 (1.8-7.8); Neutrophils % 77.2 % (37.0-80.0); Platelet Count 139 K/mm3 (142-424); Red Blood Count 4.03 M/mm3 (4.20-5.40); Red Cell Distribution Width 16.4 % (11.5-17.5); White Blood Count 6.6 K/mm3 (4.8-10.8)
--- NOTE | 2020-07-04 08:46 | CT_ITS ---
PROCEDURE: CT CHEST W CON CLINCAL INDICATION: COLON CA Follow up On chemo COMPARISON: CT CT CHEST W CON from 03/29/[address] CHEST W CON from 04/05/[address] ANGIO CHEST from 04/24/[address] ABDOMEN PELVIS W CON from 07/04/2020 TECHNIQUE: IV Contrast: 75ml Isovue 370 Axial images obtained with sagittal and coronal reformats. All CT scans at the facility use one or more dose reduction, viz: automated exposure control, ma/kV adjustment per patient size (including targeted exams where dose is matched to indication, i.e. head), or iterative reconstruction technique. FINDINGS: HEART AND MEDIASTINAL STRUCTURES: No mediastinal or hilar mass or adenopathy. LUNGS AND PLEURAL SPACES: Respiratory motion artifact obscures fine detail of the lungs. There are numerous nodules in the right lower lobe the largest of which is in the right lower lobe medially measuring 2 cm. At least 1 of these nodules appears larger compared to the previous study located within the right upper lobe posteriorly. This nodule measures 12 mm. There is a cluster of nodules in the right lower lobe anteriorly measuring 2.6 cm transverse. On a older study of 04/05/2020 this measures 2 cm transverse. No new nodules are evident. No new nodules are evident. There is a stable 8 mm nodule in the left lower lobe. No effusions or infiltrates are evident. BONY STRUCTURES: No acute bony abnormalities apparent. IMPRESSION: Numerous nodules in the right lower lobe and 1 nodule in the right upper lobe as well as a nodule in the left lower lobe. A few of these nodules have increased in size as described above. Metastatic disease or even an active infectious/inflammatory process is a consideration. No cavitation within the nodules. Dictated by: Didier Ortiz MD 07/06/2020 08:34 Didier Ortiz MD in [facility] 07/06/2020 08:34
--- NOTE | 2020-07-04 08:46 | CT_ITS ---
PROCEDURE: CT ABDOMEN PELVIS W CON CLINICAL INDICATION: COLON CA Follow up On chemo COMPARISON: CT CT ABDOMEN PELVIS W CON from 04/05/2020 TECHNIQUE: IV Contrast: 75ML Isovue 370 Oral Contrast None Axial images obtained with sagittal and coronal reformats. All CT scans at the facility use one or more dose reduction, viz: automated exposure control, ma/kV adjustment per patient size (including targeted exams where dose is matched to indication, i.e. head), or iterative reconstruction technique. FINDINGS: There has been a prior cholecystectomy. The liver, spleen, adrenal glands, and pancreas have an unremarkable CT appearance. There is some mild motion artifact which does obscure fine detail and could obscure subtle pathology. There are bilateral parapelvic renal cysts. There is a 12 mm stone in the lower pole of the right kidney. Unremarkable appendix. There has been a prior left hemicolectomy with a left lower quadrant colostomy. There is herniation of large bowel through the colostomy orifice into the subcutaneous area. No evidence of bowel obstruction. There has been interval repair of the ventral abdominal wall hernia. Anastomosis noted in the right lower quadrant within the small bowel. Grade 1 spondylitic spondylolisthesis is present at L5-S1. IMPRESSION: 1. No evidence of abdominal metastasis. 2. Postsurgical changes from prior left hemicolectomy with left lower quadrant colostomy with herniation of the large bowel into the colostomy site. 3. Parapelvic renal cysts with nonobstructing left renal stone Dictated by: Didier Ortiz MD 07/06/2020 08:44 Didier Ortiz MD in [facility] 07/06/2020 08:44
[2020-07-04 08:47] LABS: Chloride 110 mmol/L (98-107); Sodium 143 mmol/L (136-145)
[2020-07-04 08:49] LABS: Blood Urea Nitrogen 19 mg/dl (7-17); Creatinine Clearance Estimated 62 mL/min (50-200); Estimated Glomerular Filt Rate 99 ml/min (>60); GFR (African American) 120 ML/MIN (>60)
[2020-07-04 08:50] LABS: Alanine Aminotransferase 20 U/L (12-78); Albumin Level 3.8 g/dl (3.5-5.0); Albumin/Globulin Ratio 1.1 (1.1-1.8); Alkaline Phosphatase 118 U/L (38-126); Aspartate Amino Transferase 35 U/L (14-36); Bilirubin,Total 0.7 mg/dl (0.2-1.3); Carbon Dioxide 30 mmol/L (22.0-30.0); Globulin 3.4 g/dL (1.3-3.2); Glucose 131 mg/dl (74-100); Total Protein,Serum 7.2 g/dl (6.3-8.2)
[2020-07-04 08:58] LABS: Magnesium 0.9 mg/dl (1.6-2.3)
== END 2020-07-04 10:00 | disposition home or self-care (01) ==
LOC: RAD 08:22
PROVIDERS: PCP Nurse Practitioner Family; Visit Provider Internal Medicine Medical Oncology
DX: C18.9 Malignant neoplasm of colon, unspecified (principal)
CPT/HCPCS: 71260; 74177; 80053; 83735; 85025; J1642; Q9967

== ENCOUNTER → 2020-07-04 10:18 | Outpatient (POV) | payer MEDICARE, OTHER, SELFPAY | PROVIDERS: Visit Provider Dermatology | DX: Z00.00 Encounter for general adult medical examination without abnormal findings (principal) ==

== ENCOUNTER → 2020-07-25 12:50 | Outpatient (POV) | payer MEDICARE, OTHER, SELFPAY | PROVIDERS: Visit Provider Dermatology | DX: Z00.00 Encounter for general adult medical examination without abnormal findings (principal) ==

== ENCOUNTER 2020-08-24 08:17 | Outpatient (CLI) | payer MEDICARE, OTHER, SELFPAY ==
[2020-08-24 08:17] VITALS: BMI 33.4
[2020-08-24 08:36] LABS: Basophils # 0.1 K/mm3 (0-0.2); Basophils % 0.7 % (0.1-2.0); Eosinophils # 0.3 K/mm3 (0.0-0.4); Eosinophils % 3.9 % (0.1-12.0); Hematocrit 39.1 % (37.0-47.0); Hemoglobin 12.6 g/dL (12.2-16.2); Lymphocytes # 1.1 K/mm3 (0.7-4.5); Lymphocytes % 15.6 % (10-50); Mean Corpuscular HGB Conc 32.2 g/dL (31.8-35.4); Mean Corpuscular Hemoglobin 30.3 pg (27.0-31.2); Mean Platelet Volume 7.9 fl (7.4-10.4); Monocytes # 0.4 K/mm3 (0.1-1.0); Monocytes % 6.3 % (1.7-9.3); Neutrophils # 5.1 K/mm3 (1.8-7.8); Neutrophils % 73.5 % (37.0-80.0); Platelet Count 149 K/mm3 (142-424); Red Blood Count 4.17 M/mm3 (4.20-5.40); Red Cell Distribution Width 14.4 % (11.5-17.5); White Blood Count 6.9 K/mm3 (4.8-10.8)
[2020-08-24 08:59] LABS: Alanine Aminotransferase 22 U/L (12-78); Albumin Level 3.8 g/dl (3.5-5.0); Albumin/Globulin Ratio 1.3 (1.1-1.8); Alkaline Phosphatase 98 U/L (38-126); Anion Gap 8.8 mEq/L (5-15); Aspartate Amino Transferase 30 U/L (14-36); Bilirubin,Total 0.2 mg/dl (0.2-1.3); Blood Urea Nitrogen 23 mg/dl (7-17); Calcium 9.2 mg/dl (8.4-10.2); Carbon Dioxide 27 mmol/L (22.0-30.0); Chloride 107 mmol/L (98-107); Creatinine Clearance Estimated 65 mL/min (50-200); Estimated Glomerular Filt Rate 83 ml/min (>60); GFR (African American) 100 ML/MIN (>60); Globulin 2.9 g/dL (1.3-3.2); Glucose 142 mg/dl (74-100); Potassium 4.8 mmoL/L (3.5-5.1); Sodium 138 mmol/L (136-145); Total Protein,Serum 6.7 g/dl (6.3-8.2)
[2020-08-24 09:41] LABS: Magnesium 1.6 mg/dl (1.6-2.3)
[2020-08-24 10:20] VITALS: BP 102/68; PULSE 53; RESP 18; TEMP 36.4; O2SAT 98
[2020-08-24 10:50] VITALS: BP 111/67; PULSE 58; RESP 18; O2SAT 98
[2020-08-24 11:20] VITALS: BP 120/68; PULSE 59; RESP 18; O2SAT 98
[2020-08-24 11:50] VITALS: BP 128/64; PULSE 58; RESP 18; O2SAT 97
[2020-08-24 12:25] VITALS: BP 133/84; PULSE 83; RESP 18; O2SAT 97
== END 2020-08-24 12:25 | disposition home or self-care (01) ==
LOC: INF 08:17
PROVIDERS: Visit Provider Internal Medicine Medical Oncology
DX: Z51.11 Encounter for antineoplastic chemotherapy (principal); C18.9 Malignant neoplasm of colon, unspecified
CPT/HCPCS: 80053; 83735; 85025; 96366; 96367; 96413; J1642; J9055; Q0166

== ENCOUNTER 2020-08-29 09:00 | Outpatient (CLI) | payer MEDICARE, OTHER, SELFPAY ==
[2020-08-29 09:15] VITALS: BP 108/48; PULSE 54; RESP 18; TEMP 36.4; O2SAT 98
[2020-08-29 09:45] VITALS: BP 101/42; PULSE 58; RESP 18; O2SAT 98
[2020-08-29 10:17] VITALS: BP 98/48; PULSE 59; RESP 18; O2SAT 98
[2020-08-29 10:47] VITALS: BP 91/43; PULSE 56; RESP 18; O2SAT 97
[2020-08-29 11:25] VITALS: BP 94/63; PULSE 68; RESP 18; O2SAT 97
== END 2020-08-29 11:25 | disposition home or self-care (01) ==
LOC: INF 09:00
PROVIDERS: Visit Provider Internal Medicine Medical Oncology
DX: Z51.11 Encounter for antineoplastic chemotherapy (principal); C18.9 Malignant neoplasm of colon, unspecified
CPT/HCPCS: 96413; J1642; J9055; Q0166

== ENCOUNTER 2020-09-05 08:55 | Outpatient (CLI) | payer MEDICARE, OTHER, SELFPAY ==
[2020-09-05] VITALS (7 sets, daily range): BP systolic 96–126; BP diastolic 47–66; PULSE 44–107; RESP 18; O2SAT 96
== END 2020-09-05 11:15 | disposition home or self-care (01) ==
LOC: INF 08:55
PROVIDERS: Visit Provider Internal Medicine Medical Oncology
DX: Z51.11 Encounter for antineoplastic chemotherapy (principal); C18.9 Malignant neoplasm of colon, unspecified
CPT/HCPCS: 96413; J1642; J9055; Q0166

== ENCOUNTER 2020-09-14 08:33 | Outpatient (CLI) | payer MEDICARE, OTHER, SELFPAY ==
[2020-09-14 08:34] VITALS: BMI 34.3
[2020-09-14 08:51] LABS: Basophils # 0.1 K/mm3 (0-0.2); Basophils % 0.7 % (0.1-2.0); Eosinophils # 0.2 K/mm3 (0.0-0.4); Hematocrit 38.9 % (37.0-47.0); Hemoglobin 12.7 g/dL (12.2-16.2); Lymphocytes # 0.9 K/mm3 (0.7-4.5); Lymphocytes % 13.2 % (10-50); Mean Corpuscular HGB Conc 32.8 g/dL (31.8-35.4); Mean Corpuscular Hemoglobin 30.5 pg (27.0-31.2); Mean Platelet Volume 8.3 fl (7.4-10.4); Monocytes # 0.5 K/mm3 (0.1-1.0); Monocytes % 7.6 % (1.7-9.3); Neutrophils # 5.4 K/mm3 (1.8-7.8); Neutrophils % 75.6 % (37.0-80.0); Platelet Count 163 K/mm3 (142-424); Red Blood Count 4.18 M/mm3 (4.20-5.40); White Blood Count 7.1 K/mm3 (4.8-10.8)
[2020-09-14 08:52] LABS: Alanine Aminotransferase 23 U/L (12-78); Albumin Level 3.8 g/dl (3.5-5.0); Albumin/Globulin Ratio 1.4 (1.1-1.8); Alkaline Phosphatase 112 U/L (38-126); Anion Gap 6.3 mEq/L (5-15); Aspartate Amino Transferase 31 U/L (14-36); Bilirubin,Total 0.4 mg/dl (0.2-1.3); Blood Urea Nitrogen 13 mg/dl (7-17); Calcium 8.8 mg/dl (8.4-10.2); Carbon Dioxide 30 mmol/L (22.0-30.0); Chloride 107 mmol/L (98-107); Creatinine Clearance Estimated 67 mL/min (50-200); Estimated Glomerular Filt Rate 83 ml/min (>60); GFR (African American) 100 ML/MIN (>60); Globulin 2.8 g/dL (1.3-3.2); Glucose 119 mg/dl (74-100); Magnesium 1.7 mg/dl (1.6-2.3); Potassium 4.3 mmoL/L (3.5-5.1); Sodium 139 mmol/L (136-145); Total Protein,Serum 6.6 g/dl (6.3-8.2)
[2020-09-14 09:37] VITALS: BP 116/76; PULSE 70; RESP 18; TEMP 36.7; O2SAT 97
[2020-09-14 09:53] VITALS: BP 111/73; PULSE 76; RESP 18; O2SAT 97
[2020-09-14 10:27] VITALS: BP 116/77; PULSE 84; RESP 18; O2SAT 97
[2020-09-14 10:57] VITALS: BP 115/71; PULSE 88; RESP 18; O2SAT 96
[2020-09-14 11:27] VITALS: BP 121/49; PULSE 81; RESP 18; O2SAT 97
[2020-09-14 11:50] VITALS: BP 125/44; PULSE 88; RESP 18; O2SAT 97
== END 2020-09-14 11:50 | disposition home or self-care (01) ==
LOC: INF 08:33
PROVIDERS: Visit Provider Internal Medicine Medical Oncology
DX: Z51.11 Encounter for antineoplastic chemotherapy (principal); C18.9 Malignant neoplasm of colon, unspecified
CPT/HCPCS: 80053; 83735; 85025; 96413; J1642; J9055; Q0166

== ENCOUNTER 2020-09-19 08:40 | Outpatient (CLI) | payer MEDICARE, OTHER, SELFPAY ==
[2020-09-19 09:30] VITALS: BP 143/75; PULSE 54; RESP 20; TEMP 36.9; O2SAT 95
[2020-09-19 10:30] VITALS: BP 119/59; PULSE 54; RESP 20; TEMP 36.9; O2SAT 95
[2020-09-19 11:30] VITALS: BP 120/74; PULSE 68; RESP 20; TEMP 36.9; O2SAT 95
== END 2020-09-19 11:30 | disposition home or self-care (01) ==
LOC: INF 08:43
PROVIDERS: Visit Provider Internal Medicine Medical Oncology
DX: Z51.11 Encounter for antineoplastic chemotherapy (principal); C18.9 Malignant neoplasm of colon, unspecified
CPT/HCPCS: 96413; J1642; J9055; Q0166

== ENCOUNTER 2020-09-26 08:46 | Outpatient (CLI) | payer MEDICARE, OTHER, SELFPAY ==
[2020-09-26 09:00] VITALS: BP 128/47; PULSE 50; RESP 18; TEMP 36.7; O2SAT 98
[2020-09-26 09:59] VITALS: BP 104/48; PULSE 52; RESP 18; O2SAT 97
[2020-09-26 10:29] VITALS: BP 111/47; PULSE 51; RESP 18; O2SAT 97
[2020-09-26 10:59] VITALS: BP 109/47; PULSE 49; RESP 18; O2SAT 97
[2020-09-26 11:40] VITALS: BP 115/50; PULSE 50; RESP 18; O2SAT 97
== END 2020-09-26 11:40 | disposition home or self-care (01) ==
LOC: INF 08:46
PROVIDERS: Visit Provider Internal Medicine Medical Oncology
DX: Z51.11 Encounter for antineoplastic chemotherapy (principal); C18.9 Malignant neoplasm of colon, unspecified
CPT/HCPCS: 96413; J1642; J9055; Q0166

== ENCOUNTER 2020-10-06 08:11 | Outpatient (CLI) | payer MEDICARE, OTHER, SELFPAY ==
[2020-10-06 08:12] VITALS: BMI 33.5
[2020-10-06 08:30] LABS: Basophils # 0.1 K/mm3 (0-0.2); Basophils % 0.8 % (0.1-2.0); Eosinophils # 0.2 K/mm3 (0.0-0.4); Eosinophils % 2.9 % (0.1-12.0); Hemoglobin 13.1 g/dL (12.2-16.2); Lymphocytes # 1.1 K/mm3 (0.7-4.5); Lymphocytes % 16.1 % (10-50); Mean Corpuscular HGB Conc 32.1 g/dL (31.8-35.4); Mean Corpuscular Hemoglobin 30.7 pg (27.0-31.2); Mean Corpuscular Volume 95.8 fl (81-99); Mean Platelet Volume 8.3 fl (7.4-10.4); Monocytes # 0.5 K/mm3 (0.1-1.0); Monocytes % 7.2 % (1.7-9.3); Neutrophils # 4.8 K/mm3 (1.8-7.8); Neutrophils % 72.9 % (37.0-80.0); Platelet Count 164 K/mm3 (142-424); Red Blood Count 4.28 M/mm3 (4.20-5.40); White Blood Count 6.6 K/mm3 (4.8-10.8)
[2020-10-06 08:36] LABS: Chloride 104 mmol/L (98-107)
[2020-10-06 08:37] LABS: Potassium 4.3 mmoL/L (3.5-5.1); Sodium 140 mmol/L (136-145)
[2020-10-06 08:39] LABS: Alanine Aminotransferase 21 U/L (12-78); Alkaline Phosphatase 114 U/L (38-126); Aspartate Amino Transferase 32 U/L (14-36); Bilirubin,Total 0.4 mg/dl (0.2-1.3); Blood Urea Nitrogen 24 mg/dl (7-17); Creatinine Clearance Estimated 65 mL/min (50-200); Estimated Glomerular Filt Rate 71 ml/min (>60); GFR (African American) 86 ML/MIN (>60)
[2020-10-06 08:40] LABS: Albumin Level 3.9 g/dl (3.5-5.0); Albumin/Globulin Ratio 1.3 (1.1-1.8); Anion Gap 12.3 mEq/L (5-15); Calcium 8.7 mg/dl (8.4-10.2); Carbon Dioxide 28 mmol/L (22.0-30.0); Globulin 2.9 g/dL (1.3-3.2); Glucose 120 mg/dl (74-100); Total Protein,Serum 6.8 g/dl (6.3-8.2)
[2020-10-06 08:58] LABS: Magnesium 1.3 mg/dl (1.6-2.3)
[2020-10-06 09:10] VITALS: BP 98/43; PULSE 51; RESP 18; TEMP 36.6; O2SAT 97
[2020-10-06 09:36] VITALS: BP 95/41; PULSE 50; RESP 18; O2SAT 97
[2020-10-06 10:15] VITALS: BP 92/41; PULSE 52; RESP 18; O2SAT 96
[2020-10-06 10:45] VITALS: BP 96/45; PULSE 50; RESP 18; O2SAT 97
[2020-10-06 11:30] VITALS: BP 98/75; PULSE 52; RESP 18; O2SAT 97
== END 2020-10-06 11:30 | disposition home or self-care (01) ==
LOC: INF 08:11
PROVIDERS: Visit Provider Internal Medicine Medical Oncology
DX: Z51.11 Encounter for antineoplastic chemotherapy (principal); C18.9 Malignant neoplasm of colon, unspecified
CPT/HCPCS: 80053; 83735; 85025; 96413; J1642; J9055; Q0166

== ENCOUNTER → 2020-10-10 08:44 | Outpatient (CLI) | payer MEDICARE, OTHER, SELFPAY ==
[2020-10-10 09:47] VITALS: BP 148/65; PULSE 47; RESP 16; TEMP 36.8; O2SAT 98
[2020-10-10 10:49] VITALS: BP 115/70; PULSE 49
[2020-10-10 11:37] VITALS: BP 138/67; PULSE 49
[2020-10-10 12:16] VITALS: BP 150/90; PULSE 48
[2020-10-10 12:23] VITALS: BP 147/91; PULSE 48; RESP 17; TEMP 36.4; O2SAT 96
== END ==
PROVIDERS: Visit Provider Internal Medicine Medical Oncology
DX: Z51.11 Encounter for antineoplastic chemotherapy (principal); C18.9 Malignant neoplasm of colon, unspecified
CPT/HCPCS: 96413; 96415; J1642; J9055; Q0166

== ENCOUNTER 2020-10-18 08:53 | Outpatient (CLI) | payer MEDICARE, OTHER, SELFPAY ==
[2020-10-18 09:00] VITALS: BP 115/59; PULSE 49; RESP 20; TEMP 36.7; O2SAT 97
[2020-10-18 09:50] VITALS: BP 91/47; PULSE 50; RESP 20; O2SAT 98
[2020-10-18 10:20] VITALS: BP 101/51; PULSE 48; RESP 20; O2SAT 97
[2020-10-18 10:50] VITALS: BP 108/49; PULSE 50; RESP 20; O2SAT 97
[2020-10-18 11:15] VITALS: BP 117/72; PULSE 47; RESP 20; O2SAT 98
== END 2020-10-18 11:15 | disposition home or self-care (01) ==
LOC: INF 08:53
PROVIDERS: Visit Provider Internal Medicine Medical Oncology
DX: Z51.11 Encounter for antineoplastic chemotherapy (principal); C18.9 Malignant neoplasm of colon, unspecified
CPT/HCPCS: 96413; J1642; J9055; Q0166

== ENCOUNTER 2020-10-26 08:35 | Outpatient (CLI) | payer MEDICARE, OTHER, SELFPAY ==
[2020-10-26 08:37] VITALS: BMI 33.4
[2020-10-26 08:50] LABS: Basophils # 0.1 K/mm3 (0-0.2); Basophils % 0.7 % (0.1-2.0); Eosinophils # 0.3 K/mm3 (0.0-0.4); Eosinophils % 2.8 % (0.1-12.0); Hematocrit 42.9 % (37.0-47.0); Hemoglobin 14.1 g/dL (12.2-16.2); Lymphocytes # 1.2 K/mm3 (0.7-4.5); Lymphocytes % 12.8 % (10-50); Mean Corpuscular HGB Conc 32.8 g/dL (31.8-35.4); Mean Corpuscular Hemoglobin 31.4 pg (27.0-31.2); Mean Corpuscular Volume 95.9 fl (81-99); Mean Platelet Volume 8.3 fl (7.4-10.4); Monocytes # 0.6 K/mm3 (0.1-1.0); Neutrophils # 7.4 K/mm3 (1.8-7.8); Neutrophils % 77.7 % (37.0-80.0); Platelet Count 189 K/mm3 (142-424); Red Blood Count 4.47 M/mm3 (4.20-5.40); Red Cell Distribution Width 17.6 % (11.5-17.5); White Blood Count 9.6 K/mm3 (4.8-10.8)
[2020-10-26 08:55] LABS: Chloride 108 mmol/L (98-107); Sodium 142 mmol/L (136-145)
[2020-10-26 08:57] LABS: Blood Urea Nitrogen 18 mg/dl (7-17); Creatinine Clearance Estimated 65 mL/min (50-200); Estimated Glomerular Filt Rate 71 ml/min (>60); GFR (African American) 86 ML/MIN (>60)
[2020-10-26 08:58] LABS: Alanine Aminotransferase 21 U/L (12-78); Albumin Level 4.2 g/dl (3.5-5.0); Albumin/Globulin Ratio 1.4 (1.1-1.8); Alkaline Phosphatase 143 U/L (38-126); Aspartate Amino Transferase 33 U/L (14-36); Bilirubin,Total 0.6 mg/dl (0.2-1.3); Carbon Dioxide 27 mmol/L (22.0-30.0); Glucose 122 mg/dl (74-100); Magnesium 1.3 mg/dl (1.6-2.3); Total Protein,Serum 7.2 g/dl (6.3-8.2)
== END 2020-10-26 10:07 | disposition home or self-care (01) ==
LOC: INF 08:35
PROVIDERS: Visit Provider Internal Medicine Medical Oncology
DX: C18.9 Malignant neoplasm of colon, unspecified (principal)
CPT/HCPCS: 80053; 83735; 85025; J1642

== ENCOUNTER → 2020-11-09 10:43 | Outpatient (CLI) | payer MEDICARE, OTHER, SELFPAY | PROVIDERS: PCP Nurse Practitioner Family; Visit Provider Physician Assistant | DX: R00.1 Bradycardia, unspecified (principal) | CPT/HCPCS: 93225 ==

== ENCOUNTER 2020-11-13 08:37 | Outpatient (CLI) | payer MEDICARE, OTHER, SELFPAY ==
[2020-11-13 08:43] VITALS: BMI 34.7
[2020-11-13 09:01] LABS: Basophils % 0.5 % (0.1-2.0); Eosinophils # 0.2 K/mm3 (0.0-0.4); Eosinophils % 1.9 % (0.1-12.0); Hematocrit 41.9 % (37.0-47.0); Hemoglobin 13.2 g/dL (12.2-16.2); Lymphocytes % 12.3 % (10-50); Mean Corpuscular HGB Conc 31.5 g/dL (31.8-35.4); Mean Corpuscular Hemoglobin 30.4 pg (27.0-31.2); Mean Corpuscular Volume 96.6 fl (81-99); Mean Platelet Volume 7.7 fl (7.4-10.4); Monocytes # 0.4 K/mm3 (0.1-1.0); Monocytes % 5.3 % (1.7-9.3); Neutrophils # 6.7 K/mm3 (1.8-7.8); Neutrophils % 80.1 % (37.0-80.0); Platelet Count 155 K/mm3 (142-424); Red Blood Count 4.34 M/mm3 (4.20-5.40); Red Cell Distribution Width 17.1 % (11.5-17.5); White Blood Count 8.4 K/mm3 (4.8-10.8)
[2020-11-13 09:08] LABS: Alanine Aminotransferase 19 U/L (12-78); Albumin/Globulin Ratio 1.3 (1.1-1.8); Alkaline Phosphatase 118 U/L (38-126); Anion Gap 11.5 mEq/L (5-15); Aspartate Amino Transferase 32 U/L (14-36); Bilirubin,Total 0.6 mg/dl (0.2-1.3); Blood Urea Nitrogen 18 mg/dl (7-17); Calcium 8.9 mg/dl (8.4-10.2); Carbon Dioxide 28 mmol/L (22.0-30.0); Chloride 106 mmol/L (98-107); Creatinine Clearance Estimated 68 mL/min (50-200); Estimated Glomerular Filt Rate 83 ml/min (>60); GFR (African American) 100 ML/MIN (>60); Glucose 125 mg/dl (74-100); Potassium 4.5 mmoL/L (3.5-5.1); Sodium 141 mmol/L (136-145)
--- NOTE | 2020-11-13 09:23 | CT_ITS ---
PROCEDURE: CT ABDOMEN PELVIS W CON CLINICAL INDICATION: COLON CA Follow up No chemo at this time COMPARISON: CT ABDPELW CT ABD PELVIS W/ CONTRAST from 05/15/[address] ABDOMEN PELVIS W CON from 04/05/[address] ABDOMEN PELVIS W CON from 07/04/2020 TECHNIQUE: IV Contrast: 75ML Isovue 370 Oral Contrast 450ml Redicat Axial images obtained with sagittal and coronal reformats. All CT scans at the facility use one or more dose reduction, viz: automated exposure control, ma/kV adjustment per patient size (including targeted exams where dose is matched to indication, i.e. head), or iterative reconstruction technique. FINDINGS: LOWER THORAX: Please see chest CT report performed on the same day ABDOMEN & PELVIS: The right hemidiaphragm is elevated as before. The liver, spleen, adrenal glands, and pancreas have an unremarkable appearance. Bilateral parapelvic renal cysts are once again noted. There is a nonobstructing stone in the lower pole of the right kidney at 12 mm. There has been a prior cholecystectomy. No biliary dilatation. There is a right lower quadrant hernia containing a loop small bowel. This could be due to prior ileostomy site. Please correlate with patient's surgical history. There has been a prior left hemicolectomy with left lower quadrant colostomy with herniation of large bowel into the colostomy site. No evidence of bowel obstruction. No evidence of intra-abdominal metastasis. No retroperitoneal mass or adenopathy. Prior hysterectomy Grade 1 spondylitic spondylolisthesis L5-S1. No lytic or blastic lesions apparent. IMPRESSION: Overall no change with no evidence of intra-abdominal metastasis. Right lower quadrant abdominal wall hernia containing a loop of small bowel. This could be due to prior ileostomy site. Please correlate with surgical history. Status post left hemicolectomy with left lower quadrant colostomy and herniation of large bowel into the colostomy site. Dictated by: Didier Ortiz MD 11/14/2020 07:50 Didier Ortiz MD in [facility] 11/14/2020 07:50
--- NOTE | 2020-11-13 09:23 | CT_ITS ---
PROCEDURE: CT CHEST W CON CLINCAL INDICATION: COLON CA Follow up No chemo at this time COMPARISON: CT CT CHEST W CON from 07/04/2020 TECHNIQUE: IV Contrast: 75ml Isovue 370 Axial images obtained with sagittal and coronal reformats. All CT scans at the facility use one or more dose reduction, viz: automated exposure control, ma/kV adjustment per patient size (including targeted exams where dose is matched to indication, i.e. head), or iterative reconstruction technique. FINDINGS: No obvious mediastinal mass. There are numerous nodules in the right perihilar region and in the right lower lobe with a conglomerate soft tissue mass in the right lower lobe at 5 cm transverse and 2.4 cm AP composed of multiple pulmonary nodules. These have increased in size compared to the previous exam. A 15 mm by 18 mm nodules present in the superior aspect of the right lower lobe previously measuring 14 x 15 mm. There is a 2.4 by 1.7 cm nodule in the right lower lobe medially in the as ago esophageal recess area previously measuring 2.1 cm. There are numerous other nodules also present in the right lower lobe which is increased in size. A 1.4 cm nodules present in the right upper lobe inferiorly along the major fissure previously at 1 cm. A macro lobulated 11 mm nodules present in the left lower lobe posteriorly previously at 9 mm. No effusions. No bony destructive process apparent. There are degenerative changes in the thoracic spine with mild kyphosis. There is a MediPort catheter present from left subclavian approach IMPRESSION: Progression of pulmonary metastasis as described above. Dictated by: Didier Ortiz MD 11/14/2020 09:18 Didier Ortiz MD in [facility] 11/14/2020 09:18
== END 2020-11-13 10:10 | disposition home or self-care (01) ==
LOC: RAD 08:39
PROVIDERS: PCP Nurse Practitioner Family; Visit Provider Internal Medicine Medical Oncology
DX: C20 Malignant neoplasm of rectum (principal); Z03.89 Encounter for observation for other suspected diseases and conditions ruled out; C18.9 Malignant neoplasm of colon, unspecified
CPT/HCPCS: 71260; 74177; 80053; 85025; J1642; Q9967

== ENCOUNTER 2020-12-14 08:37 | Outpatient (CLI) | payer MEDICARE, OTHER, SELFPAY ==
[2020-12-14 08:47] VITALS: BMI 35.3
[2020-12-14 09:11] LABS: Basophils # 0.1 K/mm3 (0-0.2); Eosinophils # 0.2 K/mm3 (0.0-0.4); Eosinophils % 3.2 % (0.1-12.0); Hematocrit 44.5 % (37.0-47.0); Hemoglobin 14.6 g/dL (12.2-16.2); Mean Corpuscular HGB Conc 32.9 g/dL (31.8-35.4); Mean Corpuscular Hemoglobin 30.7 pg (27.0-31.2); Mean Corpuscular Volume 93.2 fl (81-99); Mean Platelet Volume 9.6 fl (7.4-10.4); Monocytes # 0.4 K/mm3 (0.1-1.0); Monocytes % 5.7 % (1.7-9.3); Neutrophils # 4.8 K/mm3 (1.8-7.8); Neutrophils % 75.1 % (37.0-80.0); Platelet Count 177 K/mm3 (142-424); Red Blood Count 4.77 M/mm3 (4.20-5.40); Red Cell Distribution Width 15.1 % (11.5-17.5); White Blood Count 6.4 K/mm3 (4.8-10.8)
[2020-12-14 09:12] LABS: Chloride 110 mmol/L (98-107); Potassium 4.3 mmoL/L (3.5-5.1); Sodium 142 mmol/L (136-145)
[2020-12-14 09:14] LABS: Blood Urea Nitrogen 18 mg/dl (7-17); Creatinine Clearance Estimated 69 mL/min (50-200); Estimated Glomerular Filt Rate 83 ml/min (>60); GFR (African American) 100 ML/MIN (>60)
[2020-12-14 09:15] LABS: Alanine Aminotransferase 20 U/L (12-78); Albumin/Globulin Ratio 1.3 (1.1-1.8); Alkaline Phosphatase 113 U/L (38-126); Anion Gap 11.3 mEq/L (5-15); Aspartate Amino Transferase 32 U/L (14-36); Bilirubin,Total 0.4 mg/dl (0.2-1.3); Calcium 8.7 mg/dl (8.4-10.2); Carbon Dioxide 25 mmol/L (22.0-30.0); Globulin 3.1 g/dL (1.3-3.2); Glucose 127 mg/dl (74-100); Total Protein,Serum 7.1 g/dl (6.3-8.2)
== END 2020-12-14 09:05 | disposition home or self-care (01) ==
LOC: INF 08:40
PROVIDERS: PCP Nurse Practitioner Family; Visit Provider Internal Medicine Medical Oncology
DX: C18.9 Malignant neoplasm of colon, unspecified (principal); Z45.2 Encounter for adjustment and management of vascular access device
CPT/HCPCS: 80053; 85025; J1642

== ENCOUNTER 2021-01-04 07:53 | Outpatient (CLI) | payer MEDICARE, OTHER, SELFPAY ==
[2021-01-04 08:08] VITALS: BMI 33.7
[2021-01-04 08:25] LABS: Basophils # 0.1 K/mm3 (0-0.2); Eosinophils # 0.2 K/mm3 (0.0-0.4); Eosinophils % 3.1 % (0.1-12.0); Hematocrit 46.2 % (37.0-47.0); Hemoglobin 14.9 g/dL (12.2-16.2); Lymphocytes # 1.4 K/mm3 (0.7-4.5); Lymphocytes % 19.9 % (10-50); Mean Corpuscular HGB Conc 32.2 g/dL (31.8-35.4); Mean Corpuscular Hemoglobin 30.5 pg (27.0-31.2); Mean Corpuscular Volume 94.7 fl (81-99); Monocytes # 0.5 K/mm3 (0.1-1.0); Monocytes % 7.5 % (1.7-9.3); Neutrophils % 68.6 % (37.0-80.0); Platelet Count 126 K/mm3 (142-424); Red Blood Count 4.88 M/mm3 (4.20-5.40); Red Cell Distribution Width 14.6 % (11.5-17.5); White Blood Count 7.2 K/mm3 (4.8-10.8)
[2021-01-04 08:28] LABS: Chloride 100 mmol/L (98-107); Sodium 139 mmol/L (136-145)
[2021-01-04 08:31] LABS: Alanine Aminotransferase 25 U/L (12-78); Albumin Level 4.2 g/dl (3.5-5.0); Albumin/Globulin Ratio 1.3 (1.1-1.8); Alkaline Phosphatase 119 U/L (38-126); Aspartate Amino Transferase 37 U/L (14-36); Bilirubin,Total 0.7 mg/dl (0.2-1.3); Blood Urea Nitrogen 42 mg/dl (7-17); Calcium 9.8 mg/dl (8.4-10.2); Carbon Dioxide 29 mmol/L (22.0-30.0); Creatinine Clearance Estimated 66 mL/min (50-200); Estimated Glomerular Filt Rate 55 ml/min (>60); GFR (African American) 67 ML/MIN (>60); Globulin 3.2 g/dL (1.3-3.2); Glucose 118 mg/dl (74-100); Total Protein,Serum 7.4 g/dl (6.3-8.2)
== END 2021-01-04 08:15 | disposition home or self-care (01) ==
LOC: INF 07:55
PROVIDERS: PCP Nurse Practitioner Family; Visit Provider Internal Medicine Medical Oncology
DX: C20 Malignant neoplasm of rectum (principal); Z45.2 Encounter for adjustment and management of vascular access device
CPT/HCPCS: 80053; 85025; J1642

== ENCOUNTER 2021-01-25 08:26 | Outpatient (CLI) | payer MEDICARE, OTHER, SELFPAY ==
[2021-01-25 08:32] VITALS: BMI 34.5
[2021-01-25 08:50] LABS: Basophils # 0.1 K/mm3 (0-0.2); Basophils % 1.2 % (0.1-2.0); Eosinophils # 0.2 K/mm3 (0.0-0.4); Eosinophils % 2.8 % (0.1-12.0); Hemoglobin 14.3 g/dL (12.2-16.2); Lymphocytes # 1.6 K/mm3 (0.7-4.5); Lymphocytes % 19.4 % (10-50); Mean Corpuscular HGB Conc 32.4 g/dL (31.8-35.4); Mean Corpuscular Hemoglobin 30.2 pg (27.0-31.2); Mean Corpuscular Volume 93.3 fl (81-99); Mean Platelet Volume 8.9 fl (7.4-10.4); Monocytes # 0.5 K/mm3 (0.1-1.0); Monocytes % 5.9 % (1.7-9.3); Neutrophils # 5.6 K/mm3 (1.8-7.8); Neutrophils % 70.7 % (37.0-80.0); Platelet Count 143 K/mm3 (142-424); Red Blood Count 4.72 M/mm3 (4.20-5.40)
[2021-01-25 09:00] LABS: Chloride 109 mmol/L (98-107); Potassium 4.6 mmoL/L (3.5-5.1); Sodium 140 mmol/L (136-145)
[2021-01-25 09:03] LABS: Alanine Aminotransferase 22 U/L (12-78); Albumin Level 3.5 g/dl (3.5-5.0); Albumin/Globulin Ratio 1.3 (1.1-1.8); Alkaline Phosphatase 107 U/L (38-126); Anion Gap 12.6 mEq/L (5-15); Aspartate Amino Transferase 35 U/L (14-36); Bilirubin,Total 0.3 mg/dl (0.2-1.3); Blood Urea Nitrogen 31 mg/dl (7-17); Carbon Dioxide 23 mmol/L (22.0-30.0); Creatinine Clearance Estimated 67 mL/min (50-200); Estimated Glomerular Filt Rate 62 ml/min (>60); GFR (African American) 75 ML/MIN (>60); Globulin 2.8 g/dL (1.3-3.2); Total Protein,Serum 6.3 g/dl (6.3-8.2)
[2021-01-25 09:04] LABS: Calcium 8.4 mg/dl (8.4-10.2); Glucose 108 mg/dl (74-100)
== END 2021-01-25 08:45 | disposition home or self-care (01) ==
LOC: INF 08:27
PROVIDERS: PCP Nurse Practitioner Family; Visit Provider Internal Medicine Medical Oncology
DX: C18.9 Malignant neoplasm of colon, unspecified (principal); Z45.2 Encounter for adjustment and management of vascular access device
CPT/HCPCS: 80053; 85025; J1642

== ENCOUNTER 2021-02-22 08:07 | Outpatient (CLI) | payer MEDICARE, OTHER, SELFPAY ==
[2021-02-22 08:28] VITALS: BMI 33.0
[2021-02-22 08:37] LABS: Basophils # 0.1 K/mm3 (0-0.2); Basophils % 0.8 % (0.1-2.0); Eosinophils # 0.2 K/mm3 (0.0-0.4); Eosinophils % 2.8 % (0.1-12.0); Hematocrit 43.5 % (37.0-47.0); Hemoglobin 13.9 g/dL (12.2-16.2); Lymphocytes % 11.6 % (10-50); Mean Corpuscular HGB Conc 31.8 g/dL (31.8-35.4); Mean Corpuscular Hemoglobin 29.8 pg (27.0-31.2); Mean Corpuscular Volume 93.4 fl (81-99); Monocytes # 0.5 K/mm3 (0.1-1.0); Monocytes % 5.5 % (1.7-9.3); Neutrophils # 6.7 K/mm3 (1.8-7.8); Neutrophils % 79.4 % (37.0-80.0); Platelet Count 119 K/mm3 (142-424); Red Blood Count 4.66 M/mm3 (4.20-5.40); Red Cell Distribution Width 15.5 % (11.5-17.5); White Blood Count 8.4 K/mm3 (4.8-10.8)
--- NOTE | 2021-02-22 08:42 | CT_ITS ---
PROCEDURE: CT ABDOMEN PELVIS WO/W CON CLINICAL INDICATION: COLON CA COMPARISON: CT CT ABDOMEN PELVIS W CON from 11/13/2020 TECHNIQUE: IV Contrast: 75ML Isovue 370 Oral Contrast 450ml Redicat Axial images obtained with sagittal and coronal reformats. All CT scans at the facility use one or more dose reduction, viz: automated exposure control, ma/kV adjustment per patient size (including targeted exams where dose is matched to indication, i.e. head), or iterative reconstruction technique. FINDINGS: LOWER THORAX: Please see chest CT report of the same day ABDOMEN & PELVIS: Prior cholecystectomy. The liver, spleen, adrenal glands, and pancreas have an unremarkable appearance. A 12 mm stone in the lower pole of the right kidney. Bilateral parapelvic renal cysts are present. No hydronephrosis. No intestinal obstruction or free air. The there is a left lower quadrant colostomy with herniation of large bowel into the ostomy site.. No evidence of appendicitis. No abdominal or pelvic mass. There is a small ventral abdominal wall hernia in the lower abdominal region containing a loop of small bowel. No evidence of intestinal obstruction. Prior hysterectomy. No acute bony findings. Grade 1 spondylolisthesis L5 on S1 IMPRESSION: 1. No convincing evidence of abdominal metastasis. 2. No change ventral abdominal wall hernia containing a loop of small bowel without evidence of obstruction. 3. No change status post left hemicolectomy with left lower quadrant colostomy and herniation of large bowel loops into the colostomy site. Dictated by: Didier Ortiz MD 02/23/2021 10:12 Didier Ortiz MD in [facility] 02/23/2021 10:12
--- NOTE | 2021-02-22 08:42 | CT_ITS ---
PROCEDURE: CT CHEST WO/W CON CLINCAL INDICATION: COLON CA COMPARISON: CT CT CHEST W CON from 11/13/2020 TECHNIQUE: IV Contrast: 75ml Isovue 370 Axial images obtained with sagittal and coronal reformats. All CT scans at the facility use one or more dose reduction, viz: automated exposure control, ma/kV adjustment per patient size (including targeted exams where dose is matched to indication, i.e. head), or iterative reconstruction technique. FINDINGS: HEART AND MEDIASTINAL STRUCTURES: No mediastinal mass apparent. No evidence of aortic aneurysm or central pulmonary embolus. A MediPort catheter is present from left subclavian approach with the tip in the region the distal SVC. LUNGS AND PLEURAL SPACES: Multiple pulmonary nodules are once again noted most extensive in the right lower lobe superiorly. The right-sided nodules do not appear significantly changed. A nodules present in the left lower lobe posteriorly measuring 14 x 10 x 7 mm and is slightly increased in size previously measuring 13 x 7 x 5 mm. BONY STRUCTURES: No acute bony abnormalities apparent. UPPER ABDOMEN: Please see abdomen report of the same day ADDITIONAL FINDINGS: No other significant abnormalities. IMPRESSION: There are numerous pulmonary nodules consistent with metastatic disease most extensive in the superior segment of the right lower lobe and right perihilar region. These nodules do not appear significantly changed. A nodule in the left lower lobe however is slightly more prominent from the previous exam. No new nodules apparent. Dictated by: Didier Ortiz MD 02/23/2021 10:05 Didier Ortiz MD in [facility] 02/23/2021 10:05
[2021-02-22 08:44] LABS: Alanine Aminotransferase 22 U/L (12-78); Albumin Level 3.8 g/dl (3.5-5.0); Albumin/Globulin Ratio 1.3 (1.1-1.8); Alkaline Phosphatase 87 U/L (38-126); Anion Gap 12.2 mEq/L (5-15); Aspartate Amino Transferase 32 U/L (14-36); Bilirubin,Total 0.3 mg/dl (0.2-1.3); Blood Urea Nitrogen 22 mg/dl (7-17); Carbon Dioxide 21 mmol/L (22.0-30.0); Chloride 112 mmol/L (98-107); Creatinine Clearance Estimated 64 mL/min (50-200); Estimated Glomerular Filt Rate 83 ml/min (>60); GFR (African American) 100 ML/MIN (>60); Glucose 118 mg/dl (74-100); Potassium 4.2 mmoL/L (3.5-5.1); Sodium 141 mmol/L (136-145); Total Protein,Serum 6.8 g/dl (6.3-8.2)
== END 2021-02-22 09:51 | disposition home or self-care (01) ==
LOC: RAD 08:09 → INF 08:12
PROVIDERS: PCP Nurse Practitioner Family; Visit Provider Internal Medicine Medical Oncology
DX: C18.9 Malignant neoplasm of colon, unspecified (principal)
CPT/HCPCS: 71270; 74178; 80053; 85025; J1642; Q9967

== ENCOUNTER → 2021-06-14 08:07 | Outpatient (CLI) | payer MEDICARE, OTHER, SELFPAY ==
[2021-06-14 08:14] VITALS: BMI 32.2
--- NOTE | 2021-06-14 08:29 | CT_ITS ---
FINAL REPORT TECHNIQUE: After the administration of oral and intravenous contrast, axial images were obtained through the abdomen and pelvis by computed tomography. The study was performed with techniques to keep radiation dose as low as reasonably achievable, (ALARA). Individual dose reduction techniques using automated exposure control or adjustment of mA and/or kV according to the patient's size were employed. CLINICAL HISTORY: COLON CANCER COMPARISON: February 22, 2021 FINDINGS: Abdomen: The liver parenchyma is homogeneous. The gallbladder is absent. The spleen, pancreas and adrenals appear unremarkable. There is a 13 mm non obstructing stone in the lower pole of the right kidney. There is a left anterior abdominal wall ostomy. There is a large peristomal hernia containing several loops of colon. This finding is similar to the previous. The aorta is normal in caliber. There is no free fluid or adenopathy. Pelvis: There is no pelvic mass or inflammation. The appendix appears unremarkable. Postoperative changes from prior left hemicolectomy are noted. The urinary bladder is unremarkable. There is no free fluid or adenopathy. IMPRESSION: Stable left anterior abdominal wall ostomy with a peristomal hernia containing colon, similar to previous. 13 mm nonobstructing right renal stone. No definite evidence of metastases. Reviewed, Interpreted and Dictated by Lukas Johnson MD Transcribed by Yaz Fan Authenticated by Lukas Johnson MD on 06/14/2021 01:57:[address] [facility]
--- NOTE | 2021-06-14 08:29 | CT_ITS ---
FINAL REPORT TECHNIQUE: After the administration of intravenous contrast, axial images through the chest were performed by computed tomography. This study was performed with techniques to keep radiation doses as low as reasonably achievable, (ALARA). Individualized dose reduction techniques using automated exposure control or adjustment of mA and/or kV according to the patient's size were employed. CLINICAL HISTORY: COLON CANCER COMPARISON: February 22, 2021 FINDINGS: There is no axillary adenopathy. There is no significant hilar or mediastinal adenopathy. The mediastinal vasculature is well opacified. The heart size is normal. There is no pericardial or pleural effusion. Again seen are multiple noncalcified nodules in both lower lobes which are most numerous in the superior segment of the right lower lobe. Individual nodules measure up to 2.3 cm in greatest dimension. Some of the nodules are stable compared to the previous while some others have decreased slightly in size. No new nodules are identified. IMPRESSION: Essentially stable bibasilar pulmonary nodules which may be related to metastases. Post inflammatory nodules would be a secondary consideration. If not already obtained, a needle sampling may be of value to confirm the nature of these nodules. Reviewed, Interpreted and Dictated by Lukas Johnson MD Transcribed by Yaz Fan Authenticated by Lukas Johnson MD on 06/14/2021 01:57:18 PM [facility]
[2021-06-14 08:37] LABS: Chloride 104 mmol/L (98-107); Potassium 4.3 mmoL/L (3.5-5.1); Sodium 134 mmol/L (136-145)
[2021-06-14 08:40] LABS: Alanine Aminotransferase 21 U/L (12-78); Albumin Level 3.9 g/dl (3.5-5.0); Albumin/Globulin Ratio 1.3 (1.1-1.8); Alkaline Phosphatase 89 U/L (38-126); Anion Gap 7.3 mEq/L (5-15); Aspartate Amino Transferase 34 U/L (14-36); Bilirubin,Total 0.7 mg/dl (0.2-1.3); Blood Urea Nitrogen 22 mg/dl (7-17); Carbon Dioxide 27 mmol/L (22.0-30.0); Creatinine Clearance Estimated 62 mL/min (50-200); Estimated Glomerular Filt Rate 83 ml/min (>60); GFR (African American) 100 ML/MIN (>60); Total Protein,Serum 6.9 g/dl (6.3-8.2)
[2021-06-14 08:41] LABS: Basophils # 0.1 K/mm3 (0-0.2); Basophils % 0.7 % (0.1-2.0); Eosinophils # 0.3 K/mm3 (0.0-0.4); Eosinophils % 3.2 % (0.1-12.0); Glucose 111 mg/dl (74-100); Hematocrit 42.8 % (37.0-47.0); Hemoglobin 13.5 g/dL (12.2-16.2); Lymphocytes # 1.1 K/mm3 (0.7-4.5); Lymphocytes % 14.4 % (10-50); Mean Corpuscular HGB Conc 31.5 g/dL (31.8-35.4); Mean Corpuscular Hemoglobin 26.9 pg (27.0-31.2); Mean Corpuscular Volume 85.3 fl (81-99); Mean Platelet Volume 8.1 fl (7.4-10.4); Monocytes # 0.5 K/mm3 (0.1-1.0); Neutrophils # 5.9 K/mm3 (1.8-7.8); Neutrophils % 75.6 % (37.0-80.0); Platelet Count 142 K/mm3 (142-424); Red Blood Count 5.01 M/mm3 (4.20-5.40); Red Cell Distribution Width 15.3 % (11.5-17.5); White Blood Count 7.8 K/mm3 (4.8-10.8)
== END ==
PROVIDERS: PCP Nurse Practitioner Family; Visit Provider Internal Medicine Medical Oncology
DX: C18.9 Malignant neoplasm of colon, unspecified (principal)
CPT/HCPCS: 71260; 74177; 80053; 85025; J1642; Q9967

== ENCOUNTER 2021-08-03 09:17 | Outpatient (CLI) | payer MEDICARE, OTHER, SELFPAY ==
[2021-08-03 09:24] VITALS: BMI 32.0
[2021-08-03 09:44] LABS: Basophils # 0.1 K/mm3 (0-0.2); Basophils % 1.2 % (0.1-2.0); Eosinophils # 0.3 K/mm3 (0.0-0.4); Eosinophils % 3.1 % (0.1-12.0); Hemoglobin 12.8 g/dL (12.2-16.2); Lymphocytes # 1.1 K/mm3 (0.7-4.5); Lymphocytes % 13.6 % (10-50); Mean Corpuscular Hemoglobin 27.3 pg (27.0-31.2); Mean Corpuscular Volume 85.3 fl (81-99); Mean Platelet Volume 8.2 fl (7.4-10.4); Monocytes # 0.5 K/mm3 (0.1-1.0); Monocytes % 5.5 % (1.7-9.3); Neutrophils # 6.2 K/mm3 (1.8-7.8); Neutrophils % 76.6 % (37.0-80.0); Platelet Count 167 K/mm3 (142-424); Red Blood Count 4.69 M/mm3 (4.20-5.40); Red Cell Distribution Width 17.8 % (11.5-17.5); White Blood Count 8.1 K/mm3 (4.8-10.8)
[2021-08-03 09:47] LABS: Chloride 109 mmol/L (98-107); Potassium 4.1 mmoL/L (3.5-5.1); Sodium 140 mmol/L (136-145)
[2021-08-03 09:49] LABS: Alanine Aminotransferase 28 U/L (12-78); Alkaline Phosphatase 79 U/L (38-126); Anion Gap 12.1 mEq/L (5-15); Aspartate Amino Transferase 38 U/L (14-36); Bilirubin,Total 0.7 mg/dl (0.2-1.3); Blood Urea Nitrogen 25 mg/dl (7-17); Carbon Dioxide 23 mmol/L (22.0-30.0); Creatinine Clearance Estimated 61 mL/min (50-200); Estimated Glomerular Filt Rate 62 ml/min (>60); GFR (African American) 75 ML/MIN (>60)
[2021-08-03 09:50] LABS: Albumin Level 3.7 g/dl (3.5-5.0); Albumin/Globulin Ratio 1.2 (1.1-1.8); Calcium 8.2 mg/dl (8.4-10.2); Glucose 99 mg/dl (74-100); Total Protein,Serum 6.7 g/dl (6.3-8.2)
== END 2021-08-03 09:40 | disposition home or self-care (01) ==
LOC: INF 09:19
PROVIDERS: PCP Nurse Practitioner Family; Visit Provider Internal Medicine Medical Oncology
DX: C18.9 Malignant neoplasm of colon, unspecified (principal); Z45.2 Encounter for adjustment and management of vascular access device
CPT/HCPCS: 80053; 85025; J1642

== ENCOUNTER 2021-09-03 08:23 | Outpatient (CLI) | payer MEDICARE, OTHER, SELFPAY ==
[2021-09-03 08:37] VITALS: BMI 30.2
--- NOTE | 2021-09-03 08:50 | CT_ITS ---
FINAL REPORT CLINICAL HISTORY: COLON CANCER, followup COMPARISON: June 14, 2021 FINDINGS: CT CHEST WITH AND WITHOUT CONTRAST TECHNIQUE: Axial images through the chest were performed by computed tomography before and after the administration of IV contrast. This study was performed with techniques to keep radiation doses as low as reasonably achievable, (ALARA). Individualized dose reduction techniques using automated exposure control or adjustment of mA and/or kV according to the patient's size were employed. FINDINGS: There is a left subclavian chest port. There is no axillary adenopathy. There is no hilar or mediastinal adenopathy. No axillary mass is identified. The heart size is normal. There is no pericardial or pleural effusion. There are multiple pulmonary nodules. A right lower lobe nodule measures 2.3 cm, previously measured 2.2 cm. A nodule posteromedial to this measures 2.9 cm, previously measured 1.5 cm. There is a posterior left lower lobe nodule measuring 1.8 cm, stable. IMPRESSION: Slight worsening of pulmonary metastatic disease. Reviewed, Interpreted and Dictated by Pedro Luis Gaming III, MD Transcribed by Mary Martinez Authenticated by Pedro Luis Gaming III, MD on 09/03/2021 11:19:10 AM [facility]
--- NOTE | 2021-09-03 08:50 | CT_ITS ---
FINAL REPORT TECHNIQUE: Axial CT images of the abdomen and pelvis were obtained before and after the administration of IV contrast. Oral contrast was administered.This study was performed with techniques to keep radiation doses as low as reasonably achievable (ALARA). Individualized dose reduction techniques using automated exposure control or adjustment of mA and/or kV according to the patient''s size were employed. CLINICAL HISTORY: COLON CANCER. taking chemo pill. COMPARISON: June 14, 2021 FINDINGS: Abdomen: The liver has an unremarkable appearance, without evidence of mass or biliary duct dilatation. The patient is status post cholecystectomy. The spleen is unremarkable. No adrenal masses present. The pancreas has an unremarkable appearance. There is a 12 mm nonobstructive stone in the lower pole of the right kidney. There are probable bilateral renal parapelvic cysts. The aorta is normal in caliber. There is no free fluid or adenopathy. No mass or abnormal fluid collection is seen. Pelvis: The appendix is normal. The urinary bladder is unremarkable. No inflammatory process is seen. There is no evidence of mass or adenopathy. There is a left abdomen colostomy with peristomal hernia containing nonobstructive portion of the colon. The patient is status post hysterectomy. There are bilateral L5 pars defects. IMPRESSION: Nonobstructive right renal stone. Probable bilateral renal parapelvic cysts. Colostomy with peristomal hernia containing nonobstructive portion of colon. Bilateral L5 pars defects. Reviewed, Interpreted and Dictated by Pedro Luis Gaming III, MD Transcribed by Mary Martinez Authenticated by Pedro Luis Gaming III, MD on 09/03/2021 11:19:21 AM [facility]
[2021-09-03 08:58] LABS: Basophils # 0.1 K/mm3 (0-0.2); Basophils % 1.2 % (0.1-2.0); Eosinophils # 0.2 K/mm3 (0.0-0.4); Eosinophils % 2.3 % (0.1-12.0); Hematocrit 40.3 % (37.0-47.0); Hemoglobin 12.9 g/dL (12.2-16.2); Lymphocytes % 11.9 % (10-50); Mean Corpuscular HGB Conc 31.9 g/dL (31.8-35.4); Mean Corpuscular Hemoglobin 26.9 pg (27.0-31.2); Mean Corpuscular Volume 84.4 fl (81-99); Mean Platelet Volume 8.2 fl (7.4-10.4); Monocytes # 0.4 K/mm3 (0.1-1.0); Monocytes % 5.4 % (1.7-9.3); Neutrophils # 6.4 K/mm3 (1.8-7.8); Neutrophils % 79.3 % (37.0-80.0); Platelet Count 134 K/mm3 (142-424); Red Blood Count 4.77 M/mm3 (4.20-5.40); Red Cell Distribution Width 18.1 % (11.5-17.5); White Blood Count 8.1 K/mm3 (4.8-10.8)
[2021-09-03 09:20] LABS: Alanine Aminotransferase 26 U/L (12-78); Albumin Level 3.6 g/dl (3.5-5.0); Albumin/Globulin Ratio 1.3 (1.1-1.8); Alkaline Phosphatase 85 U/L (38-126); Anion Gap 9.5 mEq/L (5-15); Aspartate Amino Transferase 39 U/L (14-36); Bilirubin,Total 0.5 mg/dl (0.2-1.3); Blood Urea Nitrogen 20 mg/dl (7-17); Calcium 8.5 mg/dl (8.4-10.2); Carbon Dioxide 25 mmol/L (22.0-30.0); Chloride 108 mmol/L (98-107); Creatinine Clearance Estimated 60 mL/min (50-200); Estimated Glomerular Filt Rate 83 ml/min (>60); GFR (African American) 100 ML/MIN (>60); Globulin 2.8 g/dL (1.3-3.2); Glucose 119 mg/dl (74-100); Potassium 3.5 mmoL/L (3.5-5.1); Sodium 139 mmol/L (136-145); Total Protein,Serum 6.4 g/dl (6.3-8.2)
== END 2021-09-03 09:56 | disposition home or self-care (01) ==
LOC: RAD 08:25 → INF 08:38
PROVIDERS: PCP Nurse Practitioner Family; Visit Provider Internal Medicine Medical Oncology
DX: C20 Malignant neoplasm of rectum (principal); Z45.2 Encounter for adjustment and management of vascular access device
CPT/HCPCS: 36591; 71270; 74178; 80053; 85025; J1642; Q9967

== ENCOUNTER 2021-11-01 08:06 | Outpatient (CLI) | payer MEDICARE, OTHER, SELFPAY ==
[2021-11-01 08:08] VITALS: BMI 31.6
[2021-11-01 08:26] LABS: Basophils # 0.1 K/mm3 (0-0.2); Basophils % 0.9 % (0.1-2.0); Eosinophils # 0.2 K/mm3 (0.0-0.4); Eosinophils % 1.6 % (0.1-12.0); Hematocrit 40.2 % (37.0-47.0); Hemoglobin 12.2 g/dL (12.2-16.2); Lymphocytes # 1.5 K/mm3 (0.7-4.5); Lymphocytes % 17.1 % (10-50); Mean Corpuscular HGB Conc 30.2 g/dL (31.8-35.4); Mean Corpuscular Hemoglobin 27.2 pg (27.0-31.2); Mean Corpuscular Volume 90.1 fl (81-99); Mean Platelet Volume 10.1 fl (7.4-10.4); Monocytes # 0.6 K/mm3 (0.1-1.0); Neutrophils # 6.6 K/mm3 (1.8-7.8); Neutrophils % 73.4 % (37.0-80.0); Platelet Count 191 K/mm3 (142-424); Red Blood Count 4.46 M/mm3 (4.20-5.40); Red Cell Distribution Width 18.9 % (11.5-17.5)
[2021-11-01 08:31] LABS: Alanine Aminotransferase 20 U/L (12-78); Albumin Level 3.5 g/dl (3.5-5.0); Albumin/Globulin Ratio 1.1 (1.1-1.8); Alkaline Phosphatase 83 U/L (38-126); Anion Gap 15.6 mEq/L (5-15); Aspartate Amino Transferase 30 U/L (14-36); Bilirubin,Total 0.2 mg/dl (0.2-1.3); Calcium 8.7 mg/dl (8.4-10.2); Carbon Dioxide 13 mmol/L (22.0-30.0); Chloride 116 mmol/L (98-107); Creatinine Clearance Estimated 24 mL/min (50-200); Estimated Glomerular Filt Rate 19 ml/min (>60); GFR (African American) 23 ML/MIN (>60); Globulin 3.1 g/dL (1.3-3.2); Glucose 105 mg/dl (74-100); Potassium 5.6 mmoL/L (3.5-5.1); Sodium 139 mmol/L (136-145); Total Protein,Serum 6.6 g/dl (6.3-8.2)
[2021-11-01 08:34] LABS: Blood Urea Nitrogen 80 mg/dl (7-17)
--- NOTE | 2021-11-01 08:38 | PC.NURSE ---
critical lab result called from patience in lab, BUN of 80. Lab result, name and verified, notified, no new orders at this time.
== END 2021-11-01 08:30 | disposition still patient (30) ==
LOC: INF 08:07
PROVIDERS: PCP Nurse Practitioner Family; Visit Provider Internal Medicine Medical Oncology
DX: C18.9 Malignant neoplasm of colon, unspecified (principal)
CPT/HCPCS: 36591; 80053; 85025; J1642

== ENCOUNTER 2021-11-01 09:03 | Observation (INO) | payer MEDICARE, OTHER, SELFPAY ==
[2021-11-01] VITALS (16 sets, daily range): BP systolic 85–118; BP diastolic 36–61; PULSE 44–77; RESP 12–20; TEMP 36.4–36.9; O2SAT 93–100; BMI 27.1; BMI 25.9
--- NOTE | 2021-11-01 09:19 | HMH.EDGENADL ---
ED Disposition Clinical Impression: Dehydration, WOO (acute kidney injury), Hyperkalemia Disposition: Admitted as Observation Condition on Discharge: Good Referrals: Dori Newman [Primary Care Provider] - Time of Disposition: 12:11 - Critical Care Critical Care Time: No Attestation: On 11/01/21, the high probability of a clinically significant, sudden or life threatening deterioration of the following system(s) required my full and direct attention, intervention and personal management. The time I documented below is in addition to time spent performing reported procedures but includes the following listed in this critical care notation. Medical Decision Making - Medical Records Medical records reviewed: Yes: I reviewed the patient's medical records. - Jerry Inquiry Pt receiving controlled substance: No Vital Signs: 11/01/21 09:13 11/01/21 09:30 11/01/21 10:00 Temperature 97.6 F Temperature Source Oral Pulse Rate 68 52 L Pulse Rate [Left Radial] 77 Respiratory Rate 17 20 15 Blood Pressure 90/50 L 90/50 L Blood Pressure [Right Arm] 92/58 L Blood Pressure Mean 63 Blood Pressure Mean [Right Arm] 69 02 Sat by Pulse Oximetry 93 L 99 99 Oxygen Delivery Method Room Air Room Air 11/01/21 10:30 11/01/21 10:56 11/01/21 11:01 Temperature Temperature Source Pulse Rate 58 L 44 L 48 L Pulse Rate [Left Radial] Respiratory Rate 16 15 13 Blood Pressure 91/57 L 105/39 L 118/39 L Blood Pressure [Right Arm] Blood Pressure Mean 61 68 Blood Pressure Mean [Right Arm] 02 Sat by Pulse Oximetry 96 100 99 Oxygen Delivery Method Room Air 11/01/21 11:30 11/01/21 12:01 Temperature Temperature Source Pulse Rate 48 L 60 Pulse Rate [Left Radial] Respiratory Rate 15 13 Blood Pressure 97/43 L 93/42 L Blood Pressure [Right Arm] Blood Pressure Mean 63 60 Blood Pressure Mean [Right Arm] 02 Sat by Pulse Oximetry 98 99 Oxygen Delivery Method Room Air - Lab Data Lab results reviewed: Yes: I reviewed the patient's lab results. Lab Results 11/01/21 11:29: WBC 7.7, RBC 4.15 L, Hgb 11.5 L, Hct 36.4 L, MCV 87.7, MCH 27.6, MCHC 31.5 L, RDW 19.1 H, Plt Count 158, MPV 8.9, Neut % (Auto) 80.8 H, Lymph % (Auto) 12.1, [place] % (Auto) 4.8, Eos % (Auto) 1.4, Baso % (Auto) 1.1, Neut # (Auto) 6.2, Lymph # (Auto) 0.9, [place] # (Auto) 0.4, Eos # (Auto) 0.1, Baso # (Auto) 0.1 11/01/21 11:29: Sodium 138, Potassium 5.5 H, Chloride 115 H, Carbon Dioxide 13 L, Anion Gap 15.5 H, BUN 77 H, Creatinine 2.30 H, Estimated Creat Clear 24, Estimated GFR 21 L, Est GFR ( Amer) 25 L, Glucose 112 H, Calcium 8.5, Magnesium 1.7, Total Bilirubin 0.2, AST 28, ALT 19, Alkaline Phosphatase 83, Total Protein 6.1 L, Albumin 3.3 L, Globulin 2.8, Albumin/Globulin Ratio 1.2 Result diagrams: 11/01/21 11:29 11/01/21 11:29 Orders (Tests/Meds): ED MEDICATIONS Discontinued Medications Generic Name Dose Route Start Last Admin Trade Name Freq PRN Reason Stop Dose Admin Lactated Ringer's 1,000 mls @ 999 mls/hr 11/01/21 09:15 11/01/21 11:42 Lactated Ringer's 1000 Ml Bag IV 11/01/21 11:15 999 mls/hr .Q1H1M CHRISS Administration ORDERS Category Date Time Status Rapid PCR Covid and Flu A/B Stat Lab 11/01/21 12:09 Ordered EKG Request [ECG Request by /Elma] Stat Y 11/01/21 09:14 Ordered - ECG Data Tracing #1 Sinus bradycardia at a rate of 51 Indeterminate axis IA 148 QRS 122 with right bundle branch block QTC [address]/T wave changes ECG initial impression date: 11/01/21 ECG initial impression time: 09:28 - Reevaluation(s) Time: 12:10 (mild improvement with labs, but with degree of WOO, will refer for observation in the hospital) General Adult HPI - General Chief complaint: Recheck/Abnormal Lab/Rx Stated complaint: possible dehydration Time Seen by Provider: 11/01/21 09:05 Mode of Arrival: Ambulatory Limitations: No Limitations Description of Symptoms (Recalled fro
--- NOTE | 2021-11-01 09:25 | ECG_ITS ---
APPROVED REPORT Exam: Resting ECG HR:51 bpm ECG Measurements Heart Rate 51 AXES NH 148 P 69 QRSd 122 QRS -5 QT 433 T 61 QTc 409 Conclusion SINUS BRADYCARDIA INDETERMINATE AXIS RIGHT BUNDLE BRANCH BLOCK [120+ ms QRS DURATION, UPRIGHT V1, 40+ ms S IN I/aVL/V4/V5/V6] ABNORMAL ECG UNCONFIRMED REPORT Electronically signed by : Car Abarca MD 11/04/2021 16:30:49
--- NOTE | 2021-11-01 09:58 | PC.NURSE ---
Port accessed and IV fluids hanging. blanket provided to the pt. Family at bedside
--- NOTE | 2021-11-01 10:00 | PC.NURSE ---
MD requests 1 liter of fluids, recheck labs, then give an additional liter of fluids.
--- NOTE | 2021-11-01 10:39 | PC.NURSE ---
rounded on pt and updated on the plan of care. i advised i would be back in after her fluids were finished to recheck labs
--- NOTE | 2021-11-01 11:05 | PC.NURSE ---
pt to the bathroom with assistance
--- NOTE | 2021-11-01 11:09 | PC.NURSE ---
pt ambulated to the restroom. no complications noted
--- NOTE | 2021-11-01 11:15 | PC.NURSE ---
back from bathroom and hooked back up
--- NOTE | 2021-11-01 11:22 | PC.NURSE ---
blood obtained after first liter of fluids and sent to lab. pt states she would like a tray. second liter of fluids hung and asked MD if pt could eat.
--- NOTE | 2021-11-01 11:35 | PC.NURSE ---
ordered lunch tray for pt.
[2021-11-01 11:36] LABS: Basophils # 0.1 K/mm3 (0-0.2); Basophils % 1.1 % (0.1-2.0); Eosinophils # 0.1 K/mm3 (0.0-0.4); Eosinophils % 1.4 % (0.1-12.0); Hematocrit 36.4 % (37.0-47.0); Hemoglobin 11.5 g/dL (12.2-16.2); Lymphocytes # 0.9 K/mm3 (0.7-4.5); Lymphocytes % 12.1 % (10-50); Mean Corpuscular HGB Conc 31.5 g/dL (31.8-35.4); Mean Corpuscular Hemoglobin 27.6 pg (27.0-31.2); Mean Corpuscular Volume 87.7 fl (81-99); Mean Platelet Volume 8.9 fl (7.4-10.4); Monocytes # 0.4 K/mm3 (0.1-1.0); Monocytes % 4.8 % (1.7-9.3); Neutrophils # 6.2 K/mm3 (1.8-7.8); Neutrophils % 80.8 % (37.0-80.0); Platelet Count 158 K/mm3 (142-424); Red Blood Count 4.15 M/mm3 (4.20-5.40); Red Cell Distribution Width 19.1 % (11.5-17.5); White Blood Count 7.7 K/mm3 (4.8-10.8)
[2021-11-01 11:43] LABS: Alanine Aminotransferase 19 U/L (12-78); Albumin Level 3.3 g/dl (3.5-5.0); Albumin/Globulin Ratio 1.2 (1.1-1.8); Alkaline Phosphatase 83 U/L (38-126); Anion Gap 15.5 mEq/L (5-15); Aspartate Amino Transferase 28 U/L (14-36); Bilirubin,Total 0.2 mg/dl (0.2-1.3); Blood Urea Nitrogen 77 mg/dl (7-17); Calcium 8.5 mg/dl (8.4-10.2); Carbon Dioxide 13 mmol/L (22.0-30.0); Chloride 115 mmol/L (98-107); Creatinine Clearance Estimated 24 mL/min (50-200); Estimated Glomerular Filt Rate 21 ml/min (>60); GFR (African American) 25 ML/MIN (>60); Globulin 2.8 g/dL (1.3-3.2); Glucose 112 mg/dl (74-100); Magnesium 1.7 mg/dl (1.6-2.3); Potassium 5.5 mmoL/L (3.5-5.1); Sodium 138 mmol/L (136-145); Total Protein,Serum 6.1 g/dl (6.3-8.2)
--- NOTE | 2021-11-01 12:01 | PC.NURSE ---
paged service doctor per MD request
--- NOTE | 2021-11-01 12:03 | PC.NURSE ---
speaking to dr bush
--- NOTE | 2021-11-01 12:04 | PC.NURSE ---
on the phone with
--- NOTE | 2021-11-01 12:10 | PC.NURSE ---
Care management has been called for admission
--- NOTE | 2021-11-01 12:12 | PC.NURSE ---
checked on pt at this time, pt states no needs at this time, family member at BS.
--- NOTE | 2021-11-01 12:15 | PC.NURSE ---
per superintendent warehouse per assigned to room 204
[2021-11-01 12:19] LABS: Influenza A, PCR Not Detected (NotDetected); Influenza B, PCR Not Detected (NotDetected)
--- NOTE | 2021-11-01 12:26 | HMH.PHAINT ---
MEDICATION RECONCILIATION COMPLETED ON PATIENT USING EXTERNAL FILL HISTORY FROM PHARMACY. -HEAVEN DE LA O, MARLENED
--- NOTE | 2021-11-01 12:37 | HMH.HP ---
*Admission Date: 11/01/21 <Mary Feliz 11/01/21 13:07> *Chief complaint: elevated Cr <Mary Feliz 11/01/21 13:07> *History of present illness: 71-year-old female with history of colon cancer, takes regorafenib, follows with Dr. Rodgers, was seen in the office today and had routine labs drawn. She does state she had been feeling rundown with some nausea over the past few days. Lab work today revealed moderate acute kidney injury with creatinine to 2.50, it appears her previous baseline was 0.7. She had mild hyperkalemia as well at 5.6. Currently she denies any acute symptoms. Denies any overt vomiting, diarrhea, states oral intake has been typical. (above as per ER physician) <Mary Feliz 11/01/21 13:07> [facility] History I have reviewed the patient's past medical history: Yes <Mary Feliz 11/01/21 13:07> Medical History: Reports:: Cancer (colon, lung), Congestive Heart Failure, Hyperlipidemia, Hypertension, Lung Disease, Myocardial Infarction Denies:: Diabetes Mellitus Type 1, Diabetes Mellitus Type 2, Internal Pacemaker, MRSA, Seizures <Mary Feliz 11/01/21 13:07> *Have you ever received a pneumonia vaccine?: Yes <Mary Feliz 11/01/21 13:07> *Have you received a flu vaccine this season?: Yes <Mary Feliz 11/01/21 13:07> Other Medical History: Reports: Anemia, Chemotherapy, Hypothyroidism, Thyroid Disease <Mary Feliz 11/01/21 13:07> Other Surgeries: Yes: Cholecystectomy, Colonoscopy, Colon Resection, Colostomy, Hysterectomy-Total, Other. No: Pacemaker <Mary Feliz 11/01/21 13:07> Amputation: No <Mary Feliz 11/01/21 13:07> Fractures: No <Mary Feliz 11/01/21 13:07> - *Social History Smoking Status: Never smoker <Mary Feliz 11/01/21 13:07> Alcohol Intake: never <Mary Feliz 11/01/21 13:07> Substance Use Type: denies use <Mary Feliz - 11/01/21 13:07> *Occupational Status:: retired, disabled <Mary Feliz 11/01/21 13:07> Housing: house <BaldemarMary jauregui 11/01/21 13:07> Household Members: family <TrayMary 11/01/21 13:07> *Travel in the last 8 weeks: None <Mary Feliz 11/01/21 13:07> Family Hx:: Cancer, Diabetes, Hyperlipidemia, Hypertension <Mary Feliz 11/01/21 13:07> Review of Systems - Constitutional Reports fatigue, Reports malaise, Reports weakness <Mary Feliz 11/01/21 13:07> - Eyes Denies blurry vision, Denies double vision <Mary Feliz 11/01/21 13:07> - ENT Denies nasal congestion, Denies sore throat <Mary Feliz 11/01/21 13:07> - *Cardiovascular Reports shortness of breath, Denies chest pain <Mary Feliz 11/01/21 13:07> - *Respiratory Reports shortness of breath, Denies cough <Brandan Feliza 11/01/21 13:07> - *Gastrointestinal Reports loose stools, Reports nausea, Reports vomiting, Denies abdominal pain <Mary Feliz 11/01/21 13:07> - *Genitourinary Denies difficulty urinating, Denies painful urination <Brandan Feliza 11/01/21 13:07> - *Musculoskeletal Denies joint pain <Mary Feliz 11/01/21 13:07> - *Neurologic Reports dizziness, Reports weakness, Denies headache(s) <Mary Feliz 11/01/21 13:07> Meds Home Medications Medication Instructions Recorded Confirmed Type Furosemide [Furosemide 40MG tAB*] 40 mg PO DAILY 04/29/17 11/01/21 History Potassium Chloride [Klor-con 20 20 meq PO DAILY 04/29/17 11/01/21 History mEq tablet] Docusate Sodium 100 mg PO BID 08/15/17 11/01/21 History Levothyroxine Sodium 125 mcg PO DAILY 04/24/20 11/01/21 History [Levothyroxine 125mcg (0.125mg) Tab] Spironolactone [Spironolactone 25 mg PO DAILY 05/04/20 11/01/21 History 25mg Tablet] lisinopril 20 mg tablet 20 mg PO DAILY #30 tab 07/25/20 11/01/21 Rx regorafenib 40 mg tablet 60 mg PO DAILY 12/07/20 11/01/21 History metoprolol succinate 25 mg 12.5 mg PO DAILY #30 tab 03/22/21 11/01/21 Rx tablet,extended release 24 hr cholecalciferol (vitamin D3) 1,250 1,250 mcg PO WE
--- NOTE | 2021-11-01 12:58 | PC.NURSE ---
leanne cordova at
--- NOTE | 2021-11-01 13:04 | PC.NURSE ---
checked on pt at this time, updated her that we are waiting on covid swab to result and then we will get pt up to her assigned room pt verbalized understanding, stated no needs at this time.
[2021-11-01 13:09] LABS: Coronavirus 19, PCR Detected (NotDetected)
--- NOTE | 2021-11-01 14:01 | PC.NURSE ---
Called report to ROBERT chanel
--- NOTE | 2021-11-01 14:28 | HMH.PHAVTE ---
[facility] Pharmacy VTE Monitoring - Patient Demographics Admission date: 11/01/21 Report Date: 11/01/21 Time: 14:28 Allergies/Adverse Reactions: Patient Allergies Penicillins [PENICILLINS] Allergy (Unknown, Verified 11/01/21 08:35) unknown sulfamethoxazole [From BACTRIM] Allergy (Unknown, Verified 11/01/21 08:35) unknown trimethoprim [From BACTRIM] Allergy (Unknown, Verified 11/01/21 08:35) unknown Height: 1.57 m Weight: 67.132 kg Patient Problems: Current Active Problems (Last Updated 05/27/19 @ 11:58 by Valentina Caceres, ROBERT) Colon carcinoma metastatic to lung (Chronic) Acquired hypothyroidism (Chronic) Dehydration (Acute) WOO (acute kidney injury) (Acute) Hyperkalemia (Acute) Hypotension (Acute) Aortic insufficiency (Chronic) Diastolic dysfunction (Chronic) HLD (hyperlipidemia) (Chronic) HTN (hypertension) (Chronic) - VTE Risk Labs: VTE Related Lab Results Hgb 11.5 g/dL (12.2-16.2) L 11/01/21 11:29 Hct 36.4 % (37.0-47.0) L 11/01/21 11:29 Plt Count 158 K/mm3 (142-424) 11/01/21 11:29 BUN 77 mg/dl (7-17) H 11/01/21 11:29 Creatinine 2.30 mg/dl (0.52-1.04) H 11/01/21 11:29 Estimated Creat Clear 24 mL/min (50-200) 11/01/21 11:29 - Prophylaxis VTE Prophylaxis Ordered?: Yes Types of VTE Prophylaxis: TEDS Knee High Location of Applied Device: Bilateral Lower Extremeties
--- NOTE | 2021-11-01 14:40 | PC.NURSE ---
pt transported second floor via wheelchair by second floor staff at this time.
--- NOTE | 2021-11-01 14:41 | PC.NURSE ---
Pt arrived to the floor at this time
--- NOTE | 2021-11-01 23:34 | PC.NURSE ---
2014 - DR JIMENEZ NOTIFIED OF LOW BP (80'S SYSTOLIC) AND HEARTRATE OF 48 BY PREVIOUS SHIFT RN. PT ASYMPTOMATIC AT THIS TIME. NEW ORDERS ENTERED - GIVE 1 L BOLUS OF NS.
[2021-11-02] VITALS: BP 83/52; PULSE 50; PULSE 56; RESP 17; TEMP 36.7; O2SAT 96
[2021-11-02 04:00] VITALS: BP 85/56; PULSE 54; RESP 18; TEMP 36.6; O2SAT 95
[2021-11-02 04:58] VITALS: PULSE 50
[2021-11-02 05:00] VITALS: BMI 25.9
--- NOTE | 2021-11-02 05:36 | PC.NURSE ---
Pt has been pleasant and cooperative this shift. Has rested fairly well. Reports getting up to the bathroom frequently to urinate. Pt BP has remained low this shift, but pt is asymptomatic. Pt reports that her BP is usually low, and sometimes at home the top number gets down into the 70's . Pt reports no dizziness or lightheadedness. Received a 1L bolus of NS at beginning of shift, BP remains unchanged. MD is aware. Denies any cp or soa. Remains sinus joy on telemetry, but does have small episodes of tachycardia when getting up the bathroom, however tachycardia does not sustain. Remains on room air. LS CTA. Very slight dry cough noted earlier in the shift, not producing any sputum. Abdomen soft and non-tender. No acute changes noted since initial assessment. No distress noted at this time. Left chest port-a-cath remains accessed with D51/2NS c 20k+ infusing at 100ml/hr. Will continue to monitor.
--- NOTE | 2021-11-02 06:03 | PC.NURSE ---
Blood collected from port and sent to lab.
[2021-11-02 06:29] LABS: Chloride 121 mmol/L (98-107); Potassium 5.3 mmoL/L (3.5-5.1); Sodium 140 mmol/L (136-145)
[2021-11-02 06:32] LABS: Anion Gap 8.3 mEq/L (5-15); Basophils # 0.1 K/mm3 (0-0.2); Basophils % 1.3 % (0.1-2.0); Blood Urea Nitrogen 61 mg/dl (7-17); Calcium 7.6 mg/dl (8.4-10.2); Carbon Dioxide 16 mmol/L (22.0-30.0); Creatinine Clearance Estimated 37 mL/min (50-200); Eosinophils # 0.1 K/mm3 (0.0-0.4); Eosinophils % 2.4 % (0.1-12.0); Estimated Glomerular Filt Rate 34 ml/min (>60); GFR (African American) 42 ML/MIN (>60); Glucose 113 mg/dl (74-100); Hematocrit 32.2 % (37.0-47.0); Lymphocytes # 0.7 K/mm3 (0.7-4.5); Lymphocytes % 16.7 % (10-50); Mean Corpuscular HGB Conc 30.5 g/dL (31.8-35.4); Mean Corpuscular Hemoglobin 27.6 pg (27.0-31.2); Mean Corpuscular Volume 90.6 fl (81-99); Mean Platelet Volume 8.8 fl (7.4-10.4); Monocytes # 0.3 K/mm3 (0.1-1.0); Monocytes % 7.2 % (1.7-9.3); Neutrophils # 3.2 K/mm3 (1.8-7.8); Neutrophils % 72.4 % (37.0-80.0); Platelet Count 112 K/mm3 (142-424); Red Blood Count 3.55 M/mm3 (4.20-5.40); Red Cell Distribution Width 19.2 % (11.5-17.5); White Blood Count 4.5 K/mm3 (4.8-10.8)
[2021-11-02 06:50] LABS: Hemoglobin 9.8 g/dL (12.2-16.2)
[2021-11-02 08:00] VITALS: BP 80/56; PULSE 51; RESP 16; TEMP 36.4; O2SAT 98
[2021-11-02 08:32] VITALS: PULSE 63
--- NOTE | 2021-11-02 08:47 | HMH.ACPN2 ---
Internal Medicine - PN: Subj *Date: 11/02/21 *Time: 08:47 Interval history: Patient feels better today, anxious to go home. Exam Vital signs and Labs for Last 24 Hours: Temp Pulse Resp BP Pulse Ox 97.6 F 51 L 16 80/56 L 98 11/02/21 08:00 11/02/21 08:00 11/02/21 08:00 11/02/21 08:00 11/02/21 08:00 Laboratory Results - last 24 hr 11/01/21 11:29: WBC 7.7, RBC 4.15 L, Hgb 11.5 L, Hct 36.4 L, MCV 87.7, MCH 27.6, MCHC 31.5 L, RDW 19.1 H, Plt Count 158, MPV 8.9, Neut % (Auto) 80.8 H, Lymph % (Auto) 12.1, [place] % (Auto) 4.8, Eos % (Auto) 1.4, Baso % (Auto) 1.1, Neut # (Auto) 6.2, Lymph # (Auto) 0.9, [place] # (Auto) 0.4, Eos # (Auto) 0.1, Baso # (Auto) 0.1 11/01/21 11:29: Sodium 138, Potassium 5.5 H, Chloride 115 H, Carbon Dioxide 13 L, Anion Gap 15.5 H, BUN 77 H, Creatinine 2.30 H, Estimated Creat Clear 24, Estimated GFR 21 L, Est GFR ( Amer) 25 L, Glucose 112 H, Calcium 8.5, Magnesium 1.7, Total Bilirubin 0.2, AST 28, ALT 19, Alkaline Phosphatase 83, Total Protein 6.1 L, Albumin 3.3 L, Globulin 2.8, Albumin/Globulin Ratio 1.2 11/01/21 12:09: SARS-CoV-2 (PCR) Detected A, Influenza A Untype (PCR) Not detected, Influenza Type B (PCR) Not detected 11/02/21 06:15: WBC 4.5 L D, RBC 3.55 L, Hgb 9.8 L D, Hct 32.2 L, MCV 90.6, MCH 27.6, MCHC 30.5 L, RDW 19.2 H, Plt Count 112 L D, MPV 8.8, Neut % (Auto) 72.4, Lymph % (Auto) 16.7, [place] % (Auto) 7.2, Eos % (Auto) 2.4, Baso % (Auto) 1.3, Neut # (Auto) 3.2, Lymph # (Auto) 0.7, [place] # (Auto) 0.3, Eos # (Auto) 0.1, Baso # (Auto) 0.1 11/02/21 06:15: Sodium 140, Potassium 5.3 H, Chloride 121 H, Carbon Dioxide 16 L, Anion Gap 8.3, BUN 61 H, Creatinine 1.50 H D, Estimated Creat Clear 37, Estimated GFR 34 L, Est GFR ( Amer) 42 L D, Glucose 113 H, Calcium 7.6 L Vital Signs - 24 hr 11/01/21 09:13 11/01/21 09:30 11/01/21 10:00 Temperature 97.6 F Pulse Rate 68 52 L Pulse Rate [Left Radial] 77 Respiratory Rate 17 20 15 Blood Pressure 90/50 L 90/50 L Blood Pressure [Right Arm] 92/58 L 02 Sat by Pulse Oximetry 93 L 99 99 11/01/21 10:30 11/01/21 10:56 11/01/21 11:01 Temperature Pulse Rate 58 L 44 L 48 L Pulse Rate [Left Radial] Respiratory Rate 16 15 13 Blood Pressure 91/57 L 105/39 L 118/39 L Blood Pressure [Right Arm] 02 Sat by Pulse Oximetry 96 100 99 11/01/21 11:30 11/01/21 12:01 11/01/21 13:03 Temperature Pulse Rate 48 L 60 53 L Pulse Rate [Left Radial] Respiratory Rate 15 13 17 Blood Pressure 97/43 L 93/42 L 99/47 L Blood Pressure [Right Arm] 02 Sat by Pulse Oximetry 98 99 98 11/01/21 13:31 11/01/21 13:45 11/01/21 14:01 Temperature Pulse Rate 53 L 51 L 54 L Pulse Rate [Left Radial] Respiratory Rate 16 13 19 Blood Pressure 115/42 L 110/36 L Blood Pressure [Right Arm] 02 Sat by Pulse Oximetry 100 99 100 11/01/21 14:34 11/01/21 14:38 11/01/21 14:54 Temperature 97.9 F 97.9 F Pulse Rate 54 L 62 Pulse Rate [Left Radial] 56 L Respiratory Rate 12 20 20 Blood Pressure 104/50 L 102/61 L Blood Pressure [Right Arm] 104/50 L 02 Sat by Pulse Oximetry 96 98 11/01/21 20:00 11/02/21 00:00 11/02/21 04:00 Temperature 98.4 F 98.1 F 97.9 F Pulse Rate 50 L 50 L Pulse Rate [Left Radial] 48 L 56 L 54 L Respiratory Rate 18 17 18 Blood Pressure Blood Pressure [Right Arm] 85/54 L 83/52 L 85/56 L 02 Sat by Pulse Oximetry 96 96 95 11/02/21 04:58 11/02/21 08:00 Temperature 97.6 F Pulse Rate 50 L Pulse Rate [Left Radial] 51 L Respiratory Rate 16 Blood Pressure Blood Pressure [Right Arm] 80/56 L 02 Sat by Pulse Oximetry 98 I & O for Last 24 hours: Intake & Output 10/30/21 10/31/21 11/01/21 11/02/21 23:59 23:59 23:59 23:59 Intake Total 240 / 1240 2082 Output Total 0 / 0 Balance 240 / 1240 2082 Weight 146 lb 1 oz 146 lb 1.6 oz - Constitutional no acute distress - *Routine HEENT Exam Head: Present: normocephalic Eye: Present: EOMI, PERRL ENT: Present: mucous membran
--- NOTE | 2021-11-04 23:41 | HMH.DCSUM ---
General - General Admission date:: 11/01/21 Discharge date: 11/02/21 HPI HPI: 71-year-old female with history of colon cancer, takes regorafenib, follows with Dr. Rodgers, was seen in the office today and had routine labs drawn. She does state she had been feeling rundown with some nausea over the past few days. Lab work today revealed moderate acute kidney injury with creatinine to 2.50, it appears her previous baseline was 0.7. She had mild hyperkalemia as well at 5.6. Currently she denies any acute symptoms. Denies any overt vomiting, diarrhea, states oral intake has been typical. (above as per ER physician) Hospital Course Hospital Course: The patient was admitted and started on IV fluids. She began feeling better. She was subsequently found to have COVID but was relatively asymptomatic. By 11/02/2021, her renal function improved. She was stable to be discharged home and will need to follow-up with her primary care provider in 1 week. We will stop her blood pressure medications until she is seen in follow-up. Objective Vital signs: Temp Pulse Resp BP Pulse Ox 97.6 F 63 16 80/56 L 98 11/02/21 08:00 11/02/21 08:32 11/02/21 08:00 11/02/21 08:00 11/02/21 08:00 Narrative: - Constitutional no acute distress <Mary Feliz 11/01/21 13:07> - *Routine HEENT Exam Head: Present: normocephalic <Mary Feliz 11/01/21 13:07> Eye: Present: EOMI, PERRL <Mary Feliz 11/01/21 13:07> ENT: Present: mucous membranes dry <Mary Feliz 11/01/21 13:07> - *Routine Neck Exam Present: supple. Absent: lymphadenopathy <Mary Feliz 11/01/21 13:07> - *Routine Respiratory Exam Present: CTA bilaterally <Mary Feliz 11/01/21 13:07> - *Routine Cardiovascular Exam Present: RRR <Mary Feliz 11/01/21 13:07> - *Routine Abdominal Exam Present: soft, normoactive bowel sounds, other (colostomy bag with stool). Absent: tenderness <Mary Feliz 11/01/21 13:07> - *Routine Rectal Exam Rectal:: deferred <Mary Feliz - 11/01/21 13:07> - *Routine Genitalia Exam Genitalia:: deferred <Mary Feliz - 11/01/21 13:07> - *Routine Extremities Exam Absent: cyanosis, clubbing, edema <Mary Feliz - 11/01/21 13:07> - *Routine Skin Exam Present: warm. Absent: rash <Mary Feliz - 11/01/21 13:07> - *Routine Neurological Exam Present: alert, oriented X3 DS: Diagnosis - Discharge Diagnosis (1) Hypotension Status: Acute (2) WOO (acute kidney injury) Status: Acute (3) Dehydration Status: Acute (4) Hyperkalemia Status: Acute (5) Aortic insufficiency Status: Chronic (6) Colon carcinoma metastatic to lung Status: Chronic (7) Diastolic dysfunction Status: Chronic (8) HTN (hypertension) Status: Chronic (9) Acquired hypothyroidism Status: Chronic (10) HLD (hyperlipidemia) Status: Chronic (11) COVID-19 Status: Acute Discharge Plan - Patient Discharge Instructions ACTIVITY: Continue current activity DIET: advance to your usual diet Patient Instructions: DI for Dehydration -- Adult, Acute Kidney Injury, DI for Hyperkalemia, DI for COVID-19 (Suspected or Confirmed ) - Follow up Plan Follow up with: Dori Newman [Primary Care Provider] - 11/09/21 10:30 am Disposition: Home, Self-Care Condition at discharge:: Improved Home Medications: Home Medications Medication Instructions Recorded Confirmed Type Docusate Sodium 100 mg PO BID 08/15/17 11/01/21 History Levothyroxine Sodium 125 mcg PO DAILY 04/24/20 11/01/21 History [Levothyroxine 125mcg (0.125mg) Tab] regorafenib 40 mg tablet 60 mg PO DAILY 12/07/20 11/01/21 History cholecalciferol (vitamin D3) 1,250 1,250 mcg PO WEEKLY cap 05/04/21 11/01/21 History mcg (50,000 unit) capsule Rosuvastatin Calcium 10 mg PO DAILY 11/01/21 11/01/21 History Prescriptions/Medication Reconciliation: Continued regorafenib 40 mg tablet 60 mg PO DAILY
--- NOTE | 2021-11-05 15:27 | CARE MANAGER ---
Attempted to contact patient related to follow up from hospital discharge, but phone number did not work. Reached patient's sister who states she is doing well. Denies any questions at this time
== END 2021-11-02 11:22 | disposition home or self-care (01) ==
LOC: ER 12:12 → 2ND 12:31
PROVIDERS: Admitting Provider Family Medicine; Emergency Provider Emergency Medicine; PCP Nurse Practitioner Family; Visit Provider Family Medicine
DX: N17.9 Acute kidney failure, unspecified (principal); E86.0 Dehydration; I35.1 Nonrheumatic aortic (valve) insufficiency; Z79.899 Other long term (current) drug therapy; E03.9 Hypothyroidism, unspecified; J44.9 Chronic obstructive pulmonary disease, unspecified; C20 Malignant neoplasm of rectum; C78.01 Secondary malignant neoplasm of right lung; I11.0 Hypertensive heart disease with heart failure; I50.9 Heart failure, unspecified; E78.5 Hyperlipidemia, unspecified; U07.1 COVID-19; Z88.8 Allergy status to other drugs, medicaments and biological substances; Z93.3 Colostomy status; I95.9 Hypotension, unspecified
CPT/HCPCS: G0378; 36591; 80048; 80053; 83735; 85025; 93005; 99285; C9803; J1642; U0003; U0005

== ENCOUNTER → 2021-11-23 08:39 | Outpatient (CLI) | payer MEDICARE, OTHER, SELFPAY ==
[2021-11-23 09:34] LABS: Anion Gap 9.1 mEq/L (5-15); Blood Urea Nitrogen 12 mg/dl (7-17); Calcium 7.7 mg/dl (8.4-10.2); Carbon Dioxide 30 mmol/L (22.0-30.0); Chloride 106 mmol/L (98-107); Estimated Glomerular Filt Rate 83 ml/min (>60); GFR (African American) 100 ML/MIN (>60); Glucose 103 mg/dl (74-100); Potassium 3.1 mmoL/L (3.5-5.1); Sodium 142 mmol/L (136-145)
== END ==
PROVIDERS: PCP Nurse Practitioner Family; Visit Provider Internal Medicine Cardiovascular Disease
DX: C18.9 Malignant neoplasm of colon, unspecified (principal); C78.00 Secondary malignant neoplasm of unspecified lung; E66.9 Obesity, unspecified; E78.5 Hyperlipidemia, unspecified; I10 Essential (primary) hypertension; I35.1 Nonrheumatic aortic (valve) insufficiency; R00.1 Bradycardia, unspecified; Z68.30 Body mass index [BMI] 30.0-30.9, adult
CPT/HCPCS: 36415; 80048

== ENCOUNTER → 2021-11-30 08:38 | Outpatient (CLI) | payer MEDICARE, OTHER, SELFPAY ==
[2021-11-30 09:40] LABS: Anion Gap 7.1 mEq/L (5-15); Blood Urea Nitrogen 16 mg/dl (7-17); Carbon Dioxide 29 mmol/L (22.0-30.0); Chloride 110 mmol/L (98-107); Estimated Glomerular Filt Rate 99 ml/min (>60); GFR (African American) 120 ML/MIN (>60); Glucose 108 mg/dl (74-100); Potassium 4.1 mmoL/L (3.5-5.1); Sodium 142 mmol/L (136-145)
== END ==
PROVIDERS: Nurse Practitioner Family; PCP Nurse Practitioner Family; Visit Provider Internal Medicine Cardiovascular Disease
DX: E66.9 Obesity, unspecified (principal); E78.5 Hyperlipidemia, unspecified; E87.5 Hyperkalemia; I10 Essential (primary) hypertension; I35.1 Nonrheumatic aortic (valve) insufficiency; Z68.30 Body mass index [BMI] 30.0-30.9, adult
CPT/HCPCS: 36415; 80048

== ENCOUNTER 2021-12-13 08:27 | Outpatient (CLI) | payer MEDICARE, OTHER, SELFPAY ==
[2021-12-13 08:33] VITALS: BMI 30.4
[2021-12-13 08:55] LABS: Basophils # 0.1 K/mm3 (0-0.2); Basophils % 1.2 % (0.1-2.0); Eosinophils # 0.2 K/mm3 (0.0-0.4); Hematocrit 38.3 % (37.0-47.0); Hemoglobin 11.7 g/dL (12.2-16.2); Lymphocytes % 14.9 % (10-50); Mean Corpuscular HGB Conc 30.7 g/dL (31.8-35.4); Mean Corpuscular Hemoglobin 26.6 pg (27.0-31.2); Mean Corpuscular Volume 86.9 fl (81-99); Mean Platelet Volume 8.7 fl (7.4-10.4); Monocytes # 0.4 K/mm3 (0.1-1.0); Monocytes % 5.9 % (1.7-9.3); Neutrophils # 5.1 K/mm3 (1.8-7.8); Platelet Count 153 K/mm3 (142-424); White Blood Count 6.8 K/mm3 (4.8-10.8)
[2021-12-13 09:07] LABS: Alanine Aminotransferase 25 U/L (12-78); Albumin Level 3.7 g/dl (3.5-5.0); Albumin/Globulin Ratio 1.3 (1.1-1.8); Alkaline Phosphatase 79 U/L (38-126); Aspartate Amino Transferase 40 U/L (14-36); Bilirubin,Total 0.6 mg/dl (0.2-1.3); Blood Urea Nitrogen 18 mg/dl (7-17); Calcium 8.5 mg/dl (8.4-10.2); Carbon Dioxide 28 mmol/L (22.0-30.0); Chloride 107 mmol/L (98-107); Creatinine Clearance Estimated 58 mL/min (50-200); Estimated Glomerular Filt Rate 99 ml/min (>60); GFR (African American) 120 ML/MIN (>60); Globulin 2.9 g/dL (1.3-3.2); Glucose 105 mg/dl (74-100); Potassium 3.7 mmoL/L (3.5-5.1); Total Protein,Serum 6.6 g/dl (6.3-8.2)
[2021-12-13 09:09] LABS: Anion Gap 8.7 mEq/L (5-15); Sodium 140 mmol/L (136-145)
== END 2021-12-13 08:45 | disposition home or self-care (01) ==
LOC: INF 08:29
PROVIDERS: PCP Nurse Practitioner Family; Visit Provider Internal Medicine Medical Oncology
DX: C18.9 Malignant neoplasm of colon, unspecified (principal); Z45.2 Encounter for adjustment and management of vascular access device
CPT/HCPCS: 36591; 80053; 85025; J1642

== ENCOUNTER 2022-01-07 08:26 | Outpatient (CLI) | payer MEDICARE, OTHER, SELFPAY ==
--- NOTE | 2022-01-07 08:41 | CT_ITS ---
FINAL REPORT CLINICAL HISTORY: COLON CANCER COMPARISON: September 03, 2021 FINDINGS: Before and after the administration of intravenous contrast, axial images through the chest were performed by computed tomography. This study was performed with techniques to keep radiation doses as low as reasonably achievable, (ALARA). Individualized dose reduction techniques using automated exposure control or adjustment of mA and/or kV according to the patient's size were employed. There is a left upper anterior chest wall port with the tip terminating in the SVC. There is no axillary adenopathy. There are multiple small right paratracheal and precarinal lymph nodes. Right hilar adenopathy has increased in size measuring 2.4 x 1.4 cm. The heart size is normal. There is no pericardial or pleural effusion. A large lobular mass in the right lower lobe has significantly increased in size now measuring 6.8 x 6.2 cm. Other small masses of also increased. A left lower lobe focus is increased to 2.2 cm. A right base nodule measure 0.9 cm. IMPRESSION: Worsening dominant right lower lobe mass probably related to metastatic disease with progressive right hilar adenopathy. Reviewed, Interpreted and Dictated by Lukas Johnson MD Transcribed by Ronni Lawler Authenticated and [facility]
--- NOTE | 2022-01-07 08:41 | CT_ITS ---
FINAL REPORT TECHNIQUE: Axial images were obtained from the lung bases through the pubic symphysis before and after the administration of intravenous contrast. Oral contrast was administered. This study was performed with techniques to keep radiation doses as low as reasonably achievable (ALARA). Individualized dose reduction techniques using automated exposure control or adjustment of mA and/or kV according to the patient's size were employed. CLINICAL HISTORY: COLON CANCER COMPARISON: September 03, 2021 FINDINGS: Precontrast images demonstrate the gallbladder to be absent. There is a dominant nonobstructing stone in the lower pole the right kidney measuring 1.5 cm that was seen on the prior exam. Abdomen: The lung bases are clear. The liver parenchyma is homogeneous. The spleen, pancreas and adrenal glands are unremarkable. There are bilateral parapelvic renal cysts. There is no mass or adenopathy identified. There is a left abdomen ostomy with a large parastomal hernia containing multiple loops of colon. There is no evidence of bowel obstruction. There are advanced changes of degenerative disc disease in the lower lumbar spine with bilateral L5 pars defects. Pelvis: The appendix is not identified. The urinary bladder is unremarkable. There is no mass, free fluid or adenopathy. IMPRESSION: Nonobstructing right renal stone. Large parastomal hernia containing multiple loops of colon. Advanced lower lumbar degenerative disc disease with pars defects. Reviewed, Interpreted and Dictated by Lukas Johnson MD Transcribed by Ronni Lawler Authenticated and [facility]
[2022-01-07 08:49] LABS: Basophils # 0.1 K/mm3 (0-0.2); Basophils % 0.9 % (0.1-2.0); Eosinophils # 0.2 K/mm3 (0.0-0.4); Eosinophils % 2.8 % (0.1-12.0); Hematocrit 36.5 % (37.0-47.0); Hemoglobin 11.6 g/dL (12.2-16.2); Lymphocytes # 0.9 K/mm3 (0.7-4.5); Lymphocytes % 11.7 % (10-50); Mean Corpuscular HGB Conc 31.8 g/dL (31.8-35.4); Mean Corpuscular Hemoglobin 26.6 pg (27.0-31.2); Mean Corpuscular Volume 83.7 fl (81-99); Monocytes # 0.4 K/mm3 (0.1-1.0); Monocytes % 4.9 % (1.7-9.3); Neutrophils # 6.1 K/mm3 (1.8-7.8); Neutrophils % 79.7 % (37.0-80.0); Platelet Count 142 K/mm3 (142-424); Red Blood Count 4.36 M/mm3 (4.20-5.40); Red Cell Distribution Width 18.4 % (11.5-17.5); White Blood Count 7.6 K/mm3 (4.8-10.8)
[2022-01-07 08:51] LABS: Chloride 104 mmol/L (98-107); Potassium 3.5 mmoL/L (3.5-5.1); Sodium 142 mmol/L (136-145)
[2022-01-07 08:54] LABS: Anion Gap 13.5 mEq/L (5-15); Blood Urea Nitrogen 26 mg/dl (7-17); Calcium 8.2 mg/dl (8.4-10.2); Carbon Dioxide 28 mmol/L (22.0-30.0); Creatinine Clearance Estimated 58 mL/min (50-200); Estimated Glomerular Filt Rate 99 ml/min (>60); GFR (African American) 120 ML/MIN (>60); Glucose 98 mg/dl (74-100)
== END 2022-01-07 10:05 | disposition home or self-care (01) ==
PROVIDERS: PCP Nurse Practitioner Family; Visit Provider Internal Medicine Medical Oncology
DX: C18.9 Malignant neoplasm of colon, unspecified (principal); Z03.89 Encounter for observation for other suspected diseases and conditions ruled out; Z45.2 Encounter for adjustment and management of vascular access device
CPT/HCPCS: 36591; 71270; 74178; 80048; 85025; J1642; Q9967

== ENCOUNTER 2022-09-22 14:07 | Emergency (ER) | payer OTHER, MEDICARE, SELFPAY ==
[2022-09-22] VITALS (9 sets, daily range): BP systolic 112–146; BP diastolic 46–79; PULSE 65–100; RESP 16–20; TEMP 36.8; O2SAT 91–98; BMI 27.3
--- NOTE | 2022-09-22 14:38 | CT_ITS ---
PROCEDURE INFORMATION: Exam: CTA Chest With Contrast Exam date and time: 09/22/2022 3:50 PM Age: 72 years old Clinical indication: Shortness of breath; Patient HX: PT has colon carcinoma that spread to lung has known bone mets as well --; Additional info: Cancer, short of breath, right arm weakness TECHNIQUE: Imaging protocol: Computed tomographic angiography of the chest with contrast. Exam focused on the arteries. 3D rendering (Not supervised by radiologist): MIP and/or 3D reconstructed images were created by the technologist. Radiation optimization: All CT scans at this facility use at least one of these dose optimization techniques: automated exposure control; mA and/or kV adjustment per patient size (includes targeted exams where dose is matched to clinical indication); or iterative reconstruction. Contrast material: ISOVUE; Contrast volume: 75 ml; Contrast route: INTRAVENOUS (IV); REPORTING DATA: Count of CT and Cardiac NM exams in prior 12 months: This patient has received 2 known CTs and 0 known cardiac nuclear medicine studies in the 12 months prior to the current study. COMPARISON: CT ANGIO CHEST 04/24/2020 11:32 AM FINDINGS: Tubes, catheters and devices: A left subclavian central line is present, distal tip just into the right atrium. Pulmonary arteries: No pulmonary emboli. Aorta: No aortic aneurysm. No aortic dissection. Thyroid: The visualized thyroid gland is normal. Lungs: Innumerable pulmonary nodules bilaterally are consistent with pulmonary metastases. There is a large coalescent nodular grouping of opacities in the right lung, predominantly in the right mid lung, but also involving upper lobe and middle lobe as well, with a heterogeneous appearance and scattered areas of decreased attenuation suggesting necrosis. Findings most likely reflect a combination postobstructive atelectasis and metastatic disease. Right midlung opacities extend to the right mediastinum and result in the occlusion of the right bronchus intermedius and a few lower lobe bronchi worrisome for metastatic infiltration. There is loss of opacification of a few peripheral branches of right middle lobe and lower lobe pulmonary arteries which may reflect vascular invasion. There is also loss of opacification of a few right pulmonary veins inferiorly also worrisome for vascular invasion. Right perihilar soft tissue material is also present and extends into the subcarinal region which may reflect contiguous extent of metastases into the mediastinum and or pathologic adenopathy. There is additional pathologic mediastinal adenopathy. A left paratracheal lymph node measures 15 mm in short axis. Subtle more hazy opacities in the posteroinferior right lower lobe are nonspecific but may reflect pneumonia, edema and cannot exclude tumor. Pleural spaces: There are areas of irregular pleural thickening involving the right hemithorax worrisome for pleural metastases. This is most prominent involving the posteromedial superior right hemithorax. There is a small right pleural effusion. No left pleural effusion. No pneumothorax. Heart: There is a small amount of pericardial fluid present. Cannot exclude pericardial invasion by tumor. Lymph nodes: There is a heterogeneous nodular density in the right thoracic inlet measuring 14 mm consistent with additional pathologic adenopathy. Gallbladder and bile ducts: There has been a cholecystectomy. There is a mild, expected degree of common bile duct dilation. Adrenal glands: There is minor nonspecific nodular fullness to both adrenal glands. Kidneys and ureters: A 10 mm staghorn calculus is incomplet
--- NOTE | 2022-09-22 14:39 | HMH.EDGENADL ---
Discharge Plan Disposition Patient Disposition: Hospice - Home Condition: Other Prescriptions Prescriptions: No Action cholecalciferol (vitamin D3) 1,250 mcg (50,000 unit) capsule 1,250 mcg PO WEEKLY spironolactone 25 mg tablet 25 mg PO DAILY carvedilol 6.25 mg tablet 6.25 mg PO BID Rx Instructions: must administer with a meal/food furosemide 40 mg tablet 40 mg PO DAILY lisinopril 20 mg tablet 20 mg PO DAILY potassium chloride 20 mEq tablet,ER particles/crystals 20 meq PO DAILY docusate sodium 100 MG capsule 100 mg PO BID rosuvastatin 10 MG tablet 10 mg PO DAILY levothyroxine 125 MCG tablet 125 mcg PO DAILY Referrals Follow up/Referrals: Dori Newman [Primary Care Provider] - See instructions Activity Restrictions/Add. Instructions Additional Instructions/Restrictions: You have been evaluated for right arm weakness, pain. This is likely due to extensive nodules in the lungs, tumors. Also metastases to the right sixth rib. You have a small pleural effusion on the right. Please follow-up with your primary care doctor in 1 to 2 days for symptom recheck. If your symptoms become too severe or you have difficulty breathing, please return to the emergency department at once. We offered admission to the hospital, you decided you would like to go home today. Clinical Impressions Clinical Impression: Lung cancer metastatic to bone, Lung nodules, Pleural effusion Instructions Patient Instructions: DI for Lung Cancer Discharge ED Provider: Cara SAWYER)Manuel General Adult HPI General Chief complaint: Extremity Injury, Upper Stated complaint: right arm pain and no use Time Seen by Provider: 09/22/22 14:38 Mode of Arrival: Wheelchair Source of Information: Patient Limitations: No Limitations Description of Symptoms (Recalled from ER Triage Doc. by RN): Presents to ED with complaints of RUE weakness,limited ROM, and pain x 3 days after attempted to raise her arm to take her bra off. Hx. of METS. History of Present Illness HPI narrative: 72-year-old female presenting to the emergency department with right arm pain, weakness. Symptoms started 3 days ago. She was getting dressed, had her arm above her shoulder when she felt a pop and had pain near her right scapula. Pain was described as sharp and intense. Since then she has felt her arm get more and more weak. She has pain raising her arm. Also pain using her right hand. She denies any tingling or numbness. Feels like the arm is weak and it hurts to move. She continues to have pain in the back, near the shoulder. No chest pain. She does feel occasionally short of breath. Family says she has a history of lung cancer, not currently undergoing treatment. She denies cough, fevers, chills, nausea, vomiting. No numbness, weakness, tingling in her legs of the left side of the body. No speech difficulty or vision changes. Related Data Home Medications Medication Instructions Recorded Confirmed docusate sodium 100 mg capsule 100 mg PO BID stool softener 08/15/17 07/05/22 levothyroxine 125 mcg tablet 125 mcg PO DAILY THYROID 04/24/20 07/05/22 cholecalciferol (vitamin D3) 1,250 1,250 mcg PO WEEKLY Supplement 05/04/21 07/05/22 mcg (50,000 unit) capsule rosuvastatin 10 mg tablet 10 mg PO DAILY Cholesterol 11/01/21 07/05/22 carvedilol 6.25 mg tablet 6.25 mg PO BID 11/16/21 07/05/22 furosemide 40 mg tablet 40 mg PO DAILY 11/16/21 07/05/22 spironolactone 25 mg tablet 25 mg PO DAILY 11/16/21 07/05/22 lisinopril 20 mg tablet 20 mg PO DAILY 07/05/22 07/05/22 potassium chloride 20 mEq 20 meq PO DAILY 07/05/22 07/05/22 tablet,extended release(part/cryst) Allergies Allergy/AdvReac Type Severity Reaction Status Date / Time Penicillins [PENICILLINS] Allergy Unknown unknown Verified 07/05/22 13:12 sulfamethoxazole Allergy Unknown unknown Verified 07/05/22 13:12 [From BACTRIM] trimethoprim [From BACTRIM]
[2022-09-22 15:24] LABS: Basophils # 0.1 K/mm3 (0-0.2); Basophils % 0.7 % (0.1-2.0); Eosinophils # 0.4 K/mm3 (0.0-0.4); Eosinophils % 4.9 % (0.1-12.0); Lymphocytes % 13.4 % (10-50); Mean Corpuscular HGB Conc 30.8 g/dL (31.8-35.4); Mean Corpuscular Hemoglobin 26.3 pg (27.0-31.2); Mean Corpuscular Volume 85.2 fl (81-99); Monocytes # 0.6 K/mm3 (0.1-1.0); Monocytes % 8.8 % (1.7-9.3); Neutrophils # 5.2 K/mm3 (1.8-7.8); Neutrophils % 72.2 % (37.0-80.0); Platelet Count 198 K/mm3 (142-424); Red Blood Count 4.58 M/mm3 (4.20-5.40); Red Cell Distribution Width 15.3 % (11.5-17.5); White Blood Count 7.2 K/mm3 (4.8-10.8)
[2022-09-22 15:27] LABS: Chloride 93 mmol/L (98-107); Sodium 134 mmol/L (136-145)
[2022-09-22 15:30] LABS: Blood Urea Nitrogen 15 mg/dl (7-17); Creatinine Clearance Estimated 52 mL/min (50-200); Estimated Glomerular Filt Rate 99 ml/min (>60); GFR (African American) 119 ML/MIN (>60)
[2022-09-22 15:31] LABS: Calcium 9.2 mg/dl (8.4-10.2); Carbon Dioxide 35 mmol/L (22.0-30.0); Glucose 100 mg/dl (74-100)
--- NOTE | 2022-09-22 15:54 | XR_ITS ---
PROCEDURE INFORMATION: Exam: XR Right Humerus Exam date and time: 09/22/2022 3:53 PM Age: 72 years old Clinical indication: Pain; Shoulder; Right; Additional info: Pain-- PT has bone mets and colon and lung cancer-- complains of right shoulder humerus pain- concern for bone mets TECHNIQUE: Imaging protocol: Radiologic exam of the right humerus. Views: 2 or more views. COMPARISON: CT ANGIO CHEST PE PROTOCOL 09/22/2022 3:50 PM FINDINGS: Bones/joints: There is no evidence of acute fracture or dislocation. Mild degenerative changes involve the acromioclavicular joint. Mild degenerative changes also involve the elbow joint. There is absent visualization of one of the right lateral mid ribs which is worrisome for metastatic osteolytic process and is more optimally described on the chest CT from the same date and time which demonstrates a lytic process involving the posterolateral right 6th rib. Please reference that report for additional information. There is adjacent soft tissue material in this region consistent with additional right pleuroparenchymal metastases. Soft tissues: No significant soft tissue edema. No subcutaneous emphysema or radiopaque foreign bodies. IMPRESSION: Absent visualization of a right mid rib consistent with erosive metastatic disease and lytic process involving the posterolateral right 6th rib identified on chest CT from the same date and time. No definite lytic lesions are seen involving the humerus.
--- NOTE | 2022-09-22 16:35 | PC.NURSE ---
patient assisted to bathroom
--- NOTE | 2022-09-22 16:45 | PC.NURSE ---
Patient's O2 sat's were consistently 88% applied 2L NC to patient with a sat of 95%. MD notified. Glass of water given to patient's sister. Call cabrales within reach of patient.
--- NOTE | 2022-09-22 16:59 | PC.NURSE ---
Dr Quevedo speaking with [facility]
--- NOTE | 2022-09-22 17:54 | PC.NURSE ---
Pt on room air at this time, currently 97%
== END 2022-09-22 18:15 | disposition hospice, home (50) ==
PROVIDERS: Emergency Medicine; Emergency Provider Emergency Medicine; PCP Nurse Practitioner Family
DX: M79.601 Pain in right arm (principal); R53.1 Weakness; C34.90 Malignant neoplasm of unspecified part of unspecified bronchus or lung; C79.51 Secondary malignant neoplasm of bone; J90 Pleural effusion, not elsewhere classified; I11.0 Hypertensive heart disease with heart failure; I50.9 Heart failure, unspecified; E78.5 Hyperlipidemia, unspecified; F17.200 Nicotine dependence, unspecified, uncomplicated
CPT/HCPCS: 71275; 73060; 80048; 85025; 99285; J1642; Q9967

== ENCOUNTER 2022-10-08 04:59 | Emergency (ER) | payer OTHER, MEDICARE, SELFPAY ==
[2022-10-08] VITALS (7 sets, daily range): BP systolic 100–138; BP diastolic 65–86; PULSE 87–122; RESP 17–24; TEMP 36.6; O2SAT 91–95; BMI 23.4
--- NOTE | 2022-10-08 05:03 | ECG_ITS ---
APPROVED REPORT Exam: Resting ECG HR:123 bpm ECG Measurements Heart Rate 123 AXES NV 152 P 131 QRSd 116 QRS -69 QT 325 T 155 QTc 398 Conclusion ECTOPIC ATRIAL TACHYCARDIA PATTERN CONSISTENT WITH PULMONARY DISEASE RIGHT BUNDLE BRANCH BLOCK [120+ ms QRS DURATION, UPRIGHT V1, 40+ ms S IN I/aVL/V4/V5/V6] INFERIOR MYOCARDIAL INFARCTION , PROBABLY OLD [40+ ms Q WAVE AND/OR ST/T ABNORMALITY IN II/aVF] ABNORMAL ECG UNCONFIRMED REPORT Electronically signed by : Car Abarca MD 10/08/2022 20:14:09
--- NOTE | 2022-10-08 05:06 | XR_ITS ---
PROCEDURE INFORMATION: Exam: XR Chest Exam date and time: 10/08/2022 5:10 AM Age: 72 years old Clinical indication: Shortness of breath; Patient HX: HX lung cancer; Additional info: SOA. Known colon cancer with lung metastasis. TECHNIQUE: Imaging protocol: Radiologic exam of the chest. Views: 1 view. COMPARISON: CT ANGIO CHEST PE PROTOCOL 09/22/2022 3:50 PM FINDINGS: Tubes, catheters and devices: There is a left-sided chest port unchanged with its tip terminating at the cavoatrial junction. Lungs: There is dense confluent consolidation bulging majority of the right lung progressed from previous exam. There are numerous pulmonary nodules/masses of varying sizes consistent with history of pulmonary metastasis. Pleural spaces: There is no left pleural effusion. Assessment for right pleural effusion is limited. Heart/Mediastinum: Cardiac silhouette is obscured and difficult to adequately assess. Bones/joints: Unremarkable for age. IMPRESSION: 1. Extensive dense consolidation right lung progressed from previous exam. 2. Findings consistent with multiple pulmonary metastasis both lung meyers.
[2022-10-08 05:14] LABS: Basophils % 0.3 % (0.1-2.0); Eosinophils # 0.4 K/mm3 (0.0-0.4); Eosinophils % 4.1 % (0.1-12.0); Hematocrit 42.4 % (37.0-47.0); Hemoglobin 13.1 g/dL (12.2-16.2); Lymphocytes # 0.7 K/mm3 (0.7-4.5); Lymphocytes % 7.7 % (10-50); Mean Corpuscular HGB Conc 30.9 g/dL (31.8-35.4); Mean Corpuscular Hemoglobin 26.3 pg (27.0-31.2); Mean Platelet Volume 7.9 fl (7.4-10.4); Monocytes # 0.4 K/mm3 (0.1-1.0); Neutrophils # 7.4 K/mm3 (1.8-7.8); Neutrophils % 82.9 % (37.0-80.0); Platelet Count 203 K/mm3 (142-424); Red Blood Count 4.99 M/mm3 (4.20-5.40); White Blood Count 8.9 K/mm3 (4.8-10.8)
[2022-10-08 05:19] LABS: ABG Base Excess 3.9 mmol/L (-2.4-2.3); ABG HCO3 29.2 mmhg (22.0-26.0); ABG Oxygen Saturation 93 % (90-100); ABG PH 7.37 mmol/L (7.35-7.45); ABG PO2 68.1 mmhg (80-100); ABG TCO2 30.8 mmhg (23-27); Allen's Test Acceptable; Oxygen 6L %; Source Left Radial
[2022-10-08 05:20] LABS: ABG PCO2 51.8 mmhg (35.0-45.0)
[2022-10-08 05:20] LABS: Alanine Aminotransferase 34 U/L (12-78); Albumin Level 3.3 g/dl (3.5-5.0); Albumin/Globulin Ratio 1.1 (1.1-1.8); Alkaline Phosphatase 116 U/L (38-126); Anion Gap 11.7 mEq/L (5-15); Aspartate Amino Transferase 72 U/L (14-36); Bilirubin,Total 0.8 mg/dl (0.2-1.3); Blood Urea Nitrogen 15 mg/dl (7-17); Calcium 9.4 mg/dl (8.4-10.2); Carbon Dioxide 36 mmol/L (22.0-30.0); Chloride 91 mmol/L (98-107); Creatinine Clearance Estimated 44 mL/min (50-200); Estimated Glomerular Filt Rate 99 ml/min (>60); GFR (African American) 119 ML/MIN (>60); Glucose 218 mg/dl (74-100); Potassium 3.7 mmoL/L (3.5-5.1); Sodium 135 mmol/L (136-145); Total Protein,Serum 6.3 g/dl (6.3-8.2)
--- NOTE | 2022-10-08 05:20 | PC.NURSE ---
abg results given to . made aware patient is currently on o2 @ 6lpm via NC
--- NOTE | 2022-10-08 05:21 | PC.NURSE ---
notified hospice that pt was here. spoke with Kamila cardoso consumer relations complaint clerk nurse
[2022-10-08 05:22] LABS: Lactic Acid 2.3 mmol/L (0.7-2.1)
--- NOTE | 2022-10-08 05:23 | PC.NURSE ---
patient to rad for ct via stretcher and radio performer
--- NOTE | 2022-10-08 05:23 | CT_ITS ---
PROCEDURE INFORMATION: Exam: CTA Chest With Contrast Exam date and time: 10/08/2022 5:39 AM Age: 72 years old Clinical indication: Shortness of breath; Prior surgery; Surgery date: 6+ months; Surgery type: Port; Patient HX: HX lung cancer; Additional info: SOA.: Cancer with known lung metastasis. TECHNIQUE: Imaging protocol: Computed tomographic angiography of the chest with contrast. Exam focused on the arteries. 3D rendering (Not supervised by radiologist): MIP and/or 3D reconstructed images were created by the technologist. Radiation optimization: All CT scans at this facility use at least one of these dose optimization techniques: automated exposure control; mA and/or kV adjustment per patient size (includes targeted exams where dose is matched to clinical indication); or iterative reconstruction. Contrast material: ISOVUE; Contrast volume: 70 ml; Contrast route: INTRAVENOUS (IV); REPORTING DATA: Count of CT and Cardiac NM exams in prior 12 months: This patient has received 3 known CTs and 0 known cardiac nuclear medicine studies in the 12 months prior to the current study. COMPARISON: CT ANGIO CHEST PE PROTOCOL 09/22/2022 3:50 PM FINDINGS: Pulmonary arteries: Pulmonary vasculature is adequately opacified without filling defects or other evidence of acute pulmonary embolism. There is some narrowing involving the distal portion of the right pulmonary artery unchanged in presumed secondary to surrounding mass/consolidation. Aorta: Unremarkable. No aortic aneurysm. No aortic dissection. Lungs: There is extensive confluent heterogeneous low attenuating consolidation involving a large portion of the right mid-lower lung zone that has progressed from previous exam that may represent combination of progressive lung cancer and atelectasis. There is similar appearing consolidation posteriorly at the left lung base that is progressed from earlier study, nonspecific. There are innumerable pulmonary nodules of varying sizes measuring up to 4 cm slightly increased in size from earlier exam. There is also some scattered ground-glass opacities both lung meyers that have progressed from earlier examination, nonspecific and may be due to multifocal pneumonia, inflammatory process such is BOOP, or pulmonary induced drug toxicity. Pleural spaces: There is a small partially loculated right pleural effusion, stable. Heart: Heart is not significantly enlarged. No significant coronary artery calcifications or pericardial effusion. Lymph nodes: There is moderate ill-defined confluent mediastinal lymphadenopathy relatively stable. Bones/joints: There is a destructive osteolytic bone lesion involving long segment of the right 6th rib likely metastatic in nature unchanged. Soft tissues: Unremarkable. IMPRESSION: 1. Negative CT angiogram of the chest. No evidence of acute pulmonary embolism. 2. Worsening confluent consolidation involving large segment of the right lung and posteriorly at the left lung base that may represent combination of progressive malignancy and atelectasis. 3. Superimposed ground-glass opacities both lung meyers also upper worsened from prior study, nonspecific as discussed above. 4. Innumerable pulmonary nodules/masses consistent with pulmonary metastasis slightly worsened from previous exam. 5. Moderate mediastinal lymphadenopathy presumed metastatic, stable. 6. Stable destructive bone lesion right 6th rib also likely metastatic, stable.
[2022-10-08 05:26] LABS: C-Reactive Protein 56.1 mg/L (0-4)
[2022-10-08 05:34] LABS: Troponin I 0.05 ng/ml (0.00-0.034)
[2022-10-08 05:39] LABS: Procalcitonin 0.401 ng/mL (0.0-2.0)
[2022-10-08 05:45] LABS: Erythrocyte Sedimentation Rate 22 mm/hr (0-30)
--- NOTE | 2022-10-08 05:51 | PC.NURSE ---
pt returned to room at this time.
--- NOTE | 2022-10-08 06:36 | HMH.EDSOB ---
Discharge Plan Disposition Patient Disposition: Hospice - Home Condition: Fair Prescriptions Prescriptions: No Action cholecalciferol (vitamin D3) 1,250 mcg (50,000 unit) capsule 1,250 mcg PO WEEKLY spironolactone 25 mg tablet 25 mg PO DAILY carvedilol 6.25 mg tablet 6.25 mg PO BID Rx Instructions: must administer with a meal/food furosemide 40 mg tablet 40 mg PO DAILY lisinopril 20 mg tablet 20 mg PO DAILY potassium chloride 20 mEq tablet,ER particles/crystals 20 meq PO DAILY docusate sodium 100 MG capsule 100 mg PO BID rosuvastatin 10 MG tablet 10 mg PO DAILY levothyroxine 125 MCG tablet 125 mcg PO DAILY Referrals Follow up/Referrals: Dori Newman [Primary Care Provider] - See instructions Clinical Impressions Clinical Impression: Colon carcinoma metastatic to lung Instructions Patient Instructions: DI for Shortness of Breath Discharge ED Provider: Cara (ED)Manuel Resp/SOB HPI <Manuel Marroquin (ED), - Last Filed: 10/08/22 07:57> General Chief Complaint: Shortness of Breath/Dyspnea Stated Complaint: shortness of air Time Seen by Provider: 10/08/22 05:10 Mode of Arrival: EMS Source of Information: Patient, EMS and Medical Record Limitations: No Limitations Description of Symptoms (Recalled from ER Triage Doc. by RN): EMS called out for increasing SOA. pt has lung and colon cancer. pt wears 4L home O2. EMS reports O2 sat in 70s when they arrived History of Present Illness pt with known metastatic colon cancer - pt with dec o2 sat at home and sob - no hemoptysis and no def new pain - pt is hospice pt - MD Complaint: shortness of breath and cough Onset (ago): hour(s) Context: other (colon cancer ) Severity: moderate Consistency/Duration: intermittent Known history of: COPD and other (cancer pt ) Associated symptoms: cough Treatment prior to arrival: bronchodilator Related Data Home oxygen amount: 4 liters Home Medications Medication Instructions Recorded Confirmed docusate sodium 100 mg capsule 100 mg PO BID stool softener 08/15/17 07/05/22 levothyroxine 125 mcg tablet 125 mcg PO DAILY THYROID 04/24/20 07/05/22 cholecalciferol (vitamin D3) 1,250 1,250 mcg PO WEEKLY Supplement 05/04/21 07/05/22 mcg (50,000 unit) capsule rosuvastatin 10 mg tablet 10 mg PO DAILY Cholesterol 11/01/21 07/05/22 carvedilol 6.25 mg tablet 6.25 mg PO BID 11/16/21 07/05/22 furosemide 40 mg tablet 40 mg PO DAILY 11/16/21 07/05/22 spironolactone 25 mg tablet 25 mg PO DAILY 11/16/21 07/05/22 lisinopril 20 mg tablet 20 mg PO DAILY 07/05/22 07/05/22 potassium chloride 20 mEq 20 meq PO DAILY 07/05/22 07/05/22 tablet,extended release(part/cryst) Allergies Allergy/AdvReac Type Severity Reaction Status Date / Time Penicillins [PENICILLINS] Allergy Unknown unknown Verified 07/05/22 13:12 sulfamethoxazole Allergy Unknown unknown Verified 07/05/22 13:12 [From BACTRIM] trimethoprim [From BACTRIM] Allergy Unknown unknown Verified 07/05/22 13:12 Well's Criteria PE Score Clinical signs/symptoms of DVT: No PE is #1 diagnosis or equally likely: Yes Heart rate is > 100: Yes Immobile at least 3 days, or surgery in past 4 wks: No Previously, obj. diagnosed PE or DVT: No Hemoptysis: No Malignancy w/Rx within 6mo, or palliative: Yes PE Score: 5 Risk of Pulmonary Embolism by score: >3 pts=Hi Risk (78%) <Zafar Klein MD - Last Filed: 10/08/22 08:35> Well's Criteria PE Score PE Score: 5 [facility] <Manuel LewisED)MD - Last Filed: 10/08/22 07:57> PFS Disclaimer: The information contained in this section may have been updated after the patient was seen, as this information can be updated by other users. Medical History Chest pain Colon carcinoma metastatic to lung Dyspnea Fatigue History of congestive heart failure History of lung disease HLD (hyperlipidemia) HTN (hypertension) Myocardial infa
--- NOTE | 2022-10-08 06:48 | PC.NURSE ---
contacted xray to check status of scan reports. Hortensia stated turn around time was 190 mins
--- NOTE | 2022-10-08 07:42 | PC.NURSE ---
per radiology pt scan are in read status
--- NOTE | 2022-10-08 07:53 | PC.NURSE ---
rounded on pt, no needs at this time, updated that we are waiting on reading for the scans
[2022-10-08 09:10] LABS: Reflex Lactic Add Lactic Reflex
--- NOTE | 2022-10-08 09:23 | PC.NURSE ---
spoke with care management about ambulance pre auth form, this nurse was informed that no pre auth for ambulance transport was needed.
--- NOTE | 2022-10-08 09:25 | PC.NURSE ---
[facility] called for pt transport back to home
--- NOTE | 2022-10-08 10:41 | SW/DCPLANNER ---
Patient is currently established w/ [facility]: updated patient information has been faxed to [place] w/ Hospice.
== END 2022-10-08 09:56 | disposition hospice, home (50) ==
PROVIDERS: Emergency Provider Emergency Medicine; PCP Nurse Practitioner Family
DX: R06.02 Shortness of breath (principal); C78.00 Secondary malignant neoplasm of unspecified lung; C18.9 Malignant neoplasm of colon, unspecified; R00.0 Tachycardia, unspecified; I45.19 Other right bundle-branch block; I10 Essential (primary) hypertension; E78.5 Hyperlipidemia, unspecified; Z51.5 Encounter for palliative care
CPT/HCPCS: 71045; 71275; 80053; 82803; 83605; 84145; 84484; 85025; 85651; 86140; 87040; 87077; 87186; 93005; 96374; 96375; 99285; J2405; Q9967